=== PATIENT | female | born 1935 | race Caucasian/White ===

== ENCOUNTER 2016-03-07 10:40 | Outpatient (CLI) | payer MEDICARE, BC | END 2016-03-07 10:41 | disposition home or self-care (01) | DX: N30.00 Acute cystitis without hematuria (principal) ==

== ENCOUNTER 2016-03-27 10:14 | Emergency (ER) | payer MEDICARE, BC ==
[2016-03-27] MEDS ORDERED: CEPHALEXIN 250 MG CAPSULE PO STA (13:07)
[2016-03-27] MEDS ORDERED: CEPHALEXIN 250 MG CAPSULE PO ONE (13:08)
== END 2016-03-27 13:21 | disposition home or self-care (01) ==
DX: N39.0 Urinary tract infection, site not specified (principal); R42 Dizziness and giddiness; I44.7 Left bundle-branch block, unspecified; I44.0 Atrioventricular block, first degree; I48.91 Unspecified atrial fibrillation; Z79.01 Long term (current) use of anticoagulants; I10 Essential (primary) hypertension; Z86.73 Personal history of transient ischemic attack (TIA), and cerebral infarction without residual deficits
CPT/HCPCS: 36415; 80048; 81001; 84484; 85025; 87077; 87086; 87181; 93005; 93010; 99283; 99284; A9270

== ENCOUNTER 2016-04-04 11:15 | Observation (INO) | payer MEDICARE, BC ==
[2016-04-04] MEDS ORDERED: ONDANSETRON 4 MG/2 ML VIAL IVP PRN (14:32)
[2016-04-04] MEDS ORDERED: SODIUM CHLORIDE FLUSH 0.9% 10 ML SYRINGE IVP PRN (14:32)
[2016-04-04] MEDS: NS W/20 MEQ KCL 1,000 ML IV SCH (16:52)
[2016-04-04] MEDS: cefTRIAXone 1 GM in SODIUM CHLORIDE 0.9% MINIBAG 100 ML IV SCH (16:52)
[2016-04-04] MEDS: SACCHAROMYCES BOULARDII 250 MG CAPSULE PO SCH (16:52)
[2016-04-04] MEDS ORDERED: RIVAROXABAN 15 MG TABLET PO SCH (17:00)
[2016-04-04] MEDS ORDERED: ACETAMINOPHEN 325 MG TABLET PO PRN (20:31)
[2016-04-04] MEDS: SODIUM CHLORIDE FLUSH 0.9% 10 ML SYRINGE IVP SCH (20:58)
[2016-04-04] MEDS: OXYBUTYNIN 5MG TABLET PO SCH (20:58)
[2016-04-05] MEDS: NS W/20 MEQ KCL 1,000 ML IV SCH (05:56)
[2016-04-05] MEDS: CETIRIZINE 10 MG TABLET PO SCH ×3 (07:29→09:24)
[2016-04-05] MEDS ORDERED: POLYETHYLENE GLYCOL 3350 17 GM PACKET PO SCH (09:00)
[2016-04-05] MEDS ORDERED: diltiaZEM CD 120 MG CAPSULE PO SCH (09:00)
[2016-04-05] MEDS ORDERED: MULTIVITAMIN TABLET PO SCH (09:00)
[2016-04-05] MEDS ORDERED: CALCIUM CARBONATE CHEW 500 MG TABLET PO SCH (09:00)
[2016-04-05] MEDS ORDERED: CHOLECALCIFEROL 1,000 UNIT TABLET PO SCH (09:00)
[2016-04-05] MEDS: SODIUM CHLORIDE FLUSH 0.9% 10 ML SYRINGE IVP SCH (09:01)
[2016-04-05] MEDS: SACCHAROMYCES BOULARDII 250 MG CAPSULE PO SCH (09:10)
[2016-04-05] MEDS: cefTRIAXone 1 GM in SODIUM CHLORIDE 0.9% MINIBAG 100 ML IV SCH (09:10)
[2016-04-05] MEDS: OXYBUTYNIN 5MG TABLET PO SCH ×2 (09:11→09:24)
== END 2016-04-05 15:20 | disposition home or self-care (01) ==
DX: R55 Syncope and collapse (principal); I48.2 Chronic atrial fibrillation; R31.9 Hematuria, unspecified; I10 Essential (primary) hypertension; S00.83XA Contusion of other part of head, initial encounter; W18.39XA Other fall on same level, initial encounter; Z91.81 History of falling; Y93.01 Activity, walking, marching and hiking; Y92.003 Bedroom of unspecified non-institutional (private) residence as the place of occurrence of the external cause; Y99.8 Other external cause status; R82.90 Unspecified abnormal findings in urine; I44.0 Atrioventricular block, first degree; I11.9 Hypertensive heart disease without heart failure; Z86.73 Personal history of transient ischemic attack (TIA), and cerebral infarction without residual deficits; Z87.440 Personal history of urinary (tract) infections; Z87.442 Personal history of urinary calculi; M79.7 Fibromyalgia; Z79.2 Long term (current) use of antibiotics; Z79.02 Long term (current) use of antithrombotics/antiplatelets; Z79.899 Other long term (current) drug therapy
CPT/HCPCS: 36415; 70450; 72125; 80048; 81001; 84484; 85025; 87086; 93005; 93010; 93306; 96365; 96366; 99284; A9270; G0378

== ENCOUNTER 2016-05-18 21:38 | Outpatient (CLI) | payer MEDICARE, BC | END 2016-05-18 21:39 | disposition critical access hospital (66) | DX: R50.9 Fever, unspecified (principal) | CPT/HCPCS: A0425; A0429 ==

== ENCOUNTER 2016-05-18 21:43 | Inpatient (IN) | payer MEDICARE, BC ==
[2016-05-18] MEDS ORDERED: SODIUM CHLORIDE 0.9% 1,000 ML IV ONE (22:01)
[2016-05-18] MEDS ORDERED: ceFAZolin 2 GM/50 ML 50 ML IV SCH (23:45)
[2016-05-19] MEDS ORDERED: MIRTAZAPINE 15 MG TABLET PO SCH (01:00)
[2016-05-19] MEDS: SODIUM CHLORIDE FLUSH 0.9% 10 ML SYRINGE IVP PRN (02:29)
[2016-05-19] MEDS: SODIUM CHLORIDE 0.9% 1,000 ML IV SCH ×3 (02:30→14:36)
[2016-05-19] MEDS: SODIUM CHLORIDE FLUSH 0.9% 10 ML SYRINGE IVP SCH ×3 (05:26→19:52)
[2016-05-19] MEDS ORDERED: ceFAZolin 1 GM in SODIUM CHLORIDE 0.9% MINIBAG 100 ML IV SCH (06:00)
[2016-05-19] MEDS ORDERED: VANCOMYCIN PER PHARMACY 1 GM in SODIUM CHLORIDE 0.9% 250 ML IV SCH (08:00)
[2016-05-19] MEDS: POLYETHYLENE GLYCOL 3350 17 GM PACKET PO SCH (08:11)
[2016-05-19] MEDS: diltiaZEM CD 120 MG CAPSULE PO SCH (08:13)
[2016-05-19] MEDS: SACCHAROMYCES BOULARDII 250 MG CAPSULE PO SCH (08:13)
[2016-05-19] MEDS: LISINOPRIL 5 MG TABLET PO SCH (08:15)
[2016-05-19] MEDS: VANCOMYCIN INJ 1 GM in SODIUM CHLORIDE 0.9% 250 ML IV SCH ×2 (08:37→20:06)
[2016-05-19] MEDS: ACETAMINOPHEN 325 MG TABLET PO PRN ×3 (10:08→23:50)
[2016-05-19] MEDS: PIPERACILLIN/TAZOBACTAM 3.375 GM in SODIUM CHLORIDE 0.9% MINIBAG 100 ML IV SCH ×3 (11:12→23:50)
[2016-05-19] MEDS ORDERED: IOPAMIDOL-300 50 ML VIAL PO ONE (13:54)
[2016-05-19] MEDS ORDERED: IOPAMIDOL-300 100 ML VIAL IVP ONE (13:54)
[2016-05-20] MEDS: PIPERACILLIN/TAZOBACTAM 3.375 GM in SODIUM CHLORIDE 0.9% MINIBAG 100 ML IV SCH ×3 (05:31→18:05)
[2016-05-20] MEDS: SODIUM CHLORIDE FLUSH 0.9% 10 ML SYRINGE IVP SCH ×3 (06:38→18:05)
[2016-05-20] MEDS ORDERED: SODIUM CHLORIDE 0.9% 250 ML IV ONE (08:13)
[2016-05-20] MEDS: ACETAMINOPHEN 325 MG TABLET PO PRN ×2 (08:20→21:26)
[2016-05-20] MEDS: diltiaZEM CD 120 MG CAPSULE PO SCH (08:20)
[2016-05-20] MEDS: SACCHAROMYCES BOULARDII 250 MG CAPSULE PO SCH (08:20)
[2016-05-20] MEDS: POLYETHYLENE GLYCOL 3350 17 GM PACKET PO SCH (08:21)
[2016-05-20] MEDS: SODIUM CHLORIDE FLUSH 0.9% 10 ML SYRINGE IVP PRN ×4 (08:23→12:28)
[2016-05-20] MEDS: VANCOMYCIN INJ 1 GM in SODIUM CHLORIDE 0.9% 250 ML IV SCH (08:28)
[2016-05-20] MEDS: LISINOPRIL 5 MG TABLET PO SCH (08:28)
[2016-05-20] MEDS ORDERED: PNEUMOCOCCAL 13-VALENT CONJ 0.5 ML SYRINGE IM ONE (13:00)
[2016-05-21] MEDS: ZOLPIDEM 5 MG TABLET PO PRN (00:43)
[2016-05-21] MEDS: PIPERACILLIN/TAZOBACTAM 3.375 GM in SODIUM CHLORIDE 0.9% MINIBAG 100 ML IV SCH ×5 (00:47→23:57)
[2016-05-21] MEDS: ACETAMINOPHEN 325 MG TABLET PO PRN ×3 (05:03→19:22)
[2016-05-21] MEDS: SODIUM CHLORIDE FLUSH 0.9% 10 ML SYRINGE IVP SCH ×3 (06:04→21:31)
[2016-05-21] MEDS: SACCHAROMYCES BOULARDII 250 MG CAPSULE PO SCH (08:46)
[2016-05-21] MEDS: LISINOPRIL 5 MG TABLET PO SCH (08:46)
[2016-05-21] MEDS: diltiaZEM CD 120 MG CAPSULE PO SCH (08:46)
[2016-05-21] MEDS: POLYETHYLENE GLYCOL 3350 17 GM PACKET PO SCH (08:47)
[2016-05-21] MEDS: SODIUM CHLORIDE FLUSH 0.9% 10 ML SYRINGE IVP PRN ×2 (12:18→23:58)
[2016-05-21] MEDS ORDERED: MIRTAZAPINE 15 MG TABLET PO SCH (21:00)
[2016-05-22] MEDS: ZOLPIDEM 5 MG TABLET PO PRN (00:08)
[2016-05-22] MEDS: ACETAMINOPHEN 325 MG TABLET PO PRN ×2 (00:30→07:33)
[2016-05-22] MEDS: SODIUM CHLORIDE FLUSH 0.9% 10 ML SYRINGE IVP SCH (06:00)
[2016-05-22] MEDS: PIPERACILLIN/TAZOBACTAM 3.375 GM in SODIUM CHLORIDE 0.9% MINIBAG 100 ML IV SCH ×2 (06:01→11:33)
[2016-05-22] MEDS: diltiaZEM CD 120 MG CAPSULE PO SCH (08:38)
[2016-05-22] MEDS: POLYETHYLENE GLYCOL 3350 17 GM PACKET PO SCH (08:39)
[2016-05-22] MEDS: SACCHAROMYCES BOULARDII 250 MG CAPSULE PO SCH (08:39)
[2016-05-22] MEDS: SODIUM CHLORIDE FLUSH 0.9% 10 ML SYRINGE IVP PRN (11:33)
== END 2016-05-22 12:35 | disposition home or self-care (01) | DRG 690 ==
DX: N39.0 Urinary tract infection, site not specified (principal); L03.312 Cellulitis of back [any part except buttock and flank]; B96.4 Proteus (mirabilis) (morganii) as the cause of diseases classified elsewhere; I48.91 Unspecified atrial fibrillation; I49.9 Cardiac arrhythmia, unspecified; R32 Unspecified urinary incontinence; Z87.442 Personal history of urinary calculi; I10 Essential (primary) hypertension; I48.2 Chronic atrial fibrillation; N20.0 Calculus of kidney; M54.9 Dorsalgia, unspecified; R15.9 Full incontinence of feces; Z66 Do not resuscitate; Z96.89 Presence of other specified functional implants; Z98.890 Other specified postprocedural states; Z86.73 Personal history of transient ischemic attack (TIA), and cerebral infarction without residual deficits; Z79.2 Long term (current) use of antibiotics

== ENCOUNTER 2016-05-29 16:03 | Emergency (ER) | payer MEDICARE, BC ==
[2016-05-29] MEDS ORDERED: CEPHALEXIN 250 MG CAPSULE PO STA (16:54)
[2016-05-29] MEDS ORDERED: DOXYCYCLINE 100 MG TABLET PO STA (16:54)
[2016-05-29] MEDS ORDERED: CEPHALEXIN 250 MG CAPSULE PO ONE (16:57)
[2016-05-29] MEDS ORDERED: DOXYCYCLINE 100 MG TABLET PO ONE (16:58)
== END 2016-05-29 17:18 | disposition home or self-care (01) ==
DX: T81.4XXA Infection following a procedure, initial encounter (principal); L02.212 Cutaneous abscess of back [any part, except buttock and flank]; Y83.8 Other surgical procedures as the cause of abnormal reaction of the patient, or of later complication, without mention of misadventure at the time of the procedure
CPT/HCPCS: 87070; 87205; 99283; A9270

== ENCOUNTER 2016-07-12 15:28 | Outpatient (CLI) | payer MEDICARE, BC | END 2016-07-12 15:29 | LOC: LAB.R 15:28 | PROVIDERS: ATTEND Nurse Practitioner Primary Care | DX: N30.00 Acute cystitis without hematuria (principal) | CPT/HCPCS: 87077; 87086 ==

== ENCOUNTER 2016-07-22 11:45 | Outpatient (CLI) | payer MEDICARE, BC | END 2016-07-22 11:46 | disposition home or self-care (01) | LOC: LAB.R 11:45 | PROVIDERS: ATTEND Internal Medicine | DX: R30.0 Dysuria (principal) | CPT/HCPCS: 87086 ==

== ENCOUNTER 2016-07-27 11:15 | Outpatient (CLI) | payer MEDICARE, BC ==
[2016-07-27 18:19] LABS: BILIRUBIN,URINE NEGATIVE (NEGATIVE)
[2016-07-27 18:24] LABS: UA w/ MICROSCOPIC CHARGE YES
[2016-07-27 19:12] LABS: UR CULTURE IF IND INDICATED
== END 2016-07-27 11:16 ==
LOC: LAB.R 11:15
PROVIDERS: ATTEND Physician Assistant Medical
DX: R30.0 Dysuria (principal)
CPT/HCPCS: 81001; 81003; 87077; 87086

== ENCOUNTER 2016-08-16 11:23 | Outpatient (CLI) | payer MEDICARE, BC | END 2016-08-16 11:24 | disposition home or self-care (01) | LOC: LAB.R 11:23 | PROVIDERS: ATTEND Physician Assistant Medical | DX: N30.01 Acute cystitis with hematuria (principal) | CPT/HCPCS: 87077; 87086 ==

== ENCOUNTER 2016-08-22 14:10 | Outpatient (CLI) | payer MEDICARE, BC | END 2016-08-22 14:11 | disposition home or self-care (01) | LOC: LAB.R 14:10 | PROVIDERS: ATTEND Physician Assistant Medical | DX: N30.01 Acute cystitis with hematuria (principal) | CPT/HCPCS: 87077; 87086 ==

== ENCOUNTER 2016-08-31 09:00 | Outpatient (CLI) | payer MEDICARE, BC | END 2016-08-31 09:01 | disposition home or self-care (01) | LOC: LAB.R 09:00 | PROVIDERS: ATTEND Physician Assistant Medical | DX: N30.00 Acute cystitis without hematuria (principal) | CPT/HCPCS: 87077; 87086 ==

== ENCOUNTER 2016-09-14 11:25 | Outpatient (CLI) | payer MEDICARE, BC | END 2016-09-14 11:26 | disposition home or self-care (01) | LOC: LAB.R 11:25 | PROVIDERS: ATTEND Physician Assistant Medical | DX: N39.0 Urinary tract infection, site not specified (principal) | CPT/HCPCS: 87077; 87086 ==

== ENCOUNTER 2016-09-29 11:27 | Outpatient (CLI) | payer MEDICARE, BC | END 2016-09-29 11:28 | disposition home or self-care (01) | LOC: LAB.R 11:27 | PROVIDERS: ATTEND Physician Assistant Medical | DX: N39.0 Urinary tract infection, site not specified (principal) | CPT/HCPCS: 87077; 87086 ==

== ENCOUNTER 2016-10-25 09:10 | Outpatient (CLI) | payer MEDICARE, BC | END 2016-10-25 09:11 | LOC: LAB.R 09:10 | PROVIDERS: ATTEND Nurse Practitioner Primary Care | DX: N39.0 Urinary tract infection, site not specified (principal) | CPT/HCPCS: 87086 ==

== ENCOUNTER 2016-11-04 12:42 | Outpatient (CLI) | payer MEDICARE, BC | END 2016-11-04 12:43 | disposition home or self-care (01) | LOC: LAB.R 12:42 | PROVIDERS: ATTEND Physician Assistant Medical | DX: N39.0 Urinary tract infection, site not specified (principal) | CPT/HCPCS: 87086 ==

== ENCOUNTER 2016-11-07 07:59 | Outpatient (CLI) | payer MEDICARE, BC ==
[2016-11-07 08:33] LABS: BASOPHILS # (AUTO) 0.1 10^3/uL (0.0-0.1); BASOPHILS % (AUTO) 1.3 %; EOSINOPHILS # (AUTO) 0.1 10^3/uL (0.0-0.7); HCT - HEMATOCRIT 40.3 % (37.0-47.0); HGB - HEMOGLOBIN 13.5 g/dL (12.0-16.0); LYMPHOCYTES # (AUTO) 2.1 10^3/uL (1.5-3.5); LYMPHOCYTES % (AUTO) 37.8 %; MEAN CORPUSCULAR HEMOGLOBIN 29.3 pg (27.0-31.0); MEAN CORPUSCULAR HGB CONC 33.5 g/dL (32.0-36.0); MEAN CORPUSCULAR VOLUME 87.7 fL (81.0-99.0); MEAN PLATELET VOLUME 8.4 fL (7.9-10.8); MONOCYTES # (AUTO) 0.6 10^3/uL (0.0-1.0); MONOCYTES % (AUTO) 11.2 %; NEUTROPHILS # (AUTO) 2.7 10^3/uL (1.5-6.6); NEUTROPHILS % (AUTO) 47.7 %; UNCORRECTED WHITE BLOOD COUNT 5.6 x10^3/uL; WHITE BLOOD COUNT 5.6 x10^3/uL (4.8-10.8)
[2016-11-07 08:53] LABS: ALBUMIN/GLOBULIN RATIO 1.3 (1.0-2.2); BILIRUBIN,TOTAL 0.6 mg/dL (0.2-1.0); BUN - BLOOD UREA NITROGEN 18 mg/dL (6-20); CALCIUM 8.9 mg/dL (8.5-10.3); CARBON DIOXIDE - CO2 25 mmol/L (21-32); CHLORIDE 103 mmol/L (101-111); CHOL/HDL RATIO 3.1 (<4.4); CHOLESTEROL 214 mg/dL; CREATININE 0.6 mg/dL (0.4-1.0); GFR - MDRD 95 (>89); GLUCOSE 97 mg/dL (70-100); HDL CHOLESTEROL 68 mg/dL; LDL/HDL RATIO 1.9 (<4.4); SODIUM 136 mmol/L (135-145); TOTAL PROTEIN 7.1 g/dL (6.7-8.2); TRIGLYCERIDES 70 mg/dL; VLDL CHOLESTEROL 14 mg/dL
== END 2016-11-07 08:00 | disposition home or self-care (01) ==
LOC: LAB 07:59
PROVIDERS: ATTEND Physician Assistant Medical
DX: Z79.899 Other long term (current) drug therapy (principal); I48.2 Chronic atrial fibrillation; I10 Essential (primary) hypertension
CPT/HCPCS: 36415; 80053; 80061; 84443; 85025

== ENCOUNTER 2016-11-16 08:00 | Outpatient (CLI) | payer MEDICARE, BC ==
[2016-11-16 09:28] LABS: BILIRUBIN,URINE NEGATIVE (NEGATIVE)
[2016-11-16 09:31] LABS: UA w/ MICROSCOPIC CHARGE YES
[2016-11-16 09:41] LABS: WBC,URINE 0-3 /HPF (0-5)
[2016-11-16 09:42] LABS: UR CULTURE IF IND INDICATED
== END 2016-11-16 08:01 | disposition home or self-care (01) ==
LOC: LAB.R 08:00
PROVIDERS: ATTEND Physician Assistant Medical
DX: R31.9 Hematuria, unspecified (principal)
CPT/HCPCS: 81001; 81003; 87086

== ENCOUNTER 2016-11-21 10:49 | Outpatient (CLI) | payer MEDICARE, BC | END 2016-11-21 10:50 | disposition home or self-care (01) | LOC: LAB.R 10:49 | PROVIDERS: ATTEND Physician Assistant Medical | DX: N39.0 Urinary tract infection, site not specified (principal) | CPT/HCPCS: 87086 ==

== ENCOUNTER 2016-12-05 10:20 | Outpatient (CLI) | payer MEDICARE, BC | END 2016-12-05 10:21 | disposition home or self-care (01) | LOC: LAB.R 10:20 | PROVIDERS: ATTEND Physician Assistant Medical | DX: N39.0 Urinary tract infection, site not specified (principal) | CPT/HCPCS: 87086 ==

== ENCOUNTER 2016-12-10 08:00 | Outpatient (CLI) | payer MEDICARE, BC ==
[2016-12-10 12:59] LABS: BILIRUBIN,URINE NEGATIVE (NEGATIVE); UA CHARGE (STRIP ONLY) YES; UR CULTURE IF IND NOT INDICATED
== END 2016-12-10 08:01 | disposition home or self-care (01) ==
LOC: LAB.R 08:00
PROVIDERS: ATTEND Nurse Practitioner Primary Care
DX: R31.9 Hematuria, unspecified (principal)
CPT/HCPCS: 81001; 81003; 87086

== ENCOUNTER 2016-12-29 09:15 | Outpatient (CLI) | payer MEDICARE, BC ==
[2016-12-29 18:06] LABS: BILIRUBIN,URINE NEGATIVE (NEGATIVE)
[2016-12-29 18:21] LABS: UA w/ MICROSCOPIC CHARGE YES
[2016-12-29 18:24] LABS: WBC,URINE >25 /HPF (0-5)
[2016-12-29 18:25] LABS: UR CULTURE IF IND INDICATED
== END 2016-12-29 09:16 ==
LOC: LAB.R 09:15
PROVIDERS: ATTEND Nurse Practitioner Primary Care
DX: R31.9 Hematuria, unspecified (principal)
CPT/HCPCS: 81001; 81003; 87086

== ENCOUNTER 2017-01-13 10:40 | Outpatient (CLI) | payer MEDICARE, BC ==
[~2017-01-13 10:40] MED LIST: IOPAMIDOL-300 100 ML VIAL ONE
[2017-01-13 11:05] LABS: CREATININE 0.8 mg/dL (0.4-1.0)
[2017-01-13] MEDS ORDERED: IOPAMIDOL-300 100 ML VIAL IVP ONE (13:03)
--- NOTE | 2017-01-13 14:18 | CT Report ---
CT OF THE ABDOMEN AND PELVIS WITH AND WITHOUT CONTRAST: 01/13/2017 CLINICAL INDICATION: Gross hematuria. TECHNIQUE: Axial CT images of the abdomen and pelvis were obtained prior to and following 100 mL of I sovue-300 intravenously, using split bolus technique. COMPARISON: 05/19/2016. FINDINGS: Limited evaluation of the lung bases again demonstrates atelectasis. ABDOMEN: On the unenhanced images, left renal stone burden appears stable, with the dominant calculus in the upper pole of the left kidney measuring 1.6 cm, and a middle caliceal calculus measuring 2.2 cm. No right renal calculi are seen. No left hydronephrosis is appreciated. The kidneys demonstrate p rompt and symmetric excretion of contrast. Bilateral cortical cysts are present. The liver again demo nstrates a cyst in the left lobe. Postoperative changes of cholecystectomy are stable. The spleen, pa ncreas, and adrenal glands are unremarkable. No bowel dilatation, free gas, or free fluid is present. No abdominal adenopathy is seen. PELVIS: The distal ureters and urinary bladder appear unremarkable. No pelvic adenopathy or free flui d is present. Postoperative changes of hysterectomy are present. A pessary is noted in the vagina. The osseous structures demonstrate degenerative changes. IMPRESSION: NO SIGNIFICANT INTERVAL CHANGE IN LEFT NEPHROLITHIASIS. INCIDENTAL RENAL CYSTS. NO SOLID RENAL LESION IS APPRECIATED. In accordance with CT protocol optimization, one or more of the following dose reduction techniques w ere utilized for this exam: automated exposure control, adjustment of mA and/or KV based on patient size, or use of iterative reconstructive technique. JOB #: [id number] EXT JOB #:[id number]
== END 2017-01-13 10:41 | disposition home or self-care (01) ==
LOC: DI 10:40
PROVIDERS: ATTEND Obstetrics & Gynecology Female Pelvic Medicine and Reconstructive Surgery
DX: N20.0 Calculus of kidney (principal); Z79.899 Other long term (current) drug therapy
CPT/HCPCS: 36415; 74178; 82565; 84520; Q9967

== ENCOUNTER 2017-01-23 08:00 | Outpatient (CLI) | payer MEDICARE, BC | END 2017-01-23 08:01 | disposition home or self-care (01) | LOC: LAB.R 08:00 | PROVIDERS: ATTEND Physician Assistant Medical | DX: N39.0 Urinary tract infection, site not specified (principal) | CPT/HCPCS: 87086 ==

== ENCOUNTER 2017-02-06 15:10 | Outpatient (CLI) | payer MEDICARE, BC | END 2017-02-06 15:11 | disposition home or self-care (01) | LOC: LAB.R 15:10 | PROVIDERS: ATTEND Physician Assistant Medical | DX: N39.0 Urinary tract infection, site not specified (principal) | CPT/HCPCS: 87086 ==

== ENCOUNTER 2017-03-01 12:10 | Outpatient (CLI) | payer MEDICARE, BC | END 2017-03-01 12:11 | disposition home or self-care (01) | LOC: LAB.R 12:10 | PROVIDERS: ATTEND Physician Assistant Medical | DX: N39.0 Urinary tract infection, site not specified (principal) | CPT/HCPCS: 87086 ==

== ENCOUNTER 2017-03-19 13:15 | Outpatient (CLI) | payer MEDICARE, BC | END 2017-03-19 13:16 | disposition home or self-care (01) | LOC: LAB.R 13:15 | PROVIDERS: ATTEND Physician Assistant Medical | DX: N39.0 Urinary tract infection, site not specified (principal) | CPT/HCPCS: 87086 ==

== ENCOUNTER 2017-04-12 10:43 | Outpatient (CLI) | payer MEDICARE, BC | END 2017-04-12 10:44 | disposition home or self-care (01) | LOC: LAB.R 10:43 | PROVIDERS: ATTEND Physician Assistant Medical | DX: N39.0 Urinary tract infection, site not specified (principal) | CPT/HCPCS: 87086 ==

== ENCOUNTER 2017-05-30 10:28 | Outpatient (CLI) | payer MEDICARE, BC ==
[2017-05-30 10:56] LABS: ALBUMIN/GLOBULIN RATIO 1.2 (1.0-2.2); BILIRUBIN,TOTAL 0.4 mg/dL (0.2-1.0); CALCIUM 9.2 mg/dL (8.5-10.3); CREATININE 0.8 mg/dL (0.4-1.0); TOTAL PROTEIN 7.4 g/dL (6.7-8.2); URIC ACID 4.1 mg/dL (2.6-7.2)
== END 2017-05-30 10:29 | disposition home or self-care (01) ==
LOC: LAB 10:28
PROVIDERS: ATTEND Urology
DX: N20.0 Calculus of kidney (principal)
CPT/HCPCS: 36415; 80053; 83970; 84550

== ENCOUNTER 2017-06-14 08:15 | Outpatient (CLI) | payer MEDICARE, BC | END 2017-06-14 08:16 | disposition home or self-care (01) | LOC: LAB.R 08:15 | PROVIDERS: ATTEND Physician Assistant Medical | DX: N39.0 Urinary tract infection, site not specified (principal) | CPT/HCPCS: 87086 ==

== ENCOUNTER 2017-06-29 09:50 | Outpatient (CLI) | payer MEDICARE, BC | END 2017-06-29 09:51 | disposition home or self-care (01) | LOC: LAB.R 09:50 | PROVIDERS: ATTEND Physician Assistant Medical | DX: N39.0 Urinary tract infection, site not specified (principal) | CPT/HCPCS: 87086 ==

== ENCOUNTER 2017-07-07 11:27 | Inpatient (IN) | payer MEDICARE, BC ==
[2017-07-07] MEDS ORDERED: SODIUM CHLORIDE 0.9% 1,000 ML IV ONE (12:04)
[2017-07-07 12:10] LABS: BASOPHILS # (AUTO) 0.1 10^3/uL (0.0-0.1); BASOPHILS % (AUTO) 0.4 %; LYMPHOCYTES # (AUTO) 0.7 10^3/uL (1.5-3.5); LYMPHOCYTES % (AUTO) 3.4 %; MEAN CORPUSCULAR HEMOGLOBIN 29.1 pg (27.0-31.0); MEAN CORPUSCULAR HGB CONC 33.2 g/dL (32.0-36.0); MEAN CORPUSCULAR VOLUME 87.7 fL (81.0-99.0); MEAN PLATELET VOLUME 8.8 fL (7.9-10.8); MONOCYTES # (AUTO) 0.8 10^3/uL (0.0-1.0); NEUTROPHILS # (AUTO) 18.2 10^3/uL (1.5-6.6); NEUTROPHILS % (AUTO) 92.2 %; PLT - PLATELET COUNT 291 10^3/uL (130-450); RED CELL DISTRIBUTION WIDTH 14.7 % (12.0-15.0); WHITE BLOOD COUNT 19.7 x10^3/uL (4.8-10.8)
[2017-07-07 12:16] LABS: CALCIUM 9.2 mg/dL (8.5-10.3); CREATININE 0.8 mg/dL (0.4-1.0)
--- NOTE | 2017-07-07 12:22 | ED Physician Documentation ---
History of Present Illness - Stated complaint Stated Complaint: FEMALE ,DIZZY - Chief complaint Chief Complaint: General - Additonal information Additional information: hx from pt 82 f hx recurrent urinary infections also kidney stones had stones removed in April in [place] - had imaging two days ago and no residual stones per pt UTI sx - frequency - seen by PMD and put on keflex June 29, not better so started bactrim as well first does last night has had sepsis 2/2 urine infections as well she feels that may be developing again profoundly weak, near syncope, nauseated denies any pain - no ROMERO CP AP back pain no diarrhea sent by clinic Review of Systems Constitutional: reports: Myalgias, Fatigue. denies: Fever, Chills Cardiac: denies: Chest pain / pressure, Palpitations Respiratory: denies: Dyspnea, Cough GI: reports: Nausea. denies: Abdominal Pain, Vomiting, Diarrhea : reports: Frequency (q1h) Musculoskeletal: denies: Back pain Neurologic: reports: Generalized weakness, Near syncope Endocrine: reports: Easy bruising / bleeding (xarelto) Immunocompromised: denies: Immunocompromised PD PAST MEDICAL HISTORY - Past Medical History Cardiovascular: Hypertension, Atrial fibrillation, Arrhythmia Respiratory: None Neuro: TIA, Fainting Endocrine/Autoimmune: None GI: Other : Retention, Incontinence, Chronic bladder infection, Frequency, Kidney stones HEENT: None, Chronic vision loss Psych: Anxiety Musculoskeletal: Fibromyalgia, Fatigue Derm: None - Past Surgical History Past Surgical History: Yes General: 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 /BAKER SECOND: section, Hysterectomy HEENT: Cataracts, Tonsil/Adenoidectomy - Present Medications Home Medications: Ambulatory Orders Medication Instructions Recorded Confirmed diltiaZEM CD [Cardizem Cd] 180 mg PO DAILY 06/27/15 07/07/17 Rivaroxaban [Xarelto] 15 mg PO QDDINNER 05/29/16 07/07/17 Cholecalciferol (Vitamin D3) 3 cap PO DAILY 10/11/16 07/07/17 [Vitamin D3] Docusate Sodium [Colace Clear] 100 mg PO DAILY 10/11/16 07/07/17 Estradiol [Estring] 2 mg VG UD 10/11/16 10/11/16 Mirtazapine 3.5 mg PO QPM 10/11/16 07/07/17 Multivitamin [Multiple Vitamins] 1 each PO DAILY 10/11/16 07/07/17 [place]-3/Dha/Epa/Fish Oil [[place] 3 1,000 mg PO DAILY 10/11/16 07/07/17 500 Softgel] Latanoprost 0.005% Ophth Drops 1 drops EACHEYE QPM 07/07/17 07/07/17 [Xalatan Ophth Drops] Magnesium Oxide [Magnesium] 400 mg PO QDAC 07/07/17 07/07/17 Nitrofurantoin Macrocrystal 100 mg PO DAILY 07/07/17 07/07/17 [Nitrofurantoin] - Allergies Allergies/Adverse Reactions: Allergies Allergy/AdvReac Type Severity Reaction Status Date / Time ciprofloxacin [From Cipro] Allergy Severe Rash Verified 07/07/17 11:34 ciprofloxacin HCl * Allergy Severe Rash Verified 07/07/17 11:34 [From Cipro] Heparin Analogues Allergy Severe Hives Verified 07/07/17 11:34 metoclopramide HCl * Allergy Severe Anxiety Verified 07/07/17 11:34 [From Reglan] prednisone Allergy Severe Rash Verified 07/07/17 11:34 Sulfa (Sulfonamide Allergy Severe Rash Verified 07/07/17 11:34 Antibiotics) clopidogrel bisulfate * Allergy Unknown Verified 07/07/17 11:34 [From Plavix] oxycodone [Oxycodone] AdvReac Severe Edema Verified 07/07/17 11:34 hyrdrochloroquine Allergy Unknown Uncoded 07/07/17 11:34 - Social History Does the pt smoke?: No Smoking Status: Never smoker Does the pt drink ETOH?: No Does the pt have substance abuse?: No - Immunizations Immunizations are current?: Yes - POLST Patient has POLST: Yes POLST Status: Full Code PD ED PE NORMAL - Vitals Vital signs reviewed: Yes - General General: Alert and oriented X 3 - HEENT HEENT: PERRL - Neck Neck: Supple, no meningeal sign - Cardiac Cardiac: RRR - Respiratory Respiratory: No respiratory distress, Clear bilaterally - Abdomen Abdomen: Soft, Non tender - Back Back: No CVA TTP - Derm Derm: Other (petecchia to arms and less so chest abd and leg - family and pt state not new) - Neuro Neuro: Alert and oriented X 3 Results - Vitals Vitals: Vital Signs - 24 hr 05/11/18 05/11/18 11:30 13:31 Temperature 37.3 C Heart Rate 92 70 Respiratory 16 16 Rate Blood Pressure 109/42 L 124/55 L O2 Saturation 98 96 Oxygen O2 Source Room air - Labs Labs: Laboratory Tests 07/07/17 07/07/17 07/07/17 12:00 12:04 12:04 WBC 19.7 H RBC 4.80 Hgb 14.0 Hct 42.1 MCV 87.7 MCH 29.1 MCHC 33.2 RDW 14.7 Plt Count 291 MPV 8.8 Neut # 18.2 H Lymph # 0.7 L Real # 0.8 Eos # 0.0 Baso # 0.1 Absolute Nucleated RBC 0.00 Nucleated RBC % 0.0 PT 14.0 H INR 1.3 H APTT 29.5 Sodium 133 L Potassium 3.6 Chloride 98 L Carbon Dioxide 26 Anion Gap 9.0 BUN 18 Creatinine 0.8 Estimated GFR (MDRD) 68 L Glucose 153 H Lactic Acid Calcium 9.2 Urine Color Urine Clarity Urine pH Ur Specific [place] Urine Protein Urine Glucose (UA) Urine Ketones Urine Occult Blood Urine Nitrite Urine Bilirubin Urine Urobilinogen Ur Leukocyte Esterase Urine RBC Urine WBC Ur Squamous Epith Cells Urine Bacteria Ur Microscopic Review Urine Culture Comments 07/07/17 07/07/17 12:04 13:53 WBC RBC Hgb Hct MCV MCH MCHC RDW Plt Count MPV Neut # Lymph # Real # Eos # Baso # Absolute Nucleated RBC Nucleated RBC % PT INR APTT Sodium Potassium Chloride Carbon Dioxide Anion Gap BUN Creatinine Estimated GFR (MDRD) Glucose Lactic Acid 1.6 Calcium Urine Color YELLOW Urine Clarity CLEAR Urine pH 6.0 Ur Specific [place] 1.020 Urine Protein NEGATIVE Urine Glucose (UA) NEGATIVE Urine Ketones TRACE Urine Occult Blood LARGE H Urine Nitrite NEGATIVE Urine Bilirubin NEGATIVE Urine Urobilinogen 0.2 (NORMAL) Ur Leukocyte Esterase NEGATIVE Urine RBC 6-10 H Urine WBC 0-3 Ur Squamous Epith Cells RARE Squamous Urine Bacteria Rare Ur Microscopic Review INDICATED Urine Culture Comments NOT INDICATED PD MEDICAL DECISION MAKING - ED course ED course: 82 f known E coli urinary infection based on culture from office failed outpt tx with keflex (UA with only few bacteria now but still with urinary freq and chills etc) cx from 06/29 = E coli sensitive to everything WBC 19, lactate < 2 gave 1 L NS and IV rocephin small blood in urine noted - considered imaging but pt states she had imaging just 48 hr ago by urology that showed no residual stones will reassess after meds and IVF but likely admit pt feeling a bit better after fluid and IV ab but given prior sepsis elev WBC and petecchiae on exam will admit for obs and IV ab pending blood cx etc Departure - Departure Disposition: ED Place in Observation Clinical Impression: Petechiae Urinary tract infection Qualifiers: Urinary tract infection type: site unspecified Hematuria presence: without hematuria Qualified Code(s): N39.0 - Urinary tract infection, site not specified Leukocytosis Qualifiers: Leukocytosis type: unspecified Qualified Code(s): D72.829 - Elevated white blood cell count, unspecified Condition: Good Discharge Date/Time: 07/07/17 15:02
[2017-07-07] MEDS ORDERED: cefTRIAXone 1 GM in SODIUM CHLORIDE 0.9% MINIBAG 100 ML IV STA (12:24)
[2017-07-07 12:58] LABS: INR 1.3 (0.8-1.2)
[2017-07-07] MEDS ORDERED: SODIUM CHLORIDE FLUSH 0.9% 10 ML SYRINGE IVP PRN (13:56)
--- NOTE | 2017-07-07 13:58 | HISTORY & PHYSICAL EXAMINATION ---
Chief Complaint - Chief Complaint Chief Complaint: weakness History of Present Illness - Admitted From Admitted From:: ED - History Obtained From Records Reviewed: yes History obtained from: chart review, patient Exam Limitations: none - History of Present Illness HPI Comment/Other: Nidhi Fair is a well-kept 82-year old female with a past medical history of chronic fatigue syndrome, hypertension, atrial fibrillation- on Xarelto, arrhythmia, TIA, syncope, seasonal allergies, urinary retention, urinary incontinence, chronic bladder infections, kidney stones with removal, anxiety, and fibromyalgia. The patient is being treated out patient for her chronic UTIs under the care of Samanta Pozo. Today she called the clinic and could not be seen, so with her increased weakness and dizziness was advised to come to our ED. She had a consult appointment at a [facility] urology clinic just yesterday who started her on Macrobid and shared 24 hour urine results with her. Once in the ED she was found to have an elevated WBC count of 19.7, slightly hyponatremic with a sodium of 133, and a normal lactic acid level of 1.6. She states that she has had sepsis a few years ago that led to a hospitalization. She will be admitted to inpatient for further work up of this acute illness. 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: reports: Other (status post hysterectomy for bleeding and bladder stimulator-now ex-planted.) : reports: Retention, Incontinence, Chronic bladder infection, Nocturia, Frequency, Kidney stones HEENT: reports: None, Chronic vision loss Psych: reports: Anxiety Musculoskeletal: reports: Fibromyalgia, Fatigue Derm: reports: None MRSA Hx?: No - Past Surgical History General: reports: 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 /DIE CAST TECHNICIAN: reports: section, Hysterectomy HEENT: reports: Cataracts, Tonsil/Adenoidectomy - Family & Social History Family History: Mother: , Cancer, Diabetes, Type 2, Father: , Cancer, Sister: Alive and Well, , Cancer, Brother: Alive and Well, , Cancer Family History Comment/Other: Mother of heart disease, CVA, father had a history of DM. Living arrangement: At home Living Situation: With family Social History [place]: [place] in [place]. She has stopped driving. She has one daughter. 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 She lives with her daughter, but is independent. They have 2 dogs. She denies tobacco, alcohol, or illicit drug use. She wishes to be a DNR. - Substance History Use: Uses substance without health or social issues: NONE Abuse: Recurrent use of substance despite neg consequences: NONE Dependence: Experiences withdrawal or developed tolerances: NONE - POLST Patient has POLST: No POLST Status: DNR Meds/Allgy - Home Medications Home Medications: Ambulatory Orders Medication Instructions Recorded Confirmed diltiaZEM CD [Cardizem Cd] 180 mg PO DAILY 06/27/15 07/07/17 Rivaroxaban [Xarelto] 15 mg PO QDDINNER 05/29/16 07/07/17 Cholecalciferol (Vitamin D3) 3 cap PO DAILY 10/11/16 07/07/17 [Vitamin D3] Docusate Sodium [Colace Clear] 100 mg PO DAILY 10/11/16 07/07/17 Estradiol [Estring] 2 mg VG UD 10/11/16 10/11/16 Mirtazapine 3.5 mg PO QPM 10/11/16 07/07/17 Multivitamin [Multiple Vitamins] 1 each PO DAILY 10/11/16 07/07/17 [place]-3/Dha/Epa/Fish Oil [[place] 3 1,000 mg PO DAILY 10/11/16 07/07/17 500 Softgel] Latanoprost 0.005% Ophth Drops 1 drops EACHEYE QPM 07/07/17 07/07/17 [Xalatan Ophth Drops] Magnesium Oxide [Magnesium] 400 mg PO QDAC 07/07/17 07/07/17 Apixaban [Eliquis] 5 mg PO BID #60 tablet 07/09/17 - Allergies Allergies/Adverse Reactions: Allergies Allergy/AdvReac Type Severity Reaction Status Date / Time ciprofloxacin [From Cipro] Allergy Severe Rash Verified 07/07/17 11:34 ciprofloxacin HCl * Allergy Severe Rash Verified 07/07/17 11:34 [From Cipro] Heparin Analogues Allergy Severe Hives Verified 07/07/17 11:34 metoclopramide HCl * Allergy Severe Anxiety Verified 07/07/17 11:34 [From Reglan] prednisone Allergy Severe Rash Verified 07/07/17 11:34 Sulfa (Sulfonamide Allergy Severe Rash Verified 07/07/17 11:34 Antibiotics) clopidogrel bisulfate * Allergy Unknown Verified 07/07/17 11:34 [From Plavix] oxycodone [Oxycodone] AdvReac Severe Edema Verified 07/07/17 11:34 hyrdrochloroquine Allergy Unknown Uncoded 07/07/17 11:34 Review of Systems - Constitutional Constitutional: reports: Fatigue, Weakness, Poor appetite - Ears, Nose & Throat Ears, Nose & Throat: reports: Ear pain (left, chronic but thinks this is from a clogged sinus) - Cardiovascular Cariovascular: reports: Lightheadedness, Decr. exercise tolerance - Gastrointestinal Gastrointestinal: reports: Constipation, Diarrhea, Nausea, Poor appetite - Genitourinary Genitourinary: reports: Dysuria, Frequency, Urgency, Incontinence, Flank pain, Nocturia - Musculoskeletal Musculoskeletal: reports: Muscle aches - Integumentary Integumentary: reports: Dryness, Other (petechiae) - Neurological Neurological: reports: General weakness, Dizziness - Psychiatric Psychiatric: reports: Anxiety - Hematologic/Lymphatic Hematologic/Lymphatic: reports: Petechiae (all extremities, torso) - All Other Systems All Other Systems: reports: Reviewed and negative Exam - Vital Signs Reviewed Vital Signs: Yes Vital Signs: Vital Signs x48h Temp Pulse Resp BP Pulse Ox 07/07/17 13:31 70 16 124/55 L 96 07/07/17 11:30 37.3 C 92 16 109/42 L 98 - Physical Exam General Appearance: positive: No acute distress, Alert Eyes Bilateral: positive: Normal inspection, PERRL ENT: positive: ENT inspection nml, Pharynx nml, No signs of dehydration Neck: positive: Nml inspection, Thyroid nml, No JVD, Trachea midline Respiratory: positive: Chest non-tender, No respiratory distress, Breath sounds nml Cardiovascular: positive: Regular rate & rhythm, Systolic murmur, Decreased pulse(s) Peripheral Pulses: positive: 1+ Abdomen: positive: Non-tender, No organomegaly, Nml bowel sounds, Other (rounded , soft.) Back: positive: Nml inspection Skin: positive: No rash, Warm, Dry, Other (petechia noted on torso, and all extremities.) Extremities: positive: Non-tender, Full ROM, Pedal edema (chronic, mild BLE), Joint swelling Neurologic/Psychiatric: positive: Oriented x3, CN's nml (2-12), Motor nml, Sensation nml, Depressed mood/affect Reflexes: Bicep (R): 3+, Bicep (L): 3+ Conclusion/Plan - Problem List (1) Petechiae Conclusion/Plan: The patient is found to have petechiae over much of her torso and all extremities. Plan: Hold xarelto and start apixiban. (2) Urinary tract infection Conclusion/Plan: The patient has been seeing a Urologist, Celestino Flores from [facility] who recently prescribed Bactrim. Qualifiers: Urinary tract infection type: site unspecified Hematuria presence: without hematuria Qualified Code(s): N39.0 - Urinary tract infection, site not specified (3) Atrial fibrillation Conclusion/Plan: The patient states that she can tell when she has her arrhthmia and she has palpitations. She has been taking Xarelto. Today upon admission, the patient has wide spread petechie noted over her torso, and all extremities. Plan: Change to Apixaban to see if this improves. Qualifiers: Atrial fibrillation type: chronic Qualified Code(s): I48.2 - Chronic atrial fibrillation (4) Urinary incontinence Conclusion/Plan: The patient has had this for several years and denies retention. She has tried oxybutynin, but is not sure if this has worked for her. Plan: Provide a pure wick device for comfort, I/O and treat this infection. Qualifiers: Urinary Incontinence type: stress incontinence Qualified Code(s): N39.3 - Stress incontinence (female) (male) - Lab Results Lab results reviewed: Yes Fish Bones: 07/09/17 06:38 07/09/17 06:38 - Diagnostic Imaging Results Diagnostic Imaging Results: positive: Prelim report reviewed, Final report reviewed - EKG Results EKG Interpreted Independently: Yes EKG Comparison: Unchanged from prior EKG Core Measures - Anticipated LOS I expect patient to be DC'd or transferred within 96 hours.: Yes - DVT/VTE - Prophylaxis VTE/DVT Device ordered at admit?: Yes VTE/DVT Prophylaxis med ordered at admit?: Yes - Stroke - Rehab Assessment Rehab services assessment to be ordered?: Yes - AMI - Statin at Admit Aspirin Prescribed on Admit: Yes
[2017-07-07 14:05] LABS: BILIRUBIN,URINE NEGATIVE (NEGATIVE); GLUCOSE, URINE (UA) NEGATIVE (NEGATIVE); KETONES,URINE (UA) TRACE mg/dL (NEGATIVE); LEUKOCYTE ESTERASE, URINE NEGATIVE (NEGATIVE); NITRITE,URINE NEGATIVE (NEGATIVE); OCCULT BLOOD,URINE LARGE (NEGATIVE); PROTEIN,URINE NEGATIVE (NEGATIVE); UROBILINOGEN,URINE 0.2 (NORMAL) E.U./dL (NORMAL)
[2017-07-07 14:09] LABS: CLARITY,URINE CLEAR (CLEAR)
[2017-07-07 14:24] LABS: BACTERIA,URINE Rare /HPF (None Seen); SQUAMOUS EPITHELIAL CELL,UR RARE Squamous (<= Few)
[2017-07-07] MEDS ORDERED: ENOXAPARIN 60 MG/0.6 ML SYRINGE SUBQ SCH (19:00)
[2017-07-07] MEDS: SODIUM CHLORIDE FLUSH 0.9% 10 ML SYRINGE IVP SCH (19:33)
[2017-07-07] MEDS: APIXABAN 2.5 MG TABLET PO SCH ×2 (19:33→19:50)
[2017-07-07] MEDS: NS W/20 MEQ KCL 1,000 ML IV SCH (19:34)
[2017-07-07] MEDS: MEROPENEM 1 GM in SODIUM CHLORIDE 0.9% MINIBAG 100 ML IV SCH (19:38)
[2017-07-07] MEDS: MIRTAZAPINE 15 MG TABLET PO SCH (21:16)
[2017-07-07] MEDS: LATANOPROST 0.005% OPHTH DROPS EACHEYE SCH (21:17)
[2017-07-07] MEDS: LACTOBACILLUS RHAMNOSUS GG CAPSULE PO SCH (21:17)
[2017-07-08] MEDS: MEROPENEM 1 GM in SODIUM CHLORIDE 0.9% MINIBAG 100 ML IV SCH ×3 (03:25→19:09)
[2017-07-08 06:18] LABS: BASOPHILS # (AUTO) 0.1 10^3/uL (0.0-0.1); BASOPHILS % (AUTO) 0.6 %; EOSINOPHILS # (AUTO) 0.1 10^3/uL (0.0-0.7); EOSINOPHILS % (AUTO) 1.4 %; HGB - HEMOGLOBIN 10.9 g/dL (12.0-16.0); LYMPHOCYTES # (AUTO) 1.7 10^3/uL (1.5-3.5); LYMPHOCYTES % (AUTO) 17.5 %; MEAN CORPUSCULAR HEMOGLOBIN 29.3 pg (27.0-31.0); MEAN CORPUSCULAR HGB CONC 32.8 g/dL (32.0-36.0); MEAN CORPUSCULAR VOLUME 89.2 fL (81.0-99.0); MEAN PLATELET VOLUME 8.9 fL (7.9-10.8); MONOCYTES # (AUTO) 0.8 10^3/uL (0.0-1.0); MONOCYTES % (AUTO) 8.3 %; NEUTROPHILS % (AUTO) 72.2 %; PLT - PLATELET COUNT 245 10^3/uL (130-450); RED BLOOD COUNT 3.73 10^6/uL (4.20-5.40); RED CELL DISTRIBUTION WIDTH 14.7 % (12.0-15.0); WHITE BLOOD COUNT 9.7 x10^3/uL (4.8-10.8)
[2017-07-08 06:32] LABS: HB2 TOTAL 11.9 g/dL; HEMOGLOBIN A1C 0.42 g/dL; HEMOGLOBIN A1C % 5.4 % (4.6-6.2)
[2017-07-08 06:39] LABS: ALBUMIN 2.9 g/dL (3.2-5.5); ALBUMIN/GLOBULIN RATIO 1.1 (1.0-2.2); BILIRUBIN,TOTAL 0.9 mg/dL (0.2-1.0); CALCIUM 8.2 mg/dL (8.5-10.3); CREATININE 0.7 mg/dL (0.4-1.0); CRP - C-REACTIVE PROTEIN 6.7 mg/dL (0-1.0); TOTAL PROTEIN 5.5 g/dL (6.7-8.2)
[2017-07-08] MEDS: POLYETHYLENE GLYCOL 3350 17 GM PACKET PO SCH (08:30)
[2017-07-08] MEDS: SODIUM CHLORIDE FLUSH 0.9% 10 ML SYRINGE IVP SCH ×3 (08:32→16:53)
[2017-07-08] MEDS ORDERED: diltiaZEM CD 120 MG CAPSULE PO SCH (09:00)
[2017-07-08] MEDS: APIXABAN 2.5 MG TABLET PO SCH ×2 (09:22→20:46)
[2017-07-08] MEDS: LACTOBACILLUS RHAMNOSUS GG CAPSULE PO SCH ×2 (09:22→20:46)
[2017-07-08] MEDS: NS W/20 MEQ KCL 1,000 ML IV SCH ×2 (10:48→23:30)
[2017-07-08] MEDS: LATANOPROST 0.005% OPHTH DROPS EACHEYE SCH (20:45)
[2017-07-08] MEDS: MIRTAZAPINE 15 MG TABLET PO SCH (20:46)
--- NOTE | 2017-07-09 00:49 | PROVIDER PROGRESS NOTE ---
Subjective - Prog Note Date Prog Note Date: 07/08/17 Prog Note Time: 08:00 - Subjective Pt reports feeling: Improved Subjective: Nidhi states that she did not sleep well as she was up all night urinating. She denies SOB, chest pain, N/V or a new cough. Current Medications - Current Medications Current Medications: Active Medications Apixaban (Eliquis) 5 mg PO BID [facility] Last Admin: 07/08/17 20:46 Dose: 5 mg Diltiazem HCl (Cardizem Cd) 180 mg PO DAILY [facility] Last Admin: 07/08/17 09:22 Dose: 180 mg Meropenem 1 gm/ Sodium (Chloride) 100 mls @ 200 mls/hr IV Q8H [facility] Last Infusion: 07/08/17 20:03 Dose: Infused Potassium Chloride/Sodium Chloride (Normal Saline 0.9% W/20 Meq Kcl) 1,000 mls @ 83.333 mls/hr IV .Q12H [facility] Last Admin: 07/08/17 23:30 Dose: 83.33 mls/hr Lactobacillus Rhamnosus (Culturelle) 1 cap PO BID [facility] Last Admin: 07/08/17 20:46 Dose: 1 cap Latanoprost (Xalatan Ophth Drops) 1 drops EACHEYE QPM [facility] Last Admin: 07/08/17 20:45 Dose: 1 drops Mirtazapine (Remeron) 3.5 mg PO QPM [facility] Last Admin: 07/08/17 20:46 Dose: 3.5 mg Polyethylene Glycol (Miralax) 17 gm PO DAILY [facility] Last Admin: 07/08/17 08:30 Dose: Not Given Sodium Chloride (Normal Saline Flush 0.9%) 10 ml IVP PRN PRN PRN Reason: NEEDED PER PROVIDER ORDERS Sodium Chloride (Normal Saline Flush 0.9%) 10 ml IVP 0100,0900,1700 [facility] Last Admin: 07/08/17 16:53 Dose: Not Given diltiaZEM CD [Cardizem Cd] 180 mg PO DAILY 06/27/15 Rivaroxaban [Xarelto] 15 mg PO QDDINNER 05/29/16 Cholecalciferol (Vitamin D3) [Vitamin D3] 3 cap PO DAILY 10/11/16 Docusate Sodium [Colace Clear] 100 mg PO DAILY 10/11/16 Estradiol [Estring] 2 mg VG UD 10/11/16 Mirtazapine 3.5 mg PO QPM 10/11/16 Multivitamin [Multiple Vitamins] 1 each PO DAILY 10/11/16 [place]-3/Dha/Epa/Fish Oil [[place] 3 500 Softgel] 1,000 mg PO DAILY 10/11/16 Latanoprost 0.005% Ophth Drops [Xalatan Ophth Drops] 1 drops EACHEYE QPM Magnesium Oxide [Magnesium] 400 mg PO QDAC 07/07/17 Nitrofurantoin Macrocrystal [Nitrofurantoin] 100 mg PO DAILY 07/07/17 Objective - Vital Signs/Intake & Output Reviewed Vital Signs: Yes Vital Signs: Vital Signs x48h Temp Pulse Resp BP Pulse Ox 07/09/17 00:35 36.7 C 65 18 147/66 H 98 07/08/17 21:02 36.4 C L 59 L 18 154/61 H 97 Intake & Output: Intake & Output 07/06/17 07/07/17 07/08/17 07/09/17 23:59 23:59 23:59 23:59 Intake Total 4610.685 6883.334 Output Total 300 451 Balance 7047.887 7242.334 - Objective General Appearance: positive: No acute distress, Alert Eyes Bilateral: positive: Normal inspection, PERRL ENT: positive: ENT inspection nml, Pharynx nml, No signs of dehydration Neck: positive: Nml inspection, Thyroid nml, No JVD, Trachea midline Respiratory: positive: Chest non-tender, No respiratory distress, Breath sounds nml Cardiovascular: positive: Regular rate & rhythm, Bradycardia, Systolic murmur, Decreased pulse(s) Peripheral Pulses: 2+ Radial (R), 2+ Radial (L) Abdomen: positive: Non-tender, Nml bowel sounds, Other (rounded, soft) Back: positive: Nml inspection Skin: positive: Color nml, No rash, Warm, Dry Extremities: positive: Non-tender, Full ROM, Nml appearance, Pedal edema (mild, dependent) Neurologic/Psychiatric: positive: Oriented x3, CN's nml (2-12), Motor nml, Sensation nml, Depressed mood/affect Reflexes: Bicep (R): 3+, Bicep (L): 3+ - Lab Results Fish Bones: 07/10/17 04:58 07/10/17 04:58 Other Labs: Lab Results x24hrs 07/08/17 07/08/17 07/08/17 Range/Units 05:54 05:54 05:54 WBC (4.8-10.8) x10^3/uL RBC (4.20-5.40) 10^6/uL Hgb (12.0-16.0) g/dL Hct (37.0-47.0) % MCV (81.0-99.0) fL MCH (27.0-31.0) pg MCHC (32.0-36.0) g/dL RDW (12.0-15.0) % Plt Count (130-450) 10^3/uL MPV (7.9-10.8) fL Neut # (1.5-6.6) 10^3/uL Lymph # (1.5-3.5) 10^3/uL [place] # (0.0-1.0) 10^3/uL Eos # (0.0-0.7) 10^3/uL Baso # (0.0-0.1) 10^3/uL Absolute Nucleated RBC x10^3/uL Nucleated RBC % /100WBC ESR (0-30) mm/Hr Sodium 139 (135-145) mmol/L Potassium 3.7 (3.5-5.0) mmol/L Chloride 107 (101-111) mmol/L Carbon Dioxide 25 (21-32) mmol/L Anion Gap 7.0 (6-13) BUN 17 (6-20) mg/dL Creatinine 0.7 (0.4-1.0) mg/dL Estimated GFR (MDRD) 80 L (>89) Glucose 90 (70-100) mg/dL Glycated Hemoglobin 5.4 (4.6-6.2) % Estim Average Glucose 108 H (70-100) Calcium 8.2 L (8.5-10.3) mg/dL Total Bilirubin 0.9 (0.2-1.0) mg/dL AST 17 (10-42) IU/L ALT 14 (10-60) IU/L Alkaline Phosphatase 37 L (42-121) IU/L Total Creatine Kinase (22-269) IU/L C-Reactive Protein 6.7 H (0-1.0) mg/dL Total Protein 5.5 L (6.7-8.2) g/dL Albumin 2.9 L (3.2-5.5) g/dL Globulin 2.6 (2.1-4.2) g/dL Albumin/Globulin Ratio 1.1 (1.0-2.2) TSH 1.47 (0.34-5.60) uIU/mL 07/08/17 07/08/17 07/08/17 Range/Units 05:54 05:54 05:54 WBC 9.7 (4.8-10.8) x10^3/uL RBC 3.73 L (4.20-5.40) 10^6/uL Hgb 10.9 L (12.0-16.0) g/dL Hct 33.3 L (37.0-47.0) % MCV 89.2 (81.0-99.0) fL MCH 29.3 (27.0-31.0) pg MCHC 32.8 (32.0-36.0) g/dL RDW 14.7 (12.0-15.0) % Plt Count 245 (130-450) 10^3/uL MPV 8.9 (7.9-10.8) fL Neut # 7.0 H (1.5-6.6) 10^3/uL Lymph # 1.7 (1.5-3.5) 10^3/uL [place] # 0.8 (0.0-1.0) 10^3/uL Eos # 0.1 (0.0-0.7) 10^3/uL Baso # 0.1 (0.0-0.1) 10^3/uL Absolute Nucleated RBC 0.00 x10^3/uL Nucleated RBC % 0.0 /100WBC ESR 10 (0-30) mm/Hr Sodium (135-145) mmol/L Potassium (3.5-5.0) mmol/L Chloride (101-111) mmol/L Carbon Dioxide (21-32) mmol/L Anion Gap (6-13) BUN (6-20) mg/dL Creatinine (0.4-1.0) mg/dL Estimated GFR (MDRD) (>89) Glucose (70-100) mg/dL Glycated Hemoglobin (4.6-6.2) % Estim Average Glucose (70-100) Calcium (8.5-10.3) mg/dL Total Bilirubin (0.2-1.0) mg/dL AST (10-42) IU/L ALT (10-60) IU/L Alkaline Phosphatase (42-121) IU/L Total Creatine Kinase 25 (22-269) IU/L C-Reactive Protein (0-1.0) mg/dL Total Protein (6.7-8.2) g/dL Albumin (3.2-5.5) g/dL Globulin (2.1-4.2) g/dL Albumin/Globulin Ratio (1.0-2.2) TSH (0.34-5.60) uIU/mL - Diagnostic Imaging Diagnostic Imaging Results: positive: Final report reviewed ABX Reporting Has patient been on IV antibiotics over the past 48 hours?: Yes Assessment/Plan - Problem List (1) Petechiae Impression: The patient is found to have petechiae over much of her torso and all extremities. Some literature notes that patient can become intolerant to certain medications, so changing types is the best option. There may be an issue with insurance approval, so I will plan to send a prescription prior to discharge. Plan: Continue apixiban. (2) Urinary tract infection Impression: The patient has been seeing a Urologist, Celestino Flores from [place] who recently prescribed Bactrim. This previous routine is now on hold. We will attempt to obtain records. Plan: Start IV antibiotics, provide a pure wick for comfort. Qualifiers: Urinary tract infection type: site unspecified Hematuria presence: without hematuria Qualified Code(s): N39.0 - Urinary tract infection, site not specified (3) Atrial fibrillation Impression: The patient states that she can tell when she has her arrhythmia and she has palpitations. She has been taking Xarelto that has now changed to Eliquis due to wide spread petechie noted over her torso, and all extremities. Plan: Continue Apixaban. Qualifiers: Atrial fibrillation type: chronic Qualified Code(s): I48.2 - Chronic atrial fibrillation (4) Urinary incontinence Impression: The patient has had this for several years and denies retention. She has tried oxybutynin, but is not sure if this has worked for her. Plan: Provide a pure wick device for comfort, I/O and treat this infection. Qualifiers: Urinary Incontinence type: stress incontinence Qualified Code(s): N39.3 - Stress incontinence (female) (male)
--- NOTE | 2017-07-09 00:50 | DISCHARGE SUMMARY ---
Discharge Summary Discharge Date: 07/09/17 Discharging Provider: CORAZON Elaine Code Status: Do Not Attempt Resuscitation Condition at Discharge: Good Discharge Disposition: 01 Home, Self Care - ALLERGIES Allergies/Adverse Reactions: Allergies Allergy/AdvReac Type Severity Reaction Status Date / Time ciprofloxacin [From Cipro] Allergy Severe Rash Verified 07/07/17 11:34 ciprofloxacin HCl * Allergy Severe Rash Verified 07/07/17 11:34 [From Cipro] Heparin Analogues Allergy Severe Hives Verified 07/07/17 11:34 metoclopramide HCl * Allergy Severe Anxiety Verified 07/07/17 11:34 [From Reglan] prednisone Allergy Severe Rash Verified 07/07/17 11:34 Sulfa (Sulfonamide Allergy Severe Rash Verified 07/07/17 11:34 Antibiotics) clopidogrel bisulfate * Allergy Unknown Verified 07/07/17 11:34 [From Plavix] oxycodone [Oxycodone] AdvReac Severe Edema Verified 07/07/17 11:34 hyrdrochloroquine Allergy Unknown Uncoded 07/07/17 11:34 - MEDICATIONS Home Medications: Ambulatory Orders Medication Instructions Recorded Confirmed diltiaZEM CD [Cardizem Cd] 180 mg PO DAILY 06/27/15 07/07/17 Rivaroxaban [Xarelto] 15 mg PO QDDINNER 05/29/16 07/07/17 Cholecalciferol (Vitamin D3) 3 cap PO DAILY 10/11/16 07/07/17 [Vitamin D3] Docusate Sodium [Colace Clear] 100 mg PO DAILY 10/11/16 07/07/17 Estradiol [Estring] 2 mg VG UD 10/11/16 10/11/16 Mirtazapine 3.5 mg PO QPM 10/11/16 07/07/17 Multivitamin [Multiple Vitamins] 1 each PO DAILY 10/11/16 07/07/17 [place]-3/Dha/Epa/Fish Oil [[place] 3 1,000 mg PO DAILY 10/11/16 07/07/17 500 Softgel] Latanoprost 0.005% Ophth Drops 1 drops EACHEYE QPM 07/07/17 07/07/17 [Xalatan Ophth Drops] Magnesium Oxide [Magnesium] 400 mg PO QDAC 07/07/17 07/07/17 Nitrofurantoin Macrocrystal 100 mg PO DAILY 07/07/17 07/07/17 [Nitrofurantoin] - LABS Result Diagrams: 07/08/17 05:54 07/08/17 05:54 - DIAGNOSTIC IMAGING Diagnostic Imaging Results: Final report reviewed
[2017-07-09] MEDS: MEROPENEM 1 GM in SODIUM CHLORIDE 0.9% MINIBAG 100 ML IV SCH ×3 (03:30→20:52)
[2017-07-09] MEDS: SODIUM CHLORIDE FLUSH 0.9% 10 ML SYRINGE IVP SCH ×3 (03:31→20:51)
[2017-07-09 06:49] LABS: BASOPHILS % (AUTO) 0.6 %; EOSINOPHILS # (AUTO) 0.2 10^3/uL (0.0-0.7); EOSINOPHILS % (AUTO) 2.9 %; HGB - HEMOGLOBIN 11.5 g/dL (12.0-16.0); LYMPHOCYTES # (AUTO) 1.9 10^3/uL (1.5-3.5); LYMPHOCYTES % (AUTO) 28.4 %; MEAN CORPUSCULAR HEMOGLOBIN 29.2 pg (27.0-31.0); MEAN CORPUSCULAR HGB CONC 32.8 g/dL (32.0-36.0); MEAN CORPUSCULAR VOLUME 89.1 fL (81.0-99.0); MEAN PLATELET VOLUME 8.3 fL (7.9-10.8); MONOCYTES # (AUTO) 0.8 10^3/uL (0.0-1.0); MONOCYTES % (AUTO) 11.2 %; NEUTROPHILS # (AUTO) 3.9 10^3/uL (1.5-6.6); NEUTROPHILS % (AUTO) 56.9 %; PLT - PLATELET COUNT 260 10^3/uL (130-450); RED BLOOD COUNT 3.93 10^6/uL (4.20-5.40); RED CELL DISTRIBUTION WIDTH 15.1 % (12.0-15.0); WHITE BLOOD COUNT 6.8 x10^3/uL (4.8-10.8)
[2017-07-09 07:04] LABS: ALBUMIN 3.1 g/dL (3.2-5.5); ALBUMIN/GLOBULIN RATIO 1.1 (1.0-2.2); BILIRUBIN,TOTAL 0.5 mg/dL (0.2-1.0); CALCIUM 8.3 mg/dL (8.5-10.3); CREATININE 0.6 mg/dL (0.4-1.0); CRP - C-REACTIVE PROTEIN 3.8 mg/dL (0-1.0)
[2017-07-09] MEDS ORDERED: diltiaZEM CD 180 MG CAPSULE PO SCH (08:06)
[2017-07-09] MEDS: LACTOBACILLUS RHAMNOSUS GG CAPSULE PO SCH ×2 (08:12→22:18)
[2017-07-09] MEDS: POLYETHYLENE GLYCOL 3350 17 GM PACKET PO SCH (08:12)
[2017-07-09] MEDS: APIXABAN 2.5 MG TABLET PO SCH ×2 (08:14→22:19)
[2017-07-09] MEDS ORDERED: ACETAMINOPHEN 325 MG TABLET PO PRN (08:25)
[2017-07-09] MEDS: diltiaZEM CD 120 MG CAPSULE PO SCH (08:42)
[2017-07-09] MEDS ORDERED: FLUCONAZOLE 200 MG/100 ML 100 ML IV SCH (10:00)
[2017-07-09] MEDS: FLUCONAZOLE 100 MG TABLET PO SCH (11:07)
[2017-07-09] MEDS: SPIRONOLACTONE 25 MG TABLET PO SCH (11:07)
--- NOTE | 2017-07-09 11:59 | CT Preliminary Report ---
Exam: CT ABDOMEN/PELVIS W/O IMPRESSION: 1. The previously seen large left renal calyceal calculi are no longer present. No right-sided calcul i. No hydronephrosis. 2. Other chronic and incidental findings appear unchanged. No acute intra-abdominal abnormality. On t his noncontrast exam. [facility] SITE ID: [id number]
--- NOTE | 2017-07-09 12:09 | CT Report ---
EXAM: CT ABDOMEN AND PELVIS (CT KUB) EXAM DATE: 07/09/2017 10:40 AM. CLINICAL HISTORY: Recurrent UTI. COMPARISONS: CT of the abdomen and pelvis without and with contrast 01/13/2017. TECHNIQUE: Routine axial helical CT imaging was performed through the abdomen and pelvis without IV c ontrast. Reconstructions: Coronal and sagittal. In accordance with CT protocol optimization, one or more of the following dose reduction techniques w ere utilized for this exam: automated exposure control, adjustment of mA and/or KV based on patient s ize, or use of iterative reconstructive technique. FINDINGS: Lung Bases: There is mild left basilar subsegmental atelectasis or scarring, similar to prior. Right Kidney/Ureter: No stones, hydronephrosis, or hydroureter. No perinephric fat stranding. There i s a 1.7 cm cortical cyst at the inferior pole of the right kidney, better seen on prior contrast-enha nced exam. Left Kidney/Ureter: No stones, hydronephrosis, or hydroureter. No perinephric fat stranding. The prev iously seen large upper pole and middle calyceal calculi are no longer present. Linear soft tissue de nsity posterior to the left kidney likely represents a tract of interval nephrostomy. Other Solid Organs: There is a cyst within the left lobe of the liver measuring 2.4 x 2.3 cm (series 3 image 20), unchanged. Noncontrast images of the solid organs are otherwise grossly unremarkable. Gallbladder/Bile Ducts: The gallbladder is surgically absent. No intrahepatic or extrahepatic biliary dilatation. Peritoneal Cavity: No free fluid, free air or satinder adenopathy. Bowel is grossly unremarkable. Pelvic Organs: No bladder stones or wall thickening. The patient appears to be post hysterectomy. The re is a ring-shaped pessary within the vaginal canal. No adnexal mass or free fluid identified. Vasculature: There is moderate atherosclerotic calcification of the abdominal aorta and iliac arterie s. No aneurysm. Other: There is left convex curvature of the lumbar spine. There are mild to moderate degenerative di sk changes and degenerative facet changes of the lumbar spine. No acute osseous abnormality. IMPRESSION: 1. The previously seen large left renal calyceal calculi are no longer present. No right-sided calcul i. No hydronephrosis. 2. Other chronic and incidental findings appear unchanged. No acute intraabdominal abnormality appare nt on this noncontrast exam. [facility] Referring Provider Line: [phone] SITE ID: [id number]
--- NOTE | 2017-07-09 16:07 | PROVIDER PROGRESS NOTE ---
Subjective - Prog Note Date Prog Note Date: 07/09/17 Prog Note Time: 08:00 - Subjective Pt reports feeling: Improved Subjective: Nidhi complains about frequent urination. She denies SOB, chest pain, N/V or a new cough. Current Medications - Current Medications Current Medications: Active Medications Acetaminophen (Tylenol) 650 mg PO Q4HR PRN PRN Reason: Pain or Fever > 38C (100.4F) Last Admin: 07/09/17 08:48 Dose: 650 mg Apixaban (Eliquis) 5 mg PO BID [facility] Last Admin: 07/09/17 08:14 Dose: 5 mg Diltiazem HCl (Cardizem Cd) 120 mg PO DAILY [facility] Last Admin: 07/09/17 08:42 Dose: Not Given Fluconazole (Diflucan) 200 mg PO DAILY [facility] Last Admin: 07/09/17 11:07 Dose: 200 mg Meropenem 1 gm/ Sodium (Chloride) 100 mls @ 200 mls/hr IV Q8H [facility] Last Infusion: 07/09/17 13:06 Dose: Infused Lactobacillus Rhamnosus (Culturelle) 1 cap PO BID [facility] Last Admin: 07/09/17 08:12 Dose: 1 cap Latanoprost (Xalatan Ophth Drops) 1 drops EACHEYE QPM [facility] Last Admin: 07/08/17 20:45 Dose: 1 drops Mirtazapine (Remeron) 3.5 mg PO QPM [facility] Last Admin: 07/08/17 20:46 Dose: 3.5 mg Polyethylene Glycol (Miralax) 17 gm PO DAILY [facility] Last Admin: 07/09/17 08:12 Dose: 17 gm Sodium Chloride (Normal Saline Flush 0.9%) 10 ml IVP PRN PRN PRN Reason: NEEDED PER PROVIDER ORDERS Sodium Chloride (Normal Saline Flush 0.9%) 10 ml IVP 0100,0900,1700 [facility] Last Admin: 07/09/17 08:17 Dose: Not Given Spironolactone (Aldactone) 12.5 mg PO DAILY [facility] Last Admin: 07/09/17 11:07 Dose: 12.5 mg diltiaZEM CD [Cardizem Cd] 180 mg PO DAILY 06/27/15 Rivaroxaban [Xarelto] 15 mg PO QDDINNER 05/29/16 Cholecalciferol (Vitamin D3) [Vitamin D3] 3 cap PO DAILY 10/11/16 Docusate Sodium [Colace Clear] 100 mg PO DAILY 10/11/16 Estradiol [Estring] 2 mg VG UD 10/11/16 Mirtazapine 3.5 mg PO QPM 10/11/16 Multivitamin [Multiple Vitamins] 1 each PO DAILY 10/11/16 [place]-3/Dha/Epa/Fish Oil [[place] 3 500 Softgel] 1,000 mg PO DAILY 10/11/16 Latanoprost 0.005% Ophth Drops [Xalatan Ophth Drops] 1 drops EACHEYE QPM Magnesium Oxide [Magnesium] 400 mg PO QDAC 07/07/17 Objective - Vital Signs/Intake & Output Reviewed Vital Signs: Yes Vital Signs: Vital Signs x48h Temp Pulse Resp BP Pulse Ox 07/09/17 15:27 36.4 C L 63 18 154/78 H 98 Intake & Output: Intake & Output 07/06/17 07/07/17 07/08/17 07/09/17 23:59 23:59 23:59 23:59 Intake Total 0236.717 8046.334 1451.915 Output Total 417 690 7258 Balance 9464.753 8836.334 -223.085 - Objective General Appearance: positive: No acute distress, Alert Eyes Bilateral: positive: Normal inspection, PERRL Eyes: OU Conjunctivae pale ENT: positive: ENT inspection nml, Pharynx nml, Pharyngeal erythema, Dry mucous membranes Neck: positive: Nml inspection, Thyroid nml, No JVD, Kernig's sign Respiratory: positive: Chest non-tender, No respiratory distress, Breath sounds nml Cardiovascular: positive: Regular rate & rhythm, No gallop, Systolic murmur, Decreased pulse(s) Peripheral Pulses: 1+ Radial (R), 1+ Radial (L) Abdomen: positive: Non-tender, Other (rounded, soft) Back: positive: Nml inspection Skin: positive: No rash, Warm, Dry, Cyanosis, Other (petechiae) Extremities: positive: Non-tender, Full ROM, Pedal edema, Joint swelling Neurologic/Psychiatric: positive: Oriented x3, CN's nml (2-12), Motor nml, Sensation nml, Mood/affect nml Reflexes: Bicep (R): 3+, Bicep (L): 3+ - Lab Results Fish Bones: 07/10/17 04:58 07/10/17 04:58 Other Labs: Lab Results x24hrs 07/09/17 07/09/17 07/09/17 Range/Units 06:38 06:38 06:38 WBC 6.8 (4.8-10.8) x10^3/uL RBC 3.93 L (4.20-5.40) 10^6/uL Hgb 11.5 L (12.0-16.0) g/dL Hct 35.0 L (37.0-47.0) % MCV 89.1 (81.0-99.0) fL MCH 29.2 (27.0-31.0) pg MCHC 32.8 (32.0-36.0) g/dL RDW 15.1 H (12.0-15.0) % Plt Count 260 (130-450) 10^3/uL MPV 8.3 (7.9-10.8) fL Neut # 3.9 (1.5-6.6) 10^3/uL Lymph # 1.9 (1.5-3.5) 10^3/uL [place] # 0.8 (0.0-1.0) 10^3/uL Eos # 0.2 (0.0-0.7) 10^3/uL Baso # 0.0 (0.0-0.1) 10^3/uL Absolute Nucleated RBC 0.00 x10^3/uL Nucleated RBC % 0.0 /100WBC ESR 9 (0-30) mm/Hr Sodium 138 (135-145) mmol/L Potassium 3.6 (3.5-5.0) mmol/L Chloride 109 (101-111) mmol/L Carbon Dioxide 25 (21-32) mmol/L Anion Gap 4.0 L (6-13) BUN 15 (6-20) mg/dL Creatinine 0.6 (0.4-1.0) mg/dL Estimated GFR (MDRD) 95 (>89) Glucose 82 (70-100) mg/dL Calcium 8.3 L (8.5-10.3) mg/dL Total Bilirubin 0.5 (0.2-1.0) mg/dL AST 18 (10-42) IU/L ALT 17 (10-60) IU/L Alkaline Phosphatase 41 L (42-121) IU/L C-Reactive Protein 3.8 H (0-1.0) mg/dL Total Protein 6.0 L (6.7-8.2) g/dL Albumin 3.1 L (3.2-5.5) g/dL Globulin 2.9 (2.1-4.2) g/dL Albumin/Globulin Ratio 1.1 (1.0-2.2) - Diagnostic Imaging Diagnostic Imaging Results: positive: Final report reviewed ABX Reporting Has patient been on IV antibiotics over the past 48 hours?: Yes Assessment/Plan - Problem List (1) Petechiae Impression: The patient is found to have petechiae over much of her torso and all extremities. These are improving each day and are fading slowly. Some literature notes that patients can become intolerant to certain medications, so changing types is the best option. A prescription was sent to the patient's pharmacy who reports the new co-pay will be ~$17 per month. The patient states that this is manageable and she is agrees with the plan. Plan: Continue apixiban. (2) Urinary tract infection Impression: The patient has been seeing a Urologist, Celestino Flores from [place] who recently prescribed Bactrim. This previous routine is now on hold. I will plan to call on Monday. Plan: Continue IV antibiotics, provide a pure wick for comfort. Qualifiers: Urinary tract infection type: site unspecified Hematuria presence: without hematuria Qualified Code(s): N39.0 - Urinary tract infection, site not specified (3) Atrial fibrillation Impression: The patient states that she can tell when she has her arrhythmia and she has palpitations. She has been taking Xarelto that has now changed to Eliquis due to wide spread petechie noted over her torso, and all extremities. Telemetry was discontinued and was noted as SR without ectopy. Plan: Continue Apixaban. Qualifiers: Atrial fibrillation type: chronic Qualified Code(s): I48.2 - Chronic atrial fibrillation (4) Urinary incontinence Impression: The patient has had this for several years and denies retention. She has tried oxybutynin, but is not sure if this has worked for her. As per CT abdomen results, the patient has a estrogen ring in place, which the patient admits to changing once per month. She also complains of a vaginal yeast infection, so the Pure wick has been irritating. Diflucan x1 was given. Plan: I/O and treat UTI. Qualifiers: Urinary Incontinence type: stress incontinence Qualified Code(s): N39.3 - Stress incontinence (female) (male) (5) Pulmonary hypertension Impression: The patient had an echocardiogram that shows a PASP of 44 mmHG, which is mild HTN. The patient has complained of her abdominal girth/edema. Spironolactone has been prescribed at a low dose, and we will plan to increase this dose upon discharge. Plan: Continue to monitor and give Spironolactone.
[2017-07-09] MEDS ORDERED: TEMAZEPAM 7.5 MG CAPSULE PO PRN (21:42)
[2017-07-09] MEDS ORDERED: ZOLPIDEM 5 MG TABLET PO PRN (21:44)
[2017-07-09] MEDS: MIRTAZAPINE 15 MG TABLET PO SCH (22:18)
[2017-07-09] MEDS: LATANOPROST 0.005% OPHTH DROPS EACHEYE SCH (23:07)
[2017-07-10] MEDS: MEROPENEM 1 GM in SODIUM CHLORIDE 0.9% MINIBAG 100 ML IV SCH ×2 (03:04→10:21)
[2017-07-10] MEDS: SODIUM CHLORIDE FLUSH 0.9% 10 ML SYRINGE IVP SCH ×2 (03:04→04:02)
[2017-07-10 05:24] LABS: BASOPHILS # (AUTO) 0.1 10^3/uL (0.0-0.1); BASOPHILS % (AUTO) 0.8 %; EOSINOPHILS # (AUTO) 0.2 10^3/uL (0.0-0.7); EOSINOPHILS % (AUTO) 2.8 %; LYMPHOCYTES # (AUTO) 1.9 10^3/uL (1.5-3.5); LYMPHOCYTES % (AUTO) 30.9 %; MEAN CORPUSCULAR HEMOGLOBIN 28.9 pg (27.0-31.0); MEAN CORPUSCULAR VOLUME 87.6 fL (81.0-99.0); MEAN PLATELET VOLUME 8.4 fL (7.9-10.8); MONOCYTES # (AUTO) 0.8 10^3/uL (0.0-1.0); MONOCYTES % (AUTO) 12.3 %; NEUTROPHILS # (AUTO) 3.3 10^3/uL (1.5-6.6); NEUTROPHILS % (AUTO) 53.2 %; PLT - PLATELET COUNT 277 10^3/uL (130-450); RED BLOOD COUNT 4.15 10^6/uL (4.20-5.40); RED CELL DISTRIBUTION WIDTH 14.8 % (12.0-15.0); WHITE BLOOD COUNT 6.2 x10^3/uL (4.8-10.8)
[2017-07-10 05:42] LABS: ALBUMIN 3.3 g/dL (3.2-5.5); BILIRUBIN,TOTAL 0.6 mg/dL (0.2-1.0); CALCIUM 8.8 mg/dL (8.5-10.3); CREATININE 0.6 mg/dL (0.4-1.0); CRP - C-REACTIVE PROTEIN 2.1 mg/dL (0-1.0); TOTAL PROTEIN 6.5 g/dL (6.7-8.2)
[2017-07-10] MEDS: FLUCONAZOLE 100 MG TABLET PO SCH (08:22)
[2017-07-10] MEDS: APIXABAN 2.5 MG TABLET PO SCH (08:22)
[2017-07-10] MEDS: SPIRONOLACTONE 25 MG TABLET PO SCH (08:23)
[2017-07-10] MEDS: diltiaZEM CD 120 MG CAPSULE PO SCH (08:23)
[2017-07-10] MEDS: LACTOBACILLUS RHAMNOSUS GG CAPSULE PO SCH (08:23)
[2017-07-10] MEDS: POLYETHYLENE GLYCOL 3350 17 GM PACKET PO SCH (08:28)
[2017-07-10] MEDS ORDERED: SPIRONOLACTONE 25 MG TABLET PO ONE (09:30)
--- NOTE | 2017-07-10 11:13 | Discharge Plan ---
Discharge Plan Disposition: Home, Self Care Condition: Good Prescriptions: Amox/Clav 875/125 [Augmentin] 1 each PO Q12H 10 Days #20 tablet Apixaban [Eliquis] 5 mg PO BID #60 tablet Cephalexin [Keflex] 250 mg PO DAILY #30 capsule Darifenacin Hydrobromide [Darifenacin ER] 7.5 mg PO DAILY #30 tab.er.24h Lactobacillus Rhamnosus GG [Culturelle] 1 cap PO BID #60 capsule Spironolactone [Aldactone] 25 mg PO DAILY #30 tablet Diet: Regular Activity Restrictions: No Restrictions Shower Restrictions: No Driving Restrictions: No Weight Bearing: Full Weight Additional Instructions or Follow Up instructions: You were admitted with concerns of UTI that was concerning for sepsis, which was ruled out. An abdominal/pelvic CT was obtained which showed no problems with your kidneys, no kidney stones, and no abnormalities with your ureters, or bladder. You should continue on Augmentin for 10 more days @ 850mg every 12 hours. You should plan on taking a life long probiotic, and a cranberry tablet. Please take a daily dose of Keflex of just 250mg daily after the 10-day course of Augmentin is completed. You were also treated for a vaginal yeast infection with Diflucan. I have sent a few more doses for future use. You were found to have petechiae all over your body, so the Xaralto was changed to Eliquis as we suspect that you were becoming intolerant. Records from Dr. Flores were obtained and a phone call to talk about this hospital stay. He recommends a prophylatic daily antibiotic, a medication for incontinence, and to drink plenty of liquid. An echocardiogram was obtained and you were found to have pulmonary hypertension , so you were started on Spironolactone daily which is specific to this condition. You were watched on telemetry and found to have low heart rates ~50-60, so your diltiazem dose was reduced to your previous dose of 120mg daily. Please see Urology as planned and your PCP within one week. No Smoking: If you smoke, Please STOP! Call for help. Follow-up with: Samanta Pozo PA-C [Primary Care Provider] -
--- NOTE | 2017-07-10 11:19 | DISCHARGE SUMMARY ---
Discharge Summary Admit Date: 07/07/17 Discharge Date: 07/10/17 Discharging Provider: CORAZON Elaine Primary Care Provider: Samanta Pozo Code Status: Do Not Attempt Resuscitation Condition at Discharge: Good Discharge Disposition: 01 Home, Self Care - DIAGNOSES Admission Diagnoses: Sepsis, unspecified organism (A41.9) Elevated white blood cell count, unspecified (D72.829) HTN (hypertension) (I10) Chronic atrial fibrillation (I48.2) Urinary tract infection (N39.0 Discharge Diagnoses with Status of Each Condition: HTN (hypertension) (I10) chronic, adjustments made to diltiazem, added Spironolactone. Chronic atrial fibrillation (I48.2) chronic, no a-fib noted. Urinary tract infection (N39.0) chronic, stable. Antibiotics to continue. Petechiae (R23.3) resolved. Urinary incontinence (R32) chronic, new medications. Pulmonary hypertension (I27.20)- new on this admit, stable. - HPI History of Present Illness: Nidhi Fair is a well-kept 82-year old female with a past medical history of chronic fatigue syndrome, hypertension, atrial fibrillation- on Xarelto, arrhythmia, TIA, syncope, seasonal allergies, urinary retention, urinary incontinence, chronic bladder infections, kidney stones with removal, gastroparesis, anxiety, and fibromyalgia. The patient is being treated out patient for her chronic UTIs under the care of Samanta Pozo. Today she called the clinic and could not be seen, so with her increased weakness and dizziness was advised to come to our ED. She had a consult appointment at a [facility] urology clinic just yesterday who started her on Macrobid and shared 24 hour urine results with her. Once in the ED she was found to have an elevated WBC count of 19.7, slightly hyponatremic with a sodium of 133, and a normal lactic acid level of 1.6. She states that she has had sepsis a few years ago that led to a hospitalization. She will be admitted to inpatient for further work up of this acute illness. - HOSPITAL COURSE Hospital Course: The following diagnoses were prevalent during this hospital stay: (1) Petechiae The patient is found to have petechiae over much of her torso and all extremities. These are improving each day and are fading slowly. Some literature notes that patients can become intolerant to certain medications, so changing types is the best option. A prescription was sent to the patient's pharmacy a few days prior to discharge, who reports the new co-pay will be ~$17 per month. The patient states that this is manageable and she is agrees with the plan. She will continue on Apixiban and this was prescribed upon discharge. (2) Urinary tract infection The patient has been seeing a Urologist, Celestino Flores from [place] who recently prescribed Bactrim. This previous routine is now on hold. Dr. Flores with [facility] was called and we spoke on the phone about our mutual patient's case. She was just in his office on 07/05/17 to discuss labs and next plan of care. This is now her 4th UTI since her stone removal in 05/04/17. She was on Keflex QID x10 days, and when this course was finished, is when she presented to our ED. Her most bothersome urinary symptoms are frequency, urgency, and urge incontinence, which has caused her to reduce her fluid intake. This may have lead to her stone formation. She has tried oxybutynin and Myrbetriq in the past, but had nightmares. A KUB was done on 07/05 and showed no stones, a routine UA & 24 hour urine was done that was negative and showed low urine volumes. A abdominal/pelvic CT was completed here at the hospital which found no abnormalities, no kidney stones, but noted a pessary in place. The patient admits to an estrogen ring. Dr. Flores recommends treating the acute infection and then using Keflex daily as a prophylactic, rather than Macrobid as this is on the BEERs list. The patient was sent home on Augmentin BID x10 days, then Keflex to start daily for prophylaxis, and darifenacin ER daily for urinary incontinence. (3) Atrial fibrillation The patient states that she can tell when she has her arrhythmia and she has palpitations. She has been taking Xarelto that has now changed to Eliquis due to wide spread petechie noted over her torso, and all extremities. Telemetry was discontinued and was noted as SR without ectopy. The patient was noted to be bradycardic throughout her stay, so diltiazem was titrated to 120mg daily. The patient complains of feeling sluggish and having low energy. She is to follow up with her administration dean or PCP. (4) Urinary incontinence The patient has had this for several years and denies retention. She has tried oxybutynin, but is not sure if this has worked for her. As per CT abdomen results, the patient has a estrogen ring in place, which the patient admits to changing once per month. She also complains of a vaginal yeast infection, so the Pure wick has been irritating. Diflucan x1 was given. (5) Pulmonary hypertension The patient had an echocardiogram that shows a PASP of 44 mmHG, which is mild HTN. The patient has complained of her abdominal girth/edema. Spironolactone has been prescribed at a low dose, and we will plan to increase this dose upon discharge. Spironolactone was started in the hospital and prescribed upon discharge. Disposition: The patient was discharged in stable condition, did not require oxygen and was ambulatory at the time of discharge. - ALLERGIES Allergies/Adverse Reactions: Allergies Allergy/AdvReac Type Severity Reaction Status Date / Time ciprofloxacin [From Cipro] Allergy Severe Rash Verified 07/07/17 11:34 ciprofloxacin HCl * Allergy Severe Rash Verified 07/07/17 11:34 [From Cipro] Heparin Analogues Allergy Severe Hives Verified 07/07/17 11:34 metoclopramide HCl * Allergy Severe Anxiety Verified 07/07/17 11:34 [From Reglan] prednisone Allergy Severe Rash Verified 07/07/17 11:34 Sulfa (Sulfonamide Allergy Severe Rash Verified 07/07/17 11:34 Antibiotics) clopidogrel bisulfate * Allergy Unknown Verified 07/07/17 11:34 [From Plavix] oxycodone [Oxycodone] AdvReac Severe Edema Verified 07/07/17 11:34 hyrdrochloroquine Allergy Unknown Uncoded 07/07/17 11:34 - MEDICATIONS Home Medications: Ambulatory Orders Medication Instructions Recorded Confirmed Cholecalciferol (Vitamin D3) 3 cap PO DAILY 10/11/16 07/07/17 [Vitamin D3] Docusate Sodium [Colace Clear] 100 mg PO DAILY 10/11/16 07/07/17 Estradiol [Estring] 2 mg VG UD 10/11/16 10/11/16 Mirtazapine 3.5 mg PO QPM 10/11/16 07/07/17 Multivitamin [Multiple Vitamins] 1 each PO DAILY 10/11/16 07/07/17 [place]-3/Dha/Epa/Fish Oil [[place] 3 1,000 mg PO DAILY 10/11/16 07/07/17 500 Softgel] Latanoprost 0.005% Ophth Drops 1 drops EACHEYE QPM 07/07/17 07/07/17 [Xalatan Ophth Drops] Magnesium Oxide [Magnesium] 400 mg PO QDAC 07/07/17 07/07/17 Apixaban [Eliquis] 5 mg PO BID #60 tablet 07/09/17 Amox/Clav 875/125 [Augmentin] 1 each PO Q12H 10 Days #20 tablet 07/10/17 Cephalexin [Keflex] 250 mg PO DAILY #30 capsule 07/10/17 Darifenacin Hydrobromide 7.5 mg PO DAILY #30 tab.er.24h 07/10/17 [Darifenacin ER] Lactobacillus Rhamnosus GG 1 cap PO BID #60 capsule 07/10/17 [Culturelle] Spironolactone [Aldactone] 25 mg PO DAILY #30 tablet 07/10/17 diltiaZEM CD [Cardizem Cd] 120 mg PO DAILY #30 capsule 07/10/17 - PHYSICAL EXAM AT DISCHARGE General Appearance: positive: No acute distress, Alert Eyes Bilateral: positive: Normal inspection, PERRL ENT: positive: ENT inspection nml, Pharynx nml, No signs of dehydration Neck: positive: Nml inspection, Thyroid nml, No JVD, Trachea midline Respiratory: positive: Chest non-tender, No respiratory distress, Breath sounds nml Cardiovascular: positive: Regular rate & rhythm, No gallop, Systolic murmur, Decreased pulse(s) Peripheral Pulses: positive: 1+ Abdomen: positive: Non-tender, Nml bowel sounds, Other Back: positive: Nml inspection Skin: positive: No rash, Warm, Dry, Pallor Extremities: positive: Non-tender, Full ROM, Pedal edema (BLE edema), Joint swelling Neurologic/Psychiatric: positive: Oriented x3, CN's nml (2-12), Motor nml, Sensation nml, Depressed mood/affect Reflexes: Bicep (R): 3+, Bicep (L): 3+, Ankle (R): 3+, Ankle (L): 3+ - LABS Result Diagrams: 07/10/17 04:58 07/10/17 04:58 - DIAGNOSTIC IMAGING Diagnostic Imaging Results: Final report reviewed Diagnostic Imaging Results Comments: EXAM: CT ABDOMEN AND PELVIS (CT KUB) EXAM DATE: 07/09/2017 10:40 AM. CLINICAL HISTORY: Recurrent UTI. COMPARISONS: CT of the abdomen and pelvis without and with contrast 01/13/2017. TECHNIQUE: Routine axial helical CT imaging was performed through the abdomen and pelvis without IV contrast. Reconstructions: Coronal and sagittal. In accordance with CT protocol optimization, one or more of the following dose reduction techniques were utilized for this exam: automated exposure control, adjustment of mA and/or KV based on patient size, or use of iterative reconstructive technique. FINDINGS: Lung Bases: There is mild left basilar subsegmental atelectasis or scarring, similar to prior. Right Kidney/Ureter: No stones, hydronephrosis, or hydroureter. No perinephric fat stranding. There is a 1.7 cm cortical cyst at the inferior pole of the right kidney, better seen on prior contrast-enhanced exam. Left Kidney/Ureter: No stones, hydronephrosis, or hydroureter. No perinephric fat stranding. The previously seen large upper pole and middle calyceal calculi are no longer present. Linear soft tissue density posterior to the left kidney likely represents a tract of interval nephrostomy. Other Solid Organs: There is a cyst within the left lobe of the liver measuring 2.4 x 2.3 cm (series 3 image 20), unchanged. Noncontrast images of the solid organs are otherwise grossly unremarkable. Gallbladder/Bile Ducts: The gallbladder is surgically absent. No intrahepatic or extrahepatic biliary dilatation. Peritoneal Cavity: No free fluid, free air or satinder adenopathy. Bowel is grossly unremarkable. Pelvic Organs: No bladder stones or wall thickening. The patient appears to be post hysterectomy. There is a ring-shaped pessary within the vaginal canal. No adnexal mass or free fluid identified. Vasculature: There is moderate atherosclerotic calcification of the abdominal aorta and iliac arteries. No aneurysm. Other: There is left convex curvature of the lumbar spine. There are mild to moderate degenerative disk changes and degenerative facet changes of the lumbar spine. No acute osseous abnormality. IMPRESSION: 1. The previously seen large left renal calyceal calculi are no longer present. No right-sided calculi. No hydronephrosis. 2. Other chronic and incidental findings appear unchanged. No acute intraabdominal abnormality apparent on this noncontrast exam. ECHOCARDIOGRAM-Final read by Dr. Ybarra, who is this patient's administration dean. 1. Mild concentric LVH with a normal systolic function. LVEF 55%. The LA is normal in size. 2. Mild pulmonary HTN with a PASP of 44 mmHg. The RV is normal size and function. 3. Mild mitral regurg. - FOLLOW UP Follow Up: Disposition: Home, Self Care Condition: Good Prescriptions: Amox/Clav 875/125 [Augmentin] 1 each PO Q12H 10 Days #20 tablet Apixaban [Eliquis] 5 mg PO BID #60 tablet Cephalexin [Keflex] 250 mg PO DAILY #30 capsule Darifenacin Hydrobromide [Darifenacin ER] 7.5 mg PO DAILY #30 tab.er.24h Lactobacillus Rhamnosus GG [Culturelle] 1 cap PO BID #60 capsule Spironolactone [Aldactone] 25 mg PO DAILY #30 tablet Diet: Regular Activity Restrictions: No Restrictions Shower Restrictions: No Driving Restrictions: No Weight Bearing: Full Weight Additional Instructions or Follow Up instructions: You were admitted with concerns of UTI that was concerning for sepsis, which was ruled out. An abdominal/pelvic CT was obtained which showed no problems with your kidneys, no kidney stones, and no abnormalities with your ureters, or bladder. You should continue on Augmentin for 10 more days @ 850mg every 12 hours. You should plan on taking a life long probiotic, and a cranberry tablet. Please take a daily dose of Keflex of just 250mg daily after the 10-day course of Augmentin is completed. You were also treated for a vaginal yeast infection with Diflucan. I have sent a few more doses for future use. You were found to have petechiae all over your body, so the Xaralto was changed to Eliquis as we suspect that you were becoming intolerant. Records from Dr. Flores were obtained and a phone call to talk about this hospital stay. He recommends a prophylatic daily antibiotic, a medication for incontinence, and to drink plenty of liquid. An echocardiogram was obtained and you were found to have pulmonary hypertension , so you were started on Spironolactone daily which is specific to this condition. You were watched on telemetry and found to have low heart rates ~50-60, so your diltiazem dose was reduced to your previous dose of 120mg daily. Please see Urology as planned and your PCP within one week. - TIME SPENT Time Spent in Discharge (Minutes): 60
[2017-07-10 13:41] VITALS: BP 137/53
== END 2017-07-10 14:55 | disposition home or self-care (01) | DRG 690 ==
LOC: ED 11:27 → MS3 13:56
PROVIDERS: ADMIT Nurse Practitioner; ATTEND Nurse Practitioner
DX: N39.0 Urinary tract infection, site not specified (principal); B96.20 Unspecified Escherichia coli [E. coli] as the cause of diseases classified elsewhere; I10 Essential (primary) hypertension; I48.91 Unspecified atrial fibrillation; R32 Unspecified urinary incontinence; R33.9 Retention of urine, unspecified; Z87.442 Personal history of urinary calculi; Z87.440 Personal history of urinary (tract) infections; F41.9 Anxiety disorder, unspecified; Z86.73 Personal history of transient ischemic attack (TIA), and cerebral infarction without residual deficits; M79.7 Fibromyalgia; R23.3 Spontaneous ecchymoses; R53.82 Chronic fatigue, unspecified; I27.20 Pulmonary hypertension, unspecified; H54.7 Unspecified visual loss; Z79.01 Long term (current) use of anticoagulants
CPT/HCPCS: 36415; 51701; 74176; 80048; 80053; 81001; 81003; 82550; 83036; 83605; 83735; 84443; 84484; 85025; 85610; 85651; 85730; 86140; 87040; 87086; 93306; 96365; 99283; 99284

== ENCOUNTER 2017-07-14 08:30 | Outpatient (CLI) | payer MEDICARE, BC | END 2017-07-14 08:31 | disposition home or self-care (01) | LOC: LAB.R 08:30 | PROVIDERS: ATTEND Physician Assistant Medical | DX: N39.0 Urinary tract infection, site not specified (principal) | CPT/HCPCS: 87086 ==

== ENCOUNTER 2017-08-03 09:09 | Outpatient (CLI) | payer MEDICARE, BC | END 2017-08-03 09:10 | disposition critical access hospital (66) | LOC: EMS 09:09 | PROVIDERS: ATTEND Surgery | DX: R55 Syncope and collapse (principal) | CPT/HCPCS: A0425; A0427 ==

== ENCOUNTER 2017-08-03 09:17 | Inpatient (IN) | payer MEDICARE, BC ==
[2017-08-03] MEDS ORDERED: SODIUM CHLORIDE 0.9% 1,000 ML IV ONE (09:29)
--- NOTE | 2017-08-03 09:33 | ED Physician Documentation ---
PD HPI SYNCOPE - Stated complaint Stated Complaint: SYNCOPE - History obtained from History obtained from: Patient, EMS - History of Present Illness Witnessed: Witnessed Timing - onset: Today Duration: Seconds Preceding symptoms: Vision changes, Light headed, Generalized weakness Associated symptoms: No: Seizure, Chest pain, Abdominal pain Contributing factors: Recent med change, Other (UTI) Injury occurred: None Similar symptoms before: Has not had sx before Recently seen: Admitted - Additional information Additional information: 82-year-old female with history of chronic urinary tract infection was recently admitted in the hospital with urinary tract infection and petechiae that was related to her being on Xarelto. She has been switched to Eliquis and she was placed on Spironolactone during the hospitalization after a echo showed elevated right heart pressures. She states that yesterday she urinated quite a bit and today she was sitting on the commode and she went to stand up and had a syncopal episode. This was witnessed by the patient's daughter she did not injure herself. Review of Systems Constitutional: reports: Chills. denies: Fever Eyes: denies: Decreased vision Ears: denies: Ear pain Nose: denies: Congestion Throat: denies: Sore throat Cardiac: reports: Chest pain / pressure (costochondritis has improved). denies : Palpitations Respiratory: denies: Dyspnea, Cough GI: denies: Abdominal Pain, Nausea, Vomiting : denies: Dysuria, Frequency Skin: denies: Rash Musculoskeletal: denies: Neck pain, Back pain, Extremity pain PD PAST MEDICAL HISTORY - Past Medical History Cardiovascular: Hypertension, Atrial fibrillation, Arrhythmia Respiratory: None Neuro: TIA, Fainting Endocrine/Autoimmune: None GI: Chronic diarrhea, Chronic constipation, Other GUNNER'S MATE G: Other (status post hysterectomy for bleeding and bladder stimulator-now ex- planted.) : Retention, Incontinence, Chronic bladder infection, Nocturia, Frequency, Kidney stones HEENT: None, Chronic vision loss Psych: Anxiety Musculoskeletal: Fibromyalgia, Fatigue Derm: None - Past Surgical History Past Surgical History: Yes General: 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 /GUNNER'S MATE G: section, Hysterectomy HEENT: Cataracts, Tonsil/Adenoidectomy - Present Medications Home Medications: Ambulatory Orders Medication Instructions Recorded Confirmed Cholecalciferol (Vitamin D3) 3 cap PO DAILY 10/11/16 07/07/17 [Vitamin D3] Docusate Sodium [Colace Clear] 100 mg PO DAILY 10/11/16 07/07/17 Estradiol [Estring] 2 mg VG UD 10/11/16 10/11/16 Mirtazapine 3.5 mg PO QPM 10/11/16 07/07/17 Multivitamin [Multiple Vitamins] 1 each PO DAILY 10/11/16 07/07/17 [place]-3/Dha/Epa/Fish Oil [[place] 3 1,000 mg PO DAILY 10/11/16 07/07/17 500 Softgel] Latanoprost 0.005% Ophth Drops 1 drops EACHEYE QPM 07/07/17 07/07/17 [Xalatan Ophth Drops] Magnesium Oxide [Magnesium] 400 mg PO QDAC 07/07/17 07/07/17 Apixaban [Eliquis] 5 mg PO BID #60 tablet 07/09/17 Amox/Clav 875/125 [Augmentin] 1 each PO Q12H 10 Days #20 tablet 07/10/17 Darifenacin Hydrobromide 7.5 mg PO DAILY #30 tab.er.24h 07/10/17 [Darifenacin ER] Lactobacillus Rhamnosus GG 1 cap PO BID #60 capsule 07/10/17 [Culturelle] Spironolactone [Aldactone] 25 mg PO DAILY #30 tablet 07/10/17 diltiaZEM CD [Cardizem Cd] 120 mg PO DAILY #30 capsule 07/10/17 - Allergies Allergies/Adverse Reactions: Allergies Allergy/AdvReac Type Severity Reaction Status Date / Time ciprofloxacin [From Cipro] Allergy Severe Rash Verified 08/03/17 09:32 ciprofloxacin HCl * Allergy Severe Rash Verified 08/03/17 09:32 [From Cipro] Heparin Analogues Allergy Severe Hives Verified 08/03/17 09:32 metoclopramide HCl * Allergy Severe Anxiety Verified 08/03/17 09:32 [From Reglan] prednisone Allergy Severe Rash Verified 08/03/17 09:32 Sulfa (Sulfonamide Allergy Severe Rash Verified 08/03/17 09:32 Antibiotics) clopidogrel bisulfate * Allergy Unknown Verified 08/03/17 09:32 [From Plavix] oxycodone [Oxycodone] AdvReac Severe Edema Verified 08/03/17 09:32 hyrdrochloroquine Allergy Unknown Uncoded 07/07/17 11:34 - Social History Does the pt smoke?: No Smoking Status: Never smoker Does the pt drink ETOH?: No Does the pt have substance abuse?: No - Immunizations Immunizations are current?: Yes - POLST Patient has POLST: No POLST Status: DNR PD ED PE NORMAL - Vitals Vital signs reviewed: Yes (tachy ) - General General: Alert and oriented X 3, No acute distress, Well developed/nourished - HEENT HEENT: Atraumatic, PERRL, EOMI - Neck Neck: Supple, no meningeal sign - Cardiac Cardiac: No murmur, Other (irregularlly irregular) - Respiratory Respiratory: No respiratory distress, Clear bilaterally - Abdomen Abdomen: Soft, Non tender - Back Back: No CVA TTP, No spinal TTP - Derm Derm: Normal color, Warm and dry, No rash - Extremities Extremities: No deformity, No edema - Neuro Neuro: No motor deficit, No sensory deficit Eye Opening: Spontaneous Motor: Obeys Commands Verbal: Oriented GCS Score: 15 - Psych Psych: Normal mood, Normal affect Results - Vitals Vitals: Vital Signs - 24 hr 08/03/17 09:30 Temperature 36.6 C Heart Rate 127 H Respiratory 18 Rate Blood Pressure 124/75 O2 Saturation 94 Oxygen O2 Source Room air - EKG (time done) 0925 Rate: Rate (enter#) (117) Rhythm: Atrial fibrillation Ischemia: Q waves Compare to prior EKG: Changed from prior EKG (SPT 2-6-17 afib has developed and rate has increased) Computer interpretation: Agree with computer - Labs Labs: Laboratory Tests 08/03/17 08/03/17 08/03/17 09:44 09:44 09:44 WBC 22.2 H RBC 4.70 Hgb 13.7 Hct 42.1 MCV 89.7 MCH 29.2 MCHC 32.6 RDW 14.6 Plt Count 289 MPV 8.4 Neut # (Auto) 20.2 H Lymph # (Auto) 0.7 L [place] # (Auto) 1.1 H Eos # (Auto) 0.0 Baso # (Auto) 0.1 Absolute Nucleated RBC 0.00 Nucleated RBC % 0.0 Manual Slide Review Indicated RBC Morph Micro Appear 2+ ANISOCYTOSIS Sodium 134 L Potassium 3.4 L Chloride 100 L Carbon Dioxide 24 Anion Gap 10.0 BUN 18 Creatinine 0.7 Estimated GFR (MDRD) 80 L Glucose 108 H Lactic Acid Calcium 9.1 Total Bilirubin 1.3 H AST 22 ALT 15 Alkaline Phosphatase 52 Troponin I < 0.04 Total Protein 7.4 Albumin 4.0 Globulin 3.4 Albumin/Globulin Ratio 1.2 Lipase 24 08/03/17 09:44 WBC RBC Hgb Hct MCV MCH MCHC RDW Plt Count MPV Neut # (Auto) Lymph # (Auto) [place] # (Auto) Eos # (Auto) Baso # (Auto) Absolute Nucleated RBC Nucleated RBC % Manual Slide Review RBC Morph Micro Appear Sodium Potassium Chloride Carbon Dioxide Anion Gap BUN Creatinine Estimated GFR (MDRD) Glucose Lactic Acid 1.0 Calcium Total Bilirubin AST ALT Alkaline Phosphatase Troponin I Total Protein Albumin Globulin Albumin/Globulin Ratio Lipase - Rads (name of study) 2 view chest Radiology: Prelim report reviewed (Impression: Mild streaky bilateral basilar opacities likely representing atelectasis. Aspiration or pneumonia cannot be excluded.), EMP read indepedently, See rad report Procedures - IVC sono (time) 0928 Bedside IVC sono: IVC measures (cm) (0.92), IVC collapsed c insp (cm) (complete) , Dehydration (est 1.5 liter deficit) PD MEDICAL DECISION MAKING - ED course Complexity details: reviewed old records, reviewed results, re-evaluated patient , considered differential, d/w patient, d/w family ED course: 82-year-old female with a prior history of multiple urinary tract infections and prior history of sepsis has had a recent urinary tract infection she has been placed onto a diuretic and this morning she had a syncopal episode. She comes into the emergency department and here she is found to have low central venous pressure a markedly elevated white blood cell count bibasilar infiltrate on chest x-ray - Sepsis Event Vital Signs: Vital Signs - 24 hr 08/03/17 09:30 Temperature 36.6 C Heart Rate 127 H Respiratory 18 Rate Blood Pressure 124/75 O2 Saturation 94 Oxygen O2 Source Room air Departure - Departure Disposition: [address] [facility] DC/Xfer Clinical Impression: Sepsis Qualifiers: Sepsis type: sepsis due to unspecified organism Qualified Code(s): A41.9 - Sepsis, unspecified organism Condition: Serious
[2017-08-03 09:47] LABS: BASOPHILS # (AUTO) 0.1 10^3/uL (0.0-0.1); BASOPHILS % (AUTO) 0.4 %; EOSINOPHILS % (AUTO) 0.1 %; HGB - HEMOGLOBIN 13.7 g/dL (12.0-16.0); LYMPHOCYTES # (AUTO) 0.7 10^3/uL (1.5-3.5); LYMPHOCYTES % (AUTO) 3.3 %; MEAN CORPUSCULAR HEMOGLOBIN 29.2 pg (27.0-31.0); MEAN CORPUSCULAR HGB CONC 32.6 g/dL (32.0-36.0); MEAN CORPUSCULAR VOLUME 89.7 fL (81.0-99.0); MEAN PLATELET VOLUME 8.4 fL (7.9-10.8); MONOCYTES # (AUTO) 1.1 10^3/uL (0.0-1.0); MONOCYTES % (AUTO) 4.9 %; NEUTROPHILS # (AUTO) 20.2 10^3/uL (1.5-6.6); NEUTROPHILS % (AUTO) 91.3 %; PLT - PLATELET COUNT 289 10^3/uL (130-450); RED CELL DISTRIBUTION WIDTH 14.6 % (12.0-15.0); WHITE BLOOD COUNT 22.2 x10^3/uL (4.8-10.8)
[2017-08-03 10:06] LABS: ALBUMIN/GLOBULIN RATIO 1.2 (1.0-2.2); BILIRUBIN,TOTAL 1.3 mg/dL (0.2-1.0); CALCIUM 9.1 mg/dL (8.5-10.3); CREATININE 0.7 mg/dL (0.4-1.0); TOTAL PROTEIN 7.4 g/dL (6.7-8.2)
[2017-08-03 10:19] LABS: RBC MORPHOLOGY (MULTIPLE) 2+ ANISOCYTOSIS (NORMAL)
--- NOTE | 2017-08-03 11:57 | XRAY Preliminary Report ---
Exam: XR CHEST 2 VIEW X-RAY IMPRESSION: Mild streaky bilateral basilar opacities likely representing atelectasis. Aspiration or pneumonia can not be excluded. [facility] SITE ID: [id number]
--- NOTE | 2017-08-03 11:57 | XRAY Report ---
EXAM: CHEST RADIOGRAPHY EXAM DATE: 08/03/2017 11:41 AM. CLINICAL HISTORY: Bibasilar rhonchi. COMPARISON: 05/18/2016, 06/28/2015. TECHNIQUE: 2 views. FINDINGS: Lungs/Pleura: There are mild streaky bilateral basilar pulmonary opacities. No pleural effusion. No p neumothorax. Normal volumes. Mediastinum: There is stable borderline enlargement of the cardiac silhouette. There is moderate athe rosclerotic calcification of the aortic arch. Other: Mild anterior wedge compression deformity of a mid thoracic vertebra appears unchanged compare d to 06/28/2015. No acute osseous abnormality. There are surgical clips in the breast. IMPRESSION: Mild streaky bilateral basilar opacities likely representing atelectasis. Aspiration or pneumonia can not be excluded. [facility] Referring Provider Line: [phone] SITE ID: [id number]
[2017-08-03 12:03] LABS: BILIRUBIN,URINE NEGATIVE (NEGATIVE); GLUCOSE, URINE (UA) NEGATIVE (NEGATIVE); KETONES,URINE (UA) 15 mg/dL (NEGATIVE); LEUKOCYTE ESTERASE, URINE NEGATIVE (NEGATIVE); NITRITE,URINE NEGATIVE (NEGATIVE); OCCULT BLOOD,URINE MODERATE (NEGATIVE); PROTEIN,URINE NEGATIVE (NEGATIVE); UROBILINOGEN,URINE 0.2 (NORMAL) E.U./dL (NORMAL)
[2017-08-03 12:14] LABS: BACTERIA,URINE None Seen /HPF (None Seen); CLARITY,URINE CLEAR (CLEAR); SQUAMOUS EPITHELIAL CELL,UR FEW Squamous (<= Few)
--- NOTE | 2017-08-03 12:23 | HISTORY & PHYSICAL EXAMINATION ---
Chief Complaint - Chief Complaint Chief Complaint: syncope History of Present Illness - Admitted From Admitted From:: ED - History Obtained From Records Reviewed: yes History obtained from: chart review, patient Exam Limitations: none - History of Present Illness HPI Comment/Other: Nidhi Fair is an unfortunate 82-year old female with a past medical history of chronic fatigue syndrome, hypertension, atrial fibrillation- on Eliquis, TIA , syncope, seasonal allergies, urinary retention, urinary incontinence, chronic bladder infections, kidney stones with removal, anxiety, and fibromyalgia. The patient see Urology Dr. An who plans to do Botox in late July for ongoing urinary incontinence. The patient attended a nursing training session in the Urology clinic for self-cath teaching and was changed from Keflex daily to Macrobid. For the past ~3 days she has "felt a little off", so saw her PCP, Samanta Pozo yesterday who continued Macrobid, . The patient claims she had no improvement and this morning was on the commode, became very weak, and "blacked out". Her daughter was close by and witnessed this. The patient sustained no injuries. Associated symptoms leading up to this event are fevers, chills, body aches, increased fatigue, increased anxiety, and poor appetite. Once in the ED she was found to have an elevated WBC count of 22.2, slightly hyponatremic with a sodium of 134, a normal lactic acid level of 1.0, an elevated bili of 1.3, and a normal troponin of 0.04. This is now the 2nd admission for Urosepsis with the very last admission just under 1 month ago. She will be admitted to inpatient for further work up of this acute illness. 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: reports: Other (status post hysterectomy for bleeding and bladder stimulator-now ex-planted.) : reports: Retention, Incontinence, Chronic bladder infection, Nocturia, Frequency, Kidney stones HEENT: reports: None, Chronic vision loss, Chronic sinusitis Psych: reports: Anxiety Musculoskeletal: reports: Fibromyalgia, Fatigue Derm: reports: None MRSA Hx?: No - Past Surgical History General: reports: 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 /TAR HEATER OPERATOR: reports: section, Hysterectomy HEENT: reports: Cataracts, Tonsil/Adenoidectomy - Family & Social History Family History: Mother: , Cancer, Diabetes, Type 2, Father: , Cancer, Sister: Alive and Well, , Cancer, Brother: Alive and Well, , Cancer Family History Comment/Other: Mother of heart disease, CVA, father had a history of DM and CVA. Living arrangement: At home Living Situation: With family Social History Notes: The patient has lived [place] the [place] for the past 22 years and resides in [place]. She has stopped driving. She has one daughter. 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 She lives with her daughter, but is independent. They have 2 dogs. She denies tobacco, alcohol, or illicit drug use. She wishes to be a DNR. - Substance History Use: Uses substance without health or social issues: NONE Abuse: Recurrent use of substance despite neg consequences: NONE Dependence: Experiences withdrawal or developed tolerances: NONE - POLST Patient has POLST: No POLST Status: DNR Meds/Allgy - Home Medications Home Medications: Ambulatory Orders Medication Instructions Recorded Confirmed Cholecalciferol (Vitamin D3) 3,000 units PO DAILY 10/11/16 08/03/17 [Vitamin D3] Docusate Sodium [Colace Clear] 100 mg PO DAILY 10/11/16 08/03/17 Mirtazapine 3.75 mg PO QPM 10/11/16 08/03/17 Multivitamin [Multiple Vitamins] 1 each PO DAILY 10/11/16 08/03/17 [place]earney-3/Dha/Epa/Fish Oil [[place] 3 1,000 mg PO DAILY 10/11/16 08/03/17 500 Softgel] Latanoprost 0.005% Ophth Drops 1 drops EACHEYE QPM 07/07/17 08/03/17 [Xalatan Ophth Drops] Magnesium Oxide [Magnesium] 400 mg PO QDAC 07/07/17 08/03/17 Apixaban [Eliquis] 5 mg PO BID #60 tablet 07/09/17 08/03/17 Spironolactone [Aldactone] 25 mg PO DAILY #30 tablet 07/10/17 08/03/17 diltiaZEM CD [Cardizem Cd] 120 mg PO DAILY #30 capsule 07/10/17 08/03/17 Darifenacin Hydrobromide 7.5 mg PO DAILY 08/03/17 08/03/17 [Darifenacin ER] Lactobacillus Acidophilus 1 cap PO BID 08/03/17 08/03/17 [Acidophilus Lactobacilli] - Allergies Allergies/Adverse Reactions: Allergies Allergy/AdvReac Type Severity Reaction Status Date / Time ciprofloxacin [From Cipro] Allergy Severe Rash Verified 08/03/17 09:32 ciprofloxacin HCl * Allergy Severe Rash Verified 08/03/17 09:32 [From Cipro] Heparin Analogues Allergy Severe Hives Verified 08/03/17 09:32 metoclopramide HCl * Allergy Severe Anxiety Verified 08/03/17 09:32 [From Reglan] prednisone Allergy Severe Rash Verified 08/03/17 09:32 Sulfa (Sulfonamide Allergy Severe Rash Verified 08/03/17 09:32 Antibiotics) clopidogrel bisulfate * Allergy Unknown Verified 08/03/17 09:32 [From Plavix] oxycodone [Oxycodone] AdvReac Severe Edema Verified 08/03/17 09:32 hyrdrochloroquine Allergy Unknown Uncoded 07/07/17 11:34 Review of Systems - Constitutional Constitutional: reports: Fatigue, Fever, Chills, Weakness, Poor appetite - Eyes Eyes: reports: Corrective lenses - Ears, Nose & Throat Ears, Nose & Throat: reports: Ear pain (chronic left ear pain.), Nasal congestion - Cardiovascular Cariovascular: reports: Irregular heart rate, Palpitations, Chest pain, Edema, Lightheadedness, Syncope, Exertional dyspnea - Respiratory Respiratory: reports: Cough, SOB with exertion - Gastrointestinal Gastrointestinal: reports: Abdominal distention, Constipation (chronic, but stable lately), Reflux/heartburn - Genitourinary Genitourinary: reports: Dysuria, Frequency, Urgency, Incontinence, Nocturia - Musculoskeletal Musculoskeletal: reports: Muscle aches, Muscle weakness - Integumentary Integumentary: reports: Dryness, Other (petichiea noted near midline-abdomen.) - Neurological Neurological: reports: General weakness, Focal weakness, Dizziness - Psychiatric Psychiatric: reports: Depression, Anxiety - Hematologic/Lymphatic Hematologic/Lymphatic: reports: Petechiae, Recurrent infections - All Other Systems All Other Systems: reports: Reviewed and negative Exam - Vital Signs Reviewed Vital Signs: Yes Vital Signs: Vital Signs x48h Temp Pulse Resp BP Pulse Ox 08/03/17 09:30 36.6 C 127 H 18 124/75 94 - Physical Exam General Appearance: positive: Alert, Moderate distress, Anxious Eyes Bilateral: positive: Normal inspection, PERRL ENT: positive: ENT inspection nml, Pharynx nml, Dry mucous membranes Neck: positive: Nml inspection, Thyroid nml, No JVD, Trachea midline Respiratory: positive: Chest non-tender, No respiratory distress, Breath sounds nml Cardiovascular: positive: No gallop, Irregularly irregular, Systolic murmur, Decreased pulse(s) Peripheral Pulses: positive: 1+ Abdomen: positive: Non-tender, Nml bowel sounds, Other (rounded, soft, patient states more "bloated" than normal.) Back: positive: Nml inspection Skin: positive: No rash, Warm, Dry, Pallor Extremities: positive: Non-tender, Full ROM, Pedal edema (mild, BLE), Joint swelling Neurologic/Psychiatric: positive: Oriented x3, CN's nml (2-12), Motor nml, Sensation nml, Depressed mood/affect Reflexes: Bicep (R): 3+, Bicep (L): 3+ Conclusion/Plan - Problem List (1) Chronic atrial fibrillation Conclusion/Plan: The patient has a long standing history of this and is rate controlled on diltiazem, and anti-coagulated with Eliquis since her last admission when she was found to have full body petechiea, likely a consequence of Xarelto. Plan: continue medications and monitor on telemetry overnight. (2) Hypertension Conclusion/Plan: The patient has a history of this and takes both diltiazem and Spironolactone at home. Upon admission she is found to be low at 100/39 and 99/36. Plan: Continue dilt PO as this will likely improve her B/P, and hold Spironolactone. Qualifiers: Hypertension type: essential hypertension Qualified Code(s): I10 - Essential (primary) hypertension (3) Syncope Conclusion/Plan: The patient and her daughter both confirm that she had a "black out" just prior to admission. This has been troubling for her. Given the fact that she actually lost consciousness, I will re-check an echocardiogram for completeness of this syncope work up. Troponins have been negative so far. Nidhi does complain of body aches, left arm aches and intermittent rib discomfort that does not occur with activity. 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 Plan: Monitor for dizzy spells and await new echo results. Qualifiers: Syncope type: unspecified Qualified Code(s): R55 - Syncope and collapse (4) Urinary incontinence Conclusion/Plan: The patient has long-standing urinary incontinence that influences her overall well being. She us set to undergo Botox injections with Dr. Flores, Urology at the end of this month for this problem. She attended a nursing visit where she learned self-cath technique early this week. I will plan to speak to this office and request records. Plan: Await records from Urology. Qualifiers: Urinary Incontinence type: stress incontinence Qualified Code(s): N39.3 - Stress incontinence (female) (male) (5) Sepsis Conclusion/Plan: The patient presented with complaints of syncope, fever, chills, and body aches. She was found to have an elevated WBC count of 22.2. She did not have any changed in mental status, and per lab review is not noted to have any other organs involved yet. She has been afebrile since admission. She is being aggressively treated with the usual Cefepime and vanco. Blood cultures are pending. Her chest x-ray is questionable for PNA, although no other qualifying problems such as cough, or exam findings. Plan: Continue septic work up including, labs, vital signs, telemetry and frequent nursing care. Qualifiers: Sepsis type: sepsis due to unspecified organism Qualified Code(s): A41.9 - Sepsis, unspecified organism (6) Pulmonary hypertension Conclusion/Plan: The patient had an elevated RVSP at rest of 49mmHg upon last admission and was placed on Spironolactone. This is now on hold given this acute illness and gentle IVF hydration. Plan: Continue to hold, and add back in split doses before discharge. - Lab Results Lab results reviewed: Yes Sergio Bones: 08/04/17 04:55 08/04/17 04:55 - Diagnostic Imaging Results Diagnostic Imaging Results: positive: Final report reviewed - EKG Results EKG Interpreted Independently: Yes Core Measures - Anticipated LOS I expect patient to be DC'd or transferred within 96 hours.: Yes - DVT/VTE - Prophylaxis VTE/DVT Device ordered at admit?: Yes VTE/DVT Prophylaxis med ordered at admit?: Yes - Stroke - Rehab Assessment Rehab services assessment to be ordered?: Yes - AMI - Statin at Admit Aspirin Prescribed on Admit: Yes
[2017-08-03] MEDS: NS W/20 MEQ KCL 1,000 ML IV SCH (14:44)
[2017-08-03] MEDS: SODIUM CHLORIDE FLUSH 0.9% 10 ML SYRINGE IVP PRN (14:44)
[2017-08-03] MEDS: APIXABAN 2.5 MG TABLET PO SCH ×2 (14:44→20:19)
[2017-08-03] MEDS ORDERED: PHENAZOPYRIDINE 100 MG TABLET PO PRN (15:48)
[2017-08-03] MEDS ORDERED: CEFEPIME 2 GM in SODIUM CHLORIDE 0.9% MINIBAG 100 ML IV SCH (16:00)
[2017-08-03] MEDS ORDERED: ACETAMINOPHEN 325 MG TABLET PO PRN (16:09)
[2017-08-03] MEDS: CEFEPIME 2 GM in SODIUM CHLORIDE 0.9% MINIBAG 100 ML IV SCH (16:57)
[2017-08-03] MEDS: FLUCONAZOLE 100 MG TABLET PO SCH (16:57)
[2017-08-03] MEDS: SODIUM CHLORIDE FLUSH 0.9% 10 ML SYRINGE IVP SCH (16:57)
[2017-08-03] MEDS: ASPIRIN EC 81 MG TABLET PO SCH (16:57)
[2017-08-03] MEDS ORDERED: VANCOMYCIN PER PHARMACY 100 GM in SODIUM CHLORIDE 0.9% 250 ML IV SCH (17:00)
[2017-08-03 17:34] LABS: INR 1.4 (0.8-1.2); PT - PROTHROMBIN TIME 15.4 secs (9.9-12.6)
[2017-08-03 17:43] LABS: CALCIUM 8.8 mg/dL (8.5-10.3); CREATININE 0.9 mg/dL (0.4-1.0); CRP - C-REACTIVE PROTEIN 7.7 mg/dL (0-1.0)
[2017-08-03] MEDS ORDERED: diltiaZEM CD 120 MG CAPSULE PO SCH (18:00)
[2017-08-03] MEDS: VANCOMYCIN INJ 1 GM in SODIUM CHLORIDE 0.9% 250 ML IV SCH (18:29)
[2017-08-03] MEDS ORDERED: HYDROcod/ACETAM 5/325 MG TABLET PO PRN (18:51)
[2017-08-03] MEDS ORDERED: LORazepam 0.5 MG TABLET PO PRN (23:48)
[2017-08-04] MEDS: MIRTAZAPINE 15 MG TABLET PO SCH ×2 (00:32→20:22)
[2017-08-04] MEDS: SODIUM CHLORIDE FLUSH 0.9% 10 ML SYRINGE IVP SCH ×4 (00:35→23:59)
[2017-08-04] MEDS: NS W/20 MEQ KCL 1,000 ML IV SCH (04:19)
[2017-08-04] MEDS: CEFEPIME 2 GM in SODIUM CHLORIDE 0.9% MINIBAG 100 ML IV SCH ×2 (04:20→16:54)
[2017-08-04] MEDS ORDERED: BENZOCAINE/MENTHOL LOZENGE MM PRN (04:26)
[2017-08-04 05:41] LABS: BASOPHILS # (AUTO) 0.1 10^3/uL (0.0-0.1); BASOPHILS % (AUTO) 0.4 %; EOSINOPHILS # (AUTO) 0.4 10^3/uL (0.0-0.7); EOSINOPHILS % (AUTO) 3.2 %; HGB - HEMOGLOBIN 11.3 g/dL (12.0-16.0); LYMPHOCYTES # (AUTO) 1.9 10^3/uL (1.5-3.5); LYMPHOCYTES % (AUTO) 13.5 %; MEAN CORPUSCULAR HEMOGLOBIN 29.6 pg (27.0-31.0); MEAN CORPUSCULAR HGB CONC 33.3 g/dL (32.0-36.0); MEAN CORPUSCULAR VOLUME 88.9 fL (81.0-99.0); MEAN PLATELET VOLUME 9.1 fL (7.9-10.8); MONOCYTES # (AUTO) 0.8 10^3/uL (0.0-1.0); MONOCYTES % (AUTO) 5.6 %; NEUTROPHILS # (AUTO) 10.8 10^3/uL (1.5-6.6); NEUTROPHILS % (AUTO) 77.3 %; PLT - PLATELET COUNT 254 10^3/uL (130-450); RED BLOOD COUNT 3.82 10^6/uL (4.20-5.40); RED CELL DISTRIBUTION WIDTH 14.9 % (12.0-15.0)
[2017-08-04 05:50] LABS: ALBUMIN 2.7 g/dL (3.2-5.5); BILIRUBIN,TOTAL 0.5 mg/dL (0.2-1.0); CALCIUM 7.9 mg/dL (8.5-10.3); CREATININE 0.8 mg/dL (0.4-1.0); CRP - C-REACTIVE PROTEIN 10.8 mg/dL (0-1.0); MAGNESIUM 1.8 mg/dL (1.7-2.8); TOTAL PROTEIN 5.5 g/dL (6.7-8.2)
--- NOTE | 2017-08-04 07:48 | PROVIDER PROGRESS NOTE ---
Sepsis Event Note - Evaluation Current Stage of Sepsis: Sepsis Reason for ruling out sepsis: Elevated WBC count from 22, now down to 14. Negative lactic acid, blood cultures have no growth. An a urine culture obtained is not culture material. No changes in mental status and no other end organ damage noted. Although Sepsis may have been diagnosis on admit, this is ruled out within 24 hours. Possible source of Sepsis: positive: Genitourinary (suspected as this has been her previous source. She has recently had a RN teaching session at the Urology clinic in self-cath, and changed antibiotics from Macrobid to Keflex.) - Focused Exam Vital Signs: Vital Signs - 24 hr 08/03/17 08/03/17 08/03/17 13:01 13:43 15:34 Temperature 37.2 C 36.6 C 36.8 C Heart Rate 80 Heart Rate [ 74 71 Brachial] Respiratory 16 16 20 Rate Blood Pressure 100/42 L Blood Pressure 99/36 L [Left Brachial artery] Blood Pressure 100/39 L [Left Radial artery] Blood Pressure 123/43 L [Right Brachial artery] O2 Saturation 96 94 96 08/03/17 08/04/17 08/04/17 19:54 00:38 04:11 Temperature 36.8 C 36.8 C 36.6 C Heart Rate Heart Rate [ 72 73 64 Brachial] Respiratory 20 16 16 Rate Blood Pressure Blood Pressure [Left Brachial artery] Blood Pressure [Left Radial artery] Blood Pressure 117/37 L 107/36 L 111/45 L [Right Brachial artery] O2 Saturation 94 96 95 Oxygen O2 Source Room air Mental/Cognitive Status: positive: Alert/Oriented X3, Lethargic Respiratory exam: positive: CTA bilaterally Cardiovascular exam: positive: Irregularly irregular, Tachycardia, S1, S2 Skin Exam: positive: Flushed, Pale Capillary refill: Less than 2 seconds Peripheral Pulse Strength: 2+ Slightly Diminished Peripheral Pulse Location: Radial - Bedside Monitoring Reason for not giving a fluid bolus: Bolus previously given, Electrolye imbalance
[2017-08-04] MEDS: APIXABAN 2.5 MG TABLET PO SCH ×2 (08:37→20:22)
[2017-08-04] MEDS: ASPIRIN EC 81 MG TABLET PO SCH (08:37)
[2017-08-04] MEDS: POLYETHYLENE GLYCOL 3350 17 GM PACKET PO SCH (08:38)
[2017-08-04] MEDS: FLUCONAZOLE 100 MG TABLET PO SCH (08:38)
[2017-08-04] MEDS: diltiaZEM CD 120 MG CAPSULE PO SCH (08:38)
[2017-08-04] MEDS: MAGNESIUM OXIDE 400 MG TABLET PO SCH ×2 (12:16→20:22)
--- NOTE | 2017-08-04 13:09 | MRI Report ---
EXAM: MRI BRAIN WITHOUT CONTRAST EXAM DATE: 08/04/2017 11:51 AM. CLINICAL HISTORY: 82-year-old female, syncope. COMPARISON: MR brain 06/27/2015 TECHNIQUE: Multiplanar, multisequence T1-weighted and fluid-sensitive MR sequences of the brain were performed. Sequences optimized for routine evaluation. Other: None. IV Contrast: None. FINDINGS: Brain Volume: Normal for age. Parenchyma/Dura: No mass, acute infarct or hemorrhage. Chronic lacunar infarct right thalamus. Redemo nstration moderate scattered periventricular, deep, and subcortical white matter lesions with his med ical hemispheres bilaterally. No parenchymal foci susceptibility artifact. Ventricles/Cisterns: No hydrocephalus. No abnormal extra-axial fluid collection or hemorrhage. Orbits: Status post bilateral lens replacement surgery. The visualized orbits are otherwise unremarka ble. Sella Turcica: The pituitary gland, cavernous sinuses, suprasellar cistern and optic chiasm are unrem arkable. IAC: Symmetric and unremarkable. Vasculature: Normal signal flow void is seen in the major arterial structures at the skull base. Sinuses: No acute appearing sinus disease. Bones: No focal pathologic appearing marrow signal changes. Other: None. IMPRESSION: 1. No MRI evidence of acute intracranial abnormality. Specifically, no evidence of acute or subacute infarct, acute intracranial hemorrhage, mass, midline shift, or hydrocephalus. 2. Chronic lacunar infarct right thalamus. 3. Redemonstration moderate scattered periventricular, deep, and subcortical white matter lesions wit h his medical hemispheres bilaterally. 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 [facility] Referring Provider Line: [phone] SITE ID: [id number]
--- NOTE | 2017-08-04 15:44 | PROVIDER PROGRESS NOTE ---
Subjective - Prog Note Date Prog Note Date: 08/04/17 Prog Note Time: 08:00 - Subjective Pt reports feeling: Improved Subjective: Nidhi notes much improved since the time of admission. She denies SOB, chest pain, Nausea, vomiting, or a new cough. She demonstrates using her IS with me present. Daughter is at the bedside and supportive in the plan of care. Current Medications - Current Medications Current Medications: Active Medications Acetaminophen (Tylenol) 650 mg PO Q4HR PRN PRN Reason: Pain or Fever > 38C (100.4F) Hydrocodone Bitart/Acetaminophen (Tyrone 5/325) 1 tab PO Q4HR PRN PRN Reason: PAIN Apixaban (Eliquis) 5 mg PO BID [facility] Last Admin: 08/04/17 08:37 Dose: 5 mg Aspirin (Ecotrin) 81 mg PO DAILY [facility] Last Admin: 08/04/17 08:37 Dose: 81 mg Diltiazem HCl (Cardizem Cd) 120 mg PO DAILY [facility] Last Admin: 08/04/17 08:38 Dose: 120 mg Fluconazole (Diflucan) 200 mg PO DAILY [facility] Last Admin: 08/04/17 08:38 Dose: 200 mg Vancomycin HCl 1 gm/ Sodium (Chloride) 250 mls @ 167 mls/hr IV Q24H [facility] Last Infusion: 08/03/17 22:09 Dose: Infused Cefepime HCl 2 gm/ Sodium (Chloride) 100 mls @ 200 mls/hr IV Q12H [facility] Last Admin: 08/04/17 16:54 Dose: 200 mls/hr Magnesium Oxide (Mag Ox) 400 mg PO BID [facility] Last Admin: 08/04/17 12:16 Dose: 400 mg Mirtazapine (Remeron) 3.75 mg PO QPM [facility] Last Admin: 08/04/17 00:32 Dose: 3.75 mg Phenazopyridine HCl (Pyridium) 100 mg PO TID PRN PRN Reason: PAIN Polyethylene Glycol (Miralax) 17 gm PO DAILY [facility] Last Admin: 08/04/17 08:38 Dose: 17 gm Sodium Chloride (Normal Saline Flush 0.9%) 10 ml IVP PRN PRN PRN Reason: NEEDED PER PROVIDER ORDERS Last Admin: 08/03/17 14:44 Dose: 10 ml Sodium Chloride (Normal Saline Flush 0.9%) 10 ml IVP 0100,0900,1700 [facility] Last Admin: 08/04/17 17:13 Dose: 10 ml Spironolactone (Aldactone) 12.5 mg PO BID [facility] Throat Lozenges (Cepacol) 1 lozenge MM Q2HR PRN PRN Reason: Throat pain Last Admin: 08/04/17 05:15 Dose: 1 lozenge Cholecalciferol (Vitamin D3) [Vitamin D3] 3,000 units PO DAILY 10/11/16 Docusate Sodium [Colace Clear] 100 mg PO DAILY 10/11/16 Mirtazapine 3.75 mg PO QPM 10/11/16 Multivitamin [Multiple Vitamins] 1 each PO DAILY 10/11/16 [place]-3/Dha/Epa/Fish Oil [[place] 3 500 Softgel] 1,000 mg PO DAILY 10/11/16 Latanoprost 0.005% Ophth Drops [Xalatan Ophth Drops] 1 drops EACHEYE QPM Magnesium Oxide [Magnesium] 400 mg PO QDAC 07/07/17 Darifenacin Hydrobromide [Darifenacin ER] 7.5 mg PO DAILY 08/03/17 Lactobacillus Acidophilus [Acidophilus Lactobacilli] 1 cap PO BID 08/03/17 Objective - Vital Signs/Intake & Output Reviewed Vital Signs: Yes Vital Signs: Vital Signs x48h Temp Pulse Resp BP Pulse Ox 08/04/17 15:22 36.4 C L 58 L 16 132/51 H 99 08/04/17 08:13 36.6 C 64 16 117/48 L 94 Intake & Output: Intake & Output 08/01/17 08/02/17 08/03/17 08/04/17 23:59 23:59 23:59 23:59 Intake Total 1025 2900 Output Total 400 450 Balance 625 2450 - Objective General Appearance: positive: No acute distress, Alert Eyes Bilateral: positive: Normal inspection, PERRL Eyes: OU Conjunctivae pale ENT: positive: ENT inspection nml, Pharynx nml, No signs of dehydration Neck: positive: Nml inspection, Thyroid nml, No JVD, Trachea midline Respiratory: positive: Chest non-tender, No respiratory distress, Other ( crackles left low base.) Cardiovascular: positive: No gallop, Irregularly irregular, Systolic murmur, Decreased pulse(s) Peripheral Pulses: 1+ Dorsalis pedis (R), 1+ Dorsalis pedis (L), 2+ Radial (R), 2+ Radial (L) Abdomen: positive: Non-tender, Nml bowel sounds, Other (rounded, less bloated, soft.) Back: positive: Nml inspection Skin: positive: No rash, Warm, Dry Extremities: positive: Non-tender, Full ROM, Pedal edema (chronic, mild, and dependent BLE), Joint swelling Neurologic/Psychiatric: positive: Oriented x3, CN's nml (2-12), Motor nml, Sensation nml, Depressed mood/affect Reflexes: Bicep (R): 3+, Bicep (L): 3+ - Lab Results Fish Bones: 08/04/17 04:55 08/04/17 04:55 Other Labs: Lab Results x24hrs 08/04/17 08/04/17 08/04/17 Range/Units 04:55 04:55 04:55 WBC 14.0 H (4.8-10.8) x10^3/uL RBC 3.82 L (4.20-5.40) 10^6/uL Hgb 11.3 L (12.0-16.0) g/dL Hct 34.0 L (37.0-47.0) % MCV 88.9 (81.0-99.0) fL MCH 29.6 (27.0-31.0) pg MCHC 33.3 (32.0-36.0) g/dL RDW 14.9 (12.0-15.0) % Plt Count 254 (130-450) 10^3/uL MPV 9.1 (7.9-10.8) fL Neut # (Auto) 10.8 H (1.5-6.6) 10^3/uL Lymph # (Auto) 1.9 (1.5-3.5) 10^3/uL [place] # (Auto) 0.8 (0.0-1.0) 10^3/uL Eos # (Auto) 0.4 (0.0-0.7) 10^3/uL Baso # (Auto) 0.1 (0.0-0.1) 10^3/uL Absolute Nucleated RBC 0.00 x10^3/uL Nucleated RBC % 0.0 /100WBC ESR 102 H (0-30) mm/Hr PT (9.9-12.6) secs INR (0.8-1.2) APTT (24.9-33.3) secs Sodium 136 (135-145) mmol/L Potassium 3.9 (3.5-5.0) mmol/L Chloride 108 (101-111) mmol/L Carbon Dioxide 23 (21-32) mmol/L Anion Gap 5.0 L (6-13) BUN 18 (6-20) mg/dL Creatinine 0.8 (0.4-1.0) mg/dL Estimated GFR (MDRD) 68 L (>89) Glucose 98 (70-100) mg/dL Calcium 7.9 L (8.5-10.3) mg/dL Magnesium 1.8 (1.7-2.8) mg/dL Total Bilirubin 0.5 (0.2-1.0) mg/dL AST 15 (10-42) IU/L ALT 11 (10-60) IU/L Alkaline Phosphatase 36 L (42-121) IU/L Troponin I (<0.49) ng/mL C-Reactive Protein 10.8 H (0-1.0) mg/dL Total Protein 5.5 L (6.7-8.2) g/dL Albumin 2.7 L (3.2-5.5) g/dL Globulin 2.8 (2.1-4.2) g/dL Albumin/Globulin Ratio 1.0 (1.0-2.2) 08/03/17 08/03/17 08/03/17 Range/Units 16:58 16:58 16:58 WBC (4.8-10.8) x10^3/uL RBC (4.20-5.40) 10^6/uL Hgb (12.0-16.0) g/dL Hct (37.0-47.0) % MCV (81.0-99.0) fL MCH (27.0-31.0) pg MCHC (32.0-36.0) g/dL RDW (12.0-15.0) % Plt Count (130-450) 10^3/uL MPV (7.9-10.8) fL Neut # (Auto) (1.5-6.6) 10^3/uL Lymph # (Auto) (1.5-3.5) 10^3/uL [place] # (Auto) (0.0-1.0) 10^3/uL Eos # (Auto) (0.0-0.7) 10^3/uL Baso # (Auto) (0.0-0.1) 10^3/uL Absolute Nucleated RBC x10^3/uL Nucleated RBC % /100WBC ESR (0-30) mm/Hr PT 15.4 H (9.9-12.6) secs INR 1.4 H (0.8-1.2) APTT 28.5 (24.9-33.3) secs Sodium (135-145) mmol/L Potassium (3.5-5.0) mmol/L Chloride (101-111) mmol/L Carbon Dioxide (21-32) mmol/L Anion Gap (6-13) BUN (6-20) mg/dL Creatinine (0.4-1.0) mg/dL Estimated GFR (MDRD) (>89) Glucose (70-100) mg/dL Calcium (8.5-10.3) mg/dL Magnesium 1.9 (1.7-2.8) mg/dL Total Bilirubin (0.2-1.0) mg/dL AST (10-42) IU/L ALT (10-60) IU/L Alkaline Phosphatase (42-121) IU/L Troponin I < 0.04 (<0.49) ng/mL C-Reactive Protein (0-1.0) mg/dL Total Protein (6.7-8.2) g/dL Albumin (3.2-5.5) g/dL Globulin (2.1-4.2) g/dL Albumin/Globulin Ratio (1.0-2.2) 08/03/17 08/03/17 Range/Units 16:58 16:58 WBC (4.8-10.8) x10^3/uL RBC (4.20-5.40) 10^6/uL Hgb (12.0-16.0) g/dL Hct (37.0-47.0) % MCV (81.0-99.0) fL MCH (27.0-31.0) pg MCHC (32.0-36.0) g/dL RDW (12.0-15.0) % Plt Count (130-450) 10^3/uL MPV (7.9-10.8) fL Neut # (Auto) (1.5-6.6) 10^3/uL Lymph # (Auto) (1.5-3.5) 10^3/uL [place] # (Auto) (0.0-1.0) 10^3/uL Eos # (Auto) (0.0-0.7) 10^3/uL Baso # (Auto) (0.0-0.1) 10^3/uL Absolute Nucleated RBC x10^3/uL Nucleated RBC % /100WBC ESR 5 (0-30) mm/Hr PT (9.9-12.6) secs INR (0.8-1.2) APTT (24.9-33.3) secs Sodium 135 (135-145) mmol/L Potassium 3.6 (3.5-5.0) mmol/L Chloride 101 (101-111) mmol/L Carbon Dioxide 23 (21-32) mmol/L Anion Gap 11.0 (6-13) BUN 18 (6-20) mg/dL Creatinine 0.9 (0.4-1.0) mg/dL Estimated GFR (MDRD) 60 L (>89) Glucose 155 H (70-100) mg/dL Calcium 8.8 (8.5-10.3) mg/dL Magnesium (1.7-2.8) mg/dL Total Bilirubin (0.2-1.0) mg/dL AST (10-42) IU/L ALT (10-60) IU/L Alkaline Phosphatase (42-121) IU/L Troponin I (<0.49) ng/mL C-Reactive Protein 7.7 H (0-1.0) mg/dL Total Protein (6.7-8.2) g/dL Albumin (3.2-5.5) g/dL Globulin (2.1-4.2) g/dL Albumin/Globulin Ratio (1.0-2.2) - Diagnostic Imaging Diagnostic Imaging Results: positive: Final report reviewed ABX Reporting Has patient been on IV antibiotics over the past 48 hours?: Yes Assessment/Plan - Problem List (1) Chronic atrial fibrillation Impression: The patient has a long standing history of this and is rate controlled on diltiazem, and anti-coagulated with Eliquis. Telemetry showed both sinus rhythm and atrial fibrillation, with heart rates 70-100, without ectopy. Her heart rate today upon chart review continues in the 80's. Plan: continue oral diltiazem. (2) Hypertension Impression: The patient has a history of this and takes both diltiazem and Spironolactone at home. Upon admission she is found to be low at 100/39 and 99/36. Today upon chart review blood pressure was 132/51. She is asymptomatic and denies chest pain or palpitations. IVFs have been stopped this AM. Plan: Continue dilt PO as this will likely improve her B/P, and start Spironolactone this evening in split does of 12.5mg BID. Qualifiers: Hypertension type: essential hypertension Qualified Code(s): I10 - Essential (primary) hypertension (3) Syncope Impression: The patient and her daughter both confirm that she had a "black out" just prior to admission. This has been troubling for her. Given the fact that she actually lost consciousness, I will re-check an echocardiogram for completeness of this syncope work up. Troponins have been negative so far. Nidhi does complain of body aches, left arm aches and intermittent rib discomfort that does not occur with activity. Today she denies any further body aches. 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 Echo results show no new findings related to previous heart injury such as no regional wall motion abnormalities. She also was found to have improved pulmonary pressures of 36mmHg from 44mmHg only one month ago since starting her Spironolactone. A head MRI shows no new infarcts or evidence of bleeding. Plan: Monitor for dizzy spells and order orthostatic blood pressures. Qualifiers: Syncope type: unspecified Qualified Code(s): R55 - Syncope and collapse (4) Urinary incontinence Impression: The patient has long-standing urinary incontinence that influences her overall well being. She us set to undergo Botox injections with Dr. Flores, Urology at the end of this month for this problem. She attended a nursing visit where she learned self-cath technique early this week. Records obtained confirm this visit and in fact, she was changed from Macrobid to Keflex. Dr. Flores was not in the clinic today, but his partner spoke with me, who did not have any useful input. Plan: Continue to monitor and offer bathroom often. Qualifiers: Urinary Incontinence type: stress incontinence Qualified Code(s): N39.3 - Stress incontinence (female) (male) (5) Sepsis Impression: The patient presented with complaints of syncope, fever, chills, and body aches. She was found to have an elevated WBC count of 22.2, that is much improved today to 14. She continues to demonstrate no changes in mental status. She has been afebrile since admission. She is being aggressively treated with the usual Cefepime and vanco. Blood cultures indicate no growth so far. Her chest x-ray is questionable for PNA, although no other qualifying problems such as cough, or exam findings. Her incentive spirometer have cleared up her lungs and she has not been able to produce a meaningful sputum sample. Plan: Continue septic work up including, labs, pending BC results, vital signs , and frequent nursing care. Qualifiers: Sepsis type: sepsis due to unspecified organism Qualified Code(s): A41.9 - Sepsis, unspecified organism (6) Pulmonary hypertension Impression: The patient had an elevated RVSP at rest of 49mmHg upon last admission and was placed on Spironolactone. She underwent a echo today due to her "black out" episode that shows an improvement of her pulmonary pressure of just 36mmHg since starting her Spironolactone. Plan: Start Spironolactone this evening at 1/2 dose of 12.5mg BID.
[2017-08-04] MEDS: SPIRONOLACTONE 25 MG TABLET PO SCH ×2 (17:41→18:29)
[2017-08-04] MEDS: VANCOMYCIN INJ 1 GM in SODIUM CHLORIDE 0.9% 250 ML IV SCH (17:56)
[2017-08-05] MEDS: CEFEPIME 2 GM in SODIUM CHLORIDE 0.9% MINIBAG 100 ML IV SCH (04:14)
[2017-08-05] MEDS: SODIUM CHLORIDE FLUSH 0.9% 10 ML SYRINGE IVP PRN ×2 (04:15→10:03)
[2017-08-05 06:14] LABS: BASOPHILS # (AUTO) 0.1 10^3/uL (0.0-0.1); BASOPHILS % (AUTO) 0.7 %; EOSINOPHILS # (AUTO) 0.6 10^3/uL (0.0-0.7); EOSINOPHILS % (AUTO) 7.3 %; HGB - HEMOGLOBIN 12.1 g/dL (12.0-16.0); LYMPHOCYTES # (AUTO) 1.9 10^3/uL (1.5-3.5); LYMPHOCYTES % (AUTO) 22.4 %; MEAN CORPUSCULAR HEMOGLOBIN 29.6 pg (27.0-31.0); MEAN CORPUSCULAR HGB CONC 33.2 g/dL (32.0-36.0); MEAN CORPUSCULAR VOLUME 89.1 fL (81.0-99.0); MEAN PLATELET VOLUME 8.8 fL (7.9-10.8); MONOCYTES # (AUTO) 0.7 10^3/uL (0.0-1.0); MONOCYTES % (AUTO) 8.7 %; NEUTROPHILS # (AUTO) 5.2 10^3/uL (1.5-6.6); NEUTROPHILS % (AUTO) 60.9 %; PLT - PLATELET COUNT 268 10^3/uL (130-450); RED BLOOD COUNT 4.07 10^6/uL (4.20-5.40); RED CELL DISTRIBUTION WIDTH 14.7 % (12.0-15.0); WHITE BLOOD COUNT 8.5 x10^3/uL (4.8-10.8)
[2017-08-05 06:31] LABS: ALBUMIN/GLOBULIN RATIO 0.9 (1.0-2.2); BILIRUBIN,TOTAL 0.6 mg/dL (0.2-1.0); CALCIUM 8.4 mg/dL (8.5-10.3); CREATININE 0.7 mg/dL (0.4-1.0); CRP - C-REACTIVE PROTEIN 6.8 mg/dL (0-1.0); MAGNESIUM 1.9 mg/dL (1.7-2.8); TOTAL PROTEIN 6.4 g/dL (6.7-8.2)
[2017-08-05] MEDS: APIXABAN 2.5 MG TABLET PO SCH ×2 (09:59→20:30)
[2017-08-05] MEDS: FLUCONAZOLE 100 MG TABLET PO SCH (10:00)
[2017-08-05] MEDS: ASPIRIN EC 81 MG TABLET PO SCH (10:01)
[2017-08-05] MEDS: SPIRONOLACTONE 25 MG TABLET PO SCH ×2 (10:02→20:30)
[2017-08-05] MEDS: MAGNESIUM OXIDE 400 MG TABLET PO SCH ×2 (10:02→20:30)
[2017-08-05] MEDS: diltiaZEM CD 120 MG CAPSULE PO SCH (10:02)
[2017-08-05] MEDS: POLYETHYLENE GLYCOL 3350 17 GM PACKET PO SCH (10:03)
[2017-08-05] MEDS ORDERED: CARBOXYMETHYLCELLULOSE OPHTH DROPS EACHEYE PRN (11:20)
--- NOTE | 2017-08-05 11:21 | PROVIDER PROGRESS NOTE ---
Subjective - Prog Note Date Prog Note Date: 08/05/17 Prog Note Time: 11:21 - Subjective Pt reports feeling: Improved Subjective: Nidhi complains about not resting well in the hospital. She denies SOB, chest pain, N/V or a new cough. Current Medications - Current Medications Current Medications: Active Medications Acetaminophen (Tylenol) 650 mg PO Q4HR PRN PRN Reason: Pain or Fever > 38C (100.4F) Apixaban (Eliquis) 5 mg PO BID [facility] Last Admin: 08/05/17 09:59 Dose: 5 mg Aspirin (Ecotrin) 81 mg PO DAILY [facility] Last Admin: 08/05/17 10:01 Dose: 81 mg Carboxymethylcellulose (Refresh 1% Ophth Drops) 1 drops EACHEYE Q4HR PRN PRN Reason: Dry Eye Cephalexin (Keflex) 500 mg PO BID [facility] Diltiazem HCl (Cardizem Cd) 120 mg PO DAILY [facility] Last Admin: 08/05/17 10:02 Dose: 120 mg Fluconazole (Diflucan) 200 mg PO DAILY [facility] Last Admin: 08/05/17 10:00 Dose: 200 mg Latanoprost (Xalatan Ophth Drops) 1 drops EACHEYE QPM [facility] Magnesium Oxide (Mag Ox) 400 mg PO BID [facility] Last Admin: 08/05/17 10:02 Dose: 400 mg Mirtazapine (Remeron) 3.75 mg PO QPM [facility] Last Admin: 08/04/17 20:22 Dose: 3.75 mg Non-Formulary Medication (Darifenacin Hydrobromide [Darifenacin Er]) 7.5 mg PO DAILY [facility] Phenazopyridine HCl (Pyridium) 100 mg PO TID PRN PRN Reason: PAIN Polyethylene Glycol (Miralax) 17 gm PO DAILY [facility] Last Admin: 08/05/17 10:03 Dose: 17 gm Sodium Chloride (Normal Saline Flush 0.9%) 10 ml IVP PRN PRN PRN Reason: NEEDED PER PROVIDER ORDERS Last Admin: 08/05/17 10:03 Dose: 10 ml Sodium Chloride (Normal Saline Flush 0.9%) 10 ml IVP 0100,0900,1700 [facility] Last Admin: 08/04/17 23:59 Dose: 10 ml Spironolactone (Aldactone) 12.5 mg PO BID [facility] Last Admin: 08/05/17 10:02 Dose: 12.5 mg Throat Lozenges (Cepacol) 1 lozenge MM Q2HR PRN PRN Reason: Throat pain Last Admin: 08/04/17 05:15 Dose: 1 lozenge Cholecalciferol (Vitamin D3) [Vitamin D3] 3,000 units PO DAILY 10/11/16 Docusate Sodium [Colace Clear] 100 mg PO DAILY 10/11/16 Mirtazapine 3.75 mg PO QPM 10/11/16 Multivitamin [Multiple Vitamins] 1 each PO DAILY 10/11/16 [place]-3/Dha/Epa/Fish Oil [[place] 3 500 Softgel] 1,000 mg PO DAILY 10/11/16 Latanoprost 0.005% Ophth Drops [Xalatan Ophth Drops] 1 drops EACHEYE QPM Magnesium Oxide [Magnesium] 400 mg PO QDAC 07/07/17 Darifenacin Hydrobromide [Darifenacin ER] 7.5 mg PO DAILY 08/03/17 Lactobacillus Acidophilus [Acidophilus Lactobacilli] 1 cap PO BID 08/03/17 Objective - Vital Signs/Intake & Output Reviewed Vital Signs: Yes Vital Signs: Vital Signs x48h Temp Pulse Resp BP Pulse Ox 08/05/17 08:16 36.4 C L 58 L 16 139/53 H 94 Intake & Output: Intake & Output 08/02/17 08/03/17 08/04/17 08/05/17 23:59 23:59 23:59 23:59 Intake Total 1025 3760 600 Output Total 400 450 650 Balance 625 3310 -50 - Objective General Appearance: positive: No acute distress, Alert Eyes Bilateral: positive: Normal inspection, PERRL Eyes: OU Conjunctivae pale ENT: positive: ENT inspection nml, Pharynx nml, Pharyngeal erythema, Dry mucous membranes Neck: positive: Nml inspection, Thyroid nml, No JVD, Trachea midline Respiratory: positive: Chest non-tender, No respiratory distress, Breath sounds nml Cardiovascular: positive: No gallop, Irregularly irregular, Systolic murmur, Decreased pulse(s) Peripheral Pulses: 1+ Radial (R), 1+ Radial (L) Abdomen: positive: Non-tender, Nml bowel sounds, Other (rounded, soft) Back: positive: Nml inspection Skin: positive: No rash, Warm, Dry Extremities: positive: Non-tender, Full ROM, Nml appearance, Pedal edema (mild.) Neurologic/Psychiatric: positive: Oriented x3, CN's nml (2-12), Motor nml, Sensation nml, Weakness Reflexes: Bicep (R): 3+, Bicep (L): 3+ - Lab Results Fish Bones: 08/05/17 05:46 08/05/17 05:46 Other Labs: Lab Results x24hrs 08/05/17 08/05/17 08/05/17 Range/Units 05:46 05:46 05:46 WBC 8.5 (4.8-10.8) x10^3/uL RBC 4.07 L (4.20-5.40) 10^6/uL Hgb 12.1 (12.0-16.0) g/dL Hct 36.3 L (37.0-47.0) % MCV 89.1 (81.0-99.0) fL MCH 29.6 (27.0-31.0) pg MCHC 33.2 (32.0-36.0) g/dL RDW 14.7 (12.0-15.0) % Plt Count 268 (130-450) 10^3/uL MPV 8.8 (7.9-10.8) fL Neut # (Auto) 5.2 (1.5-6.6) 10^3/uL Lymph # (Auto) 1.9 (1.5-3.5) 10^3/uL [place] # (Auto) 0.7 (0.0-1.0) 10^3/uL Eos # (Auto) 0.6 (0.0-0.7) 10^3/uL Baso # (Auto) 0.1 (0.0-0.1) 10^3/uL Absolute Nucleated RBC 0.00 x10^3/uL Nucleated RBC % 0.0 /100WBC ESR 8 (0-30) mm/Hr Sodium 137 (135-145) mmol/L Potassium 3.8 (3.5-5.0) mmol/L Chloride 106 (101-111) mmol/L Carbon Dioxide 25 (21-32) mmol/L Anion Gap 6.0 (6-13) BUN 16 (6-20) mg/dL Creatinine 0.7 (0.4-1.0) mg/dL Estimated GFR (MDRD) 80 L (>89) Glucose 116 H (70-100) mg/dL Calcium 8.4 L (8.5-10.3) mg/dL Magnesium 1.9 (1.7-2.8) mg/dL Total Bilirubin 0.6 (0.2-1.0) mg/dL AST 20 (10-42) IU/L ALT 13 (10-60) IU/L Alkaline Phosphatase 36 L (42-121) IU/L C-Reactive Protein 6.8 H (0-1.0) mg/dL Total Protein 6.4 L (6.7-8.2) g/dL Albumin 3.0 L (3.2-5.5) g/dL Globulin 3.4 (2.1-4.2) g/dL Albumin/Globulin Ratio 0.9 L (1.0-2.2) - Diagnostic Imaging Diagnostic Imaging Results: positive: Final report reviewed ABX Reporting Has patient been on IV antibiotics over the past 48 hours?: Yes Assessment/Plan - Problem List (1) Chronic atrial fibrillation Impression: The patient has a long standing history of this and is rate controlled on diltiazem, and anti-coagulated with Eliquis. Telemetry showed both sinus rhythm and atrial fibrillation, with heart rates 70-100, without ectopy. Her heart rate today upon chart review continues in the 80's. Plan: continue oral diltiazem and Apixaban. (2) Hypertension Impression: The patient has a history of this and takes both diltiazem and Spironolactone at home. Upon admission she is found to be low at 100/39 and 99/36. Today upon chart review blood pressure was 132/51. She is asymptomatic and denies chest pain or palpitations. IVFs have been stopped this AM. Plan: Continue dilt PO as this will likely improve her B/P, and start Spironolactone this evening in split does of 12.5mg BID. Qualifiers: Hypertension type: essential hypertension Qualified Code(s): I10 - Essential (primary) hypertension (3) Syncope Impression: The patient and her daughter both confirm that she had a "black out" just prior to admission. This has been troubling for her. Given the fact that she actually lost consciousness, I will re-check an echocardiogram for completeness of this syncope work up. Troponins have been negative so far. Nidhi does complain of body aches, left arm aches and intermittent rib discomfort that does not occur with activity. Today she denies any further body aches. 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 Echo results show no new findings related to previous heart injury such as no regional wall motion abnormalities. She also was found to have improved pulmonary pressures of 36mmHg from 44mmHg only one month ago since starting her Spironolactone. A head MRI shows no new infarcts or evidence of bleeding. Plan: Monitor for dizzy spells and order orthostatic blood pressures. Qualifiers: Syncope type: unspecified Qualified Code(s): R55 - Syncope and collapse (4) Urinary incontinence Impression: The patient has long-standing urinary incontinence that influences her overall well being. She us set to undergo Botox injections with Dr. Flores, Urology at the end of this month for this problem. She attended a nursing visit where she learned self-cath technique early this week. Records obtained confirm this visit and in fact, she was changed from Macrobid to Keflex. Plan: Continue to monitor and offer bathroom often. Qualifiers: Urinary Incontinence type: stress incontinence Qualified Code(s): N39.3 - Stress incontinence (female) (male) (5) Sepsis Impression: The patient presented with complaints of syncope, fever, chills, and body aches. She was found to have an elevated WBC count of 22.2, that is much improved today to 14. She continues to demonstrate no changes in mental status. She has been afebrile since admission. She is being aggressively treated with the usual Cefepime and vanco. Blood cultures indicate no growth so far. Her chest x-ray is questionable for PNA, although no other qualifying problems such as cough, or exam findings. Her incentive spirometer have cleared up her lungs and she has not been able to produce a meaningful sputum sample. Plan: Continue septic work up including, labs, pending BC results, vital signs , and frequent nursing care. Qualifiers: Sepsis type: sepsis due to unspecified organism Qualified Code(s): A41.9 - Sepsis, unspecified organism (6) Pulmonary hypertension Impression: The patient had an elevated RVSP at rest of 49mmHg upon last admission and was placed on Spironolactone. She underwent a echo today due to her "black out" episode that shows an improvement of her pulmonary pressure of just 36mmHg since starting her Spironolactone. Plan: Start Spironolactone this evening at 1/2 dose of 12.5mg BID.
[2017-08-05 11:25] LABS: BILIRUBIN,URINE NEGATIVE (NEGATIVE); GLUCOSE, URINE (UA) NEGATIVE (NEGATIVE); KETONES,URINE (UA) NEGATIVE (NEGATIVE); LEUKOCYTE ESTERASE, URINE NEGATIVE (NEGATIVE); NITRITE,URINE NEGATIVE (NEGATIVE); OCCULT BLOOD,URINE MODERATE (NEGATIVE); PH,URINE 5.5 PH (5.0-7.5); PROTEIN,URINE NEGATIVE (NEGATIVE); UROBILINOGEN,URINE 0.2 (NORMAL) E.U./dL (NORMAL)
[2017-08-05] MEDS: SODIUM CHLORIDE FLUSH 0.9% 10 ML SYRINGE IVP SCH ×2 (11:29→16:38)
[2017-08-05] MEDS ORDERED: DARIFENACIN HYDROBROMIDE 7.5 MG PO SCH (11:30)
[2017-08-05] MEDS: cephALEXin 250 MG CAPSULE PO SCH ×2 (11:33→20:30)
[2017-08-05 11:36] LABS: CLARITY,URINE CLEAR (CLEAR)
[2017-08-05 11:37] LABS: BACTERIA,URINE Few /HPF (None Seen); CASTS, URINE 6-10 Hyaline Casts /LPF; MUCUS,URINE Few Strands; SQUAMOUS EPITHELIAL CELL,UR FEW Squamous (<= Few)
[2017-08-05] MEDS: SENNA 8.6 MG TABLET PO SCH ×2 (20:01→20:03)
[2017-08-05] MEDS: MIRTAZAPINE 15 MG TABLET PO SCH ×2 (20:32→21:55)
[2017-08-05] MEDS ORDERED: LATANOPROST 0.005% OPHTH DROPS EACHEYE SCH (21:00)
[2017-08-05] MEDS ORDERED: CALCIUM CARBONATE CHEW 500 MG TABLET PO PRN (22:34)
[2017-08-05] MEDS ORDERED: MAG HYDROX/AL HYDROX/SIMETH 30 ML UDC PO PRN (22:36)
[2017-08-06 06:15] LABS: BASOPHILS # (AUTO) 0.1 10^3/uL (0.0-0.1); EOSINOPHILS # (AUTO) 0.4 10^3/uL (0.0-0.7); EOSINOPHILS % (AUTO) 5.8 %; HGB - HEMOGLOBIN 12.6 g/dL (12.0-16.0); LYMPHOCYTES % (AUTO) 27.7 %; MEAN CORPUSCULAR HEMOGLOBIN 29.4 pg (27.0-31.0); MEAN CORPUSCULAR HGB CONC 32.9 g/dL (32.0-36.0); MEAN CORPUSCULAR VOLUME 89.3 fL (81.0-99.0); MONOCYTES # (AUTO) 0.7 10^3/uL (0.0-1.0); MONOCYTES % (AUTO) 9.8 %; NEUTROPHILS % (AUTO) 55.7 %; PLT - PLATELET COUNT 304 10^3/uL (130-450); RED BLOOD COUNT 4.27 10^6/uL (4.20-5.40); RED CELL DISTRIBUTION WIDTH 14.9 % (12.0-15.0); WHITE BLOOD COUNT 7.3 x10^3/uL (4.8-10.8)
[2017-08-06 06:35] LABS: ALBUMIN 3.1 g/dL (3.2-5.5); ALBUMIN/GLOBULIN RATIO 0.9 (1.0-2.2); BILIRUBIN,TOTAL 0.5 mg/dL (0.2-1.0); CALCIUM 8.7 mg/dL (8.5-10.3); CREATININE 0.6 mg/dL (0.4-1.0); CRP - C-REACTIVE PROTEIN 4.1 mg/dL (0-1.0); TOTAL PROTEIN 6.5 g/dL (6.7-8.2)
--- NOTE | 2017-08-06 07:26 | Discharge Plan ---
Discharge Plan Disposition: Home, Self Care Condition: Good Prescriptions: cephALEXin [Keflex] 250 mg PO BID #60 capsule Cranberry Fruit Concentrate [Cranberry] 450 mg PO BID #60 tablet Fluconazole [Diflucan] 200 mg PO DAILY PRN #10 mg PRN Reason: As Needed Per Provider Orders Spironolactone [Aldactone] 12.5 mg PO BID #30 tablet Diet: Regular Activity Restrictions: No Restrictions Shower Restrictions: No Driving Restrictions: Yes Weight Bearing: Full Weight Additional Instructions or Follow Up instructions: You were admitted for sepsis after you had an episode at home of falling and loss of consciousness. We believe that the most likely cause of your fever and septic symptoms were either a virus or your bladder. 2 urine samples were obtained which showed no obvious infection so these samples were not cultured. A call was made to your Urology office and records were obtained to gather clarification about your latest care plan. A vaginal swab was performed and a fresh straight cath sample was obtained by me personally. The vaginal swab did not show a yeast overgrowth and the normal, expected epithelial cells. The urine sample results looked similar to your first sample, BOTH of which are not culture quality. At the time of admission, a chest x-ray was completed and showed possible pneumonia, but your lung exam was clear and you did not demonstrate a productive cough or fevers. A follow up x-ray was obtained and shows nice clear lungs. You should continue your incentive spirometer. Blood cultures were obtained upon admission that remain no growth to date. infectious disease partners with us and helps guide our care when it has to do with antibiotic stewardship. I have written up your case study to them and expect a response on Monday, which I plan to mail to you. I will also ask their opinion of ways to prevent this illness and if these illnesses are linked together, or likely separate incidences. A follow up echocardiogram was completed because you passed out and shows an improvement in the pulmonary hypertension since your last admission. A brain MRI was done and showed no acute damage or bleeds. Orthostatic blood pressures were completed and negative. Keep your urology appointments as scheduled and they will get a copy of my summary. Please see your PCP within one week, and she will get a copy of my discharge summary. No Smoking: If you smoke, Please STOP! Call for help. Follow-up with: Samanta Pozo PA-C [Primary Care Provider] -
--- NOTE | 2017-08-06 08:12 | DISCHARGE SUMMARY ---
Discharge Summary Admit Date: 08/03/17 Discharge Date: 08/06/17 Discharging Provider: CORAZON Elaine Primary Care Provider: Samanta Pozo Code Status: Do Not Attempt Resuscitation Condition at Discharge: Good Discharge Disposition: 01 Home, Self Care - DIAGNOSES Admission Diagnoses: Elevated white blood cell count, unspecified (D72.829) Essential (primary) hypertension (I10) Chronic atrial fibrillation (I48.2) Urinary tract infection, site not specified (N39.0) Unspecified urinary incontinence (R32) Fever, unspecified (R50.9) Syncope and collapse (R55) Discharge Diagnoses with Status of Each Condition: Elevated white blood cell count, unspecified (D72.829) -resolved. Essential (primary) hypertension (I10) - chronic, stable. Chronic atrial fibrillation (I48.2) -chronic, stable. Urinary tract infection, site not specified (N39.0) -chronic, treatment to continue. Unspecified urinary incontinence (R32) -chronic, to see Urology. Fever, unspecified (R50.9) -resolved, unknown etiology. Syncope and collapse (R55)- resolved. - HPI History of Present Illness: Nidhi Fair is an unfortunate 82-year old female with a past medical history of chronic fatigue syndrome, hypertension, atrial fibrillation- on Eliquis, TIA , syncope, seasonal allergies, urinary retention, urinary incontinence, chronic bladder infections, kidney stones with removal, anxiety, and fibromyalgia. The patient see Urology Dr. An who plans to do Botox in late July for ongoing urinary incontinence. The patient attended a nursing training session in the Urology clinic for self-cath teaching and was changed from Keflex daily to Macrobid. For the past ~3 days she has "felt a little off", so saw her PCP, Samanta Pozo yesterday who continued Macrobid, . The patient claims she had no improvement and this morning was on the commode, became very weak, and "blacked out". Her daughter was close by and witnessed this. The patient sustained no injuries. Associated symptoms leading up to this event are fevers, chills, body aches, increased fatigue, increased anxiety, and poor appetite. Once in the ED she was found to have an elevated WBC count of 22.2, slightly hyponatremic with a sodium of 134, a normal lactic acid level of 1.0, an elevated bili of 1.3, and a normal troponin of 0.04. This is now the 2nd admission for Urosepsis with the very last admission just under 1 month ago. She will be admitted to inpatient for further work up of this acute illness. - CONSULTS | PROCEDURES Consultations: Infectious disease, [facility] & Urology phone consult at [facility] - HOSPITAL COURSE Hospital Course: The following diagnoses were prevalent during this hospital stay: (1) Chronic atrial fibrillation The patient has a long standing history of this and is rate controlled on diltiazem, and anti-coagulated with Eliquis. Telemetry showed both sinus rhythm and atrial fibrillation, with heart rates 70-100, without ectopy. (2) Hypertension The patient has a history of this and takes both diltiazem and Spironolactone at home. Upon admission she is found to be low at 100/39 and 99/36. Today upon chart review blood pressure was 132/51. She is asymptomatic and denies chest pain or palpitations. (3) Syncope The patient and her daughter both confirm that she had a "black out" just prior to admission. This has been troubling for her. Given the fact that she actually lost consciousness, an echocardiogram was completed and no significant changes are noted. Serial troponins were all negative. Nidhi complained of body aches, left arm aches and intermittent rib discomfort that does not occur with activity, and this subsided by the day of discharge. 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 Echo results show no new findings related to previous heart injury, such as no regional wall motion abnormalities. She also was found to have improved pulmonary pressures of 36mmHg from 44mmHg only one month ago since starting her Spironolactone. A head MRI showed no new infarcts or evidence of bleeding. (4) Urinary incontinence The patient has long-standing urinary incontinence that influences her overall well being. She us set to undergo Botox injections with Dr. Flores, Urology at the end of this month for this problem. She attended a nursing visit where she learned self-cath technique early this week. Records obtained confirm this visit and in fact, she was changed from Macrobid to Keflex. I spoke to a provider from this office and explained the coincidental circumstances of this patient being put on Macrobid, with this being the second time within one month. They requested more data, so an additional straight cath urine sample and a vaginal swab was obtained, both remain negative/not of culture quality. (5) Sepsis The patient presented with complained of syncope and collapse, fever, chills, and body aches. She was found to have an elevated WBC count of 22.2, that was resolved by the time of discharge to a value of 8. She continued to demonstrate no changes in mental status. She has been afebrile since admission , and a day prior to admission can recall feeling sweats, chills, and had a sensation of her teeth chattering. She was aggressively treated with the usual Cefepime and vanco while inpatient and transitioned back to her usual Keflex at an increased dose for several days, then back to her daily prophylactic dose of 250mg. Lactic acid remained negative throughout her stay. Blood cultures were drawn and indicated no growth to date. Her chest x-ray was questionable for pneumonia, although no other qualifying problems such as cough, or exam findings. A repeat 1-view chest x-ray is clear without evidence of infiltrates. She was encouraged to continue use of the incentive spirometer with every commercial while in the hospital. A sputum culture was not obtained as she continued to have no respiratory symptoms and no cough. Since this was a more difficult case, I presented her case to our infectious team. I have not gotten back an official response, but preliminary conversations is that we cannot be sure of the absolute source of infection and definitely try to avoid Macrobid. Sepsis is considered to be resolved with this illness most likely viral. (6) Pulmonary hypertension The patient had an elevated RVSP at rest of 49mmHg upon last admission and was placed on Spironolactone. She underwent a echocardiogram due to her "black out " episode that shows an improvement of her pulmonary pressure of just 36mmHg since starting her Spironolactone. Spironolactone dosing was adjusted as per patient request from one dose daily of 25mg to split dosing of 12.5mg BID. Her abdomen was mildly distended upon admission that slowly improved. Disposition: The patient was in stable condition, ambulatory and did not require oxygen at the time of discharge. She was transported via private car home with daughter. With this hospitalization being the 2nd time in less than 30 days, extra time was taken for the work up. Contact was made with [facility], and with infectious disease. The most recent Urology records were obtained. The patient was given Cranberry tablets upon discharge and encouraged to keep her Urology procedure date. - ALLERGIES Allergies/Adverse Reactions: Allergies Allergy/AdvReac Type Severity Reaction Status Date / Time ciprofloxacin [From Cipro] Allergy Severe Rash Verified 08/03/17 09:32 ciprofloxacin HCl * Allergy Severe Rash Verified 08/03/17 09:32 [From Cipro] Heparin Analogues Allergy Severe Hives Verified 08/03/17 09:32 metoclopramide HCl * Allergy Severe Anxiety Verified 08/03/17 09:32 [From Reglan] prednisone Allergy Severe Rash Verified 08/03/17 09:32 Sulfa (Sulfonamide Allergy Severe Rash Verified 08/03/17 09:32 Antibiotics) clopidogrel bisulfate * Allergy Unknown Verified 08/03/17 09:32 [From Plavix] oxycodone [Oxycodone] AdvReac Severe Edema Verified 08/03/17 09:32 hyrdrochloroquine Allergy Unknown Uncoded 07/07/17 11:34 - MEDICATIONS Home Medications: Ambulatory Orders Medication Instructions Recorded Confirmed Cholecalciferol (Vitamin D3) 3,000 units PO DAILY 10/11/16 08/03/17 [Vitamin D3] Docusate Sodium [Colace Clear] 100 mg PO DAILY 10/11/16 08/03/17 Mirtazapine 3.75 mg PO QPM 10/11/16 08/03/17 Multivitamin [Multiple Vitamins] 1 each PO DAILY 10/11/16 08/03/17 Damar-3/Dha/Epa/Fish Oil [Damar 3 1,000 mg PO DAILY 10/11/16 08/03/17 500 Softgel] Latanoprost 0.005% Ophth Drops 1 drops EACHEYE QPM 07/07/17 08/03/17 [Xalatan Ophth Drops] Magnesium Oxide [Magnesium] 400 mg PO QDAC 07/07/17 08/03/17 Apixaban [Eliquis] 5 mg PO BID #60 tablet 07/09/17 08/03/17 diltiaZEM CD [Cardizem Cd] 120 mg PO DAILY #30 capsule 07/10/17 08/03/17 Darifenacin Hydrobromide 7.5 mg PO DAILY 08/03/17 08/03/17 [Darifenacin ER] Lactobacillus Acidophilus 1 cap PO BID 08/03/17 08/03/17 [Acidophilus Lactobacilli] Cranberry Fruit Concentrate 450 mg PO BID #60 tablet 08/06/17 [Cranberry] Fluconazole [Diflucan] 200 mg PO DAILY PRN #10 mg 08/06/17 Polyethylene Glycol 3350 [Miralax] 17 gm PO DAILY packet 08/06/17 Senna [Senokot] 8.6 mg PO BID tablet 08/06/17 Spironolactone [Aldactone] 12.5 mg PO BID #30 tablet 08/06/17 cephALEXin [Keflex] 250 mg PO BID #60 capsule 08/06/17 - PHYSICAL EXAM AT DISCHARGE General Appearance: positive: No acute distress, Alert Eyes Bilateral: positive: Normal inspection, PERRL ENT: positive: ENT inspection nml, Pharynx nml, No signs of dehydration Neck: positive: Nml inspection, Thyroid nml, No JVD, Trachea midline Respiratory: positive: Chest non-tender, No respiratory distress, Breath sounds nml Cardiovascular: positive: Regular rate & rhythm, No gallop, Systolic murmur, Decreased pulse(s) Peripheral Pulses: positive: 2+ Abdomen: positive: Non-tender, Nml bowel sounds, Other (rounded, soft.) Back: positive: Nml inspection Skin: positive: No rash, Warm, Dry, Other (chronic petichea, on blood thinners, improved from last admission.) Extremities: positive: Non-tender, Full ROM, Pedal edema (chronic, dependent.), Joint swelling Neurologic/Psychiatric: positive: Oriented x3, CN's nml (2-12), Motor nml, Sensation nml, Weakness, Depressed mood/affect Reflexes: Bicep (R): 3+, Bicep (L): 3+, Ankle (R): 3+, Ankle (L): 3+ - LABS Result Diagrams: 08/06/17 05:21 08/06/17 05:21 - DIAGNOSTIC IMAGING Diagnostic Imaging Results: Final report reviewed Diagnostic Imaging Results Comments: EXAM: CHEST RADIOGRAPHY EXAM DATE: 08/03/2017 11:41 AM. CLINICAL HISTORY: Bibasilar rhonchi. COMPARISON: 05/18/2016, 06/28/2015. TECHNIQUE: 2 views. FINDINGS: Lungs/Pleura: There are mild streaky bilateral basilar pulmonary opacities. No pleural effusion. No pneumothorax. Normal volumes. Mediastinum: There is stable borderline enlargement of the cardiac silhouette. There is moderate atherosclerotic calcification of the aortic arch. Other: Mild anterior wedge compression deformity of a mid thoracic vertebra appears unchanged compared to 06/28/2015. No acute osseous abnormality. There are surgical clips in the breast. IMPRESSION: Mild streaky bilateral basilar opacities likely representing atelectasis. Aspiration or pneumonia cannot be excluded. EXAM: MRI BRAIN WITHOUT CONTRAST EXAM DATE: 08/04/2017 11:51 AM. CLINICAL HISTORY: 82-year-old female, syncope. COMPARISON: MR brain 06/27/2015 TECHNIQUE: Multiplanar, multisequence T1-weighted and fluid-sensitive MR sequences of the brain were performed. Sequences optimized for routine evaluation. Other: None. IV Contrast: None. FINDINGS: Brain Volume: Normal for age. Parenchyma/Dura: No mass, acute infarct or hemorrhage. Chronic lacunar infarct right thalamus. Redemonstration moderate scattered periventricular, deep, and subcortical white matter lesions with his medical hemispheres bilaterally. No parenchymal foci susceptibility artifact. Ventricles/Cisterns: No hydrocephalus. No abnormal extra-axial fluid collection or hemorrhage. Orbits: Status post bilateral lens replacement surgery. The visualized orbits are otherwise unremarkable. Sella Turcica: The pituitary gland, cavernous sinuses, suprasellar cistern and optic chiasm are unremarkable. IAC: Symmetric and unremarkable. Vasculature: Normal signal flow void is seen in the major arterial structures at the skull base. Sinuses: No acute appearing sinus disease. Bones: No focal pathologic appearing marrow signal changes. Other: None. IMPRESSION: 1. No MRI evidence of acute intracranial abnormality. Specifically, no evidence of acute or subacute infarct, acute intracranial hemorrhage, mass, midline shift , or hydrocephalus. 2. Chronic lacunar infarct right thalamus. 3. Redemonstration moderate scattered periventricular, deep, and subcortical white matter lesions with his medical hemispheres bilaterally. While nonspecific these are favored to represent sequela of chronic microangiopathy. EXAM: CHEST RADIOGRAPHY EXAM DATE: 08/06/2017 07:55 AM. CLINICAL HISTORY: Follow up to previous image, pneumonia. COMPARISON: 08/03/2017. TECHNIQUE: 1 view. FINDINGS: Lungs/Pleura: Improved aeration. Minimal basilar atelectasis. No satinder infiltrate, pleural effusion or pneumothorax. Mediastinum: Stable mediastinal contour, borderline prominent. Atherosclerotic calcifications of the aortic arch. Other: Surgical clips in the right breast. IMPRESSION: Improved aeration. Minimal basilar atelectasis. No satinder infiltrate. ECHOCARDIOGRAM-Final 08/04/17: 1. The LV size is normal. Mild concentric LV hypertrophy. Overall LV systolic function is normal with an EF of 55-60%. 2. The RV is normal in size and function. 3. There is no pericardial effusion noted. 4. No hemodynamically significant valvular heart disease. - FOLLOW UP Follow Up: Disposition: Home, Self Care Condition: Good Prescriptions: cephALEXin [Keflex] 250 mg PO BID #60 capsule Cranberry Fruit Concentrate [Cranberry] 450 mg PO BID #60 tablet Fluconazole [Diflucan] 200 mg PO DAILY PRN #10 mg PRN Reason: As Needed Per Provider Orders Spironolactone [Aldactone] 12.5 mg PO BID #30 tablet Diet: Regular Activity Restrictions: No Restrictions Shower Restrictions: No Driving Restrictions: Yes Weight Bearing: Full Weight Additional Instructions or Follow Up instructions: You were admitted for sepsis after you had an episode at home of falling and loss of consciousness. We believe that the most likely cause of your fever and septic symptoms were either a virus or your bladder. 2 urine samples were obtained which showed no obvious infection so these samples were not cultured. A call was made to your Urology office and records were obtained to gather clarification about your latest care plan. A vaginal swab was performed and a fresh straight cath sample was obtained by me personally. The vaginal swab did not show a yeast overgrowth and the normal, expected epithelial cells. The urine sample results looked similar to your first sample, BOTH of which are not culture quality. At the time of admission, a chest x-ray was completed and showed possible pneumonia, but your lung exam was clear and you did not demonstrate a productive cough or fevers. A follow up x-ray was obtained and shows nice clear lungs. You should continue your incentive spirometer. Blood cultures were obtained upon admission that remain no growth to date. infectious disease partners with us and helps guide our care when it has to do with antibiotic stewardship. I have written up your case study to them and expect a response on Monday, which I plan to mail to you. I will also ask their opinion of ways to prevent this illness and if these illnesses are linked together, or likely separate incidences. A follow up echocardiogram was completed because you passed out and shows an improvement in the pulmonary hypertension since your last admission. A brain MRI was done and showed no acute damage or bleeds. Orthostatic blood pressures were completed and negative. Keep your urology appointments as scheduled and they will get a copy of my summary. Please see your PCP within one week, and she will get a copy of my discharge summary. - TIME SPENT Time Spent in Discharge (Minutes): 60
[2017-08-06] MEDS: SPIRONOLACTONE 25 MG TABLET PO SCH (08:56)
[2017-08-06] MEDS: diltiaZEM CD 120 MG CAPSULE PO SCH (08:56)
[2017-08-06] MEDS: APIXABAN 2.5 MG TABLET PO SCH (08:57)
[2017-08-06] MEDS: FLUCONAZOLE 100 MG TABLET PO SCH (08:57)
[2017-08-06] MEDS: SENNA 8.6 MG TABLET PO SCH (08:58)
[2017-08-06] MEDS: MAGNESIUM OXIDE 400 MG TABLET PO SCH (08:58)
[2017-08-06] MEDS: cephALEXin 250 MG CAPSULE PO SCH (09:00)
[2017-08-06] MEDS: ASPIRIN EC 81 MG TABLET PO SCH (09:00)
[2017-08-06] MEDS: POLYETHYLENE GLYCOL 3350 17 GM PACKET PO SCH (09:02)
--- NOTE | 2017-08-06 09:15 | XRAY Report ---
EXAM: CHEST RADIOGRAPHY EXAM DATE: 08/06/2017 07:55 AM. CLINICAL HISTORY: Follow up to previous image, pneumonia. COMPARISON: 08/03/2017. TECHNIQUE: 1 view. FINDINGS: Lungs/Pleura: Improved aeration. Minimal basilar atelectasis. No satinder infiltrate, pleural effusion o r pneumothorax. Mediastinum: Stable mediastinal contour, borderline prominent. Atherosclerotic calcifications of the aortic arch. Other: Surgical clips in the right breast. IMPRESSION: Improved aeration. Minimal basilar atelectasis. No satinder infiltrate. [facility] Referring Provider Line: [phone] SITE ID: [id number]
[2017-08-06 16:45] VITALS: BP 152/60
== END 2017-08-06 16:10 | disposition home or self-care (01) | DRG 312 ==
LOC: EDUNIT# → ED 09:17 → MS2 12:19
PROVIDERS: ADMIT Nurse Practitioner; ATTEND Nurse Practitioner
DX: A41.9 Sepsis, unspecified organism (principal); R55 Syncope and collapse; R91.8 Other nonspecific abnormal finding of lung field; E87.1 Hypo-osmolality and hyponatremia; I48.91 Unspecified atrial fibrillation; N39.0 Urinary tract infection, site not specified; R41.82 Altered mental status, unspecified; D72.829 Elevated white blood cell count, unspecified; R50.9 Fever, unspecified; I10 Essential (primary) hypertension; I48.2 Chronic atrial fibrillation; R32 Unspecified urinary incontinence; I27.20 Pulmonary hypertension, unspecified; K52.9 Noninfective gastroenteritis and colitis, unspecified; K59.00 Constipation, unspecified; R33.9 Retention of urine, unspecified; R35.1 Nocturia; R35.0 Frequency of micturition; H91.90 Unspecified hearing loss, unspecified ear; F41.9 Anxiety disorder, unspecified; M79.7 Fibromyalgia; Z66 Do not resuscitate; Z79.2 Long term (current) use of antibiotics; Z79.899 Other long term (current) drug therapy; Z87.442 Personal history of urinary calculi; Z86.73 Personal history of transient ischemic attack (TIA), and cerebral infarction without residual deficits; Z90.710 Acquired absence of both cervix and uterus
CPT/HCPCS: 36415; 70551; 71045; 71046; 80048; 80053; 81001; 81003; 83605; 83690; 83735; 83880; 84484; 85025; 85610; 85651; 85730; 86140; 87040; 87070; 87086; 93005; 93306; 96360; 99284; 99285

== ENCOUNTER 2017-08-08 14:35 | Outpatient (CLI) | payer MEDICARE, BC ==
[2017-08-08 17:30] LABS: BILIRUBIN,URINE NEGATIVE (NEGATIVE); GLUCOSE, URINE (UA) NEGATIVE (NEGATIVE); KETONES,URINE (UA) NEGATIVE (NEGATIVE); LEUKOCYTE ESTERASE, URINE NEGATIVE (NEGATIVE); NITRITE,URINE NEGATIVE (NEGATIVE); OCCULT BLOOD,URINE LARGE (NEGATIVE); PH,URINE 5.5 PH (5.0-7.5); PROTEIN,URINE TRACE mg/dL (NEGATIVE); UROBILINOGEN,URINE 0.2 (NORMAL) E.U./dL (NORMAL)
[2017-08-08 17:47] LABS: CLARITY,URINE SL. CLOUDY (CLEAR)
[2017-08-08 17:50] LABS: BACTERIA,URINE None Seen /HPF (None Seen); RBC,URINE TNTC /HPF (0-5); SQUAMOUS EPITHELIAL CELL,UR NONE SEEN (<= Few)
== END 2017-08-08 14:36 | disposition home or self-care (01) ==
LOC: LAB.R 14:35
PROVIDERS: ATTEND Physician Assistant Medical
DX: N39.0 Urinary tract infection, site not specified (principal)
CPT/HCPCS: 81001; 81003; 87086

== ENCOUNTER 2017-11-14 10:10 | Outpatient (CLI) | payer MEDICARE, BC ==
[2017-11-14 15:49] LABS: BASOPHILS # (AUTO) 0.1 10^3/uL (0.0-0.1); EOSINOPHILS # (AUTO) 0.1 10^3/uL (0.0-0.7); EOSINOPHILS % (AUTO) 0.8 %; HGB - HEMOGLOBIN 13.4 g/dL (12.0-16.0); LYMPHOCYTES % (AUTO) 24.4 %; MEAN CORPUSCULAR HEMOGLOBIN 30.4 pg (27.0-31.0); MEAN CORPUSCULAR HGB CONC 33.7 g/dL (32.0-36.0); MEAN CORPUSCULAR VOLUME 90.2 fL (81.0-99.0); MEAN PLATELET VOLUME 9.6 fL (7.9-10.8); MONOCYTES # (AUTO) 0.7 10^3/uL (0.0-1.0); MONOCYTES % (AUTO) 8.2 %; NEUTROPHILS # (AUTO) 5.3 10^3/uL (1.5-6.6); NEUTROPHILS % (AUTO) 65.6 %; PLT - PLATELET COUNT 345 10^3/uL (130-450); RED BLOOD COUNT 4.41 10^6/uL (4.20-5.40); RED CELL DISTRIBUTION WIDTH 15.6 % (12.0-15.0); WHITE BLOOD COUNT 8.1 x10^3/uL (4.8-10.8)
[2017-11-14 15:59] LABS: ALBUMIN 4.1 g/dL (3.2-5.5); ALBUMIN/GLOBULIN RATIO 1.3 (1.0-2.2); ALKALINE PHOSPHATASE 45 IU/L (42-121); ALT ALANINE AMINOTRANSFERASE 18 IU/L (10-60); AST ASPARTATE AMINOTRANSFERASE 24 IU/L (10-42); BILIRUBIN,TOTAL 0.8 mg/dL (0.2-1.0); BUN - BLOOD UREA NITROGEN 21 mg/dL (6-20); CALCIUM 9.2 mg/dL (8.5-10.3); CARBON DIOXIDE - CO2 26 mmol/L (21-32); CHLORIDE 99 mmol/L (101-111); CHOL/HDL RATIO 3.2 (<4.4); CHOLESTEROL 240 mg/dL; CREATININE 0.8 mg/dL (0.4-1.0); GFR - MDRD 68 (>89); GLUCOSE 79 mg/dL (70-100); HDL CHOLESTEROL 76 mg/dL; LDL CHOLESTEROL,CALCULATED 149 mg/dL; SODIUM 133 mmol/L (135-145); TOTAL PROTEIN 7.2 g/dL (6.7-8.2); VLDL CHOLESTEROL 15 mg/dL
== END 2017-11-14 10:11 | disposition home or self-care (01) ==
LOC: LAB.R 10:10
PROVIDERS: ATTEND Physician Assistant Medical
DX: Z79.899 Other long term (current) drug therapy (principal); I10 Essential (primary) hypertension; I48.91 Unspecified atrial fibrillation; F32.9 Major depressive disorder, single episode, unspecified
CPT/HCPCS: 80053; 80061; 82306; 83721; 84443; 85025

== ENCOUNTER 2017-12-14 10:13 | Outpatient (CLI) | payer MEDICARE, BC ==
--- NOTE | 2017-12-14 11:25 | XRAY Report ---
Reason: BACK PAIN,LUMBAR CHRONIC Procedure Date: 12/14/2017 Accession Number: [id number] / [id number] Procedure: XR - Lumbar Spine Complete CPT Code: FULL RESULT: EXAM: LUMBOSACRAL SPINE RADIOGRAPHY EXAM DATE: 12/14/2017 10:31 AM. CLINICAL HISTORY: 82-year-old woman with chronic lumbar back pain. COMPARISONS: LUMBAR SPINE W/ 05/19/2016 1:45 PM. TECHNIQUE: 4 views. FINDINGS: Alignment: Convex left scoliosis centered at L2-L3 has a Oliva angle of approximately 34 degrees between the inferior endplate of L1 and of the superior endplate of L5, similar to the 2017 CT. Mild left lateral listhesis of L4 on L5 and, to a lesser extent, L3 on L4 is also unchanged. There is also straightening of normal lumbar lordosis. Bones: There is lumbar rotation of S1, as before. No fractures or bone lesions. Mild degenerative endplate sclerosis is present at several levels, most prominent at L2-L3 and L4-L5. Disks: There is variable disk height loss throughout the lumbar spine, greatest along the concave aspect of the scoliosis. Facets: Facet hypertrophy is present throughout the lumbar spine. Sacroiliac Joints: Unremarkable. Soft Tissues: Surgical clips are present in the right lung. IMPRESSION: 1. Convex left scoliosis centered at L2-L3 with Oliva angle of 34 degrees and left lateral listhesis of L4 on L5 and, to a lesser degree, L3 on L4. Findings are similar to the 05/19/2016 CT. 2. Degenerative disk changes with endplate sclerosis are present along the concave aspect of the scoliosis. [facility]
== END 2017-12-14 10:14 | disposition home or self-care (01) ==
LOC: DI 10:13
PROVIDERS: ATTEND Physician Assistant Medical
DX: M41.86 Other forms of scoliosis, lumbar region (principal); M51.36 Other intervertebral disc degeneration, lumbar region
CPT/HCPCS: 72110

== ENCOUNTER 2018-01-12 11:00 | Outpatient (CLI) | payer MEDICARE, BC ==
[2018-01-12 11:48] LABS: BASOPHILS % (AUTO) 0.7 %; EOSINOPHILS % (AUTO) 0.8 %; HGB - HEMOGLOBIN 14.3 g/dL (12.0-16.0); LYMPHOCYTES # (AUTO) 1.8 10^3/uL (1.5-3.5); MEAN CORPUSCULAR HEMOGLOBIN 30.9 pg (27.0-31.0); MEAN CORPUSCULAR HGB CONC 34.4 g/dL (32.0-36.0); MEAN CORPUSCULAR VOLUME 89.7 fL (81.0-99.0); MEAN PLATELET VOLUME 8.6 fL (7.9-10.8); MONOCYTES # (AUTO) 0.7 10^3/uL (0.0-1.0); MONOCYTES % (AUTO) 10.4 %; NEUTROPHILS # (AUTO) 3.7 10^3/uL (1.5-6.6); NEUTROPHILS % (AUTO) 59.1 %; PLT - PLATELET COUNT 347 10^3/uL (130-450); RED BLOOD COUNT 4.65 10^6/uL (4.20-5.40); RED CELL DISTRIBUTION WIDTH 14.6 % (12.0-15.0); WHITE BLOOD COUNT 6.3 x10^3/uL (4.8-10.8)
[2018-01-12 11:50] LABS: ALBUMIN/GLOBULIN RATIO 1.3 (1.0-2.2); BILIRUBIN,TOTAL 0.6 mg/dL (0.2-1.0); CALCIUM 9.2 mg/dL (8.5-10.3); CREATININE 0.8 mg/dL (0.4-1.0); TOTAL PROTEIN 7.2 g/dL (6.7-8.2)
== END 2018-01-12 11:01 | disposition home or self-care (01) ==
LOC: LAB.R 11:00
PROVIDERS: ATTEND Physician Assistant Medical
DX: R53.83 Other fatigue (principal)
CPT/HCPCS: 80053; 85025; 87086

== ENCOUNTER 2018-06-11 11:40 | Outpatient (CLI) | payer MEDICARE, BC ==
[2018-06-11] MEDS ORDERED: IOVERSOL 320 50 ML VIAL ONE (11:54)
--- NOTE | 2018-06-11 15:41 | CT Report ---
Reason: ABDOMINAL BLOATING, DISTENTION. Procedure Date: 06/11/2018 Accession Number: [id number] / [id number] Procedure: CT - Abdomen/Pelvis WO CPT Code: FULL RESULT: EXAM: CT ABDOMEN AND PELVIS WITHOUT CONTRAST. EXAM DATE: 06/11/2018 01:10 PM. CLINICAL HISTORY: Abdominal bloating, distention. COMPARISONS: ABDOMEN/PELVIS W/O 07/09/2017 10:29 AM. TECHNIQUE: Routine axial helical CT imaging was performed through the abdomen and pelvis without IV contrast. Reconstructions: Coronal and sagittal. Oral contrast was administered. In accordance with CT protocol optimization, one or more of the following dose reduction techniques were utilized for this exam: automated exposure control, adjustment of mA and/or KV based on patient size, or use of iterative reconstructive technique. FINDINGS: Lung Bases: Scarring of the left lung base appears essentially unchanged. Right Kidney/Ureter: No stones, hydronephrosis, or hydroureter. No perinephric fat stranding. Left Kidney/Ureter: No stones, hydronephrosis, or hydroureter. No perinephric fat stranding. Other Solid Organs: The noncontrast liver, spleen, pancreas, adrenal glands are unremarkable with the exception of a liver cyst as well as renal cysts. Gallbladder/Bile Ducts: Stable appearance status post cholecystectomy. Peritoneal Cavity: No free fluid, free air or satinder adenopathy. Bowel is grossly unremarkable. The appendix is normal. Pelvic Organs: A pessary is noted within the pelvis. Vasculature: Atherosclerosis without aneurysm. Other: Redemonstration of lumbar scoliosis with no aggressive osseous lesion detected. IMPRESSION: The etiology of the patient's bloating is not delineated. [facility]
== END 2018-06-11 11:41 | disposition home or self-care (01) ==
LOC: DI 11:40
PROVIDERS: ATTEND Internal Medicine Cardiovascular Disease
DX: R14.0 Abdominal distension (gaseous) (principal)
CPT/HCPCS: 74176

== ENCOUNTER 2018-06-19 11:15 | Emergency (ER) | payer MEDICARE, BC ==
[2018-06-19 11:48] LABS: BILIRUBIN,URINE NEGATIVE (NEGATIVE); GLUCOSE, URINE (UA) NEGATIVE (NEGATIVE); KETONES,URINE (UA) NEGATIVE (NEGATIVE); LEUKOCYTE ESTERASE, URINE SMALL (NEGATIVE); NITRITE,URINE NEGATIVE (NEGATIVE); OCCULT BLOOD,URINE NEGATIVE (NEGATIVE); PH,URINE 6.5 PH (5.0-7.5); PROTEIN,URINE NEGATIVE (NEGATIVE); UROBILINOGEN,URINE 0.2 (NORMAL) E.U./dL (NORMAL)
[2018-06-19 11:49] LABS: BASOPHILS # (AUTO) 0.1 10^3/uL (0.0-0.1); BASOPHILS % (AUTO) 1.3 %; EOSINOPHILS # (AUTO) 0.1 10^3/uL (0.0-0.7); EOSINOPHILS % (AUTO) 1.2 %; HGB - HEMOGLOBIN 13.5 g/dL (12.0-16.0); LYMPHOCYTES # (AUTO) 1.5 10^3/uL (1.5-3.5); MEAN CORPUSCULAR HEMOGLOBIN 30.2 pg (27.0-31.0); MEAN CORPUSCULAR HGB CONC 32.9 g/dL (32.0-36.0); MEAN CORPUSCULAR VOLUME 91.6 fL (81.0-99.0); MEAN PLATELET VOLUME 8.4 fL (7.9-10.8); MONOCYTES # (AUTO) 0.6 10^3/uL (0.0-1.0); MONOCYTES % (AUTO) 9.4 %; NEUTROPHILS # (AUTO) 4.1 10^3/uL (1.5-6.6); NEUTROPHILS % (AUTO) 64.1 %; PLT - PLATELET COUNT 300 10^3/uL (130-450); RED BLOOD COUNT 4.46 10^6/uL (4.20-5.40); RED CELL DISTRIBUTION WIDTH 14.8 % (12.0-15.0); WHITE BLOOD COUNT 6.4 x10^3/uL (4.8-10.8)
[2018-06-19 11:51] LABS: CLARITY,URINE CLEAR (CLEAR)
[2018-06-19 12:00] LABS: BACTERIA,URINE Few /HPF (None Seen); RBC,URINE 0-5 /HPF (0-5); SQUAMOUS EPITHELIAL CELL,UR FEW Squamous (<= Few)
[2018-06-19 12:05] LABS: ALBUMIN/GLOBULIN RATIO 1.2 (1.0-2.2); BILIRUBIN,TOTAL 0.7 mg/dL (0.2-1.0); CALCIUM 9.5 mg/dL (8.5-10.3); CREATININE 0.8 mg/dL (0.4-1.0); TOTAL PROTEIN 7.4 g/dL (6.7-8.2)
[2018-06-19] MEDS ORDERED: cephALEXin 250 MG CAPSULE PO STA (12:24)
--- NOTE | 2018-06-19 12:26 | ED Physician Documentation ---
History of Present Illness - Stated complaint Stated Complaint: DIZZY/BP EVELEVATED - Chief complaint Chief Complaint: General - History obtained from History obtained from: Patient - Additonal information Additional information: The patient is an 83-year-old female who complains of dizziness that has been occurring intermittently for the past 2 weeks. It is usually worse in the morning. She describes it as a lightheadedness rather than a spinning sensation. She denies associated chest pain, shortness of breath, nausea or vomiting. She reports having chronic left earache, for many years. She has been evaluated by ENT for this in the past. There has been no recent change. She has history of glaucoma, with no recent change. She denies headache or visual disturbance. Review of Systems Constitutional: reports: Other (dizziness). denies: Fever Eyes: denies: Irritation Ears: reports: Ear pain (mild left earache.). 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 (status post hysterectomy for bleeding and bladder stimulator-now ex- planted.) : Retention, Incontinence, Chronic bladder infection, Nocturia, Frequency, Kidney stones HEENT: None, Chronic vision loss, Chronic sinusitis Psych: Anxiety Musculoskeletal: Fibromyalgia, Fatigue Derm: None - Past Surgical History Past Surgical History: Yes General: 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 /DUST COLLECTOR ATTENDANT: section, Hysterectomy HEENT: Cataracts, Tonsil/Adenoidectomy - Present Medications Home Medications: Ambulatory Orders Medication Instructions Recorded Confirmed Cholecalciferol (Vitamin D3) 3,000 units PO DAILY 10/11/16 08/03/17 [Vitamin D3] Docusate Sodium [Colace Clear] 100 mg PO DAILY 10/11/16 08/03/17 Mirtazapine 3.75 mg PO QPM 10/11/16 08/03/17 Multivitamin [Multiple Vitamins] 1 each PO DAILY 10/11/16 08/03/17 [place]-3/Dha/Epa/Fish Oil [[place] 3 1,000 mg PO DAILY 10/11/16 08/03/17 500 Softgel] Latanoprost 0.005% Ophth Drops 1 drops EACHEYE QPM 07/07/17 08/03/17 [Xalatan Ophth Drops] Magnesium Oxide [Magnesium] 400 mg PO QDAC 07/07/17 08/03/17 Apixaban [Eliquis] 5 mg PO BID #60 tablet 07/09/17 08/03/17 diltiaZEM CD [Cardizem Cd] 120 mg PO DAILY #30 capsule 07/10/17 08/03/17 Darifenacin Hydrobromide 7.5 mg PO DAILY 08/03/17 08/03/17 [Darifenacin ER] Lactobacillus Acidophilus 1 cap PO BID 08/03/17 08/03/17 [Acidophilus Lactobacilli] Cranberry Fruit Concentrate 450 mg PO BID #60 tablet 08/06/17 [Cranberry] Fluconazole [Diflucan] 200 mg PO DAILY PRN #10 mg 08/06/17 Polyethylene Glycol 3350 [Miralax] 17 gm PO DAILY packet 08/06/17 Senna [Senokot] 8.6 mg PO BID tablet 08/06/17 Spironolactone [Aldactone] 12.5 mg PO BID #30 tablet 08/06/17 cephALEXin [Keflex] 250 mg PO BID #60 capsule 08/06/17 cephALEXin [Cephalexin] 500 mg PO TID #20 tablet 06/19/18 - Allergies Allergies/Adverse Reactions: Allergies Allergy/AdvReac Type Severity Reaction Status Date / Time ciprofloxacin [From Cipro] Allergy Severe Rash Verified 06/19/18 11:23 ciprofloxacin HCl * Allergy Severe Rash Verified 06/19/18 11:23 [From Cipro] Heparin Analogues Allergy Severe Hives Verified 06/19/18 11:23 metoclopramide HCl * Allergy Severe Anxiety Verified 06/19/18 11:23 [From Reglan] prednisone Allergy Severe Rash Verified 06/19/18 11:23 Sulfa (Sulfonamide Allergy Severe Rash Verified 06/19/18 11:23 Antibiotics) amoxicillin [From Augmentin] Allergy Rash Verified 06/19/18 11:24 clavulanic acid Allergy Rash Verified 06/19/18 11:24 [From Augmentin] clopidogrel bisulfate * Allergy Unknown Verified 06/19/18 11:23 [From Plavix] oxycodone [Oxycodone] AdvReac Severe Edema Verified 06/19/18 11:23 hyrdrochloroquine Allergy Unknown Uncoded 06/19/18 11:23 - Social History Does the pt smoke?: No Smoking Status: Never smoker Does the pt drink ETOH?: No Does the pt have substance abuse?: No - Immunizations Immunizations are current?: Yes - POLST Patient has POLST: No POLST Status: DNR PD ED PE NORMAL - Vitals Vital signs reviewed: Yes (Mild systolic hypertension.) - General General: Alert and oriented X 3, Well developed/nourished - HEENT HEENT: Atraumatic, PERRL, EOMI, Ears normal, Pharynx benign - Neck Neck: Supple, no meningeal sign, No adenopathy, No JVD - Cardiac Cardiac: RRR - Respiratory Respiratory: No respiratory distress, Clear bilaterally - Abdomen Abdomen: Soft, Non tender - Back Back: No CVA TTP - Derm Derm: No rash - Extremities Extremities: No edema, No calf tenderness / cord - Neuro Neuro: Alert and oriented X 3, No motor deficit, No sensory deficit Results - Vitals Vitals: Vital Signs - 24 hr 06/19/18 06/19/18 06/19/18 11:20 12:25 12:52 Temperature 36.5 C 36.5 C 36.6 C Heart Rate 63 56 L 63 Respiratory 14 21 18 Rate Blood Pressure 153/59 H 145/54 H 178/65 H O2 Saturation 98 98 99 Oxygen O2 Source Room air - EKG (time done) 11:46 Rate: Rate (enter#) (56) Rhythm: NSR [place]: LAD Intervals: Prolonged [place] Ischemia: Q waves (in anteroseptal leads V1-V3, consisitent with previous anteroseptal KS.) Compare to prior EKG: Changed from prior EKG (When compared to prior EKG of 08/03/2017, rhythm is no longer atrial fibrillation.) Computer interpretation: Agree with computer - Labs Labs: Microbiology 06/19/18 11:39 Urine Culture - Preliminary Urine,Clean Catch Escherichia Coli Laboratory Tests 06/19/18 06/19/18 06/19/18 11:39 11:44 11:44 WBC 6.4 RBC 4.46 Hgb 13.5 Hct 40.9 MCV 91.6 MCH 30.2 MCHC 32.9 RDW 14.8 Plt Count 300 MPV 8.4 Neut # (Auto) 4.1 Lymph # (Auto) 1.5 [place] # (Auto) 0.6 Eos # (Auto) 0.1 Baso # (Auto) 0.1 Absolute Nucleated RBC 0.00 Nucleated RBC % 0.0 Sodium 138 Potassium 4.1 Chloride 97 L Carbon Dioxide 31 Anion Gap 10.0 BUN 22 H Creatinine 0.8 Estimated GFR (MDRD) 68 L Glucose 108 H Calcium 9.5 Total Bilirubin 0.7 AST 24 ALT 17 Alkaline Phosphatase 46 Total Protein 7.4 Albumin 4.0 Globulin 3.4 Albumin/Globulin Ratio 1.2 Lipase 42 Urine Color YELLOW Urine Clarity CLEAR Urine pH 6.5 Ur Specific [place] <=1.005 Urine Protein NEGATIVE Urine Glucose (UA) NEGATIVE Urine Ketones NEGATIVE Urine Occult Blood NEGATIVE Urine Nitrite NEGATIVE Urine Bilirubin NEGATIVE Urine Urobilinogen 0.2 (NORMAL) Ur Leukocyte Esterase SMALL H Urine RBC 0-5 Urine WBC 6-10 H Ur Squamous Epith Cells FEW Squamous Urine Bacteria Few Ur Microscopic Review INDICATED Urine Culture Comments INDICATED PD MEDICAL DECISION MAKING - ED course Complexity details: reviewed old records, reviewed results, re-evaluated patient, considered differential, d/w patient ED course: The patient's presentation is most consistent with urinary tract infection. She does not appear septic or to have pyelonephritis. Her presentation does not suggest a cardiac etiology, and her EKG reveals no ischemic abnormalities. Treatment in the emergency department included administration of cephalexin 500 mg orally. She is being discharged with prescription for cephalexin. I discussed with her and her female consumer insights intern the diagnosis, expected course of illness, antibiotic treatment and outpatient follow-up, as well as potentially worrisome signs or symptoms that should prompt reevaluation in the emergency department. Departure - Departure Disposition: 01 Home, Self Care Clinical Impression: Urinary tract infection Qualifiers: Urinary tract infection type: acute cystitis Hematuria presence: without hematuria Qualified Code(s): N30.00 - Acute cystitis without hematuria Condition: Stable Instructions: ED UTI Cystitis Female Follow-Up: Martínez Frye MD [Primary Care Provider] - Prescriptions: cephALEXin [Cephalexin] 500 mg PO TID #20 tablet Comments: Drink plenty of fluids, including cranberry juice. Take Cephalexin three times daily as prescribed. You can use Tylenol or ibuprofen as needed for fever or discomfort. Follow up with your primary physician within 2 weeks. Call to schedule appointment. Return to the emergency department if you develop increasing abdominal pain, fever with shaking chills, persistent vomiting, or otherwise worsening symptoms. Discharge Date/Time: 06/19/18 12:57
[2018-06-19 12:53] VITALS: BP 178/65
== END 2018-06-19 12:57 | disposition home or self-care (01) ==
LOC: ED 11:15
DX: R07.9 Chest pain, unspecified (principal); N30.00 Acute cystitis without hematuria; I44.0 Atrioventricular block, first degree; I10 Essential (primary) hypertension; E78.00 Pure hypercholesterolemia, unspecified; Z86.73 Personal history of transient ischemic attack (TIA), and cerebral infarction without residual deficits
CPT/HCPCS: 36415; 80053; 81001; 83690; 85025; 87086; 87181; 93005; 99283; A9270; 81003

== ENCOUNTER 2018-07-05 18:02 | Emergency (ER) | payer MEDICARE, BC ==
[2018-07-05 18:45] LABS: BILIRUBIN,URINE NEGATIVE (NEGATIVE); GLUCOSE, URINE (UA) NEGATIVE (NEGATIVE); KETONES,URINE (UA) NEGATIVE (NEGATIVE); LEUKOCYTE ESTERASE, URINE NEGATIVE (NEGATIVE); NITRITE,URINE NEGATIVE (NEGATIVE); OCCULT BLOOD,URINE NEGATIVE (NEGATIVE); PROTEIN,URINE NEGATIVE (NEGATIVE); UROBILINOGEN,URINE 0.2 (NORMAL) E.U./dL (NORMAL)
[2018-07-05 18:47] LABS: CLARITY,URINE CLEAR (CLEAR)
[2018-07-05 19:36] LABS: BASOPHILS # (AUTO) 0.1 10^3/uL (0.0-0.1); BASOPHILS % (AUTO) 1.2 %; EOSINOPHILS # (AUTO) 0.2 10^3/uL (0.0-0.7); EOSINOPHILS % (AUTO) 2.4 %; HGB - HEMOGLOBIN 13.1 g/dL (12.0-16.0); LYMPHOCYTES # (AUTO) 2.7 10^3/uL (1.5-3.5); LYMPHOCYTES % (AUTO) 37.8 %; MEAN CORPUSCULAR HEMOGLOBIN 29.9 pg (27.0-31.0); MEAN CORPUSCULAR HGB CONC 32.8 g/dL (32.0-36.0); MEAN CORPUSCULAR VOLUME 91.4 fL (81.0-99.0); MEAN PLATELET VOLUME 8.6 fL (7.9-10.8); MONOCYTES # (AUTO) 0.7 10^3/uL (0.0-1.0); MONOCYTES % (AUTO) 10.3 %; NEUTROPHILS # (AUTO) 3.4 10^3/uL (1.5-6.6); NEUTROPHILS % (AUTO) 48.3 %; PLT - PLATELET COUNT 349 10^3/uL (130-450); RED BLOOD COUNT 4.39 10^6/uL (4.20-5.40); RED CELL DISTRIBUTION WIDTH 14.6 % (12.0-15.0)
[2018-07-05 19:49] LABS: ALBUMIN/GLOBULIN RATIO 1.4 (1.0-2.2); BILIRUBIN,TOTAL 0.6 mg/dL (0.2-1.0); CALCIUM 9.7 mg/dL (8.5-10.3); CREATININE 0.8 mg/dL (0.4-1.0); TOTAL PROTEIN 6.8 g/dL (6.7-8.2)
--- NOTE | 2018-07-05 20:01 | XRAY Report ---
Reason: dyspnea Procedure Date: 07/05/2018 Accession Number: [id number] / [id number] Procedure: XR - Chest 1 View X-Ray CPT Code: 26252 FULL RESULT: EXAM: CHEST RADIOGRAPHY EXAM DATE: 07/05/2018 07:44 PM. CLINICAL HISTORY: Dyspnea. Generalized weakness. History of COPD. COMPARISON: CHEST 1 VIEW 08/06/2017 7:37 AM. TECHNIQUE: Upright AP view. FINDINGS: Lungs/Pleura: Minimal wispy scarring or atelectasis at the medial left lung base, as before. Otherwise, lungs are clear and normal in volume. No peribronchial cuffing or interstitial abnormality. No pneumothorax or gross pleural fluid. Mediastinum: Heart size upper normal and unchanged. Mild aortic calcification. Other: Surgical clips project over the medial right breast, as before. IMPRESSION: No evidence of active cardiopulmonary disease. RADIA
--- NOTE | 2018-07-05 20:10 | ED Physician Documentation ---
PD HPI SYNCOPE - Stated complaint Stated Complaint: SOA,LIGHTHEADED - Chief complaint Chief Complaint: UTI - History obtained from History obtained from: Patient, Family (daughter) - History of Present Illness Witnessed: Unwitnessed Timing - onset: Today (She has been having several days of feeling dizzy with changing position. She initially described to the nursing as lightheadedness with fainting near fainting. However when I am asking her about it she really describes it as a feeling of motion and dizziness with being off balance when she gets up and around. She feels okay when sitting and rested and not moving. She subsequently called EMS.) Duration: Other (The dizziness and feeling of movement last for several minutes or so when she changes position and then will settle down.) Preceding symptoms: No: Headache, Chest pain, Dyspnea, Abdominal pain Associated symptoms: No: Headache, Chest pain, Palpitations Contributing factors: No: Recent med change, Decreased PO intake, Noxious stimulae Similar symptoms before: Diagnosis (remote history of vertigo. No history of heart problems nor arrhythmia.) Review of Systems Constitutional: reports: Fatigue. 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 : Retention, Incontinence, Chronic bladder infection, Nocturia, Frequency, Kidney stones HEENT: None, Chronic vision loss, Chronic sinusitis Psych: Anxiety Musculoskeletal: Fibromyalgia, Fatigue Derm: None - Past Surgical History Past Surgical History: Yes General: 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 /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 ASSISTANT: section, Hysterectomy HEENT: Cataracts, Tonsil/Adenoidectomy - Present Medications Home Medications: Ambulatory Orders Medication Instructions Recorded Confirmed RX: Cholecalciferol (Vitamin D3) 3,000 units PO DAILY 10/11/16 08/03/17 [Vitamin D3] RX: Docusate Sodium [Colace Clear] 100 mg PO DAILY 10/11/16 08/03/17 RX: Mirtazapine 3.75 mg PO QPM 10/11/16 08/03/17 RX: Multivitamin [Multiple 1 each PO DAILY 10/11/16 08/03/17 Vitamins] RX: [place]-3/Dha/Epa/Fish Oil 1,000 mg PO DAILY 10/11/16 08/03/17 [[place] 3 500 Softgel] RX: Latanoprost 0.005% Ophth Drops 1 drops EACHEYE QPM 07/07/17 08/03/17 [Xalatan Ophth Drops] RX: Apixaban [Eliquis] 5 mg PO BID #60 tablet 07/09/17 08/03/17 RX: diltiaZEM CD [Cardizem Cd] 120 mg PO DAILY #30 capsule 07/10/17 08/03/17 RX: Lactobacillus Acidophilus 1 cap PO BID 08/03/17 08/03/17 [Acidophilus Lactobacilli] RX: Polyethylene Glycol 3350 17 gm PO DAILY packet 08/06/17 [Miralax] RX: Senna [Senokot] 8.6 mg PO BID tablet 08/06/17 Dexamethasone [Decadron] 4 mg PO DAILY #5 tablet 07/05/18 RX: Meclizine [Antivert] 12.5 mg PO TID PRN #30 tablet 07/05/18 - Allergies Allergies/Adverse Reactions: Allergies Allergy/AdvReac Type Severity Reaction Status Date / Time ciprofloxacin [From Cipro] Allergy Severe Rash Verified 07/05/18 18:15 ciprofloxacin HCl * Allergy Severe Rash Verified 07/05/18 18:15 [From Cipro] Heparin Analogues Allergy Severe Hives Verified 07/05/18 18:15 metoclopramide HCl * Allergy Severe Anxiety Verified 07/05/18 18:15 [From Reglan] prednisone Allergy Severe Rash Verified 07/05/18 18:15 Sulfa (Sulfonamide Allergy Severe Rash Verified 07/05/18 18:15 Antibiotics) amoxicillin [From Augmentin] Allergy Rash Verified 07/05/18 18:15 clavulanic acid Allergy Rash Verified 07/05/18 18:15 [From Augmentin] clopidogrel bisulfate * Allergy Unknown Verified 07/05/18 18:15 [From Plavix] oxycodone [Oxycodone] AdvReac Severe Edema Verified 07/05/18 18:15 hyrdrochloroquine Allergy Unknown Uncoded 06/19/18 11:23 - Social History Does the pt smoke?: No Smoking Status: Never smoker Does the pt drink ETOH?: No Does the pt have substance abuse?: No - Immunizations Immunizations are current?: Yes - POLST Patient has POLST: No POLST Status: DNR PD ED PE NORMAL - Vitals Vital signs reviewed: Yes - General General: Alert and oriented X 3, No acute distress, Well developed/nourished - HEENT HEENT: Atraumatic, PERRL, EOMI, Pharynx benign - Neck Neck: Supple, no meningeal sign, No adenopathy - Cardiac Cardiac: RRR, No murmur - Respiratory Respiratory: Clear bilaterally - Abdomen Abdomen: Soft, Non tender - Back Back: No CVA TTP - Derm Derm: Normal color, Warm and dry - Extremities Extremities: No tenderness to palpate, Normal ROM s pain, No edema, No calf tenderness / cord - Neuro Neuro: Alert and oriented X 3, operations technician 2-12 intact, No motor deficit, No sensory deficit, Normal speech Eye Opening: Spontaneous Motor: Obeys Commands Verbal: Oriented GCS Score: 15 Results - Vitals Vitals: Vital Signs - 24 hr 07/05/18 07/05/18 18:12 20:50 Temperature 36.9 C 36.7 C Heart Rate 64 50 L Respiratory 18 16 Rate Blood Pressure 130/51 L 132/60 H O2 Saturation 96 97 Oxygen O2 Source Room air - EKG (time done) presentation Rhythm: NSR [place]: Normal Intervals: Normal [place] QRS: Normal Ischemia: Normal ST segments. No: ST elevation c/w ischemia (sd), ST depression - Labs Labs: Laboratory Tests 07/05/18 07/05/18 07/05/18 18:35 19:20 19:20 WBC 7.0 RBC 4.39 Hgb 13.1 Hct 40.1 MCV 91.4 MCH 29.9 MCHC 32.8 RDW 14.6 Plt Count 349 MPV 8.6 Neut # (Auto) 3.4 Lymph # (Auto) 2.7 [place] # (Auto) 0.7 Eos # (Auto) 0.2 Baso # (Auto) 0.1 Absolute Nucleated RBC 0.01 Nucleated RBC % 0.1 Sodium 137 Potassium 3.8 Chloride 97 L Carbon Dioxide 29 Anion Gap 11.0 BUN 26 H Creatinine 0.8 Estimated GFR (MDRD) 68 L Glucose 123 H Calcium 9.7 Total Bilirubin 0.6 AST 22 ALT 17 Alkaline Phosphatase 44 Troponin I B-Natriuretic Peptide Total Protein 6.8 Albumin 4.0 Globulin 2.8 Albumin/Globulin Ratio 1.4 Lipase 47 Urine Color YELLOW Urine Clarity CLEAR Urine pH 6.0 Ur Specific [place] 1.010 Urine Protein NEGATIVE Urine Glucose (UA) NEGATIVE Urine Ketones NEGATIVE Urine Occult Blood NEGATIVE Urine Nitrite NEGATIVE Urine Bilirubin NEGATIVE Urine Urobilinogen 0.2 (NORMAL) Ur Leukocyte Esterase NEGATIVE Ur Microscopic Review NOT INDICATED Urine Culture Comments NOT INDICATED 07/05/18 07/05/18 19:20 19:20 WBC RBC Hgb Hct MCV MCH MCHC RDW Plt Count MPV Neut # (Auto) Lymph # (Auto) [place] # (Auto) Eos # (Auto) Baso # (Auto) Absolute Nucleated RBC Nucleated RBC % Sodium Potassium Chloride Carbon Dioxide Anion Gap BUN Creatinine Estimated GFR (MDRD) Glucose Calcium Total Bilirubin AST ALT Alkaline Phosphatase Troponin I < 0.04 B-Natriuretic Peptide 221 H Total Protein Albumin Globulin Albumin/Globulin Ratio Lipase Urine Color Urine Clarity Urine pH Ur Specific [place] Urine Protein Urine Glucose (UA) Urine Ketones Urine Occult Blood Urine Nitrite Urine Bilirubin Urine Urobilinogen Ur Leukocyte Esterase Ur Microscopic Review Urine Culture Comments PD MEDICAL DECISION MAKING - ED course Complexity details: considered differential (Sounds really more like vertigo without a true spinning feeling but still a sensation of movement when she sits up or changes position. It improves when resting. There is no focal neuro deficit. She does feel at times like she is going to fall over with balance as opposed to passing out.), d/w patient Departure - Departure Disposition: 01 Home, Self Care Clinical Impression: Vertigo Condition: Stable Record reviewed to determine appropriate education?: Yes Instructions: ED Vertigo Unspecified Follow-Up: Martínez Frye MD [Primary Care Provider] - Prescriptions: Dexamethasone [Decadron] 4 mg PO DAILY #5 tablet RX: Meclizine [Antivert] 12.5 mg PO TID PRN #30 tablet PRN Reason: Vertigo Comments: Continue your current medications. I do not see any signs of free fluid in the abdomen by the bedside ultrasound here. Continue your MiraLAX and you can take it to 3 times a day if you are feeling constipated. I think that is the cause of your abdominal bloating. Regarding your feeling of dizziness, try Decadron s teroid daily for several more days and use meclizine twice daily in see if you feel generally better over the next several days to week. Follow-up with your primary care. Discharge Date/Time: 07/05/18 20:56
[2018-07-05] MEDS ORDERED: CHERRY SYRUP 10 ML UDC PO ONE (20:42)
[2018-07-05] MEDS ORDERED: DEXAMETHASONE 10 MG/ML VIAL PO STA (20:42)
[2018-07-05] MEDS ORDERED: MECLIZINE 12.5 MG TABLET PO STA (20:42)
[2018-07-05 20:51] VITALS: BP 132/60
== END 2018-07-05 20:56 | disposition home or self-care (01) ==
LOC: ED 18:02
DX: R42 Dizziness and giddiness (principal); R53.83 Other fatigue; I10 Essential (primary) hypertension; I48.91 Unspecified atrial fibrillation; Z79.01 Long term (current) use of anticoagulants; Z86.73 Personal history of transient ischemic attack (TIA), and cerebral infarction without residual deficits
CPT/HCPCS: 36415; 71045; 80053; 81003; 83690; 83880; 84484; 85025; 93005; 99283; A9270; 81001; 87086

== ENCOUNTER 2018-11-08 08:04 | Outpatient (CLI) | payer MEDICARE, BC ==
[2018-11-08 08:35] LABS: BASOPHILS # (AUTO) 0.1 10^3/uL (0.0-0.1); BASOPHILS % (AUTO) 1.2 %; EOSINOPHILS # (AUTO) 0.1 10^3/uL (0.0-0.7); EOSINOPHILS % (AUTO) 1.9 %; HGB - HEMOGLOBIN 13.6 g/dL (12.0-16.0); LYMPHOCYTES # (AUTO) 1.8 10^3/uL (1.5-3.5); LYMPHOCYTES % (AUTO) 31.8 %; MEAN CORPUSCULAR HGB CONC 33.7 g/dL (32.0-36.0); MEAN PLATELET VOLUME 10.4 fL (7.9-10.8); MONOCYTES # (AUTO) 0.6 10^3/uL (0.0-1.0); MONOCYTES % (AUTO) 11.1 %; NEUTROPHILS # (AUTO) 3.1 10^3/uL (1.5-6.6); NEUTROPHILS % (AUTO) 53.7 %; PLT - PLATELET COUNT 286 10^3/uL (130-450); RED BLOOD COUNT 4.54 10^6/uL (4.20-5.40); RED CELL DISTRIBUTION WIDTH 14.5 % (12.0-15.0); WHITE BLOOD COUNT 5.8 x10^3/uL (4.8-10.8)
[2018-11-08 08:57] LABS: ALBUMIN 4.1 g/dL (3.2-5.5); ALBUMIN/GLOBULIN RATIO 1.4 (1.0-2.2); ALKALINE PHOSPHATASE 48 IU/L (42-121); ALT ALANINE AMINOTRANSFERASE 19 IU/L (10-60); AST ASPARTATE AMINOTRANSFERASE 21 IU/L (10-42); BILIRUBIN,TOTAL 0.9 mg/dL (0.2-1.0); BUN - BLOOD UREA NITROGEN 22 mg/dL (6-20); CALCIUM 9.1 mg/dL (8.5-10.3); CARBON DIOXIDE - CO2 26 mmol/L (21-32); CHLORIDE 102 mmol/L (101-111); CHOL/HDL RATIO 3.2 (<4.4); CHOLESTEROL 246 mg/dL; CREATININE 0.7 mg/dL (0.4-1.0); GFR - MDRD 80 (>89); GLUCOSE 92 mg/dL (70-100); HDL CHOLESTEROL 76 mg/dL; LDL CHOLESTEROL,CALCULATED 157 mg/dL; LDL/HDL RATIO 2.1 (<4.4); SODIUM 138 mmol/L (135-145); VLDL CHOLESTEROL 13 mg/dL
[2018-11-08 09:57] LABS: THYROID STIMULATING HORMONE 3.53 uIU/mL (0.34-5.60)
== END 2018-11-08 08:05 | disposition home or self-care (01) ==
LOC: LAB 08:04
PROVIDERS: ATTEND Nurse Practitioner
DX: I50.9 Heart failure, unspecified (principal); I95.2 Hypotension due to drugs; R53.83 Other fatigue; K59.09 Other constipation; I12.9 Hypertensive chronic kidney disease with stage 1 through stage 4 chronic kidney disease, or unspecified chronic kidney disease; Z79.899 Other long term (current) drug therapy
CPT/HCPCS: 36415; 80053; 80061; 82306; 82607; 83721; 84443; 85025

== ENCOUNTER 2018-11-29 10:15 | Outpatient (CLI) | payer MEDICARE, BC ==
[2018-11-29 16:57] LABS: BILIRUBIN,URINE NEGATIVE (NEGATIVE); GLUCOSE, URINE (UA) NEGATIVE (NEGATIVE); KETONES,URINE (UA) NEGATIVE (NEGATIVE); LEUKOCYTE ESTERASE, URINE MODERATE (NEGATIVE); NITRITE,URINE POSITIVE (NEGATIVE); OCCULT BLOOD,URINE NEGATIVE (NEGATIVE); PH,URINE 5.5 PH (5.0-7.5); PROTEIN,URINE NEGATIVE (NEGATIVE); UROBILINOGEN,URINE 0.2 (NORMAL) E.U./dL (NORMAL)
[2018-11-29 17:01] LABS: CLARITY,URINE CLEAR (CLEAR)
[2018-11-29 17:32] LABS: AMORPHOUS SEDIMENT,UR Moderate /LPF; BACTERIA,URINE Many /HPF (None Seen); RBC,URINE 0-5 /HPF (0-5); SQUAMOUS EPITHELIAL CELL,UR FEW Squamous (<= Few)
== END 2018-11-29 23:59 | disposition home or self-care (01) ==
LOC: LAB.R 10:15
PROVIDERS: ATTEND Nurse Practitioner
DX: R35.0 Frequency of micturition (principal)
CPT/HCPCS: 81001; 81003; 87086; 87181

== ENCOUNTER 2018-11-30 10:18 | Outpatient (CLI) | payer MEDICARE, BC ==
[2018-11-30 10:42] LABS: CALCIUM 9.3 mg/dL (8.5-10.3); CREATININE 0.6 mg/dL (0.4-1.0)
== END 2018-11-30 10:19 | disposition home or self-care (01) ==
LOC: LAB 10:18
PROVIDERS: ATTEND Internal Medicine Cardiovascular Disease
DX: R06.00 Dyspnea, unspecified (principal)
CPT/HCPCS: 36415; 80048; 83880

== ENCOUNTER 2018-12-07 11:41 | Outpatient (CLI) | payer MEDICARE, BC | END 2018-12-07 11:42 | disposition home or self-care (01) | LOC: DI 11:41 | PROVIDERS: ATTEND Internal Medicine Cardiovascular Disease | DX: R06.02 Shortness of breath (principal); R79.89 Other specified abnormal findings of blood chemistry; I07.1 Rheumatic tricuspid insufficiency; M25.559 Pain in unspecified hip; M19.90 Unspecified osteoarthritis, unspecified site; M25.562 Pain in left knee | CPT/HCPCS: 93306 ==

== ENCOUNTER 2018-12-14 11:07 | Outpatient (CLI) | payer MEDICARE, BC ==
--- NOTE | 2018-12-14 16:08 | XRAY Report ---
Reason: HIP PAIN, OA, LT KNEE PAIN Procedure Date: 12/14/2018 Accession Number: [id number] / [id number] Procedure: XR - Hips 2V BILAT CPT Code: FULL RESULT: EXAM: BILATERAL HIP RADIOGRAPHY EXAM DATE: 12/14/2018 11:48 AM. CLINICAL HISTORY: Hip pain, osteoarthritis, left knee pain. COMPARISON: HIP W/PELVIS 2-3V RT 06/28/2015 3:36 AM. TECHNIQUE: 2 views each. FINDINGS: Bones: Normal. No fractures or bone lesion. Right Hip: Minimal marginal osteophytosis. No dislocation. The hip joint space is mildly narrowed. Left Hip: Minimal marginal osteophytosis. No dislocation. The hip joint space is mildly narrowed. Soft Tissues: Normal. No soft tissue swelling. IMPRESSION: Mild degenerative disease, overall similar to 2016. RADIA
--- NOTE | 2018-12-14 16:09 | XRAY Report ---
Reason: HIP PAIN, OA, LT KNEE PAIN Procedure Date: 12/14/2018 Accession Number: [id number] / [id number] Procedure: XR - Knee 3 View LT CPT Code: FULL RESULT: EXAM: LEFT KNEE RADIOGRAPHY EXAM DATE: 12/14/2018 11:48 AM. CLINICAL HISTORY: Hip pain, osteoarthritis, left knee pain. COMPARISON: None. TECHNIQUE: 3 views. FINDINGS: Bones: Normal. No fractures or bone lesions. Joints: Mild joint space narrowing most pronounced in the medial weightbearing compartment. No effusion. No subluxations. Soft Tissues: Normal. No soft tissue swelling. IMPRESSION: Mild osteoarthrosis. RADIA
--- NOTE | 2018-12-14 16:10 | XRAY Report ---
Reason: HIP PAIN, OA, LT KNEE PAIN Procedure Date: 12/14/2018 Accession Number: [id number] / [id number] Procedure: XR - Lumbar Spine 2 View CPT Code: FULL RESULT: EXAM: LUMBOSACRAL SPINE RADIOGRAPHY EXAM DATE: 12/14/2018 11:46 AM. CLINICAL HISTORY: Hip pain, osteoarthritis, left knee pain. COMPARISONS: LUMBAR SPINE COMPLETE 12/14/2017 10:18 AM. TECHNIQUE: 2 views. FINDINGS: Alignment: 32 degree levoconvex thoracolumbar scoliosis centered about L3 appears similar to 2018. Bones: Five [id number] lumbar vertebral bodies are present. The bones are qualitatively osteopenic; this limits evaluation for underlying fractures or masses. Within these limitations no definite compression fracture is seen. Disks: Disk space heights are mostly preserved, evaluation somewhat limited by scoliosis. Facets: There is moderate to severe facet arthropathy in the lower lumbar spine most pronounced at L4 and L5. Sacroiliac Joints: Unremarkable. Soft Tissues: Atherosclerotic disease of the aorta is noted. IMPRESSION: Moderate to severe scoliosis, similar in appearance to 2018. RADIA
== END 2018-12-14 11:08 | disposition home or self-care (01) ==
LOC: DI 11:07
PROVIDERS: ATTEND Nurse Practitioner
DX: M17.12 Unilateral primary osteoarthritis, left knee (principal); M16.0 Bilateral primary osteoarthritis of hip; M47.816 Spondylosis without myelopathy or radiculopathy, lumbar region
CPT/HCPCS: 72100; 73521

== ENCOUNTER 2019-01-17 09:30 | Outpatient (CLI) | payer MEDICARE, BC | END 2019-01-17 23:59 | disposition home or self-care (01) | LOC: LAB.R 09:30 | PROVIDERS: ATTEND Family Medicine | DX: N39.0 Urinary tract infection, site not specified (principal) | CPT/HCPCS: 87086; 87181 ==

== ENCOUNTER 2019-04-23 08:00 | Outpatient (CLI) | payer MEDICARE, BC | END 2019-04-23 23:59 | disposition home or self-care (01) | LOC: LAB.R 08:00 | PROVIDERS: ATTEND Nurse Practitioner | DX: N39.0 Urinary tract infection, site not specified (principal) | CPT/HCPCS: 87086 ==

== ENCOUNTER 2019-07-04 07:00 | Outpatient (CLI) | payer MEDICARE, BC ==
[2019-07-04 16:19] LABS: BILIRUBIN,URINE NEGATIVE (NEGATIVE); CLARITY,URINE CLEAR (CLEAR); GLUCOSE, URINE (UA) NEGATIVE (NEGATIVE); KETONES,URINE (UA) NEGATIVE (NEGATIVE); LEUKOCYTE ESTERASE, URINE SMALL (NEGATIVE); NITRITE,URINE POSITIVE (NEGATIVE); OCCULT BLOOD,URINE NEGATIVE (NEGATIVE); PROTEIN,URINE NEGATIVE (NEGATIVE); UROBILINOGEN,URINE 0.2 (NORMAL) E.U./dL (NORMAL)
[2019-07-04 16:26] LABS: BACTERIA,URINE Few /HPF (None Seen); RBC,URINE None Seen /HPF (0-5); SQUAMOUS EPITHELIAL CELL,UR MOD Squamous (<= Few)
== END 2019-07-04 23:59 | disposition home or self-care (01) ==
LOC: LAB.R 07:00
PROVIDERS: ATTEND Family Medicine
DX: R35.0 Frequency of micturition (principal)
CPT/HCPCS: 81001; 81003; 87086

== ENCOUNTER 2019-07-11 08:00 | Outpatient (CLI) | payer MEDICARE, BC ==
[2019-07-11 10:29] LABS: BILIRUBIN,URINE NEGATIVE (NEGATIVE); GLUCOSE, URINE (UA) NEGATIVE (NEGATIVE); KETONES,URINE (UA) NEGATIVE (NEGATIVE); LEUKOCYTE ESTERASE, URINE MODERATE (NEGATIVE); NITRITE,URINE NEGATIVE (NEGATIVE); OCCULT BLOOD,URINE NEGATIVE (NEGATIVE); PROTEIN,URINE NEGATIVE (NEGATIVE); UROBILINOGEN,URINE 0.2 (NORMAL) E.U./dL (NORMAL)
[2019-07-11 10:31] LABS: CLARITY,URINE CLEAR (CLEAR)
[2019-07-11 11:17] LABS: BACTERIA,URINE Few /HPF (None Seen); RBC,URINE 0-5 /HPF (0-5); SQUAMOUS EPITHELIAL CELL,UR RARE Squamous (<= Few)
== END 2019-07-11 23:59 | disposition home or self-care (01) ==
LOC: LAB.R 08:00
PROVIDERS: ATTEND Family Medicine
DX: R35.0 Frequency of micturition (principal)
CPT/HCPCS: 81001; 81003; 87086

== ENCOUNTER 2019-07-19 07:00 | Outpatient (CLI) | payer MEDICARE, BC ==
[2019-07-19 10:51] LABS: BILIRUBIN,URINE NEGATIVE (NEGATIVE); CLARITY,URINE HAZY (CLEAR); GLUCOSE, URINE (UA) NEGATIVE (NEGATIVE); KETONES,URINE (UA) NEGATIVE (NEGATIVE); LEUKOCYTE ESTERASE, URINE MODERATE (NEGATIVE); NITRITE,URINE POSITIVE (NEGATIVE); OCCULT BLOOD,URINE NEGATIVE (NEGATIVE); PROTEIN,URINE NEGATIVE (NEGATIVE); UROBILINOGEN,URINE 0.2 (NORMAL) E.U./dL (NORMAL)
[2019-07-19 10:57] LABS: BACTERIA,URINE Moderate /HPF (None Seen); RBC,URINE 0-5 /HPF (0-5); SQUAMOUS EPITHELIAL CELL,UR RARE Squamous (<= Few)
== END 2019-07-19 23:59 | disposition home or self-care (01) ==
LOC: LAB.R 07:00
PROVIDERS: ATTEND Nurse Practitioner
DX: N39.0 Urinary tract infection, site not specified (principal)
CPT/HCPCS: 81001; 87086; 87181

== ENCOUNTER 2019-07-26 09:37 | Emergency (ER) | payer MEDICARE, BC ==
[2019-07-26] MEDS ORDERED: SODIUM CHLORIDE 0.9% 1,000 ML IV STA (10:07)
--- NOTE | 2019-07-26 10:07 | ED Physician Documentation ---
PD HPI FEMALE - Stated complaint Stated Complaint: FEMALE - Chief complaint Chief Complaint: UTI - History obtained from History obtained from: Patient - History of Present Illness Associated symptoms: Dysuria, Urinary frequency. No: Fever Similar symptoms before: Diagnosis (UTI) Recently seen: Clinic - Additional information Additional information: 84-year-old female with a prior history of sepsis comes to the emergency department today with the chief complaint that she has been treated for urinary tract infection and her symptoms do not do not seem to be improving. She feels very fatigued today and is worried about the onset of sepsis. She has had this previously and had to be hospitalized with it. She indicates that she took a course of Keflex 2 weeks ago and symptoms did not resolve she was changed to nitrofurantoin based on sensitivities and despite that she still has symptoms. Review of Systems Constitutional: reports: Fatigue. 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 : Retention, Incontinence, Chronic bladder infection, Nocturia, Frequency, Kidney stones HEENT: None, Chronic vision loss, Chronic sinusitis Psych: Anxiety Musculoskeletal: Fibromyalgia, Fatigue Derm: None - Past Surgical History Past Surgical History: Yes General: 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, Hysterectomy HEENT: Cataracts, Tonsil/Adenoidectomy - Present Medications Home Medications: Ambulatory Orders Medication Instructions Recorded Confirmed Cholecalciferol (Vitamin D3) 3,000 units PO DAILY 10/11/16 08/03/17 [Vitamin D3] Docusate Sodium [Colace Clear] 100 mg PO DAILY 10/11/16 08/03/17 Mirtazapine 3.75 mg PO QPM 10/11/16 08/03/17 Multivitamin [Multiple Vitamins] 1 each PO DAILY 10/11/16 08/03/17 [place]-3/Dha/Epa/Fish Oil [[place] 3 1,000 mg PO DAILY 10/11/16 08/03/17 500 Softgel] Latanoprost 0.005% Ophth Drops 1 drops EACHEYE QPM 07/07/17 08/03/17 [Xalatan Ophth Drops] Apixaban [Eliquis] 5 mg PO BID #60 tablet 07/09/17 08/03/17 diltiaZEM CD [Cardizem Cd] 120 mg PO DAILY #30 capsule 07/10/17 08/03/17 Lactobacillus Acidophilus 1 cap PO BID 08/03/17 08/03/17 [Acidophilus Lactobacilli] Senna [Senokot] 8.6 mg PO BID tablet 08/06/17 polyethylene glycoL 3350 [Miralax] 17 gm PO DAILY packet 08/06/17 Meclizine [Antivert] 12.5 mg PO TID PRN #30 tablet 07/05/18 dexAMETHasone [Decadron] 4 mg PO DAILY #5 tablet 07/05/18 - Allergies Allergies/Adverse Reactions: Allergies Allergy/AdvReac Type Severity Reaction Status Date / Time ciprofloxacin [From Cipro] Allergy Severe Rash Verified 07/26/19 09:45 ciprofloxacin HCl * Allergy Severe Rash Verified 07/26/19 09:45 [From Cipro] Heparin Analogues Allergy Severe Hives Verified 07/26/19 09:45 metoclopramide HCl * Allergy Severe Anxiety Verified 07/26/19 09:45 [From Reglan] prednisone Allergy Severe Rash Verified 07/26/19 09:45 Sulfa (Sulfonamide Allergy Severe Rash Verified 07/26/19 09:45 Antibiotics) amoxicillin [From Augmentin] Allergy Rash Verified 07/26/19 09:45 clavulanic acid Allergy Rash Verified 07/26/19 09:45 [From Augmentin] clopidogrel bisulfate * Allergy Unknown Verified 07/26/19 09:45 [From Plavix] oxycodone [Oxycodone] AdvReac Severe Edema Verified 07/26/19 09:45 hyrdrochloroquine Allergy Unknown Uncoded 07/26/19 09:45 - Social History Does the pt smoke?: No Smoking Status: Never smoker Does the pt drink ETOH?: No Does the pt have substance abuse?: No - Immunizations Immunizations are current?: Yes - POLST Patient has POLST: No POLST Status: DNR PD ED PE NORMAL - Vitals Vital signs reviewed: Yes - General General: Alert and oriented X 3, No acute distress, Well developed/nourished - HEENT HEENT: Atraumatic, PERRL, EOMI - Neck Neck: Supple, no meningeal sign, No bony TTP - Cardiac Cardiac: RRR, No murmur - Respiratory Respiratory: No respiratory distress, Clear bilaterally - Abdomen Abdomen: Normal bowel sounds, Soft, Non tender, Non distended, No organomegaly - Back Back: No CVA TTP, No spinal TTP - Derm Derm: Normal color, Warm and dry, No rash - Extremities Extremities: No deformity, No edema, No calf tenderness / cord - Neuro Neuro: Alert and oriented X 3, 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, No motor deficit, No sensory deficit, Normal speech Eye Opening: Spontaneous Motor: Obeys Commands Verbal: Oriented GCS Score: 15 - Psych Psych: Normal mood, Normal affect Results - Vitals Vitals: Vital Signs - 24 hr 07/26/19 07/26/19 07/26/19 09:45 11:47 13:00 Temperature 36.7 C Heart Rate 81 55 L 59 L Respiratory 20 19 21 Rate Blood Pressure 139/44 H 127/81 H 143/59 H O2 Saturation 96 99 98 Oxygen O2 Source Room air - Labs Labs: Laboratory Tests 07/26/19 07/26/19 07/26/19 10:30 10:30 10:30 WBC 10.8 RBC 4.55 Hgb 13.6 Hct 41.5 MCV 91.2 MCH 29.9 MCHC 32.8 RDW 13.7 Plt Count 307 MPV 10.4 Neut # (Auto) 8.3 H Lymph # (Auto) 1.1 L [place] # (Auto) 1.2 H Eos # (Auto) 0.1 Baso # (Auto) 0.1 Absolute Nucleated RBC 0.00 Nucleated RBC % 0.0 Sodium 138 Potassium 3.3 L Chloride 100 L Carbon Dioxide 28 Anion Gap 10.0 BUN 25 H Creatinine 0.9 Estimated GFR (MDRD) 59 L Glucose 120 H Lactic Acid 1.3 Calcium 9.4 Total Bilirubin 0.8 AST 20 ALT 18 Alkaline Phosphatase 52 Total Protein 7.1 Albumin 4.0 Globulin 3.1 Albumin/Globulin Ratio 1.3 Lipase 37 Urine Color Urine Clarity Urine pH Ur Specific [place] Urine Protein Urine Glucose (UA) Urine Ketones Urine Occult Blood Urine Nitrite Urine Bilirubin Urine Urobilinogen Ur Leukocyte Esterase Ur Microscopic Review Urine Culture Comments 07/26/19 11:17 WBC RBC Hgb Hct MCV MCH MCHC RDW Plt Count MPV Neut # (Auto) Lymph # (Auto) [place] # (Auto) Eos # (Auto) Baso # (Auto) Absolute Nucleated RBC Nucleated RBC % Sodium Potassium Chloride Carbon Dioxide Anion Gap BUN Creatinine Estimated GFR (MDRD) Glucose Lactic Acid Calcium Total Bilirubin AST ALT Alkaline Phosphatase Total Protein Albumin Globulin Albumin/Globulin Ratio Lipase Urine Color YELLOW Urine Clarity CLEAR Urine pH 6.0 Ur Specific [place] 1.015 Urine Protein NEGATIVE Urine Glucose (UA) NEGATIVE Urine Ketones NEGATIVE Urine Occult Blood NEGATIVE Urine Nitrite NEGATIVE Urine Bilirubin NEGATIVE Urine Urobilinogen 0.2 (NORMAL) Ur Leukocyte Esterase NEGATIVE Ur Microscopic Review NOT INDICATED Urine Culture Comments NOT INDICATED - Rads (name of study) chest Radiology: Prelim report reviewed (Impression: Negative for acute active cardiopulmonary process.), EMP read indepedently, See rad report PD MEDICAL DECISION MAKING - ED course Complexity details: reviewed results, re-evaluated patient, considered differential, d/w patient ED course: 84-year-old female with urinary tract symptoms feels fatigued and she is concerned about the possibility of sepsis associated with this infection as she does not think her symptoms are improving. Today her urinalysis is unremarkable her white blood cell count is normal her serum sodium is normal her potassium is been only minimally decreased and her volume is consistent with a greater than 1 L deficit. She is given intravenous saline. I suspect her symptoms are related to dehydration. Departure - Departure Disposition: 01 Home, Self Care Clinical Impression: Dehydration Condition: Stable Instructions: ED Dehydration Follow-Up: Samanta Page ARNP, ANIMATION PRODUCER-C [Primary Care Provider] -
[2019-07-26 10:42] LABS: BASOPHILS # (AUTO) 0.1 10^3/uL (0.0-0.1); BASOPHILS % (AUTO) 0.6 %; EOSINOPHILS # (AUTO) 0.1 10^3/uL (0.0-0.7); EOSINOPHILS % (AUTO) 0.7 %; HGB - HEMOGLOBIN 13.6 g/dL (12.0-16.0); LYMPHOCYTES # (AUTO) 1.1 10^3/uL (1.5-3.5); MEAN CORPUSCULAR HEMOGLOBIN 29.9 pg (27.0-31.0); MEAN CORPUSCULAR HGB CONC 32.8 g/dL (32.0-36.0); MEAN CORPUSCULAR VOLUME 91.2 fL (81.0-99.0); MEAN PLATELET VOLUME 10.4 fL (7.9-10.8); MONOCYTES # (AUTO) 1.2 10^3/uL (0.0-1.0); MONOCYTES % (AUTO) 10.7 %; NEUTROPHILS # (AUTO) 8.3 10^3/uL (1.5-6.6); NEUTROPHILS % (AUTO) 77.6 %; PLT - PLATELET COUNT 307 10^3/uL (130-450); RED BLOOD COUNT 4.55 10^6/uL (4.20-5.40); RED CELL DISTRIBUTION WIDTH 13.7 % (12.0-15.0); WHITE BLOOD COUNT 10.8 x10^3/uL (4.8-10.8)
[2019-07-26 10:52] LABS: ALBUMIN/GLOBULIN RATIO 1.3 (1.0-2.2); BILIRUBIN,TOTAL 0.8 mg/dL (0.2-1.0); CALCIUM 9.4 mg/dL (8.5-10.3); CREATININE 0.9 mg/dL (0.4-1.0); TOTAL PROTEIN 7.1 g/dL (6.7-8.2)
[2019-07-26] MEDS ORDERED: POTASSIUM CHLORIDE 20 MEQ TABLET PO STA (11:06)
[2019-07-26 11:24] LABS: BILIRUBIN,URINE NEGATIVE (NEGATIVE); GLUCOSE, URINE (UA) NEGATIVE (NEGATIVE); KETONES,URINE (UA) NEGATIVE (NEGATIVE); LEUKOCYTE ESTERASE, URINE NEGATIVE (NEGATIVE); NITRITE,URINE NEGATIVE (NEGATIVE); OCCULT BLOOD,URINE NEGATIVE (NEGATIVE); PROTEIN,URINE NEGATIVE (NEGATIVE); UROBILINOGEN,URINE 0.2 (NORMAL) E.U./dL (NORMAL)
[2019-07-26 11:25] LABS: CLARITY,URINE CLEAR (CLEAR)
--- NOTE | 2019-07-26 12:59 | XRAY Report ---
Reason: chest pain Procedure Date: 07/26/2019 Accession Number: [id number] / [id number] Procedure: XR - Chest 1 View X-Ray CPT Code: 41305 Final Report FULL RESULT: EXAM: CHEST RADIOGRAPHY EXAM DATE: 07/26/2019 12:37 PM. CLINICAL HISTORY: Chest pain. Urinary tract infection. COMPARISON: CHEST 1 VIEW 07/05/2018 7:33 PM. TECHNIQUE: 1 view. FINDINGS: Lungs/Pleura: No focal opacities evident. No pleural effusion. No pneumothorax. Linear scar or subsegmental atelectasis medial lung bases without change. Mediastinum: Cardiac enlargement. Calcified left hilar lymph nodes. Other: None. IMPRESSION: Negative for active cardiopulmonary process. RADIA
[2019-07-26 13:06] VITALS: BP 143/59
== END 2019-07-26 14:04 | disposition home or self-care (01) ==
LOC: ED 09:37
DX: E86.0 Dehydration (principal); I10 Essential (primary) hypertension; I48.91 Unspecified atrial fibrillation; Z79.01 Long term (current) use of anticoagulants
CPT/HCPCS: 36415; 71045; 80053; 81003; 83605; 83690; 85025; 87040; 96360; 99284; A9270; 81001; 87086

== ENCOUNTER 2019-08-09 08:00 | Outpatient (CLI) | payer MEDICARE, BC ==
[2019-08-09 12:54] LABS: BILIRUBIN,URINE NEGATIVE (NEGATIVE); GLUCOSE, URINE (UA) NEGATIVE (NEGATIVE); KETONES,URINE (UA) NEGATIVE (NEGATIVE); LEUKOCYTE ESTERASE, URINE LARGE (NEGATIVE); NITRITE,URINE POSITIVE (NEGATIVE); OCCULT BLOOD,URINE TRACE-INTA (NEGATIVE); PH,URINE 5.5 PH (5.0-7.5); PROTEIN,URINE NEGATIVE (NEGATIVE); UROBILINOGEN,URINE 0.2 (NORMAL) E.U./dL (NORMAL)
[2019-08-09 13:01] LABS: CLARITY,URINE SL. CLOUDY (CLEAR)
[2019-08-09 13:02] LABS: BACTERIA,URINE Moderate /HPF (None Seen); EPITHELIAL CELLS,UR None Seen /HPF (<= Few); RBC,URINE None Seen /HPF (0-5); SQUAMOUS EPITHELIAL CELL,UR NONE SEEN (<= Few)
== END 2019-08-09 23:59 | disposition home or self-care (01) ==
LOC: LAB.R 08:00
PROVIDERS: ATTEND Nurse Practitioner Family
DX: N39.0 Urinary tract infection, site not specified (principal)
CPT/HCPCS: 81001; 81003; 87077; 87086; 87181

== ENCOUNTER 2019-08-14 04:05 | Outpatient (CLI) | payer MEDICARE, BC | END 2019-08-14 04:06 | disposition critical access hospital (66) | LOC: EMS 04:05 | PROVIDERS: ATTEND Surgery | DX: R53.1 Weakness (principal); R42 Dizziness and giddiness; R50.9 Fever, unspecified | CPT/HCPCS: A0425; A0429 ==

== ENCOUNTER 2019-08-14 04:12 | Observation (INO) | payer MEDICARE, BC ==
--- NOTE | 2019-08-14 04:17 | ED Physician Documentation ---
History of Present Illness - Stated complaint Stated Complaint: UTI - History obtained from History obtained from: Patient (Patient is an 84-year-old female brought in from home by ambulance after she reports that she is being treated for urinary tract infection with nitrofurantoin but reports she is still having dysuria and overall fevers and chills and worsening weakness.) Review of Systems Constitutional: reports: Fever, Chills Eyes: reports: Reviewed and negative Ears: reports: Reviewed and negative Nose: reports: Reviewed and negative Throat: reports: Reviewed and negative Cardiac: reports: Reviewed and negative Respiratory: reports: Reviewed and negative GI: reports: Reviewed and negative : reports: Reviewed and negative Skin: reports: Reviewed and negative Musculoskeletal: reports: Reviewed and negative Neurologic: reports: Generalized weakness Psychiatric: reports: Reviewed and negative Endocrine: reports: Reviewed and negative Immunocompromised: reports: Reviewed and negative PD PAST MEDICAL HISTORY - Past Medical History Cardiovascular: Hypertension, High cholesterol, Atrial fibrillation, Murmur, Arrhythmia, Other Respiratory: None Neuro: TIA, Fainting Endocrine/Autoimmune: None GI: Chronic constipation 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 : Retention, Incontinence, Chronic bladder infection, Nocturia, Frequency, Kidney stones HEENT: None, Chronic vision loss, Chronic sinusitis Psych: Anxiety Musculoskeletal: Fibromyalgia, Fatigue Derm: None - Past Surgical History Past Surgical History: Yes General: 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, Hysterectomy HEENT: Cataracts, Tonsil/Adenoidectomy - Present Medications Home Medications: Ambulatory Orders Medication Instructions Recorded Confirmed Cholecalciferol (Vitamin D3) 3,000 units PO DAILY 10/11/16 08/03/17 [Vitamin D3] Docusate Sodium [Colace Clear] 100 mg PO DAILY 10/11/16 08/03/17 Mirtazapine 3.75 mg PO QPM 10/11/16 08/03/17 Multivitamin [Multiple Vitamins] 1 each PO DAILY 10/11/16 08/03/17 [place]-3/Dha/Epa/Fish Oil [[place] 3 1,000 mg PO DAILY 10/11/16 08/03/17 500 Softgel] Latanoprost 0.005% Ophth Drops 1 drops EACHEYE QPM 07/07/17 08/03/17 [Xalatan Ophth Drops] Apixaban [Eliquis] 5 mg PO BID #60 tablet 05/13/18 06/07/18 diltiaZEM CD [Cardizem Cd] 120 mg PO DAILY #30 capsule 07/10/17 08/03/17 Lactobacillus Acidophilus 1 cap PO BID 08/03/17 08/03/17 [Acidophilus Lactobacilli] Senna [Senokot] 8.6 mg PO BID tablet 08/06/17 polyethylene glycoL 3350 [Miralax] 17 gm PO DAILY packet 08/06/17 Meclizine [Antivert] 12.5 mg PO TID PRN #30 tablet 07/05/18 dexAMETHasone [Decadron] 4 mg PO DAILY #5 tablet 07/05/18 - Allergies Allergies/Adverse Reactions: Allergies Allergy/AdvReac Type Severity Reaction Status Date / Time ciprofloxacin [From Cipro] Allergy Severe Rash Verified 08/14/19 04:19 ciprofloxacin HCl * Allergy Severe Rash Verified 08/14/19 04:19 [From Cipro] Heparin Analogues Allergy Severe Hives Verified 08/14/19 04:19 metoclopramide HCl * Allergy Severe Anxiety Verified 08/14/19 04:19 [From Reglan] prednisone Allergy Severe Rash Verified 08/14/19 04:19 Sulfa (Sulfonamide Allergy Severe Rash Verified 08/14/19 04:19 Antibiotics) amoxicillin [From Augmentin] Allergy Rash Verified 08/14/19 04:19 clavulanic acid Allergy Rash Verified 08/14/19 04:19 [From Augmentin] clopidogrel bisulfate * Allergy Unknown Verified 08/14/19 04:19 [From Plavix] oxycodone [Oxycodone] AdvReac Severe Edema Verified 08/14/19 04:19 hyrdrochloroquine Allergy Unknown Uncoded 08/14/19 04:19 - Social History Does the pt smoke?: No Smoking Status: Never smoker Does the pt drink ETOH?: No Does the pt have substance abuse?: No - Immunizations Immunizations are current?: Yes - POLST Patient has POLST: No POLST Status: DNR PD ED PE NORMAL - Vitals Vital signs reviewed: Yes - General General: Alert and oriented X 3, No acute distress, Well developed/nourished - HEENT HEENT: PERRL - Neck Neck: Supple, no meningeal sign - Cardiac Cardiac: RRR, No murmur, Strong equal pulses - Respiratory Respiratory: No respiratory distress, Clear bilaterally - Abdomen Abdomen: Normal bowel sounds, Soft, Non tender, Non distended - Derm Derm: Warm and dry, No rash - Extremities Extremities: No deformity, No tenderness to palpate, Normal ROM s pain, No edema, No calf tenderness / cord - Neuro Neuro: Alert and oriented X 3, 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, No motor deficit, No sensory deficit, Normal speech - Psych Psych: Normal mood, Normal affect Results - Vitals Vitals: Vital Signs - 24 hr 08/14/19 08/14/19 04:17 05:35 Temperature 37.0 C Heart Rate 97 77 Respiratory 20 18 Rate Blood Pressure 169/76 H 140/62 H O2 Saturation 95 97 Oxygen O2 Source Nasal cannula - EKG (time done) 04:41 Rate: Other (no stemi) - Labs Labs: Laboratory Tests 08/14/19 08/14/19 08/14/19 04:30 04:30 04:30 WBC 22.5 H RBC 4.65 Hgb 14.1 Hct 42.2 MCV 90.8 MCH 30.3 MCHC 33.4 RDW 13.8 Plt Count 311 MPV 10.3 Neut # (Auto) Not Reportable Lymph # (Auto) Not Reportable [place] # (Auto) Not Reportable Eos # (Auto) Not Reportable Baso # (Auto) Not Reportable Absolute Nucleated RBC Not Reportable Total Counted 100 Band Neuts % (Manual) 5 Abnorm Lymph % (Manual) 0 Nucleated RBC % Not Reportable Neutrophils # (Manual) 18.9 H Lymphocytes # (Manual) 1.8 Monocytes # (Manual) 1.8 H Eosinophils # (Manual) 0.0 Basophils # (Manual) 0.0 Differential Comment MANUAL DIFFERENTIAL Platelet Estimate NORMAL (130-450,000) RBC Morph Micro Appear NORMAL APPEARANCE Sodium 135 Potassium 3.4 L Chloride 98 L Carbon Dioxide 24 Anion Gap 13.0 BUN 19 Creatinine 0.8 Estimated GFR (MDRD) 68 L Glucose 136 H Calcium 9.1 Total Bilirubin 1.1 H AST 24 ALT 15 Alkaline Phosphatase 52 Troponin I High Sens 5.9 B-Natriuretic Peptide Total Protein 7.4 Albumin 4.3 Globulin 3.1 Albumin/Globulin Ratio 1.4 Lipase 33 Urine Color Urine Clarity Urine pH Ur Specific [place] Urine Protein Urine Glucose (UA) Urine Ketones Urine Occult Blood Urine Nitrite Urine Bilirubin Urine Urobilinogen Ur Leukocyte Esterase Ur Microscopic Review Urine Culture Comments 08/14/19 08/14/19 04:30 05:00 WBC RBC Hgb Hct MCV MCH MCHC RDW Plt Count MPV Neut # (Auto) Lymph # (Auto) [place] # (Auto) Eos # (Auto) Baso # (Auto) Absolute Nucleated RBC Total Counted Band Neuts % (Manual) Abnorm Lymph % (Manual) Nucleated RBC % Neutrophils # (Manual) Lymphocytes # (Manual) Monocytes # (Manual) Eosinophils # (Manual) Basophils # (Manual) Differential Comment Platelet Estimate RBC Morph Micro Appear Sodium Potassium Chloride Carbon Dioxide Anion Gap BUN Creatinine Estimated GFR (MDRD) Glucose Calcium Total Bilirubin AST ALT Alkaline Phosphatase Troponin I High Sens B-Natriuretic Peptide 344 H Total Protein Albumin Globulin Albumin/Globulin Ratio Lipase Urine Color YELLOW Urine Clarity CLEAR Urine pH 8.0 H Ur Specific [place] 1.015 Urine Protein NEGATIVE Urine Glucose (UA) NEGATIVE Urine Ketones NEGATIVE Urine Occult Blood NEGATIVE Urine Nitrite NEGATIVE Urine Bilirubin NEGATIVE Urine Urobilinogen 0.2 (NORMAL) Ur Leukocyte Esterase NEGATIVE Ur Microscopic Review NOT INDICATED Urine Culture Comments NOT INDICATED PD MEDICAL DECISION MAKING - ED course Complexity details: reviewed old records, reviewed results, re-evaluated patient, considered differential (uti failed outpatient treatment), d/w patient, 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 mota, hospitalist, agrees to admit for observation.) Departure - Departure Disposition: ED Place in Observation Clinical Impression: Weakness UTI (urinary tract infection) Qualifiers: Urinary tract infection type: site unspecified Hematuria presence: without hematuria Qualified Code(s): N39.0 - Urinary tract infection, site not specified Leukocytosis Qualifiers: Leukocytosis type: unspecified Qualified Code(s): D72.829 - Elevated white blood cell count, unspecified Condition: Stable
[2019-08-14] MEDS ORDERED: cefTRIAXone 1 GM in SODIUM CHLORIDE 0.9% MINIBAG 100 ML IV STA (04:23)
[2019-08-14] MEDS ORDERED: SODIUM CHLORIDE 0.9% 1,000 ML IV STA (04:31)
[2019-08-14 04:44] LABS: BASOPHILS % (AUTO) 0.4 %; HGB - HEMOGLOBIN 14.1 g/dL (12.0-16.0); LYMPHOCYTES % (AUTO) 4.6 %; MEAN CORPUSCULAR HEMOGLOBIN 30.3 pg (27.0-31.0); MEAN CORPUSCULAR HGB CONC 33.4 g/dL (32.0-36.0); MEAN CORPUSCULAR VOLUME 90.8 fL (81.0-99.0); MEAN PLATELET VOLUME 10.3 fL (7.9-10.8); MONOCYTES % (AUTO) 5.3 %; NEUTROPHILS % (AUTO) 88.8 %; PLT - PLATELET COUNT 311 10^3/uL (130-450); RED BLOOD COUNT 4.65 10^6/uL (4.20-5.40); RED CELL DISTRIBUTION WIDTH 13.8 % (12.0-15.0); WHITE BLOOD COUNT 22.5 x10^3/uL (4.8-10.8)
[2019-08-14 04:47] LABS: ABNORMAL LYMPHS % (MANUAL) 0 %
[2019-08-14 04:56] LABS: ALBUMIN 4.3 g/dL (3.2-5.5); ALBUMIN/GLOBULIN RATIO 1.4 (1.0-2.2); BILIRUBIN,TOTAL 1.1 mg/dL (0.2-1.0); CALCIUM 9.1 mg/dL (8.5-10.3); CREATININE 0.8 mg/dL (0.4-1.0); TOTAL PROTEIN 7.4 g/dL (6.7-8.2)
[2019-08-14 05:17] LABS: BILIRUBIN,URINE NEGATIVE (NEGATIVE); CLARITY,URINE CLEAR (CLEAR); GLUCOSE, URINE (UA) NEGATIVE (NEGATIVE); KETONES,URINE (UA) NEGATIVE (NEGATIVE); LEUKOCYTE ESTERASE, URINE NEGATIVE (NEGATIVE); NITRITE,URINE NEGATIVE (NEGATIVE); OCCULT BLOOD,URINE NEGATIVE (NEGATIVE); PROTEIN,URINE NEGATIVE (NEGATIVE); UROBILINOGEN,URINE 0.2 (NORMAL) E.U./dL (NORMAL)
[2019-08-14 05:27] LABS: BAND NEUTROPHILS % (MANUAL) 5 %; DIFFERENTIAL COMMENT MANUAL DIFFERENTIAL; LYMPHOCYTES # (MANUAL) 1.8 10^3/uL (1.5-3.5); LYMPHOCYTES % (MANUAL) 8 %; MONOCYTES # (MANUAL) 1.8 10^3/uL (0.0-1.0); PLATELET ESTIMATE, MANUAL NORMAL (130-450,000) (NORMAL); RBC MORPHOLOGY (MULTIPLE) NORMAL APPEARANCE (NORMAL)
[2019-08-14] MEDS ORDERED: SODIUM CHLORIDE FLUSH 0.9% 10 ML SYRINGE IVP PRN (06:20)
[2019-08-14] MEDS ORDERED: ACETAMINOPHEN 325 MG TABLET PO PRN (06:20)
[2019-08-14] MEDS ORDERED: ONDANSETRON 4 MG/2 ML VIAL IVP PRN (06:20)
[2019-08-14] MEDS ORDERED: IOVERSOL 320 100 ML VIAL IVP ONE ×2 (08:35→11:28)
[2019-08-14] MEDS ORDERED: IOVERSOL 320 50 ML VIAL ONE (08:40)
--- NOTE | 2019-08-14 08:40 | XRAY Report ---
PROCEDURE: Chest 1 View X-Ray INDICATIONS: weakness TECHNIQUE: One view of the chest was acquired. COMPARISON: 07/26/2019 FINDINGS: Surgical changes and devices: Surgical clips of right breast lumpectomy.. Lungs and pleura: No pleural effusions or pneumothorax. Lungs are hyperinflated with slight coarsen ing of interstitial markings.. Mediastinum: Mediastinal contours appear normal. The central vasculature is slightly cephalized. Chr onic calcified left hilar lymph nodes. Heart size is mildly enlarged. Bones and chest wall: No suspicious bony lesions. Overlying soft tissues appear unremarkable. IMPRESSION: 1. Chronic, mild cardiomegaly with slight cephalization of central vessels. Correlate with BNP. 2. Chronic lymph node calcification. 3. Hyperinflated lungs suggesting asthma or emphysema. Reviewed by: Sada Cramer MD on 08/14/2019 8:39 AM PDT Approved by: Sada Cramer MD on 08/14/2019 8:39 AM PDT Station ID: [id number]
[2019-08-14] MEDS: APIXABAN 5 MG TABLET PO SCH ×2 (09:05→21:23)
[2019-08-14] MEDS: SODIUM CHLORIDE FLUSH 0.9% 10 ML SYRINGE IVP SCH ×2 (09:08→21:23)
--- NOTE | 2019-08-14 11:00 | CT Report ---
PROCEDURE: Abdomen/Pelvis W INDICATIONS: Eval for pyelonephritis CONTRAST: IV CONTRAST: Optiray 320 ml: 100 PO CONTRAST: Optiray 320 ml50 TECHNIQUE: After the administration of oral and intravenous contrast, 5 mm thick sections acquired from the diap hragms to the symphysis. 5 mm thick coronal and sagittal reformats were acquired. For radiation dos e reduction, the following was used: automated exposure control, adjustment of mA and/or kV accordin g to patient size. COMPARISON: None. FINDINGS: Image quality: Excellent. ABDOMEN: Lung bases: Lung bases are clear. Heart size is normal. Solid organs: Liver and spleen are normal in size and enhancement. Gallbladder surgically absent B iliary system is non dilated. Pancreas enhances normally. No adrenal nodules. No hydronephrosis. Le ft renal atrophy. No definite decreased cortical enhancement to suggest pyelonephritis. No perinephri c stranding identified. Simple appearing right renal cyst. Peritoneum and bowel: Bowel loops demonstrate normal wall thickness and caliber. No free fluid or a ir. Normal appearance of the appendix. Nodes and vessels: No retroperitoneal or mesenteric adenopathy by size criteria. Aorta and inferior vena cava are normal in size. Miscellaneous: No ventral hernias. PELVIS: Genitourinary: Bladder grossly unremarkable Miscellaneous: No inguinal hernias or adenopathy. Bones: Spondylitic changes and levoscoliosis. No acute compression fracture identified. IMPRESSION: No CT evidence of pyelonephritis although recommend correlation with urinalysis data to exclude occul t infection. No hydronephrosis Left renal atrophy and cortical scarring. Simple appearing right renal cyst Normal appendix Elsewhere, no acute abnormality seen Additional chronic and incidental findings as above. Reviewed by: Mikael Limon MD on 08/14/2019 10:59 AM PDT Approved by: Mikael Limon MD on 08/14/2019 10:59 AM PDT Station ID: [id number]
[2019-08-14] MEDS ORDERED: IOVERSOL 320 50 ML VIAL PO ONE (11:28)
--- NOTE | 2019-08-14 14:11 | PHARMACY PROGRESS NOTE ---
- Best Possible Medication History Admit Date and Time: 08/14/19 0620 Processed by: Pharmacy Medication History completed: Yes Patient Interview: Completed Secondary Source(s): Pharmacy records, Insurance records As the person ultimately responsible for medication therapy, providers are able to order a medication from an existing home medication list in [facility] via the "Reconcile Routine" prior to Confirmation of that medication by clinical support specialist. Such practice is discouraged except when the physician, in their clinical judgment, deems that a medical need exists for a medication without regard to previous use.
[2019-08-14] MEDS ORDERED: MIRTAZAPINE 7.5 MG PO PRN (14:22)
--- NOTE | 2019-08-14 14:52 | HISTORY & PHYSICAL EXAMINATION ---
DATE OF SERVICE: 08/14/2019 Physician: Sarahy Heath MD HISTORY OF PRESENT ILLNESS: This is an 84-year-old white female who lives independently, and was brought in by ambulance from home when she reported a fever and marked weakness. She says she has been treated for urinary tract infection with several days of nitrofurantoin, but is still having dysuria, fevers and chills and then worsening weakness, which prompted a call to EMS. She has a dry cough, no sputum production. She has tried to isolate during the COVID. She denies any nausea, vomiting, abdominal pain or diarrhea. She has been taking her medications compliantly. PAST MEDICAL HISTORY 1. Atrial fibrillation, on Eliquis. 2. Hypertension. 3. Hyperlipidemia. 4. History of TIA. 5. Chronic constipation. 6. Recurrent bladder infections. 7. Anxiety. 8. Fibromyalgia. ALLERGIES 1. CIPRO. 2. HEPARIN 3. REGLAN. 4. PREDNISONE CAUSED A RASH 5. SULFA. 6. AMOXICILLIN. 7. AUGMENTIN. 8. PLAVIX. 9. OXYCODONE. 10. HYDROXYCHLOROQUINE. MEDICATIONS 1. Vitamin C 1000 mg daily. 2. Vitamin D3 3000 units daily. 3. Colace 100 mg daily. 4. Lasix 10 mg daily p.r.n. edema. 5. Multivitamin daily. 6. [place]-3 daily. 7. Eliquis 5 mg b.i.d. 8. Diltiazem 30 mg b.i.d. 9. Xalatan eyedrops. 10. Mirtazapine 3.75 every night, but up to as high as 7.5 every night p.r.n. FAMILY HISTORY: No inherited diseases. SOCIAL HISTORY: She is a nonsmoker, drinks no alcohol, no drug use history. REVIEW OF SYSTEMS: Patient has a POLST at home and describes wanting to be a DNR. She complains of "cold feet" and pain, worse with leg elevation. She has not had an MARNIE or other peripheral vascular testing. A comprehensive review of systems was performed and the pertinent positives are listed above, the rest are negative. PHYSICAL EXAMINATION GENERAL: White female who appears younger than her age, but appears very fatigued. VITAL SIGNS: Blood pressure 140/60, heart rate 70-80 in atrial fibrillation, afebrile here, room air saturation 98%. HEENT: Reveals dark bags under her eyes. Oral mucosa is moist. NECK: No JVD at a 30-degree upright angle. CHEST: Clear. HEART: Irregular. Normal heart sounds. ABDOMEN: Soft, nontender. Decreased bowel sounds. No flank pain. EXTREMITIES: No clubbing, cyanosis or edema. Diminished DP pulse, feet cool. NEUROLOGIC: Grossly intact. LABORATORY DATA: Sodium 135, potassium 3.4, BUN 19, creatinine 0.8. Lactic acid 1.4. Normal liver tests. Troponin normal at 5.9 and 9.8. BNP 344, lipase normal at 33. INR was not done, but would not be accurate on Eliquis. White blood count 22.5 with a marked left shift of 5 neutrophils, hemoglobin is 14, platelet count 311. Urinalysis showed a pH of 8, specific gravity 1.015, negative leukocyte esterase and microscopic review was essentially normal. IMPRESSION/DIAGNOSES 1. Leukocytosis. 2. Fever of unknown origin. 3. Recent urinary tract infection. 4. Hypokalemia. 5. History of fibromyalgia. 6. Weakness, generalized. 7. Claudication, poss PVD. PLAN: Place patient in Observation. Reorder urine culture. await blood culture results, sent from ER. Stop her oral antibiotic and begin IV ceftriaxone. Start Pyridium for dysuria symptoms. Obtain CT of the abdomen to evaluate for pyelonephritis or abscess. She would be made an inpatient if she has bacteremia (with positive blood cultures). Follow her WBC daily. Begin IV fluids because of the fever, regular diet otherwise. Obtain MARNIE of legs, given the likelihood of claudication present. DEEP VENOUS THROMBOSIS PROPHYLAXIS: SCDS. CODE STATUS: DNR. ATTESTATION: Patient is expected to be discharged or transferred to another facility within 96 hours: Yes. cc: CORAZON Jolly NP-C TD: 08/14/2019 14:32 BOYD
[2019-08-14] MEDS ORDERED: ZOLPIDEM 5 MG TABLET PO PRN (15:42)
[2019-08-14] MEDS ORDERED: LATANOPROST 0.005% OPHTH DROPS EACHEYE SCH (21:00)
[2019-08-14] MEDS ORDERED: MIRTAZAPINE 3.75 MG PO SCH (21:00)
[2019-08-14] MEDS: diltiaZEM 30 MG TABLET PO SCH (21:23)
[2019-08-14] MEDS: PHENAZOPYRIDINE 100 MG TABLET PO SCH (21:25)
[2019-08-15] MEDS: SODIUM CHLORIDE FLUSH 0.9% 10 ML SYRINGE IVP SCH ×2 (01:29→08:30)
[2019-08-15] MEDS: PHENAZOPYRIDINE 100 MG TABLET PO SCH ×2 (05:48→13:10)
[2019-08-15 05:55] LABS: BASOPHILS # (AUTO) 0.1 10^3/uL (0.0-0.1); BASOPHILS % (AUTO) 0.5 %; EOSINOPHILS # (AUTO) 0.4 10^3/uL (0.0-0.7); EOSINOPHILS % (AUTO) 3.2 %; HGB - HEMOGLOBIN 11.8 g/dL (12.0-16.0); LYMPHOCYTES # (AUTO) 1.9 10^3/uL (1.5-3.5); LYMPHOCYTES % (AUTO) 13.9 %; MEAN CORPUSCULAR HEMOGLOBIN 30.3 pg (27.0-31.0); MEAN CORPUSCULAR HGB CONC 33.4 g/dL (32.0-36.0); MEAN CORPUSCULAR VOLUME 90.7 fL (81.0-99.0); MEAN PLATELET VOLUME 10.6 fL (7.9-10.8); MONOCYTES # (AUTO) 0.9 10^3/uL (0.0-1.0); MONOCYTES % (AUTO) 6.3 %; NEUTROPHILS # (AUTO) 10.3 10^3/uL (1.5-6.6); NEUTROPHILS % (AUTO) 75.6 %; PLT - PLATELET COUNT 279 10^3/uL (130-450); RED BLOOD COUNT 3.89 10^6/uL (4.20-5.40); RED CELL DISTRIBUTION WIDTH 14.3 % (12.0-15.0); WHITE BLOOD COUNT 13.7 x10^3/uL (4.8-10.8)
[2019-08-15 06:07] LABS: CALCIUM 8.3 mg/dL (8.5-10.3); CREATININE 0.6 mg/dL (0.4-1.0); MAGNESIUM 2.2 mg/dL (1.7-2.8); PHOSPHORUS 3.2 mg/dL (2.5-4.6)
[2019-08-15] MEDS: diltiaZEM 30 MG TABLET PO SCH (08:29)
[2019-08-15] MEDS: APIXABAN 5 MG TABLET PO SCH (08:30)
[2019-08-15] MEDS ORDERED: cefTRIAXone 1 GM in SODIUM CHLORIDE 0.9% MINIBAG 100 ML IV SCH (09:00)
[2019-08-15] MEDS ORDERED: POTASSIUM CHLORIDE 20 MEQ TABLET PO SCH (12:32)
--- NOTE | 2019-08-15 13:05 | Discharge Plan ---
Discharge Plan Problem Reviewed?: Yes Disposition: Home, Self Care Condition: Stable Prescriptions: Cefdinir 300 mg PO BID #14 capsule Diet: Regular Activity Restrictions: Activity as Tolerated Shower Restrictions: No Health Concerns: You were in Observation status for a fever, weakness and high white blood count. The source of fever and infection was not defined but presumed to be due to undertreated urinary tract infection. The CT of the abdomen did not show extension of infection to your kidneys or any kidney stones. We also evaluated your symptoms of cold feet and possible weak pulse and the (ankle-brachial index test) ultrasound test of your legs shows normal arterial blood flow. You are being discharged on an oral antibiotic to take for 7 more days for the UTI. The prescription was electronically sent to your [facility] pharmacy. Resume all your other prehospital medications. The feelings of sudden muscle spasms, may be caused by having a low potassium. Please eat foods that contain potassium (like bananas, oranges, tomatoes). Please see your Urologist in follow-up soon, because of recurrences of UTIs restarting again. Please see your PCP for further evaluation of the cold feet. Plan of Treatment: As above. Care Goals: Improvement in symptoms and stabilization are the goals. Assessment: The patient and daughter, in the room, are agreeable with the plan. No Smoking: If you smoke, Please STOP! Call for help. Follow-up with: Samanta Page ARNP, TRAFFIC [employer]AREHOUSE SUPERVISOR-C [Primary Care Provider] -
--- NOTE | 2019-08-15 13:37 | Ultrasound Report ---
PROCEDURE: Ankle Brachial Index INDICATIONS: claudication, decreased foot pulses TECHNIQUE: Ankle-brachial indices were obtained bilaterally and recorded. COMPARISONS: None. FINDINGS: Right ankle brachial index (MARNIE): 1.1 Left ankle brachial index (MARNIE): 1.0 Healing potential: Ankle pressures >55 mm Hg in non-diabetics and >80 mm Hg in diabetics are likely to achieve primary h ealing of ischemic foot ulcers. Toe pressures >30 mm Hg are likely to achieve primary healing of ischemic foot ulcers, toe or transme tatarsal amputations. IMPRESSION: MARNIE is within normal limits bilaterally. Reviewed by: Zulay Colindres MD on 08/15/2019 1:35 PM PDT Approved by: Zulay Colindres MD on 08/15/2019 1:35 PM PDT Station ID: [id number]
--- NOTE | 2019-08-15 13:54 | DISCHARGE SUMMARY ---
Discharge Summary Admit Date: 08/14/19 Discharge Date: 08/15/19 Discharging Provider: Dr Sarahy Heath Primary Care Provider: Samanta Page NP Code Status: Do Not Attempt Resuscitation Condition at Discharge: Stable Discharge Disposition: 01 Home, Self Care - HPI History of Present Illness: This is an 84-year-old white female who lives independently. She has a history of recurrent UTIs and urinary incontinence and is followed by a Urologist. There is also a history of TIA, hyperlipidemia, hypertension, chronic A. fib on Eliquis, anxiety, fibromyalgia and multiple drug allergies. The patient has had sepsis from UTIs in the past and had been on suppressive antibiotics until about 6 to 9 months ago. She developed a UTI recently and was put on Macrodantin. Despite taking this she got no better, had continued urgency and dysuria and spiked a fever at home. Because of marked weakness she called an ambulance. In the ER she was found to have an elevated white blood count of 22.5. Urinalysis was normal. Fever was not present. She is being placed in Observation status to evaluate fever of unknown origin and leukocytosis, and a possibly undertreated UTI. The patient reports that she has a POLST at home and wishes to be a DNR. - HOSPITAL COURSE Hospital Course: 1. Leukocytosis. She was started on empiric IV ceftriaxone and the white blood count decreased from 22.5 to 13.7 the following day. Blood cultures were negative to date. She was discharged on oral Cefdinir, to take for 1 week, after receiving 2 days of IV ceftriaxone. She knows to take OTC probiotics. 2. Fever of unknown origin. There were no temperature elevations here. Work- up for a source of fever/infection showed a normal chest x-ray, abdomen and pelvis CT showed no pyelonephritis, no hydronephrosis or kidney stones. The presumed problem was an undertreated UTI since she has very frequent UTI recurrences. 3. Recurrent UTIs. The patient is planning to see her Urologist for recurrent UTIs that had been frequent, then were suppressed by daily antibiotics which she has been off now for 6 to 9 months. She also needs follow-up with Urology to get Botox of her bladder she reports. 4. Hypokalemia. She is on home Lasix, ordered to use as needed. There were no signs of leg edema here. There was no use of Lasix while here. She had her potassium level replaced. 5. History of fibromyalgia. No major complaints of pain while here. 6. Weakness, generalized. She felt better by the next day with IV antibiotics and gentle IV fluids. All her usual medications were continued while here. 7. Cold and painful feet. She underwent MARNIE to evaluate for claudication and peripheral vascular disease. The MARNIE showed normal arterial blood flow of both lower extremities. She was advised to see her PCP for further work-up of this symptom. - ALLERGIES Allergies/Adverse Reactions: Allergies Allergy/AdvReac Type Severity Reaction Status Date / Time ciprofloxacin [From Cipro] Allergy Severe Rash Verified 08/14/19 04:19 ciprofloxacin HCl * Allergy Severe Rash Verified 08/14/19 04:19 [From Cipro] Heparin Analogues Allergy Severe Hives Verified 08/14/19 04:19 metoclopramide HCl * Allergy Severe Anxiety Verified 08/14/19 04:19 [From Reglan] prednisone Allergy Severe Rash Verified 08/14/19 04:19 Sulfa (Sulfonamide Allergy Severe Rash Verified 08/14/19 04:19 Antibiotics) amoxicillin [From Augmentin] Allergy Rash Verified 08/14/19 04:19 clavulanic acid Allergy Rash Verified 08/14/19 04:19 [From Augmentin] clopidogrel bisulfate * Allergy Unknown Verified 08/14/19 04:19 [From Plavix] oxycodone [Oxycodone] AdvReac Severe Edema Verified 08/14/19 04:19 hyrdrochloroquine Allergy Unknown Uncoded 08/14/19 04:19 - MEDICATIONS Home Medications: Ambulatory Orders Medication Instructions Recorded Confirmed Cholecalciferol (Vitamin D3) 3,000 units PO DAILY 10/11/16 08/14/19 [Vitamin D3] Latanoprost 0.005% Ophth Drops 1 drops EACHEYE QPM 07/07/17 08/14/19 [Xalatan Ophth Drops] Apixaban [Eliquis] 5 mg PO BID 08/14/19 08/14/19 Ascorbic Acid [Vitamin C with Rosenda 1,000 mg PO DAILY PM 08/14/19 08/14/19 Hips] Docusate Sodium [Dulcolax Stool 100 mg PO DAILY PRN 08/14/19 08/14/19 Softener] Furosemide 10 mg PO DAILY PRN 08/14/19 08/14/19 Mirtazapine 3.75 mg PO QPM 08/14/19 08/14/19 Mirtazapine 3.75 mg PO QPM PRN 08/14/19 08/14/19 Multivitamin [Theragran] 1 tab PO DAILY 08/14/19 08/14/19 [place]-3 Acid Ethyl Esters [Lovaza] 1 gm PO DAILY 08/14/19 08/14/19 dilTIAZem HCL [Diltiazem HCl] 30 mg PO BID 08/14/19 08/14/19 Cefdinir 300 mg PO BID #14 capsule 08/15/19 - PHYSICAL EXAM AT DISCHARGE General Appearance: positive: No acute distress, Mild distress Eyes Bilateral: positive: Normal inspection, EOMI ENT: positive: ENT inspection nml, No signs of dehydration Neck: positive: Nml inspection, No JVD Respiratory: positive: No respiratory distress Cardiovascular: positive: Regular rate & rhythm, No murmur Abdomen: positive: Non-tender, No distention Skin: positive: Color nml Extremities: positive: Non-tender, No pedal edema Neurologic/Psychiatric: positive: Oriented x3, Other (Non-focal) - LABS Result Diagrams: 08/15/19 05:30 08/15/19 05:30 - DIAGNOSTIC IMAGING Diagnostic Imaging Results: Final report reviewed - FOLLOW UP Follow Up: See Urologist in follow-up soon. See PCP for routine follow-up. - TIME SPENT Time Spent in Discharge (Minutes): 30
[2019-08-15 14:25] VITALS: BP 134/47
== END 2019-08-15 15:17 | disposition home or self-care (01) ==
LOC: EDUNIT# → ED 04:12 → MS2 06:20
PROVIDERS: ADMIT Internal Medicine; ATTEND Internal Medicine
DX: D72.829 Elevated white blood cell count, unspecified (principal); R50.9 Fever, unspecified; N30.90 Cystitis, unspecified without hematuria; E87.6 Hypokalemia; M79.7 Fibromyalgia; R53.1 Weakness; M79.672 Pain in left foot; M79.671 Pain in right foot; I48.20 Chronic atrial fibrillation, unspecified; I10 Essential (primary) hypertension; E78.5 Hyperlipidemia, unspecified; F41.9 Anxiety disorder, unspecified; R32 Unspecified urinary incontinence; Z79.01 Long term (current) use of anticoagulants; Z86.73 Personal history of transient ischemic attack (TIA), and cerebral infarction without residual deficits; K59.09 Other constipation
CPT/HCPCS: 36415; 71045; 74177; 80048; 80053; 81003; 83605; 83690; 83735; 83880; 84100; 84484; 85025; 85651; 86140; 87040; 93005; 93922; 96365; 96366; 99283; 99285; A9270; G0378; Q9967; 81001; 87086

== ENCOUNTER 2019-08-27 13:13 | Outpatient (CLI) | payer MEDICARE, BC | END 2019-08-27 23:59 | disposition home or self-care (01) | LOC: LAB.R 13:13 | PROVIDERS: ATTEND Urology | DX: N39.0 Urinary tract infection, site not specified (principal); N39.46 Mixed incontinence | CPT/HCPCS: 87077; 87086; 87181 ==

== ENCOUNTER 2019-08-30 07:48 | Outpatient (CLI) | payer MEDICARE, BC | END 2019-08-30 07:49 | disposition critical access hospital (66) | LOC: EMS 07:48 | PROVIDERS: ATTEND Surgery | DX: R53.1 Weakness (principal); M54.9 Dorsalgia, unspecified | CPT/HCPCS: A0425; A0429 ==

== ENCOUNTER 2019-08-30 07:55 | Observation (INO) | payer MEDICARE, BC ==
[2019-08-30] MEDS ORDERED: SODIUM CHLORIDE 0.9% 1,000 ML IV STA ×2 (08:02)
--- NOTE | 2019-08-30 08:07 | ED Physician Documentation ---
History of Present Illness - Stated complaint Stated Complaint: UTI - History obtained from History obtained from: Patient, Family, EMS - History of Present Illness Timing: Today Pain level max: 3 Pain level now: 3 - Additonal information Additional information: 84 year old female states that she has a UTI. She states she was started on Macrobid yesterday. Today she feels tired and weak. She states her back is also sore. She states she could not go to sleep last night and felt like she was getting weaker. No fevers. No nausea. No vomiting. No diarrhea. No constipation. No abdominal pain. Took 1 dose of Macrobid so far. Patient with a urine culture on 08/27/2019 that showed Enterococcus faecalis. Review of Systems Constitutional: denies: Fever Nose: denies: Rhinorrhea / runny nose, Congestion Throat: denies: Sore throat Cardiac: reports: Palpitations (Chronic A. fib, unchanged). 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: Other : Retention, Incontinence, Chronic bladder infection, Nocturia, Frequency, Kidney stones HEENT: None, Chronic vision loss, Chronic sinusitis Psych: Anxiety Musculoskeletal: Fibromyalgia, Fatigue Derm: None - Past Surgical History Past Surgical History: Yes General: 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 /TRACK SERVICE PERSON: section, Hysterectomy HEENT: Cataracts, Tonsil/Adenoidectomy - Present Medications Home Medications: Ambulatory Orders Medication Instructions Recorded Confirmed Cholecalciferol (Vitamin D3) 3,000 units PO DAILY 10/11/16 08/30/19 [Vitamin D3] Latanoprost 0.005% Ophth Drops 1 drops EACHEYE QPM 07/07/17 08/30/19 [Xalatan Ophth Drops] Apixaban [Eliquis] 5 mg PO BID 08/14/19 08/30/19 Ascorbic Acid [Vitamin C with Rosenda 1,000 mg PO DAILY PM 08/14/19 08/30/19 Hips] Docusate Sodium [Dulcolax Stool 100 mg PO DAILY PRN 08/14/19 08/30/19 Softener] Furosemide 10 mg PO DAILY PRN 08/14/19 08/30/19 Mirtazapine 3.75 mg PO QPM 08/14/19 08/30/19 Mirtazapine 3.75 mg PO QPM PRN 08/14/19 08/30/19 Multivitamin [Theragran] 1 tab PO DAILY 08/14/19 08/30/19 [place]-3 Acid Ethyl Esters [Lovaza] 1 gm PO DAILY 08/14/19 08/30/19 dilTIAZem HCL [Diltiazem HCl] 30 mg PO BID 08/14/19 08/30/19 Nitrofurantoin Macrocrystal 100 mg PO [id number] 08/30/19 08/30/19 [Nitrofurantoin] estradioL [Estradiol] 1 applic TOP .2XWEEK 08/30/19 08/30/19 - Allergies Allergies/Adverse Reactions: Allergies Allergy/AdvReac Type Severity Reaction Status Date / Time ciprofloxacin [From Cipro] Allergy Severe Rash Verified 08/14/19 04:19 ciprofloxacin HCl * Allergy Severe Rash Verified 08/14/19 04:19 [From Cipro] Heparin Analogues Allergy Severe Hives Verified 08/14/19 04:19 metoclopramide HCl * Allergy Severe Anxiety Verified 08/14/19 04:19 [From Reglan] prednisone Allergy Severe Rash Verified 08/14/19 04:19 Sulfa (Sulfonamide Allergy Severe Rash Verified 08/14/19 04:19 Antibiotics) amoxicillin [From Augmentin] Allergy Rash Verified 08/14/19 04:19 clavulanic acid Allergy Rash Verified 08/14/19 04:19 [From Augmentin] clopidogrel bisulfate * Allergy Unknown Verified 08/14/19 04:19 [From Plavix] oxycodone [Oxycodone] AdvReac Severe Edema Verified 08/14/19 04:19 hydroxychloroquine AdvReac Unknown Verified 08/30/19 13:42 - Social History Does the pt smoke?: No Smoking Status: Never smoker Does the pt drink ETOH?: No Does the pt have substance abuse?: No - Immunizations Immunizations are current?: Yes - POLST Patient has POLST: No POLST Status: DNR PD ED PE NORMAL - Vitals Vital signs reviewed: Yes - General General: Alert and oriented X 3, No acute distress, Well developed/nourished - HEENT HEENT: Moist mucous membranes - Neck Neck: Supple, no meningeal sign - Cardiac Cardiac: Strong equal pulses, Other (Irregular) - Respiratory Respiratory: No respiratory distress, Clear bilaterally - Abdomen Abdomen: Soft, Non tender, Non distended - Back Back: No CVA TTP, No spinal TTP - Derm Derm: Warm and dry - Extremities Extremities: No edema - Neuro Neuro: Alert and oriented X 3, No motor deficit, No sensory deficit, Normal speech, Other (Normal bilateral lower extremity patellar and ankle jerk reflexes. Normal great toe extension bilaterally. no saddle anesthesia) - Psych Psych: Normal mood, Normal affect Results - Vitals Vitals: Vital Signs - 24 hr 08/30/19 08/30/19 08/30/19 08:14 09:03 11:10 Temperature 36.8 C 37.3 C Heart Rate 108 H 109 H 78 Respiratory 20 16 16 Rate Blood Pressure 122/68 132/65 H 113/51 L O2 Saturation 98 96 93 Oxygen O2 Source Room air - Labs Labs: Laboratory Tests 08/30/19 08/30/19 08/30/19 08:46 08:57 08:57 WBC 20.1 H RBC 4.44 Hgb 13.7 Hct 40.0 MCV 90.1 MCH 30.9 MCHC 34.3 RDW 14.1 Plt Count 300 MPV 10.0 Neut # (Auto) 18.4 H Lymph # (Auto) 0.5 L [place] # (Auto) 1.0 Eos # (Auto) 0.0 Baso # (Auto) 0.1 Absolute Nucleated RBC 0.00 Nucleated RBC % 0.0 Sodium 138 Potassium 3.3 L Chloride 100 L Carbon Dioxide 23 Anion Gap 15.0 H BUN 19 Creatinine 0.7 Estimated GFR (MDRD) 79 L Glucose 107 H Lactic Acid Calcium 9.0 Total Bilirubin 1.1 H AST 37 ALT 27 Alkaline Phosphatase 44 Total Protein 6.8 Albumin 4.1 Globulin 2.7 Albumin/Globulin Ratio 1.5 Lipase 38 Urine Color YELLOW Urine Clarity CLEAR Urine pH 7.0 Ur Specific [place] 1.015 Urine Protein NEGATIVE Urine Glucose (UA) NEGATIVE Urine Ketones NEGATIVE Urine Occult Blood NEGATIVE Urine Nitrite NEGATIVE Urine Bilirubin NEGATIVE Urine Urobilinogen 0.2 (NORMAL) Ur Leukocyte Esterase NEGATIVE Ur Microscopic Review NOT INDICATED Urine Culture Comments NOT INDICATED 08/30/19 08:57 WBC RBC Hgb Hct MCV MCH MCHC RDW Plt Count MPV Neut # (Auto) Lymph # (Auto) [place] # (Auto) Eos # (Auto) Baso # (Auto) Absolute Nucleated RBC Nucleated RBC % Sodium Potassium Chloride Carbon Dioxide Anion Gap BUN Creatinine Estimated GFR (MDRD) Glucose Lactic Acid 1.5 Calcium Total Bilirubin AST ALT Alkaline Phosphatase Total Protein Albumin Globulin Albumin/Globulin Ratio Lipase Urine Color Urine Clarity Urine pH Ur Specific [place] Urine Protein Urine Glucose (UA) Urine Ketones Urine Occult Blood Urine Nitrite Urine Bilirubin Urine Urobilinogen Ur Leukocyte Esterase Ur Microscopic Review Urine Culture Comments PD MEDICAL DECISION MAKING - ED course Complexity details: reviewed results, re-evaluated patient, considered differential, d/w patient ED course: Patient with a urine culture positive for Enterococcus faecalis on 08/27/2019. Does have significant leukocytosis and feels very weak. Feels like she is unable to take care of herself. She does seem to be getting worse despite starting antibiotics yesterday. Given Rocephin here and IV fluids. We will place her in observation to ensure her leukocytosis decreases and her strength increases. Discussed the case with Dr. Austin, hospitalist who accepts This document was made in part using voice recognition software. While efforts are made to proofread this document, sound alike and grammatical errors may occur. Departure - Departure Disposition: ED Place in Observation Clinical Impression: Chronic atrial fibrillation, Generalized weakness UTI (urinary tract infection) Qualifiers: Urinary tract infection type: acute cystitis Hematuria presence: without hematuria Qualified Code(s): N30.00 - Acute cystitis without hematuria Leukocytosis Qualifiers: Leukocytosis type: bandemia Qualified Code(s): D72.825 - Bandemia Condition: Stable Discharge Date/Time: 08/30/19 14:21
[2019-08-30 09:05] LABS: BILIRUBIN,URINE NEGATIVE (NEGATIVE); GLUCOSE, URINE (UA) NEGATIVE (NEGATIVE); KETONES,URINE (UA) NEGATIVE (NEGATIVE); LEUKOCYTE ESTERASE, URINE NEGATIVE (NEGATIVE); NITRITE,URINE NEGATIVE (NEGATIVE); OCCULT BLOOD,URINE NEGATIVE (NEGATIVE); PROTEIN,URINE NEGATIVE (NEGATIVE); UROBILINOGEN,URINE 0.2 (NORMAL) E.U./dL (NORMAL)
[2019-08-30 09:05] LABS: BASOPHILS # (AUTO) 0.1 10^3/uL (0.0-0.1); BASOPHILS % (AUTO) 0.3 %; HGB - HEMOGLOBIN 13.7 g/dL (12.0-16.0); LYMPHOCYTES # (AUTO) 0.5 10^3/uL (1.5-3.5); LYMPHOCYTES % (AUTO) 2.6 %; MEAN CORPUSCULAR HEMOGLOBIN 30.9 pg (27.0-31.0); MEAN CORPUSCULAR HGB CONC 34.3 g/dL (32.0-36.0); MEAN CORPUSCULAR VOLUME 90.1 fL (81.0-99.0); MONOCYTES % (AUTO) 4.8 %; NEUTROPHILS # (AUTO) 18.4 10^3/uL (1.5-6.6); NEUTROPHILS % (AUTO) 91.6 %; PLT - PLATELET COUNT 300 10^3/uL (130-450); RED BLOOD COUNT 4.44 10^6/uL (4.20-5.40); RED CELL DISTRIBUTION WIDTH 14.1 % (12.0-15.0); WHITE BLOOD COUNT 20.1 x10^3/uL (4.8-10.8)
[2019-08-30 09:17] LABS: ALBUMIN 4.1 g/dL (3.2-5.5); ALBUMIN/GLOBULIN RATIO 1.5 (1.0-2.2); BILIRUBIN,TOTAL 1.1 mg/dL (0.2-1.0); CREATININE 0.7 mg/dL (0.4-1.0); TOTAL PROTEIN 6.8 g/dL (6.7-8.2)
[2019-08-30 09:30] LABS: CLARITY,URINE CLEAR (CLEAR)
[2019-08-30] MEDS ORDERED: cefTRIAXone 1 GM VIAL IVP STA (09:47)
[2019-08-30] MEDS ORDERED: oxyCODONE 5 MG TABLET PO PRN (12:33)
[2019-08-30] MEDS ORDERED: ONDANSETRON 4 MG/2 ML VIAL IVP PRN (12:33)
[2019-08-30] MEDS ORDERED: ONDANSETRON ODT 4 MG TABLET TL PRN (12:33)
[2019-08-30] MEDS ORDERED: SODIUM CHLORIDE FLUSH 0.9% 10 ML SYRINGE IVP PRN (12:33)
[2019-08-30] MEDS ORDERED: VANCOMYCIN INJ 1 GM in SODIUM CHLORIDE 0.9% 250 ML IV ONE (12:43)
[2019-08-30] MEDS ORDERED: SODIUM CHLORIDE 0.9% 1,000 ML IV SCH ×2 (13:00→15:22)
[2019-08-30] MEDS ORDERED: POTASSIUM CHLORIDE 20 MEQ TABLET PO SCH (13:44)
--- NOTE | 2019-08-30 13:45 | PHARMACY PROGRESS NOTE ---
- Best Possible Medication History Admit Date and Time: 08/30/19 1233 Processed by: Pharmacy Medication History completed: Yes Patient Interview: Completed Secondary Source(s): Pharmacy records, Insurance records, Previous admit records As the person ultimately responsible for medication therapy, providers are able to order a medication from an existing home medication list in [facility] via the "Reconcile Routine" prior to Confirmation of that medication by support services tech. Such practice is discouraged except when the physician, in their clinical judgment, deems that a medical need exists for a medication without regard to previous use.
[2019-08-30] MEDS ORDERED: MIRTAZAPINE 3.75 MG PO PRN (13:47)
--- NOTE | 2019-08-30 13:49 | HISTORY & PHYSICAL EXAMINATION ---
Chief Complaint - Chief Complaint Chief Complaint: dysuria History of Present Illness - Admitted From Admitted From:: ER - History Obtained From Records Reviewed: [facility] History obtained from: Pt - History of Present Illness HPI Comment/Other: Nidhi Fair is a 84-year old female with a past medical history of chronic fatigue syndrome, hypertension, atrial fibrillation- on Eliquis, TIA, syncope, seasonal allergies, urinary retention, urinary incontinence, chronic bladder infections, kidney stones with removal, anxiety, and fibromyalgia who present ER complain of dysuria. She report she nearly passed out when she tried to to the bed commode. she denies loss of conscience. She feels her lower extremity was very weak. She states she could not go to sleep last night and felt like she was getting weaker. She states her back is also sore. She denies fever, chilling, chest pain, Shortness of breathing, abdominal pain, nausea, vomiting, diarrhea. Patient had a urine culture on 08/27/2019 that showed Enterococcus faecalis. She states she was started on Macrobid yesterday. UA analysis reveals unremarkable likely because she took Macrobid. Routine laboratory test show patient had significantly elevated WBC otherwise it is unremarkable. In ER, patient is afebrile, patient had slightly elevated HR initially otherwise patient is hemodynamically stable. Patient is admitted in observation unit for further medical management. Discussed with the care goal with the patient. patient state she have PLOST and she will ask her daughter bring back to the hospital which state she is DNR/DNI. she request DNR/DNI for her code status. History - Past Medical History Cardiovascular: reports: Hypertension, High cholesterol, Atrial fibrillation, Murmur, Arrhythmia, Other Respiratory: reports: None Neuro: reports: TIA, Fainting Endocrine/Autoimmune: reports: None GI: reports: Chronic constipation [employer]ER: reports: Other : reports: Retention, Incontinence, Chronic bladder infection, Nocturia, Frequency, Kidney stones HEENT: reports: None, Chronic vision loss, Chronic sinusitis Psych: reports: Anxiety Musculoskeletal: reports: Fibromyalgia, Fatigue Derm: reports: None MRSA Hx?: No - Past Surgical History General: reports: 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 /[employer] FEEDER: reports: section, Hysterectomy HEENT: reports: Cataracts, Tonsil/Adenoidectomy - Family & Social History Family History: Mother: , Cancer, Diabetes, Type 2, Father: , Cancer, Sister: Alive and Well, , Cancer, Brother: Alive and Well, , Cancer Family History Comment/Other: Mother of heart disease, CVA, father had a history of DM and CVA. Social History Notes: [place] resides in [place]. She has stopped driving. She has one daughter. 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 She lives with her daughter, but is independent. They have 2 dogs. She denies tobacco, alcohol, or illicit drug use. She wishes to be a DNR. - Substance History Use: Uses substance without health or social issues: NONE - POLST Patient has POLST: No POLST Status: DNR Meds/Allgy - Home Medications Home Medications: Ambulatory Orders Medication Instructions Recorded Confirmed Cholecalciferol (Vitamin D3) 3,000 units PO DAILY 10/11/16 08/30/19 [Vitamin D3] Latanoprost 0.005% Ophth Drops 1 drops EACHEYE QPM 07/07/17 08/30/19 [Xalatan Ophth Drops] Apixaban [Eliquis] 5 mg PO BID 08/14/19 08/30/19 Ascorbic Acid [Vitamin C with Rosenda 1,000 mg PO DAILY PM 08/14/19 08/30/19 Hips] Docusate Sodium [Dulcolax Stool 100 mg PO DAILY PRN 08/14/19 08/30/19 Softener] Furosemide 10 mg PO DAILY PRN 08/14/19 08/30/19 Mirtazapine 3.75 mg PO QPM 08/14/19 08/30/19 Mirtazapine 3.75 mg PO QPM PRN 08/14/19 08/30/19 Multivitamin [Theragran] 1 tab PO DAILY 08/14/19 08/30/19 [place]-3 Acid Ethyl Esters [Lovaza] 1 gm PO DAILY 08/14/19 08/30/19 dilTIAZem HCL [Diltiazem HCl] 30 mg PO BID 08/14/19 08/30/19 Nitrofurantoin Macrocrystal 100 mg PO [id number] 08/30/19 08/30/19 [Nitrofurantoin] estradioL [Estradiol] 1 applic TOP .2XWEEK 08/30/19 08/30/19 - Allergies Allergies/Adverse Reactions: Allergies Allergy/AdvReac Type Severity Reaction Status Date / Time ciprofloxacin [From Cipro] Allergy Severe Rash Verified 08/14/19 04:19 Heparin Analogues Allergy Severe Hives Verified 08/14/19 04:19 metoclopramide HCl * Allergy Severe Anxiety Verified 08/14/19 04:19 [From Reglan] prednisone Allergy Severe Rash Verified 08/14/19 04:19 Sulfa (Sulfonamide Allergy Severe Rash Verified 08/14/19 04:19 Antibiotics) amoxicillin [From Augmentin] Allergy Rash Verified 08/14/19 04:19 clavulanic acid Allergy Rash Verified 08/14/19 04:19 [From Augmentin] clopidogrel bisulfate * Allergy Unknown Verified 08/14/19 04:19 [From Plavix] oxycodone [Oxycodone] AdvReac Severe Edema Verified 08/14/19 04:19 hydroxychloroquine AdvReac Unknown Verified 08/30/19 13:42 Review of Systems - Constitutional Constitutional: reports: Weakness. denies: Fatigue, Fever, Chills, Malaise, Poor appetite, Diaphoresis, Night sweats - Eyes Eyes: denies: Pain, Blurred vision, Spots in vision, Field loss, Vision loss, Dipolpia - Ears, Nose & Throat Ears, Nose & Throat: denies: Ear pain, Hearing loss, Vertigo, Nasal discharge, Nosebleeds, Nasal congestion, Sore throat, Bleeding gums - Cardiovascular Cariovascular: denies: Irregular heart rate, Palpitations, Chest pain, Edema, Lightheadedness, Syncope, Exertional dyspnea, Decr. exercise tolerance - Respiratory Respiratory: denies: Cough, Sputum production, Wheezing, Snoring, Hemoptysis, Orthopnea, SOB at rest, SOB with exertion - Gastrointestinal Gastrointestinal: denies: Abdominal pain, Abdominal distention, Constipation, Diarrhea, Change in bowel habits, Rectal bleeding, Black stools, Bloody stools, Nausea, Vomiting, Perez blood emesis, Coffee grounds emesis - Genitourinary Genitourinary: reports: Dysuria, Urgency, Incontinence, Nocturia. denies: Frequency, Hematuria, Flank pain, Urethral discharge - Musculoskeletal Musculoskeletal: denies: Muscle pain, Muscle aches, Stiffness, Limited range of motion, Muscle weakness, Joint pain - Integumentary Integumentary: denies: Lesions, Dryness, Lumps, Pigment changes - Neurological Neurological: reports: General weakness. denies: Focal weakness, Headache, Dizziness, Numbness, Memory problems, Pre-existing deficit, Abnormal gait, Seizures, Incoordination, Slurred speech - Psychiatric Psychiatric: denies: Suicidal, Delusions, Hallucinations, Homicidal - Endocrine Endocrine: denies: Polyuria, Polydypsia, Polyphagia - Hematologic/Lymphatic Hematologic/Lymphatic: denies: Anemia, Petechiae, Recurrent infections Exam - Vital Signs Vital Signs: Vital Signs x48h Temp Pulse Resp BP Pulse Ox 08/30/19 11:10 78 16 113/51 L 93 08/30/19 09:03 37.3 C 109 H 16 132/65 H 96 08/30/19 08:14 36.8 C 108 H 20 122/68 98 - Physical Exam General Appearance: positive: No acute distress, Alert. negative: Lethargic Eyes Bilateral: positive: Normal inspection, PERRL, No lid inflammation ENT: positive: ENT inspection nml, Pharynx nml, No signs of dehydration. negative: Purulent nasal drainage Neck: positive: Nml inspection, Thyroid nml, Trachea midline. negative: Thyromegaly, Stiff neck, Tracheal deviation Respiratory: positive: Chest non-tender, No respiratory distress, Breath sounds nml. negative: Wheezes, Rales, Rhonchi Cardiovascular: positive: Irregularly irregular, Systolic murmur. negative: Tachycardia, Bradycardia, Diastolic murmur Peripheral Pulses: positive: 2+ Abdomen: positive: Non-tender, No organomegaly, Nml bowel sounds, No distention. negative: Tenderness, Guarding, Rebound Back: positive: Nml inspection. negative: CVA tenderness (R), CVA tenderness (L) Skin: positive: Color nml, No rash, Warm, Dry. negative: Cyanosis, Diaphoresis, Pallor Extremities: positive: Non-tender, Full ROM, Nml appearance. negative: Calf tenderness, Nico's sign/cords Neurologic/Psychiatric: positive: Oriented x3, Motor nml, Sensation nml. negative: Weakness, Sensory loss, Facial droop, Slurred/abnml speech, Depressed mood/affect Sepsis Event Note (H) - Evaluation Current Stage of Sepsis: Ruled out Conclusion/Plan - Problem List (1) Syncope Conclusion/Plan: Patient report she nearly passed all When she try to move to the bed commode on last night. she denies loss conscious, she thinks she passed out very quickly. She feels she is so weakness on her bilaterally lower extremity. Will check troponin, EKG, patient will be on quality assurance monitor final, unfortunately we do not have echo today until Monday, we will advise the patient to have outpatient echo. Clinically patient present dehydration. We will gently give hydration to patient. Patient already have 2 L normal saline in the ER. Patient had echo in 2018 with preserved EF with moderate abnormal right heart pressure. We will do gentle hydration with the patient. we will treat underlying patient's urinary tract infection. (2) Urinary tract infection Conclusion/Plan: Patient had a urine culture on 08/27/2019 that showed Enterococcus faecalis. She states she was started on Macrobid yesterday. UA analysis reveals unremarkable likely because she took Macrobid. Patient had allergy with ampicillin, Cipro, according to sensitivity study, the antibiotic choice will be vancomycin. We will continue intravenous IV fluids. We will hope to change antibiotic sfosfomycin for her d/c Qualifiers: Urinary tract infection type: acute cystitis Hematuria presence: without hematuria Qualified Code(s): N30.00 - Acute cystitis without hematuria (3) Generalized weakness Conclusion/Plan: Patient complain generalized weakness, patient has a history of fibromyalgia and chronic back pain.No patient has a acute urinary tract infection.We will continue intravenous IV fluids, we will continue treat underlying urinary tract infection, we will consult with physical therapist. (4) Leukocytosis Conclusion/Plan: Patient has elevated WBC at 20, patient has a history elevated WBC significantly in the day 1, then patient quickly responded to the antibiotics special intravenous antibiotics. THe cause of significant elevated WBC is likely from urinary tract infection. Treat underlying urinary tract infection with antibiotics, and hydration. 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 resume Eliquis, Patient has HR 78 now, blood pressu re slightly low, we will hold the Cardizem now, but would resume if clinically indicated. quality assurance monitor final patient, vital signs monitor patient (6) Hypertension Conclusion/Plan: Patient has history hypertension, now her blood pressure is a slightly low, we w ill hold Cardizem and we will continue intravenous IV fluids and vital signs monitor Qualifiers: Hypertension type: essential hypertension Qualified Code(s): I10 - Essential (primary) hypertension - Lab Results Fish Bones: 08/30/19 08:57 08/30/19 08:57 Core Measures - Anticipated LOS I expect patient to be DC'd or transferred within 96 hours.: Yes - DVT/VTE - Prophylaxis VTE/DVT Device ordered at admit?: Yes VTE/DVT Prophylaxis med ordered at admit?: Yes
[2019-08-30] MEDS ORDERED: VANCOMYCIN INJ 750 MG in SODIUM CHLORIDE 0.9% 250 ML IV SCH (15:00)
--- NOTE | 2019-08-30 15:01 | PHARMACY PROGRESS NOTE ---
- Therapy Status Vancomycin regimen day #: 1 Therapy status: Awaiting steady state Basis for treatment: Culture result Trough goal: 10-15 - TARIQ Risk Risk level for Acute Kidney Injury: Low Acute Kidney Injury risk factors: Baseline CrCl <50 - Monitoring and Recommendation Clinical response to treatment: I&O Previous 24 hours 08/28/19 08/29/19 08/30/19 23:59 23:59 23:59 Intake Total 1001.667 Balance 1001.667 Lab Results 08/30/19 08:57 BUN 19 Creatinine 0.7 Estimated GFR (MDRD) 79 L Monitoring plan: Daily serum creatinine
[2019-08-30] MEDS: SODIUM CHLORIDE FLUSH 0.9% 10 ML SYRINGE IVP SCH (16:41)
[2019-08-30] MEDS: SODIUM CHLORIDE 0.9% 1,000 ML IV SCH ×2 (17:16→20:21)
[2019-08-30] MEDS: APIXABAN 5 MG TABLET PO SCH (20:21)
[2019-08-30] MEDS ORDERED: MIRTAZAPINE 3.75 MG PO SCH (21:00)
[2019-08-30] MEDS ORDERED: LATANOPROST 0.005% OPHTH DROPS EACHEYE SCH (21:00)
[2019-08-30] MEDS ORDERED: ZOLPIDEM 5 MG TABLET PO PRN (21:00)
[2019-08-31] MEDS: SODIUM CHLORIDE FLUSH 0.9% 10 ML SYRINGE IVP SCH ×2 (00:33→08:12)
[2019-08-31] MEDS: VANCOMYCIN INJ 750 MG in SODIUM CHLORIDE 0.9% 250 ML IV SCH ×2 (01:55→12:55)
[2019-08-31] MEDS: ACETAMINOPHEN 325 MG TABLET PO PRN ×2 (03:46→14:12)
[2019-08-31 04:56] LABS: BASOPHILS # (AUTO) 0.1 10^3/uL (0.0-0.1); BASOPHILS % (AUTO) 0.4 %; EOSINOPHILS # (AUTO) 0.2 10^3/uL (0.0-0.7); EOSINOPHILS % (AUTO) 1.9 %; HGB - HEMOGLOBIN 10.6 g/dL (12.0-16.0); LYMPHOCYTES # (AUTO) 1.9 10^3/uL (1.5-3.5); MEAN CORPUSCULAR HEMOGLOBIN 29.5 pg (27.0-31.0); MEAN CORPUSCULAR HGB CONC 32.9 g/dL (32.0-36.0); MEAN CORPUSCULAR VOLUME 89.7 fL (81.0-99.0); MEAN PLATELET VOLUME 10.6 fL (7.9-10.8); MONOCYTES # (AUTO) 0.7 10^3/uL (0.0-1.0); NEUTROPHILS # (AUTO) 8.4 10^3/uL (1.5-6.6); NEUTROPHILS % (AUTO) 74.3 %; PLT - PLATELET COUNT 274 10^3/uL (130-450); RED BLOOD COUNT 3.59 10^6/uL (4.20-5.40); RED CELL DISTRIBUTION WIDTH 14.4 % (12.0-15.0); WHITE BLOOD COUNT 11.4 x10^3/uL (4.8-10.8)
[2019-08-31] MEDS ORDERED: cefTRIAXone 1 GM in SODIUM CHLORIDE 0.9% MINIBAG 100 ML IV SCH (05:00)
[2019-08-31 05:04] LABS: CREATININE 0.6 mg/dL (0.4-1.0)
[2019-08-31] MEDS: APIXABAN 5 MG TABLET PO SCH (08:12)
[2019-08-31] MEDS: SODIUM CHLORIDE 0.9% 1,000 ML IV SCH (08:36)
[2019-08-31] MEDS ORDERED: DOCUSATE SODIUM 250 MG CAPSULE PO SCH (09:00)
[2019-08-31 10:37] LABS: CREATININE 0.7 mg/dL (0.4-1.0)
[2019-08-31 12:44] VITALS: BP 137/49
--- NOTE | 2019-08-31 13:28 | Discharge Plan ---
Discharge Plan Problem Reviewed?: Yes Disposition: Home Health Service Condition: Stable Prescriptions: Fosfomycin Tromethamine [Monurol] 3 gm PO DAILY #1 packet Diet: Regular Activity Restrictions: Activity as Tolerated Shower Restrictions: No Driving Restrictions: Yes (no driving) Assistance Devices: Walker Health Concerns: You presented with weakness so severe that you almost passed out on the toilet. As such we put you in observation to see if your blood pressure, and vital signs will stay stable. Overnight, your blood pressure remained completely stable. There were no changes when you stood up. You had no fever. Kidney function remained normal. Your white cell count had been elevated and was now n ormal. We continue to treat you for the urinary tract infection you were diagnosed with August 26. That was Enterococcus faecalis. The sensitivities do show that you are on the correct antibiotic which is nitrofurantoin. We have also called in 1 more day of antibiotic called fosfomycin to see if that will help. You and your daughter are very concerned about your weakness and fatigue.As such physical therapy did work with you. He checks your blood pressure and it was normal. He walks you with a front wheel walker and you showed very good balance and orientation. You did get tired when you had to do exercises more than 8 times. You had poor tolerance with prolonged standing. Gross strength of your bilateral lower extremities was good. He does recommend physical therapy with continued exercising, Occupational Therapy and a bath aide. Plan of Treatment: 1. 1 dose of fosfomycin at home that you can do tomorrow 2. Home health physical therapy, Occupational Therapy, and bath aide to help increase your strength 3. Your daughter is interested in speaking to your primary care provider about weekly blood check and urine check. I will do one order for next week and then Samanta Pozo or Dr. Cárdenas or Dr. Flores will have to do the rest of the orders. 4. Make sure you take your estrogen cream. It really does help with the drying and pulling around your urethra from menopause. Care Goals: To remain at home And to remain without recurrent urinary tract infections Assessment: Daughter and patient were instructed on treatment and plan. Daughter states she will follow through. No Smoking: If you smoke, Please STOP! Call for help. Follow-up with: Samanta Page ARNP, MANAGER RECOVERY-C [Primary Care Provider] - Jazmin Cárdenas MD [Provider Admit Priv/Credential] - JESSICA FLORES MD [Physician No Access] -
--- NOTE | 2019-08-31 17:22 | Discharge Plan ---
Discharge Plan Problem Reviewed?: Yes Disposition: Home Health Service Condition: Stable Prescriptions: Fosfomycin Tromethamine [Monurol] 3 gm PO DAILY #1 packet Activity Restrictions: Activity as Tolerated Shower Restrictions: No Driving Restrictions: Yes (no driving) Instruction Topics: Fosfomycin powder for oral solution, UTI Health Concerns: You presented with weakness so severe that you almost passed out on the toilet. As such we put you in observation to see if your blood pressure, and vital signs will stay stable. Overnight, your blood pressure remained completely stable. There were no changes when you stood up. You had no fever. Kidney function remained normal. Your white cell count had been elevated and was now normal. We continue to treat you for the urinary tract infection you were diagnosed with August 26. That was Enterococcus faecalis. The sensitivities do show that you are on the correct antibiotic which is nitrofurantoin. We have also called in 1 more day of antibiotic called fosfomycin to see if that will help. You and your daughter are very concerned about your weakness and fatigue.As such physical therapy did work with you. He checks your blood pressure and it was normal. He walks you with a front wheel walker and you showed very good balance and orientation. You did get tired when you had to do exercises more than 8 times. You had poor tolerance with prolonged standing. Gross strength of your bilateral lower extremities was good. He does recommend physical therapy with continued exercising, Occupational Therapy and a bath aide. Plan of Treatment: 1. 1 dose of fosfomycin at home that you can do tomorrow 2. Home health physical therapy, Occupational Therapy, and bath aide to help increase your strength 3. Your daughter is interested in speaking to your primary care provider about weekly blood check and urine check. I will do one order for next week and then Samanta Pozo or Dr. Cárdenas or Dr. Flores will have to do the rest of the orders. 4. Make sure you take your estrogen cream. It really does help with the drying and pulling around your urethra from menopause. Care Goals: To remain at home And to remain without recurrent urinary tract infections Assessment: Daughter and patient were instructed on treatment and plan. Daughter states she will follow through. No Smoking: If you smoke, Please STOP! Call for help. Follow-up with: Samanta Page ARNP, HOME APPLIANCE TECH-C [Primary Care Provider] - Jazmin Cárdenas MD [Provider Admit Priv/Credential] - JESSICA FLORES MD [Physician No Access] -
--- NOTE | 2019-08-31 17:25 | DISCHARGE SUMMARY ---
Discharge Summary Admit Date: 08/30/19 Discharge Date: 08/31/19 Condition at Discharge: Stable Discharge Disposition: 06 Home Health Service - DIAGNOSES Discharge Diagnoses with Status of Each Condition: 1. Near syncope 2. UTI with Enterococcus faecalis, culture August 26 3. Generalized weakness 4. Leukocytosis 5. Chronic atrial fibrillation 6. Hypertension - HPI History of Present Illness: Nidhi Fair is a 84-year old female with a past medical history of chronic fatigue syndrome, hypertension, atrial fibrillation- on Eliquis, TIA, syncope, seasonal allergies, urinary retention, urinary incontinence, chronic bladder infections, kidney stones with removal, anxiety, and fibromyalgia who present ER complain of dysuria. She report she nearly passed out when she tried to to the b ed commode. she denies loss of conscience. She feels her lower extremity was very weak. She states she could not go to sleep last night and felt like she was getting weaker. She states her back is also sore. She denies fever, chilling, chest pain, Shortness of breathing, abdominal pain, nausea, vomiting, diarrhea. Patient had a urine culture on 08/27/2019 that showed Enterococcus faecalis. She states she was started on Macrobid yesterday. UA analysis reveals unremarkable likely because she took Macrobid. Routine laboratory test show patient had significantly elevated WBC otherwise it is unremarkable. In ER, patient is afebrile, patient had slightly elevated HR initially otherwise patient is hemodynamically stable. Patient is admitted in observation unit for further medical management. Discussed with the care goal with the patient. patient state she have PLOST and she will ask her daughter bring back to the hospital which state she is DNR/DNI. she request DNR/DNI for her code status. 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 Orthostatics were done to make sure that this was not due to orthostatic hypotension. Supine blood pressure was 137/43 with a heart rate of 55. Sitting blood pressure was 150/57 with a pulse of 60. Standing blood pressure was 151/63 with a heart rate of 62. She received a liter of IV fluids. Ceftriaxone was given in the emergency room for her UTI and we changed her to vancomycin for Enterococcus faecalis. We would have preferred giving her ampicillin but she is allergic to penicillin. White cell count on admission was 20.1. Family is very concerned because they felt that she was "septic". Follow-up the next day was 11.4. We reassured the family that the patient was not septic. She had a normal blood pressure, no fever, and a lactic acid that was normal. She has a history of chronic urinary tract infections and is followed by Dr. Harding at [facility] urology. She has already received Botox injections from Dr. Weber at [facility], urology clinic. She has not been taking estrogen cream. She and her family are very concerned because she keeps on getting urinary tract infections and they want her to be admitted every single time she has a UTI. I spent a long time discussing with her daughter what [place] or [place] criteria are. If the patient does not meet criteria for admission it is very difficult for us to bring the patient in at family request. She wanted to get blood work and lab work done for her mom every week. While I am willing to check her white cell count next week, and check a urinalysis, she would need to follow-up with her primary care provider which will be . Or her urologist can make arrangements for that. The family is hoping to be preemptive about catching infection early. If they do catch an infection, they would like her to receive an IV infusion in the MAC. Again, explained that insurance may not agree with that suggestion. And I asked the patient to set her expectations so that she would not be disappointed.She will receive 1 dose of fosfomycin tomorrow. That prescription was sent to the pharmacy. The patient was discharged in stable condition. A cheerful alert female who looks her stated age. Temperature was 36.7, heart rate 59, blood pressure 129/42. She is 95% on room air. Neck is supple. She has no respiratory distress and lungs are clear to auscultation and percussion. PMI is normally placed with a regular rate and rhythm even though she has a history of atrial fibrillation. The abdomen is soft, nontender, benign. She is able to sit up, stand without any assist. She was evaluated by physical therapy and she does use a cane or front wheel walker at home. But she is basically independent. She had a mild "spacey feeling" when she stood up but there was no acute dizziness during the physical therapy evaluation. She had good balance and orientation. She had poor activity tolerance with limited prolonged standing tolerance. While she did have gross strength that was normal in her lower extremities, he felt that she would benefit from home health physical therapy to increase her strength, bath aide, and nurse to assess for recurrent UTI. - ALLERGIES Allergies/Adverse Reactions: Allergies Allergy/AdvReac Type Severity Reaction Status Date / Time ciprofloxacin [From Cipro] Allergy Severe Rash Verified 08/14/19 04:19 Heparin Analogues Allergy Severe Hives Verified 08/14/19 04:19 metoclopramide HCl * Allergy Severe Anxiety Verified 08/14/19 04:19 [From Reglan] prednisone Allergy Severe Rash Verified 08/14/19 04:19 Sulfa (Sulfonamide Allergy Severe Rash Verified 08/14/19 04:19 Antibiotics) amoxicillin [From Augmentin] Allergy Rash Verified 08/14/19 04:19 clavulanic acid Allergy Rash Verified 08/14/19 04:19 [From Augmentin] clopidogrel bisulfate * Allergy Unknown Verified 08/14/19 04:19 [From Plavix] oxycodone [Oxycodone] AdvReac Severe Edema Verified 08/14/19 04:19 hydroxychloroquine AdvReac Unknown Verified 08/30/19 13:42 - MEDICATIONS Home Medications: Ambulatory Orders Medication Instructions Recorded Confirmed Cholecalciferol (Vitamin D3) 3,000 units PO DAILY 10/11/16 08/30/19 [Vitamin D3] Latanoprost 0.005% Ophth Drops 1 drops EACHEYE QPM 07/07/17 08/30/19 [Xalatan Ophth Drops] Apixaban [Eliquis] 5 mg PO BID 08/14/19 08/30/19 Ascorbic Acid [Vitamin C with Rosenda 1,000 mg PO DAILY PM 08/14/19 08/30/19 Hips] Docusate Sodium [Dulcolax Stool 100 mg PO DAILY PRN 08/14/19 08/30/19 Softener] Furosemide 10 mg PO DAILY PRN 08/14/19 08/30/19 Mirtazapine 3.75 mg PO QPM 08/14/19 08/30/19 Mirtazapine 3.75 mg PO QPM PRN 08/14/19 08/30/19 Multivitamin [Theragran] 1 tab PO DAILY 08/14/19 08/30/19 [place]-3 Acid Ethyl Esters [Lovaza] 1 gm PO DAILY 08/14/19 08/30/19 dilTIAZem HCL [Diltiazem HCl] 30 mg PO BID 08/14/19 08/30/19 estradioL [Estradiol] 1 applic TOP .2XWEEK 08/30/19 08/30/19 Fosfomycin Tromethamine [Monurol] 3 gm PO DAILY #1 packet 08/31/19 - LABS Result Diagrams: 08/31/19 04:20 08/31/19 10:23 - SEPSIS Current Stage of Sepsis: Ruled out
== END 2019-08-31 14:58 | disposition home health service (06) ==
LOC: EDUNIT# → ED 07:55 → MS2 12:33
PROVIDERS: ADMIT Specialist; ATTEND Specialist
DX: R55 Syncope and collapse (principal); N30.00 Acute cystitis without hematuria; B95.2 Enterococcus as the cause of diseases classified elsewhere; D72.825 Bandemia; I48.20 Chronic atrial fibrillation, unspecified; I10 Essential (primary) hypertension; T38.5X6A Underdosing of other estrogens and progestogens, initial encounter; Y92.009 Unspecified place in unspecified non-institutional (private) residence as the place of occurrence of the external cause; Z88.1 Allergy status to other antibiotic agents; R33.9 Retention of urine, unspecified; R32 Unspecified urinary incontinence; R35.1 Nocturia; R35.0 Frequency of micturition; F41.9 Anxiety disorder, unspecified; M79.7 Fibromyalgia; R53.82 Chronic fatigue, unspecified; E78.00 Pure hypercholesterolemia, unspecified; J32.9 Chronic sinusitis, unspecified; H54.7 Unspecified visual loss; K59.09 Other constipation; Z66 Do not resuscitate; Z87.440 Personal history of urinary (tract) infections; Z79.01 Long term (current) use of anticoagulants; Z79.899 Other long term (current) drug therapy; Z86.73 Personal history of transient ischemic attack (TIA), and cerebral infarction without residual deficits
CPT/HCPCS: 36415; 80048; 80053; 81003; 82565; 83605; 83690; 84484; 85025; 87040; 93005; 96361; 96365; 96366; 96375; 97162; 99284; 99285; A9270; G0378; J3370; 81001; 87086

== ENCOUNTER 2019-09-05 11:36 | Emergency (ER) | payer MEDICARE, BC ==
--- NOTE | 2019-09-05 12:16 | XRAY Report ---
PROCEDURE: Chest 1 View X-Ray INDICATIONS: Chest pain TECHNIQUE: One view of the chest was acquired. COMPARISON: 08/14/2019 FINDINGS: Unchanged cardiomegaly and cephalization of left greater than right pulmonary vasculature with mild i ncreased interstitial markings. Unchanged hyperinflation of the lungs. There is no focal consolidatio n. No visible pleural effusion or findings of pneumothorax. Surgical clips in the right breast again noted. IMPRESSION: Radiographic appearance of chest similar to 08/14/2019, with findings again suggestive of cardiomegaly and mild interstitial pulmonary edema. Correlate with BNP. Reviewed by: Bishnu Cheng MD on 09/05/2019 12:15 PM PDT Approved by: Bishnu Cheng MD on 09/05/2019 12:15 PM PDT Station ID: [id number]
[2019-09-05 12:36] LABS: BASOPHILS # (AUTO) 0.1 10^3/uL (0.0-0.1); BASOPHILS % (AUTO) 0.5 %; EOSINOPHILS % (AUTO) 0.2 %; HGB - HEMOGLOBIN 12.6 g/dL (12.0-16.0); LYMPHOCYTES # (AUTO) 1.7 10^3/uL (1.5-3.5); LYMPHOCYTES % (AUTO) 9.8 %; MEAN CORPUSCULAR HEMOGLOBIN 30.9 pg (27.0-31.0); MEAN CORPUSCULAR HGB CONC 34.1 g/dL (32.0-36.0); MEAN CORPUSCULAR VOLUME 90.4 fL (81.0-99.0); MEAN PLATELET VOLUME 10.3 fL (7.9-10.8); MONOCYTES # (AUTO) 0.9 10^3/uL (0.0-1.0); MONOCYTES % (AUTO) 5.1 %; NEUTROPHILS # (AUTO) 14.7 10^3/uL (1.5-6.6); NEUTROPHILS % (AUTO) 83.7 %; PLT - PLATELET COUNT 340 10^3/uL (130-450); RED BLOOD COUNT 4.08 10^6/uL (4.20-5.40); RED CELL DISTRIBUTION WIDTH 14.2 % (12.0-15.0); WHITE BLOOD COUNT 17.6 x10^3/uL (4.8-10.8)
[2019-09-05 12:48] LABS: ALBUMIN 3.9 g/dL (3.2-5.5); ALBUMIN/GLOBULIN RATIO 1.3 (1.0-2.2); BILIRUBIN,TOTAL 0.9 mg/dL (0.2-1.0)
--- NOTE | 2019-09-05 12:53 | ED Physician Documentation ---
History of Present Illness - Stated complaint Stated Complaint: WEAKNESS, LOW 02 - Chief complaint Chief Complaint: Resp - History obtained from History obtained from: Patient, Family - Additonal information Additional information: Returns emergency department for chief complaint of feeling faint last night. The patient states she has been generally weak for the last few months and that she feels slightly worse this week. The patient states that she usually feels faint in the night and this is been going on for a long time. However, it seems a little worse right these last couple of days. She states that she woke up and needed to go to the bathroom in the night and when she got up, she felt almost as though she would pass out. Patient has a bedside commode and is able to use this if needed. She states that at times, she is passed out while sitting on the toilet or commode, but that this did not happen this time. However, she woke up several other times in the night feeling as though she needed to urinate, and each time, felt faint. The patient states she is on diltiazem for atrial fibrillation and has not had any recent dose changes. Daughter states that the patient does not drink very much fluids and is "chronically dehydrated". Patient was just admitted to the hospital for urinary tract infection, and daughter states that patient has basically had a nonstop UTI for the last 2 months. Patient's chronic urinary tract infections have been going on for years, ever since she had a hysterectomy in her 40s. However, they have gotten worse as she has gotten older and patient has a longstanding history of urology visits and consultations. Patient's daughter states that the best stretch she had was when she was on prophylactic Keflex and she did not have a urinary tract infection for several months. However, this stopped working and the patient's urologist now does not have her on anything prophylactically. Patient was admitted to the hospital for UTI and generalized weakness on August 29 and was found to be stable there. The hospitalist records a long conversation with patient's daughter about not being able to admit every time the patient has a UTI. The patient reports that she was given a dose of some kind of oral medicine which she picked up the pharmacy and took the morning after she was discharged from the hospital. She states that this was supposed to be a "one- time antibiotic" for UTI and that she was not supposed to be on any other antibiotics for 3 days afterward. Patient states that she has Macrobid which she is supposed to start tomorrow. Daughter states that the approach that they have been taking to the chronic UTIs is to try to prevent sepsis, which the patient has had several times. She states that they come to the emergency de partment to see "how the white blood cell counts are doing" and that she would like the patient to be treated with antibiotics of her white blood cell count is high. Patient's daughter states that she is here now because it is been a week almost since the patient was seen in the hospital and she wants to have her blood rechecked. Patient has seen a energy administrator about her syncopal episodes and had a an event monitor placed, which apparently showed atrial fibrillation. She has not been seen for her near-syncopal episodes since. Patient denies focal deficits. Daughter does note that the patient's home health nurse came yesterday and was concerned that the patient had "rales" and felt she should be evaluated for this. Denies a feeling of dyspnea. Review of Systems Ten Systems: 10 systems reviewed and negative Constitutional: reports: Reviewed and negative Eyes: reports: Reviewed and negative Ears: reports: Reviewed and negative Nose: reports: Reviewed and negative Throat: reports: Reviewed and negative Cardiac: reports: Reviewed and negative Respiratory: reports: Reviewed and negative GI: reports: Reviewed and negative : reports: Reviewed and negative Skin: reports: Reviewed and negative Musculoskeletal: reports: Reviewed and negative Neurologic: reports: Generalized weakness Psychiatric: reports: Reviewed and negative Endocrine: reports: Reviewed and negative Immunocompromised: reports: Reviewed and negative PD PAST MEDICAL HISTORY - Past Medical History Cardiovascular: Hypertension, High cholesterol, Atrial fibrillation, Murmur, Arrhythmia, Other Respiratory: None Neuro: TIA, Fainting Endocrine/Autoimmune: None GI: Chronic constipation 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: Other : Retention, Incontinence, Chronic bladder infection, Nocturia, Frequency, Kidney stones HEENT: None, Chronic vision loss, Chronic sinusitis Psych: Anxiety Musculoskeletal: Fibromyalgia, Fatigue Derm: None - Past Surgical History Past Surgical History: Yes General: 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 /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: section, Hysterectomy HEENT: Cataracts, Tonsil/Adenoidectomy - Present Medications Home Medications: Ambulatory Orders Medication Instructions Recorded Confirmed Cholecalciferol (Vitamin D3) 3,000 units PO DAILY 10/11/16 08/30/19 [Vitamin D3] Latanoprost 0.005% Ophth Drops 1 drops EACHEYE QPM 07/07/17 08/30/19 [Xalatan Ophth Drops] Apixaban [Eliquis] 5 mg PO BID 08/14/19 08/30/19 Ascorbic Acid [Vitamin C with Rosenda 1,000 mg PO DAILY PM 08/14/19 08/30/19 Hips] Docusate Sodium [Dulcolax Stool 100 mg PO DAILY PRN 08/14/19 08/30/19 Softener] Furosemide 10 mg PO DAILY PRN 08/14/19 08/30/19 Mirtazapine 3.75 mg PO QPM 08/14/19 08/30/19 Mirtazapine 3.75 mg PO QPM PRN 08/14/19 08/30/19 Multivitamin [Theragran] 1 tab PO DAILY 08/14/19 08/30/19 [place]-3 Acid Ethyl Esters [Lovaza] 1 gm PO DAILY 08/14/19 08/30/19 dilTIAZem HCL [Diltiazem HCl] 30 mg PO BID 08/14/19 08/30/19 estradioL [Estradiol] 1 applic TOP .2XWEEK 08/30/19 08/30/19 Fosfomycin Tromethamine [Monurol] 3 gm PO DAILY #1 packet 08/31/19 - Allergies Allergies/Adverse Reactions: Allergies Allergy/AdvReac Type Severity Reaction Status Date / Time ciprofloxacin [From Cipro] Allergy Severe Rash Verified 09/05/19 11:50 Heparin Analogues Allergy Severe Hives Verified 09/05/19 11:50 metoclopramide HCl * Allergy Severe Anxiety Verified 09/05/19 11:50 [From Reglan] prednisone Allergy Severe Rash Verified 09/05/19 11:50 Sulfa (Sulfonamide Allergy Severe Rash Verified 09/05/19 11:50 Antibiotics) amoxicillin [From Augmentin] Allergy Rash Verified 09/05/19 11:50 clavulanic acid Allergy Rash Verified 09/05/19 11:50 [From Augmentin] clopidogrel bisulfate * Allergy Unknown Verified 09/05/19 11:50 [From Plavix] oxycodone [Oxycodone] AdvReac Severe Edema Verified 09/05/19 11:50 hydroxychloroquine AdvReac Unknown Verified 09/05/19 11:50 - Social History Does the pt smoke?: No Smoking Status: Never smoker Does the pt drink ETOH?: No Does the pt have substance abuse?: No - Immunizations Immunizations are current?: Yes - POLST Patient has POLST: No POLST Status: DNR PD ED PE NORMAL - Vitals Vital signs reviewed: Yes - General General: Alert and oriented X 3, No acute distress - HEENT HEENT: Atraumatic, PERRL, EOMI, Moist mucous membranes - Neck Neck: Supple, no meningeal sign - Cardiac Cardiac: RRR, No murmur, Strong equal pulses - Respiratory Respiratory: No respiratory distress, Clear bilaterally - Abdomen Abdomen: Soft, Non tender, Non distended - Back Back: No CVA TTP - Derm Derm: Normal color, Warm and dry, No rash - Extremities Extremities: No deformity, No edema, No calf tenderness / cord - Neuro Neuro: Alert and oriented X 3, Other (Grossly intact) - Psych Psych: Normal mood, Normal affect Results - Vitals Vitals: Vital Signs - 24 hr 09/05/19 09/05/19 09/05/19 11:46 13:00 14:30 Temperature 37.1 C Heart Rate 73 58 L 56 L Respiratory 20 19 19 Rate Blood Pressure 120/44 L 106/47 L 117/53 L O2 Saturation 96 94 97 Oxygen O2 Source [With Activity] Room air O2 Source Room air - EKG (time done) 1158 Rate: Rate (enter#) (60) Rhythm: NSR, LAE [place]: LAD Intervals: Prolonged MD QRS: Normal Ischemia: Normal ST segments Compare to prior EKG: Old EKG unavailable Computer interpretation: Agree with computer - Labs Labs: Laboratory Tests 09/05/19 09/05/19 09/05/19 12:27 12:27 12:27 WBC 17.6 H RBC 4.08 L Hgb 12.6 Hct 36.9 L MCV 90.4 MCH 30.9 MCHC 34.1 RDW 14.2 Plt Count 340 MPV 10.3 Neut # (Auto) 14.7 H Lymph # (Auto) 1.7 [place] # (Auto) 0.9 Eos # (Auto) 0.0 Baso # (Auto) 0.1 Absolute Nucleated RBC 0.00 Nucleated RBC % 0.0 Sodium 136 Potassium 3.3 L Chloride 98 L Carbon Dioxide 26 Anion Gap 12.0 BUN 20 Creatinine 1.0 Estimated GFR (MDRD) 53 L Glucose 143 H Calcium 9.0 Total Bilirubin 0.9 AST 19 ALT 20 Alkaline Phosphatase 42 Troponin I High Sens 8.8 Total Protein 7.0 Albumin 3.9 Globulin 3.1 Albumin/Globulin Ratio 1.3 Lipase 36 Urine Color Urine Clarity Urine pH Ur Specific [place] Urine Protein Urine Glucose (UA) Urine Ketones Urine Occult Blood Urine Nitrite Urine Bilirubin Urine Urobilinogen Ur Leukocyte Esterase Urine RBC Urine WBC Ur Squamous Epith Cells Urine Bacteria Ur Microscopic Review Urine Culture Comments 09/05/19 13:41 WBC RBC Hgb Hct MCV MCH MCHC RDW Plt Count MPV Neut # (Auto) Lymph # (Auto) [place] # (Auto) Eos # (Auto) Baso # (Auto) Absolute Nucleated RBC Nucleated RBC % Sodium Potassium Chloride Carbon Dioxide Anion Gap BUN Creatinine Estimated GFR (MDRD) Glucose Calcium Total Bilirubin AST ALT Alkaline Phosphatase Troponin I High Sens Total Protein Albumin Globulin Albumin/Globulin Ratio Lipase Urine Color YELLOW Urine Clarity CLEAR Urine pH 6.0 Ur Specific [place] 1.010 Urine Protein NEGATIVE Urine Glucose (UA) NEGATIVE Urine Ketones NEGATIVE Urine Occult Blood NEGATIVE Urine Nitrite NEGATIVE Urine Bilirubin NEGATIVE Urine Urobilinogen 0.2 (NORMAL) Ur Leukocyte Esterase TRACE H Urine RBC None Seen Urine WBC 4-5 Ur Squamous Epith Cells MOD Squamous H Urine Bacteria Rare Ur Microscopic Review INDICATED Urine Culture Comments NOT INDICATED - Rads (name of study) CXR Radiology: Final report received, EMP read indepedently, See rad report (Unchanged from previous, possible CHF, correlate.) PD MEDICAL DECISION MAKING - ED course Complexity details: reviewed old records, reviewed results, re-evaluated patient, considered differential, d/w patient, d/w family ED course: I did spend a very long time speaking with this patient and her daughter about other concerns. Labs and urinalysis were evaluated in the emergency department. Urinalysis was actually negative. The patient's white blood cell count was back up to 17,000, but at this point, the patient actually was feeling better after IV fluids. I got a chest x-ray because the daughter reported that the patient's home health nurse ahead thought the patient had "rales", and she was very concerned that something may be going on patient's lungs. The patient had good oxygen saturation here and clear lungs. The patient's chest x-ray was essentially unchanged from previous, and clinically, the patient did not have any respiratory findings. She had no edema, and actually felt better after fluids, and I did not feel the pt was having an acute CHF exacerbation. I discussed with the patient that at this time, there is no reason to admit her to the hospital or give her IV antibiotics. Her work-up actually looks fairly good, and I cannot justify treating a white blood cell count with IV antibiotics in the absence of anything else. The patient may continue the plan to restart her Macrobid as an outpatient. I have discussed with her that there are many reasons feeling faint at night, including dehydration from the Lasix and not taking enough p.o. fluid, to which the patient has admitted. She should revisit this issue with her energy administrator, with whom she has an upcoming appt. We have discussed the need for urology follow-up, as well, regarding the concerns of pt and daughter about the recurrent UTIs. Pt is agreeable to the plan. We have discussed the usual indications for return. Departure - Departure Disposition: 01 Home, Self Care Clinical Impression: Generalized weakness, Near syncope Condition: Stable Instructions: ED Near Syncope Unkn, ED Weakness UKO Comments: As we have discussed, your urinalysis is negative today. Your white blood cell count is 17 which is higher than it was on Monday ever, there is no evidence of infection, either in your urine or your chest, at this time. Additionally, you do not have low blood pressure or fever and your heart rate is not elevated. There variety of potential causes for elevated white blood cells, but this alone does not indicate antibiotics either of an IV or an oral nature. You may follow the plan to get back on your Macrobid, though it appears the fosfomycin has been effective against your urinary tract infection. There are many potential causes for your ongoing episodes of lightheadedness at night, but certainly the diltiazem and Lasix are likely contributing to this. Additionally, if you are feeling better after fluids, it is likely that you were somewhat dehydrated, which can also make you feel more faint and generally weak. Please talk to your energy administrator when you go to your appointment, to determine whether your medications or doses should be changed. Please call to make another appointment with your urologist to discuss further treatment of your recurrent urinary tract infections. If you develop a fever or discomfort with urination, you will most definitely need to have your urine rechecked. Discharge Date/Time: 09/05/19 15:20
[2019-09-05] MEDS ORDERED: SODIUM CHLORIDE 0.9% 500 ML IV STA (12:59)
[2019-09-05 13:53] LABS: BILIRUBIN,URINE NEGATIVE (NEGATIVE); GLUCOSE, URINE (UA) NEGATIVE (NEGATIVE); KETONES,URINE (UA) NEGATIVE (NEGATIVE); LEUKOCYTE ESTERASE, URINE TRACE (NEGATIVE); NITRITE,URINE NEGATIVE (NEGATIVE); OCCULT BLOOD,URINE NEGATIVE (NEGATIVE); PROTEIN,URINE NEGATIVE (NEGATIVE); UROBILINOGEN,URINE 0.2 (NORMAL) E.U./dL (NORMAL)
[2019-09-05 13:56] LABS: CLARITY,URINE CLEAR (CLEAR)
[2019-09-05 14:05] LABS: BACTERIA,URINE Rare /HPF (None Seen); RBC,URINE None Seen /HPF (0-5); SQUAMOUS EPITHELIAL CELL,UR MOD Squamous (<= Few)
[2019-09-05 14:58] VITALS: BP 117/53
== END 2019-09-05 15:20 | disposition home or self-care (01) ==
LOC: EDUNIT# → ED 11:36
DX: R55 Syncope and collapse (principal); R53.1 Weakness; D72.829 Elevated white blood cell count, unspecified; I10 Essential (primary) hypertension; Z79.01 Long term (current) use of anticoagulants; I48.91 Unspecified atrial fibrillation; I44.0 Atrioventricular block, first degree; Z66 Do not resuscitate; Z87.440 Personal history of urinary (tract) infections
CPT/HCPCS: 36415; 71045; 80053; 81001; 81003; 83690; 84484; 85025; 87086; 93005; 96360; 99284

== ENCOUNTER 2019-09-07 05:59 | Outpatient (CLI) | payer MEDICARE, BC | END 2019-09-07 06:00 | disposition critical access hospital (66) | LOC: EMS 05:59 | PROVIDERS: ATTEND Surgery | DX: R10.12 Left upper quadrant pain (principal); R47.81 Slurred speech; R07.9 Chest pain, unspecified | CPT/HCPCS: A0425; A0429 ==

== ENCOUNTER 2019-09-07 06:05 | Emergency (ER) | payer MEDICARE, BC ==
--- NOTE | 2019-09-07 06:13 | ED Physician Documentation ---
<Parish Horne - Last Filed: 09/07/19 06:16> History of Present Illness - Stated complaint Stated Complaint: LUQ PX - History obtained from History obtained from: Patient (84 y/o f arrives via ems w cc of left sided abd pain and nausea without chest pain or dysuria. reports constipation. denies fevers. prior cholecystectomy.) Review of Systems Constitutional: reports: Reviewed and negative Eyes: reports: Reviewed and negative Ears: reports: Reviewed and negative Nose: reports: Reviewed and negative Throat: reports: Reviewed and negative Cardiac: reports: Reviewed and negative Respiratory: reports: Reviewed and negative GI: reports: Abdominal Pain, Nausea, Constipation, Reviewed and negative : reports: Reviewed and negative Skin: reports: Reviewed and negative Musculoskeletal: reports: Reviewed and negative Neurologic: reports: Reviewed and negative Psychiatric: reports: Reviewed and negative Endocrine: reports: Reviewed and negative Immunocompromised: reports: Reviewed and negative PD PAST MEDICAL HISTORY - Past Medical History Cardiovascular: Hypertension, High cholesterol, Atrial fibrillation, Murmur, Arrhythmia, Other Respiratory: None Neuro: TIA, Fainting Endocrine/Autoimmune: None GI: Chronic constipation [employer]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: Other : Retention, Incontinence, Chronic bladder infection, Nocturia, Frequency, Kidney stones HEENT: None, Chronic vision loss, Chronic sinusitis Psych: Anxiety Musculoskeletal: Fibromyalgia, Fatigue Derm: None - Past Surgical History Past Surgical History: Yes General: 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 /CH[employer]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: section, Hysterectomy HEENT: Cataracts, Tonsil/Adenoidectomy - Present Medications Home Medications: Ambulatory Orders Medication Instructions Recorded Confirmed Cholecalciferol (Vitamin D3) 3,000 units PO DAILY 10/11/16 08/30/19 [Vitamin D3] Latanoprost 0.005% Ophth Drops 1 drops EACHEYE QPM 07/07/17 08/30/19 [Xalatan Ophth Drops] Apixaban [Eliquis] 5 mg PO BID 08/14/19 08/30/19 Ascorbic Acid [Vitamin C with Rosenda 1,000 mg PO DAILY PM 08/14/19 08/30/19 Hips] Docusate Sodium [Dulcolax Stool 100 mg PO DAILY PRN 08/14/19 08/30/19 Softener] Furosemide 10 mg PO DAILY PRN 08/14/19 08/30/19 Mirtazapine 3.75 mg PO QPM 08/14/19 08/30/19 Mirtazapine 3.75 mg PO QPM PRN 08/14/19 08/30/19 Multivitamin [Theragran] 1 tab PO DAILY 08/14/19 08/30/19 Dawson-3 Acid Ethyl Esters [Lovaza] 1 gm PO DAILY 08/14/19 08/30/19 dilTIAZem HCL [Diltiazem HCl] 30 mg PO BID 08/14/19 08/30/19 estradioL [Estradiol] 1 applic TOP .2XWEEK 08/30/19 08/30/19 Fosfomycin Tromethamine [Monurol] 3 gm PO DAILY #1 packet 08/31/19 traMADol [Ultram] 50 - 100 mg PO Q6H PRN #20 tablet 09/07/19 - Allergies Allergies/Adverse Reactions: Allergies Allergy/AdvReac Type Severity Reaction Status Date / Time ciprofloxacin [From Cipro] Allergy Severe Rash Verified 09/07/19 06:19 Heparin Analogues Allergy Severe Hives Verified 09/07/19 06:19 metoclopramide HCl * Allergy Severe Anxiety Verified 09/07/19 06:19 [From Reglan] prednisone Allergy Severe Rash Verified 09/07/19 06:19 Sulfa (Sulfonamide Allergy Severe Rash Verified 09/07/19 06:19 Antibiotics) amoxicillin [From Augmentin] Allergy Rash Verified 09/07/19 06:19 clavulanic acid Allergy Rash Verified 09/07/19 06:19 [From Augmentin] clopidogrel bisulfate * Allergy Unknown Verified 09/07/19 06:19 [From Plavix] oxycodone [Oxycodone] AdvReac Severe Edema Verified 09/07/19 06:19 hydroxychloroquine AdvReac Unknown Verified 09/07/19 06:19 - Social History Does the pt smoke?: No Smoking Status: Never smoker Does the pt drink ETOH?: No Does the pt have substance abuse?: No - Immunizations Immunizations are current?: Yes - POLST Patient has POLST: No POLST Status: DNR PD ED PE NORMAL - Vitals Vital signs reviewed: Yes - General General: Alert and oriented X 3, No acute distress, Well developed/nourished - HEENT HEENT: PERRL - Neck Neck: Supple, no meningeal sign - Cardiac Cardiac: RRR, No murmur - Respiratory Respiratory: No respiratory distress, Clear bilaterally - Abdomen Abdomen: Normal bowel sounds, Soft, Non distended, No organomegaly, Other (no midline abd pulsatile mass. diffuse ttp, worse in LLQ.) - Derm Derm: Warm and dry - Extremities Extremities: No deformity - Neuro Neuro: Alert and oriented X 3 - Psych Psych: Normal mood, Normal affect Results - EKG (time done) 06:23 Rate: Other (no stemi) PD MEDICAL DECISION MAKING - ED course Complexity details: reviewed results, re-evaluated patient, considered differential (UTI, constipation, diverticulitis, kidney stone.), d/w patient, other (patient signed out at shift change to dr. pham.) Departure - Departure Disposition: 01 Home, Self Care Clinical Impression: Abdominal pain Qualifiers: Abdominal location: left upper quadrant Qualified Code(s): R10.12 - Left upper quadrant pain Constipation Qualifiers: Constipation type: unspecified constipation type Qualified Code(s): K59.00 - Constipation, unspecified Condition: Stable Instructions: ED Constipation Follow-Up: Samanta Page ARNP, DEALER ACCOUNTS INVESTIGATOR-C [Primary Care Provider] - Prescriptions: traMADol [Ultram] 50 - 100 mg PO Q6H PRN #20 tablet PRN Reason: Pain Discharge Date/Time: 09/07/19 14:07 <Bao Pham - Last Filed: 09/07/19 18:01> History of Present Illness - History of Present Illness Timing: Enter time (043), Today - Additonal information Additional information: 84-year-old female reports that she was in bed last night when she was awakened by a pain in her chest that eventually radiated into her abdomen she states that she did have some radiation to her left arm at the time she did not get short of breath and she did not get nauseated or diaphoretic. She states pain was so severe that she could not move and she eventually pushed the button to call and her daughter and medics. The patient has a history of pulmonary hypertension and she is on diuretics. She has been recently admitted into the hospital for elevated white blood cell count thought to be related to urinary tract infection. She has had an issue with chronic urinary tract infection and she is on some Macrobid. She feels that each time she takes a dose of Macrobid she will have some upset to her stomach. She is wondering if this entire episode is related to taking the Macrobid again. PD ED PE NORMAL - Vitals Vital signs reviewed: Yes (hypertensive ) - General General: Alert and oriented X 3, No acute distress, Well developed/nourished - HEENT HEENT: Atraumatic, PERRL, EOMI - Cardiac Cardiac: RRR, No murmur - Respiratory Respiratory: No respiratory distress, Clear bilaterally - Abdomen Abdomen: Soft, Other (diffuse tenderness more to the left ) Results - Vitals Vitals: Vital Signs - 24 hr 09/07/19 09/07/19 09/07/19 06:16 06:36 07:41 Temperature 36.6 C Heart Rate 71 66 66 Respiratory 17 17 18 Rate Blood Pressure 170/65 H 170/52 H 152/64 H O2 Saturation 100 96 93 09/07/19 09/07/19 09/07/19 08:02 10:00 11:25 Temperature Heart Rate 67 68 81 Respiratory 19 18 22 Rate Blood Pressure 152/64 H 139/58 H 133/81 H O2 Saturation 96 99 100 Oxygen O2 Source [] Room air O2 Source Room air - Labs Labs: Laboratory Tests 09/07/19 09/07/19 09/07/19 05:35 05:35 05:35 WBC 13.9 H RBC 4.39 Hgb 13.3 Hct 40.3 MCV 91.8 MCH 30.3 MCHC 33.0 RDW 14.0 Plt Count 295 MPV 11.2 H Neut # (Auto) 11.0 H Lymph # (Auto) 1.4 L [place] # (Auto) 1.0 Eos # (Auto) 0.3 Baso # (Auto) 0.1 Absolute Nucleated RBC 0.00 Nucleated RBC % 0.0 PT INR APTT Sodium 137 Potassium 3.3 L Chloride 100 L Carbon Dioxide 25 Anion Gap 12.0 BUN 17 Creatinine 0.7 Estimated GFR (MDRD) 79 L Glucose 94 Lactic Acid Calcium 9.1 Magnesium 1.9 Total Bilirubin 0.8 Direct Bilirubin 0.2 AST 22 ALT 21 Alkaline Phosphatase 46 Total Creatine Kinase 33 Troponin I High Sens B-Natriuretic Peptide 358 H Total Protein 7.0 Albumin 3.9 Globulin 3.1 Lipase 38 Urine Color Urine Clarity Urine pH Ur Specific [place] Urine Protein Urine Glucose (UA) Urine Ketones Urine Occult Blood Urine Nitrite Urine Bilirubin Urine Urobilinogen Ur Leukocyte Esterase Ur Microscopic Review Urine Culture Comments 09/07/19 09/07/19 09/07/19 05:35 05:35 06:15 WBC RBC Hgb Hct MCV MCH MCHC RDW Plt Count MPV Neut # (Auto) Lymph # (Auto) [place] # (Auto) Eos # (Auto) Baso # (Auto) Absolute Nucleated RBC Nucleated RBC % PT INR APTT Sodium Potassium Chloride Carbon Dioxide Anion Gap BUN Creatinine Estimated GFR (MDRD) Glucose Lactic Acid 0.8 Calcium Magnesium Total Bilirubin Direct Bilirubin AST ALT Alkaline Phosphatase Total Creatine Kinase Troponin I High Sens 7.4 B-Natriuretic Peptide Total Protein Albumin Globulin Lipase Urine Color YELLOW Urine Clarity CLEAR Urine pH 6.5 Ur Specific [place] 1.010 Urine Protein NEGATIVE Urine Glucose (UA) NEGATIVE Urine Ketones NEGATIVE Urine Occult Blood NEGATIVE Urine Nitrite NEGATIVE Urine Bilirubin NEGATIVE Urine Urobilinogen 0.2 (NORMAL) Ur Leukocyte Esterase NEGATIVE Ur Microscopic Review NOT INDICATED Urine Culture Comments NOT INDICATED 09/07/19 07:05 WBC RBC Hgb Hct MCV MCH MCHC RDW Plt Count MPV Neut # (Auto) Lymph # (Auto) [place] # (Auto) Eos # (Auto) Baso # (Auto) Absolute Nucleated RBC Nucleated RBC % PT 13.5 H INR 1.2 APTT 31.5 Sodium Potassium Chloride Carbon Dioxide Anion Gap BUN Creatinine Estimated GFR (MDRD) Glucose Lactic Acid Calcium Magnesium Total Bilirubin Direct Bilirubin AST ALT Alkaline Phosphatase Total Creatine Kinase Troponin I High Sens B-Natriuretic Peptide Total Protein Albumin Globulin Lipase Urine Color Urine Clarity Urine pH Ur Specific [place] Urine Protein Urine Glucose (UA) Urine Ketones Urine Occult Blood Urine Nitrite Urine Bilirubin Urine Urobilinogen Ur Leukocyte Esterase Ur Microscopic Review Urine Culture Comments - Rads (name of study) Chest Radiology: Prelim report reviewed (Impression: Cardiomegaly with resolved pulmonary venous congestion.), EMP read indepedently, See rad report CT ab pelvis with Radiology: Prelim report reviewed, EMP read indepedently, See rad report Procedures - IVC sono (time) 0812 Bedside IVC sono: IVC measures (cm) (0.95), IVC collapsed c insp (cm) (complete), Dehydration (est 1-2 liter deficit) PD MEDICAL DECISION MAKING - ED course Complexity details: reviewed old records, reviewed results, re-evaluated patient, considered differential, d/w patient, d/w family ED course: 84-year-old female with a history of pulmonary hypertension and atrial fibrillation has an episode of severe left upper quadrant abdominal and chest pain in the middle of the night she is found to be significantly constipated on her CT scan of her abdomen and pelvis and she is administered an enema here in the emergency department without initial results. A second enema soap suds is administered and she has good results with this.
[2019-09-07 06:23] LABS: BILIRUBIN,URINE NEGATIVE (NEGATIVE); CLARITY,URINE CLEAR (CLEAR); GLUCOSE, URINE (UA) NEGATIVE (NEGATIVE); KETONES,URINE (UA) NEGATIVE (NEGATIVE); LEUKOCYTE ESTERASE, URINE NEGATIVE (NEGATIVE); NITRITE,URINE NEGATIVE (NEGATIVE); OCCULT BLOOD,URINE NEGATIVE (NEGATIVE); PH,URINE 6.5 PH (5.0-7.5); PROTEIN,URINE NEGATIVE (NEGATIVE); UROBILINOGEN,URINE 0.2 (NORMAL) E.U./dL (NORMAL)
[2019-09-07 07:05] LABS: BASOPHILS # (AUTO) 0.1 10^3/uL (0.0-0.1); BASOPHILS % (AUTO) 0.4 %; EOSINOPHILS # (AUTO) 0.3 10^3/uL (0.0-0.7); EOSINOPHILS % (AUTO) 1.8 %; HGB - HEMOGLOBIN 13.3 g/dL (12.0-16.0); LYMPHOCYTES # (AUTO) 1.4 10^3/uL (1.5-3.5); LYMPHOCYTES % (AUTO) 10.4 %; MEAN CORPUSCULAR HEMOGLOBIN 30.3 pg (27.0-31.0); MEAN CORPUSCULAR VOLUME 91.8 fL (81.0-99.0); MEAN PLATELET VOLUME 11.2 fL (7.9-10.8); MONOCYTES % (AUTO) 7.4 %; NEUTROPHILS % (AUTO) 79.1 %; PLT - PLATELET COUNT 295 10^3/uL (130-450); RED BLOOD COUNT 4.39 10^6/uL (4.20-5.40); WHITE BLOOD COUNT 13.9 x10^3/uL (4.8-10.8)
[2019-09-07] MEDS ORDERED: IOVERSOL 320 100 ML VIAL IVP ONE ×2 (07:06→08:34)
[2019-09-07 07:19] LABS: ALBUMIN 3.9 g/dL (3.2-5.5); BILIRUBIN,DIRECT 0.2 mg/dL (0.1-0.5); BILIRUBIN,TOTAL 0.8 mg/dL (0.2-1.0); CALCIUM 9.1 mg/dL (8.5-10.3); CREATININE 0.7 mg/dL (0.4-1.0); MAGNESIUM 1.9 mg/dL (1.7-2.8)
[2019-09-07 07:22] LABS: INR 1.2 (0.8-1.2); PT - PROTHROMBIN TIME 13.5 secs (9.9-12.6)
[2019-09-07 07:29] LABS: PARTIAL THROMBOPLASTIN TIME 31.5 secs (24.9-33.3)
[2019-09-07] MEDS ORDERED: SODIUM CHLORIDE 0.9% 1,000 ML IV STA (08:21)
[2019-09-07] MEDS ORDERED: MINERAL OIL ENEMA 133 ML BOTTLE RC STA (08:25)
--- NOTE | 2019-09-07 08:50 | CT Report ---
PROCEDURE: Abdomen/Pelvis W INDICATIONS: Abdominal pain. CONTRAST: IV CONTRAST: Optiray 320 ml: 100 PO CONTRAST: *NO PO CONTRAST TECHNIQUE: After the administration of oral and intravenous contrast, 5 mm thick sections acquired from the diap hragms to the symphysis. 5 mm thick coronal and sagittal reformats were acquired. For radiation dos e reduction, the following was used: automated exposure control, adjustment of mA and/or kV accordin g to patient size. COMPARISON: CT abdomen and pelvis with contrast 08/14/[address] abdomen and pelvis without contrast 06/11/2018. FINDINGS: Image quality: Excellent. ABDOMEN: Lung bases: Trace bilateral pleural effusions are present with bibasilar atelectasis. Heart size is normal. Solid organs: There is a 2.5 cm cyst in central liver. Liver and spleen are normal in size and enhan cement. Gallbladder is surgically absent. Biliary system is non dilated. Pancreas enhances normall y. No adrenal nodules. Kidneys demonstrate normal size and enhancement, without hydronephrosis. A 2.2 cm and 4. Cyst is present in the inferior pole of the right kidney Peritoneum and bowel: Normal appendix. Moderate amount of stool in colon. Bowel loops demonstrate no rmal wall thickness and caliber. No free fluid or air. Nodes and vessels: No retroperitoneal or mesenteric adenopathy by size criteria. Aorta and inferior vena cava are normal in size. Miscellaneous: No ventral hernias. PELVIS: Genitourinary: Bladder wall thickness is normal. Miscellaneous: No inguinal hernias or adenopathy. Bones: No suspicious bony lesions. No vertebral body compression fractures. IMPRESSION: 1. No acute intra-abdominal or pelvic process. 2. Moderate amount of stool in colon. 3. Trace bilateral pleural effusions and bibasilar atelectasis. 4. Simple appearing hepatic and right renal cysts. Reviewed by: Guillermo Bernard MD on 09/07/2019 8:49 AM PDT Approved by: Guillermo Bernard MD on 09/07/2019 8:49 AM PDT Station ID: [id number]
--- NOTE | 2019-09-07 09:44 | XRAY Report ---
PROCEDURE: Chest 1 View X-Ray INDICATIONS: cp TECHNIQUE: One view of the chest was acquired. COMPARISON: Chest x-ray one view, 09/05/2019 and 08/14/2019. FINDINGS: Surgical changes and devices: None. Lungs and pleura: No pleural effusions or pneumothorax. Lungs are clear. Mediastinum: Mediastinal contours appear normal. Heart size is mildly increased. Bones and chest wall: No suspicious bony lesions. Overlying soft tissues appear unremarkable. IMPRESSION: 1. Stable mildly interstitial markings suggesting mild chronic CHF. 2. Mild cardiomegaly. Reviewed by: Guillermo Bernard MD on 09/07/2019 9:42 AM PDT Approved by: Guillermo Bernard MD on 09/07/2019 9:42 AM PDT Station ID: [id number]
[2019-09-07] MEDS ORDERED: SOAP SUDS ENEMA 1 EACH RC ONE (09:49)
[2019-09-07 11:26] VITALS: BP 133/81
== END 2019-09-07 14:07 | disposition home or self-care (01) ==
LOC: EDUNIT# → ED 06:05
DX: K59.00 Constipation, unspecified (principal); E86.0 Dehydration; R07.9 Chest pain, unspecified; I44.0 Atrioventricular block, first degree; I10 Essential (primary) hypertension; I48.91 Unspecified atrial fibrillation; Z79.01 Long term (current) use of anticoagulants; Z86.79 Personal history of other diseases of the circulatory system
CPT/HCPCS: 36415; 71045; 74177; 80048; 80076; 81003; 82550; 83605; 83690; 83735; 83880; 84484; 85025; 85610; 85730; 93005; 96360; 96361; 99284; A9270; Q9967; 81001; 87086

== ENCOUNTER 2019-10-22 13:11 | Outpatient (CLI) | payer MEDICARE, BC ==
[~2019-10-22 13:11] MED LIST changes: -IOPAMIDOL-300 100 ML VIAL ONE; +SODIUM CHLORIDE 0.9% 100ML 100 ML IV ONE; +SODIUM CHLORIDE FLUSH 0.9% 10 ML SYRINGE ONE
== END 2019-10-22 13:12 | disposition home or self-care (01) ==
LOC: DI 13:11
PROVIDERS: ATTEND Internal Medicine
DX: R00.1 Bradycardia, unspecified (principal); I34.0 Nonrheumatic mitral (valve) insufficiency; I51.7 Cardiomegaly
CPT/HCPCS: 93306

== ENCOUNTER 2019-10-30 08:00 | Outpatient (CLI) | payer MEDICARE, BC ==
[2019-10-30 11:14] LABS: BILIRUBIN,URINE NEGATIVE (NEGATIVE); CLARITY,URINE CLEAR (CLEAR); GLUCOSE, URINE (UA) NEGATIVE (NEGATIVE); KETONES,URINE (UA) NEGATIVE (NEGATIVE); LEUKOCYTE ESTERASE, URINE NEGATIVE (NEGATIVE); NITRITE,URINE NEGATIVE (NEGATIVE); OCCULT BLOOD,URINE NEGATIVE (NEGATIVE); PROTEIN,URINE NEGATIVE (NEGATIVE); UROBILINOGEN,URINE 0.2 (NORMAL) E.U./dL (NORMAL)
== END 2019-10-30 23:59 | disposition home or self-care (01) ==
LOC: LAB.R 08:00
PROVIDERS: ATTEND Internal Medicine
DX: N39.0 Urinary tract infection, site not specified (principal); N93.0 Postcoital and contact bleeding
CPT/HCPCS: 81001; 81003; 87086

== ENCOUNTER 2019-10-31 09:30 | Outpatient (CLI) | payer MEDICARE, BC ==
--- NOTE | 2019-10-31 17:48 | CONSULTATION NOTE ---
Palliative Care Consultation - Referral Referring Provider: Dr. Cárdenas Time of Visit: 6028-4970 Referral setting: Home Referral Reason: Recurrent UTIs/Atrial fib/Goals of Care - Information Sources Records reviewed: Previous records reviewed History/Review of Systems obtained from: Patient, Family (daughter Blanquita present for visit) Exam limitations: No limitations - History of Present Illness Brief History of Present Illness: This is a alexi 84-year-old female, whom palliative care is meeting with, secondary to her persistent and recurrent UTIs. She has since her 40s, had recurrent UTIs as a result of surgery for a hysterectomy. Unfortunately this sequela recently have been fairly significant. She had been managing previously with intermittent Botox, as she has incontinence and retention. She does perceive it is a significant quality of life issue, she is continuing leaking, particularly at bedtime. She has not been able to have her Botox, for greater than 6 months, when she does, it does cause retention and she does self cough that provides better control for her. She unfortunately have is had 2 hospitalizations in the last several months in July, ; and again hospitalized . She was treated outpatient at the [facility], unfortunately this required a PICC line, and twice a day cefepime, for about a week, starting 10/03. She found this extremely fatiguing as well as overwhelming. Patient does have a history of urosepsis, she is challenged as she is having significant difficulty now with IV access, and she struggles with multiple med allergies leaving very few options to treat in the setting of recurrent UTIs. Patient last round of infections, was worried she was at an end-of-life event, and had explored possible hospice referral. Patient did though continue to improve, and palliative care here today to meet about future goals of care, the continuum of care, acceptable quality of life, and for ongoing support. Patient's past medical history is significant for atrial fib, she is currently on diltiazem 30 mg, has tolerated twice daily poorly, with increased dizziness. Patient is challenged with all medications, often has untoward side effects, most recently felt poorly when she took a couple doses of Macrobid in preparation for her Botox treatments. Medical/Surgical History - Past Medical History Cardiovascular: reports: Hypertension, High cholesterol, Atrial fibrillation, Murmur, Arrhythmia Respiratory: reports: Other (mild pulmonary hypertension) Neuro: TIA Endocrine/Autoimmune: reports: None GI: reports: Chronic constipation : reports: Retention, Incontinence, Chronic bladder infection, Nocturia, Frequency, Kidney stones HEENT: reports: Chronic vision loss, Chronic sinusitis Psych: reports: Depression, Anxiety Musculoskeletal: reports: Fibromyalgia, Fatigue, Chronic back pain Derm: reports: None MRSA Hx?: No - Past Surgical History General: reports: 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 /[employer]: reports: section, Hysterectomy HEENT: reports: Cataracts, Tonsil/Adenoidectomy - Substance History Use: Uses substance without health or social issues: NONE Social History - Living Situation Living arrangement: At home Living Situation: With family Support System: Patient is , her had a heart transplant, and in the hospital at end of life. She lived on her own in [facility], until she combined households with her daughter Blanquita about 5 years ago. She has had worsening and increased dependence, but does have support from her daughter. They do have caregivers they can call for respite if needed. Her daughter has 2 young children in the home, and her is currently working from home. She does have a flexible schedule, but does need to continue to work as well. She is currently being supported by home health nursing, but will be discharging fairly soon unless patient worsens. Family History - Family History Family History: Mother: , CVA/TIA, Father: , CVA/TIA Family History Comment/Other: Is youngest of 7 siblings, she had 2 sisters of cancer, 1 of kidney complications, 2 of old age, and there are 2 of them left. Medications/Allergies - Medications Home Medications: Ambulatory Orders Medication Instructions Recorded Confirmed Cholecalciferol (Vitamin D3) 3,000 units PO DAILY 10/11/16 11/01/19 [Vitamin D3] Latanoprost 0.005% Ophth Drops 1 drops EACHEYE QPM 07/07/17 11/01/19 [Xalatan Ophth Drops] Apixaban [Eliquis] 5 mg PO BID 08/14/19 11/01/19 Ascorbic Acid [Vitamin C with Rosenda 1,000 mg PO DAILY PM 08/14/19 11/01/19 Hips] Docusate Sodium [Dulcolax Stool 200 mg PO DAILY PRN 08/14/19 11/01/19 Softener] Furosemide 10 mg PO DAILY PRN 08/14/19 11/01/19 Mirtazapine 3.75 mg PO QPM 08/14/19 11/01/19 Multivitamin [Theragran] 1 tab PO DAILY 08/14/19 11/01/19 Perry-3 Acid Ethyl Esters [Lovaza] 1 gm PO DAILY 08/14/19 11/01/19 dilTIAZem HCL [Diltiazem HCl] 30 mg PO DAILY 08/14/19 11/01/19 estradioL [Estradiol] 1 applic TOP .2XWEEK 08/30/19 11/01/19 Acetaminophen [Tylenol Extra 500 mg PO DAILY PRN 11/01/19 11/01/19 Strength] Cetirizine [ZyrTEC] 10 mg PO DAILY PRN 11/01/19 11/01/19 Cranberry 600 mg PO DAILY 11/01/19 11/01/19 D-Mannose [Mannxtra] 1,500 mg PO DAILY 11/01/19 11/01/19 Fluticasone Propionate [24 Hour 2 spray GERALD DAILY 11/01/19 11/01/19 Allergy] L.acid/L.casei/B.bif/B.alba/Fos 1 cap PO DAILY 11/01/19 11/01/19 [Probiotic Blend Capsule] Melatonin 10 mg PO QPM 11/01/19 11/01/19 Methenamine Hippurate [Hiprex] 1 gm PO BID 11/01/19 11/01/19 Senna [Senokot] 2 tab PO DAILY PRN 11/01/19 11/01/19 Vitamin B Complex 1 cap PO DAILY 11/01/19 11/01/19 Zinc Gluconate [Zinc] 60 mg PO DAILY 11/01/19 11/01/19 polyethylene glycoL 3350 [Miralax] 17 mg PO DAILY PRN 11/01/19 11/01/19 - Allergies Allergies/Adverse Reactions: Allergies Allergy/AdvReac Type Severity Reaction Status Date / Time ciprofloxacin [From Cipro] Allergy Severe Rash Verified 09/07/19 06:19 Heparin Analogues Allergy Severe Hives Verified 09/07/19 06:19 metoclopramide HCl * Allergy Severe Anxiety Verified 09/07/19 06:19 [From Reglan] prednisone Allergy Severe Rash Verified 09/07/19 06:19 Sulfa (Sulfonamide Allergy Severe Rash Verified 09/07/19 06:19 Antibiotics) amoxicillin [From Augmentin] Allergy Rash Verified 09/07/19 06:19 clavulanic acid Allergy Rash Verified 09/07/19 06:19 [From Augmentin] clopidogrel bisulfate * Allergy Unknown Verified 09/07/19 06:19 [From Plavix] oxycodone [Oxycodone] AdvReac Severe Edema Verified 09/07/19 06:19 hydroxychloroquine AdvReac Unknown Verified 09/07/19 06:19 Review of Systems - Constitutional Constitutional: reports: Fatigue (chronic; fluctuates with infections), Weight stable. denies: Fever, Chills - Ears, Nose & Throat Ears, Nose & Throat: reports: Nasal congestion - Cardiovascular Cardiovascular: reports: Palpitations (sustained at times), Edema (using tubigrip/support hose), Lightheadedness, Decr. exercise tolerance. denies: Chest pain (not recently) - Respiratory Respiratory: reports: SOB with exertion. denies: SOB at rest - Gastrointestinal Gastrointestinal: reports: Early satiety (fluctuates; taste changes). denies: Constipation (managing better), Nausea - Genitourinary Genitourinary: reports: Frequency, Urgency, Incontinence (worse right now; awaiting botox injections), Other (retention; self caths TID) - Musculoskeletal Musculoskeletal: reports: Back pain, Stiffness, Muscle weakness - Integumentary Integumentary: reports: Dryness - Neurological Neurological: reports: General weakness, Dizziness (intermittent) - Psychiatric Psychiatric: reports: Depression, Anxiety - Hematologic/Lymphatic Hematologic/Lymphatic: reports: Recurrent infections (UTIS; last treated with cefapine outpatient; was to do macrobid prior to md appt next week; unable to tolerate SE; 10/29 urine was clear) - All Other Systems All Other Systems: reports: Reviewed and negative Physical Exam - Vital Signs Temperature: 96.6 C Pulse Rate: 74 Respiratory Rate: 18 O2 Saturation: 95 (ra @ rest) Blood Pressure: 142/72 - Physical Exam General Appearance: positive: No acute distress, Alert, Anxious Eyes Bilateral: positive: Normal inspection, Conjunctivae nml, No scleral icterus ENT: positive: No signs of dehydration Neck: positive: Trachea midline Cardiovascular: positive: Regular rate & rhythm Respiratory: positive: No respiratory distress, Breath sounds nml Abdomen: positive: Non-tender, Soft Skin: positive: Pallor, Dryness Extremities: positive: Pedal edema (had pressure stockings on) Neurologic/Psychiatric: positive: Oriented x3, Mood/affect nml Palliative Care - POLST Patient has POLST: Yes POLST Status: DNR, Selective Treatment (redid POLST to reflect goals) Pain: Pain unchanged, Location (chronic low back pain), Comment (hx of getting injections) Tiredness/Fatigue: Moderate (4-6) Drowsiness/Sedation: Mild (1-3) Nausea: None Anorexia: Mild (1-3) Dyspnea: Mild (1-3) Depression: Mild (1-3) Anxiety: Moderate (4-6), Comment (related to recurrent UTIs and recent experiences; worried about quality of life) Feelings of wellbeing/Perceived Quality of Life: Good, Acceptable, Comment (changes when acutely ill) Sleep: Variable sleep pattern (up frequently related to incontinence) Constipation: Yes, Managed, Comment (had ED visit 09/06 for constipation) Performance Status: Patient does easily fatigue, but is able to manage her own ADLs, she can ambulate short distances. Her performance status changes dramatically when she gets ill, and often is a sinus symptom that she is getting in trouble. She gets quite fatigued, weak, and has had to call 911 secondary to how quickly things change for her to access emergency help. - Palliative Care Discussion: Family conference with patient, patient's daughter Blanquita is her primary D POA and caregiver, and myself. They had multiple questions given the recent experiences, and concern for future, and future decision making. Following is a summary of discussion and patient's goals of care. Patient does perceive her current quality of life when she is not ill with a UTI as good and worth living. She enjoys her grandchildren, she is independent though not as active as she would like, she lives with her daughter and her family and considers life worth living. She does get overwhelmed when she is sick, fatigue, and feels poorly. She does understand which does cause quite a bit of anxiety for both her and her daughter, the seriousness of her recurrent UTIs, and that as she has less options, for antibiotics, that this will add to her complexity of decision making around this. At this point she would accept hospitalization for treatment, gets quite dehydrated and weakened in this state when ill, and quite anxious given her history of urosepsis. She does understand at some point, this could lead to an end-of-life event. Counseling provided regarding the continuum of care, if patient were to choose no further treatment if active infection, or not responding to current treatment she would then qualify for hospice. There was confusion regarding a recent hospice referral, we discussed if patient not acutely ill, patient does not present with a terminal diagnosis. This could be an option in the future, but it is going to be difficult to foresee, or to plan for. We also discussed if she were in the hospital and not responding to antibiotics, i.e. urosepsis, or did not have options, she most likely would be able to opt for what we call comfort measures, and/or transition home with hospice. We did redo her POLST, as DNA R/DNI and selective treatments vs comfort. Patient at this point would accept hospitalization for treatment of her UTIs, she recognizes the complexity often of meeting criteria for admission, as she has had several ED visits.They are getting get to recognizes symptoms early, she is pushing fluids and trying to avoid recurrent UTIs, and she is due for her Botox, which she feels helps decrease her risk. Did discuss in the context of comfort measures, our goal always is to focus on quality of life, at this point though patient is still interested in quantity of life if able to improve that without significant burden. Results - Lab Results Lab results reviewed: Yes Impression and Recommendations - Palliative Care Impression: This is an 84-year-old woman who unfortunately has been experiencing sequela of recurrent UTIs, complications with her atrial fib and side effects of medications. Patient and her daughter, are interested in discussing goals of care, future decision making, but both recognizing and the complexity of her current situation may be difficult to navigate. Palliative care meeting with patient and daughter for goals of care conversation, anticipatory guidance, and psychosocial support. Recommendations/Counseling Done: 1. Recurrent UTIs. Patient's current urine 9/2 is negative. She is hoping to be able to receive her Botox next week, which she perceives does help decrease her frequency of UTIs, as well as managing her incontinence. Patient has been working with home health RN, for better self cath technique, patient currently though with persistent leakage, and retention, is cathing 3 times a day. Patient is maxed on preventive supplements in the context of hoping to prevent further UTIs. Did discuss in the future, may actually do better with indwelling [place], patient would like to avoid if possible. Patient is meeting with urologist next week, suspect will be continued challenge given patient's most recent few months. 2. Anxiety. This is multifactorial, and certainly triggered by her recent experiences with hospitalizations and ED visits. She did find outpatient treatment IV, quite exhausting, and worried about future IV access. Time spent in acknowledging appropriate fears and concerns, complexity of situation, and lack of control. 3. History of dehydration. Patient is pushing for liters a day, though finds this problematic with her incontinence. She does recognize this will decrease her risk. 4. Constipation. Patient's constipation currently controlled with 3 softeners and 2 senna's, regular prune juice use. 5. Atrial fib. Patient does have episodes of palpitations, denies any chest pain with this. She has had significant side effects from the diltiazem, currently only taking in a.m. She does see the aviation manager tomorrow, patient has multiple medication sensitivities, which does make it difficult for patient to find balance. 6. Advanced care planning. New POLST was completed, with DNR/DNI and selective treatments. Counseling provided regarding the continuum of care, complexity of planning for "black and white" with sequela of her current history, patient does perceive her current quality of life is acceptable when she is not sick. She would continue accept hospitalization and treatment, but reviewed with patient and daughter threshold for non treatment or perceived suffering and transition to hospice. Time Spent: 75 minutes with greater than 50% of this done in family counseling for conference regarding goals of care. We do have POLST, anticipatory guidance, and review of current symptom burden. Plan is to continue to meet with patient every 3 to 4 weeks, and be available for transition or counseling regarding goals of care. PCP will continue to manage patient's UTIs, she does have foll ow-up with urology next week, and is hoping for improved outcomes.
== END 2019-10-31 09:31 | disposition home or self-care (01) ==
LOC: PC 09:30
PROVIDERS: ATTEND Nurse Practitioner Adult Health
DX: Z51.5 Encounter for palliative care (principal); Z87.440 Personal history of urinary (tract) infections; R32 Unspecified urinary incontinence; F41.9 Anxiety disorder, unspecified; I48.91 Unspecified atrial fibrillation; Z79.899 Other long term (current) drug therapy; Z66 Do not resuscitate
CPT/HCPCS: 99345

== ENCOUNTER 2019-11-21 08:00 | Outpatient (CLI) | payer MEDICARE, BC ==
[2019-11-21 12:27] LABS: BILIRUBIN,URINE NEGATIVE (NEGATIVE); GLUCOSE, URINE (UA) NEGATIVE (NEGATIVE); KETONES,URINE (UA) NEGATIVE (NEGATIVE); LEUKOCYTE ESTERASE, URINE LARGE (NEGATIVE); NITRITE,URINE POSITIVE (NEGATIVE); OCCULT BLOOD,URINE SMALL (NEGATIVE); PH,URINE 5.5 PH (5.0-7.5); PROTEIN,URINE TRACE mg/dL (NEGATIVE); UROBILINOGEN,URINE 0.2 (NORMAL) E.U./dL (NORMAL)
[2019-11-21 12:35] LABS: CLARITY,URINE CLOUDY (CLEAR)
[2019-11-21 12:36] LABS: BACTERIA,URINE Many /HPF (None Seen); SQUAMOUS EPITHELIAL CELL,UR FEW Squamous (<= Few)
== END 2019-11-21 23:59 | disposition home or self-care (01) ==
LOC: LAB.R 08:00
PROVIDERS: ATTEND Internal Medicine
DX: N39.0 Urinary tract infection, site not specified (principal); R39.15 Urgency of urination
CPT/HCPCS: 81001; 81003; 87077; 87086; 87181

== ENCOUNTER 2019-12-31 14:00 | Outpatient (CLI) | payer MEDICARE, BC ==
--- NOTE | 2019-12-31 17:14 | CONSULTATION NOTE ---
Palliative Care Follow Up - Referral Referring Provider: Dr. Jazmin Cárdenas Time of Visit: [id number] Referral setting: Home Referral Reason: Goals of Care/Recurrent UTIs - Information Sources Records reviewed: Previous records reviewed History/Review of Systems obtained from: Patient, Family (daughter Blanquita present) Exam limitations: No limitations - History of Present Illness Update Brief HPI Update: This 84-year-old female with persistent and recurrent UTIs. She has had recurrent since her 40s, as result of surgery for hysterectomy, sequela continues to be problematic for her. She has been managed previously with intermittent Botox, she has received her Botox on 11/06, does not feel it was effective. Goal of the Botox is did decrease her incontinence, but does result in needing to cath herself 3 times a day. She had been feeling some increased dysuria, up at night, more agitation, with mood swings. Was having some frequency, did provide a specimen beginning the week, did not progress as far as severity of symptoms, eventually was treated with Levaquin starting last Monday, given her allergy to ciprofloxacin, she has been premedicating with Benadryl. She has tolerated it without problems. She is unclear if she feels that much better, though she has been sleeping and not up and down is much at night. Given the situation again, I did trigger her anxiety about whether to continue to treat or not treat UTIs. She does get quite overwhelmed with this, and very anxious about whether she wants to continue this as far as a quality of life issue. She did decide to treat this last time, but did reach out to palliative care regarding other options, including possible catheter, and possible t ransition to comfort care and not treat. She is challenged, she has a history of urosepsis, she has significant difficulty with IV access, has multiple medication allergies, and feels fairly poorly when she does get ill. Palliative care is meeting with patient and her daughter, to evaluate some of the "what if's". Patient did decide to go forward with treatment, as best we know and has been if effective. Past Medical History: Atrial fib, pulmonary hypertension, hypertension, high cholesterol, arrhythmias, chronic constipation, urinary retention, chronic bladder infections, frequency, kidney stones, chronic vision loss, chronic sinusitis, depression, anxiety, fibromyalgia, fatigue, chronic back pain Social History - Living Situation Living arrangement: At home Living Situation: With family Support System: Patient is , she is combining households with her daughter Blanquita, about 5 years ago. She has had some increased dependence, does have support for her daughter. They do hire caregivers to provide respite and transportation. Her daughter does have 2 young children in the home, and her is currently working from home, but does have a flexible schedule. She is quite supportive of what patient may want to need. She is no longer being supported by home health nursing. Medications/Allergies - Medications Home Medications: Ambulatory Orders Medication Instructions Recorded Confirmed Cholecalciferol (Vitamin D3) 3,000 units PO DAILY 10/11/16 11/01/19 [Vitamin D3] Latanoprost 0.005% Ophth Drops 1 drops EACHEYE QPM 07/07/17 12/31/19 [Xalatan Ophth Drops] Apixaban [Eliquis] 5 mg PO BID 08/14/19 11/01/19 Ascorbic Acid [Vitamin C with Rosenda 1,000 mg PO DAILY PM 08/14/19 11/01/19 Hips] Docusate Sodium [Dulcolax Stool 200 mg PO DAILY PRN 08/14/19 11/01/19 Softener] Furosemide 10 mg PO DAILY PRN 08/14/19 11/01/19 Mirtazapine 3.75 mg PO QPM 08/14/19 12/31/19 Multivitamin [Theragran] 1 tab PO DAILY 08/14/19 12/31/19 [place]-3 Acid Ethyl Esters [Lovaza] 1 gm PO DAILY 08/14/19 12/31/19 dilTIAZem HCL [Diltiazem HCl] 30 mg PO DAILY 08/14/19 12/31/19 estradioL [Estradiol] 1 applic TOP .2XWEEK 08/30/19 12/31/19 Acetaminophen [Tylenol Extra 500 mg PO DAILY PRN 11/01/19 11/01/19 Strength] Cetirizine [ZyrTEC] 10 mg PO DAILY PRN 11/01/19 11/01/19 Cranberry 600 mg PO DAILY 11/01/19 11/01/19 D-Mannose [Mannxtra] 1,500 mg PO DAILY 11/01/19 11/01/19 Fluticasone Propionate [24 Hour 2 spray GERALD DAILY 11/01/19 11/01/19 Allergy] L.acid/L.casei/B.bif/B.alba/Fos 1 cap PO DAILY 11/01/19 12/31/19 [Probiotic Blend Capsule] Melatonin 5 - 10 mg PO QPM 11/01/19 12/31/19 Methenamine Hippurate [Hiprex] 1 gm PO BID 11/01/19 12/31/19 Senna [Senokot] 2 tab PO DAILY PRN 11/01/19 12/31/19 Vitamin B Complex 1 cap PO DAILY 11/01/19 12/31/19 Zinc Gluconate [Zinc] 60 mg PO DAILY 11/01/19 12/31/19 polyethylene glycoL 3350 [Miralax] 17 mg PO DAILY PRN 11/01/19 12/31/19 - Allergies Allergies/Adverse Reactions: Allergies Allergy/AdvReac Type Severity Reaction Status Date / Time ciprofloxacin [From Cipro] Allergy Severe Rash Verified 09/07/19 06:19 Heparin Analogues Allergy Severe Hives Verified 09/07/19 06:19 metoclopramide HCl * Allergy Severe Anxiety Verified 09/07/19 06:19 [From Reglan] prednisone Allergy Severe Rash Verified 09/07/19 06:19 Sulfa (Sulfonamide Allergy Severe Rash Verified 09/07/19 06:19 Antibiotics) amoxicillin [From Augmentin] Allergy Rash Verified 09/07/19 06:19 clavulanic acid Allergy Rash Verified 09/07/19 06:19 [From Augmentin] clopidogrel bisulfate * Allergy Unknown Verified 09/07/19 06:19 [From Plavix] oxycodone [Oxycodone] AdvReac Severe Edema Verified 09/07/19 06:19 hydroxychloroquine AdvReac Unknown Verified 09/07/19 06:19 Review of Systems - Constitutional Constitutional: reports: Fatigue (worse over this last week), Weight loss (131). denies: Fever, Chills - Eyes Eyes: reports: Vision loss - Ears, Nose & Throat Ears, Nose & Throat: reports: Dry mouth - Cardiovascular Cardiovascular: reports: Lightheadedness, Exertional dyspnea, Decr. exercise tolerance. denies: Edema - Respiratory Respiratory: reports: SOB with exertion. denies: SOB at rest - Gastrointestinal Gastrointestinal: reports: Constipation (intermittent), Early satiety - Genitourinary Genitourinary: reports: Frequency, Incontinence, Other (self caths) - Musculoskeletal Musculoskeletal: reports: Stiffness, Muscle weakness - Integumentary Integumentary: reports: Dryness - Neurological Neurological: reports: General weakness, Memory problems (mild STM) - Psychiatric Psychiatric: reports: Depression, Anxiety - Hematologic/Lymphatic Hematologic/Lymph: Recurrent infections (finishe levaquin today) - All Other Systems All Other Systems: reports: Reviewed and negative Physical Exam - Vital Signs Temperature: 96.6 C Pulse Rate: 61 Respiratory Rate: 16 O2 Saturation: 95 (ra @ rest) Blood Pressure: 132/72 - Physical Exam General Appearance: positive: No acute distress, Alert, Anxious Eyes Bilateral: positive: Normal inspection, Conjunctivae nml, No scleral icterus ENT: positive: No signs of dehydration Neck: positive: Trachea midline Cardiovascular: positive: Regular rate & rhythm Respiratory: positive: No respiratory distress, Breath sounds nml Abdomen: positive: Non-tender, Soft Skin: positive: Pallor, Dryness Extremities: positive: Pedal edema (had pressure stockings on) Neurologic/Psychiatric: positive: Oriented x3, Weakness, Depressed mood/affect, Flat affect Palliative Care - POLST Patient has POLST: Yes POLST Status: DNR, Selective Treatment Pain: Pain improved, Location (dysuria) Tiredness/Fatigue: Moderate (4-6) Drowsiness/Sedation: Mild (1-3) Nausea: None Anorexia: None Dyspnea: None Depression: Moderate (4-6) Anxiety: Severe (7-10) Feelings of wellbeing/Perceived Quality of Life: Fair, Worsening (in the context of recent infection) Sleep: Variable sleep pattern Constipation: Yes, Intermittent constipation Performance Status: Patient does complain of generalized weakness, she is to start carotids on 01/15 for strengthening. Her gait is somewhat tentative, and shuffled. She has been progressive walking, trying to do 10 to 15 minutes a day. She is able to currently manage her ADLs. - Palliative Care Discussion: Patient continues to struggle with question of whether to treat her ongoing UTIs or not, she does perceive these as a significant quality of life issue. She does understand the seriousness of choosing not to treat, would transition most likely to urosepsis, and continued to decline and lead to an end-of-life event. She very much does not want to in the hospital, but is concerned about the burden on her daughter. We did discuss in the context of transition, this would be a fairly quick turnaround, and most likely a quick decline, would leave the ability to transfer to hospice as mostly "crisis management". Patient continues to struggle regarding this issue. She does feel quite poorly when this happens, she is worried about lingering, and prolonging her suffering. The other discussion we had was possible prison catheter. This actually may decrease her risk for UTIs in the context of not needing frequent caths, emptying her bladder more consistently, and decrease nighttime frequency/incontinence. She is somewhat hesitant to make this commitment, we discussed at this point in time there is no need to make an immediate decision, these are options on the table. Results - Lab Results Lab and Imaging Results: Will get latest UA results, not in [facility] from MD Impression and Recommendations - Palliative Care Impression: This is an 84-year-old woman who continues to struggle with her recurrent UTIs, most recently treated this last week with Levaquin. She does have a significantly complex situation to be able to navigate, does fluctuate as far as letting go and choosing no treatment, versus treatment. I did discuss weighing benefits and burdens with each episode, but if patient leaning toward no treatment, would need a plan in place. Palliative care continue to provide support for patient in the context of clarifying goals and managing current complex situation. Recommendations/Counseling Done: 1. Recurrent UTIs. Patient completing treatment with Levaquin combined with Benadryl. Did tolerate medication with no untoward side effects, though increased fatigue most likely attributed both Levaquin and Benadryl. Counseling provided and questions answered regarding "what is next", explored possible catheter for long-term maintenance, versus choosing not to treat depending on the situation. Given the current concerns, and patient considering no treatment and transitioning to comfort care. Comfort kit was ordered from [employer], including morphine 20 mg/ml with instructions of 5 mg every 4 hours as needed pain or discomfort, lorazepam 0.5 mg tabs 1 tab every 4 hours as needed anxiety/agitation, and haloperidol 2 mg/ml with 1 mg every 4 hours as needed agitation. Patient has had poor response as far as delirium/confusion with opioids in the past, instructions given to keep these in safe storage. In structed also to obtain guidance before initiating, weighing benefits and burdens of treatments moving forward, and possible initiation depending on timing of hospice support. 2. Anxiety. This is multifactorial, certainly triggered by recent experiences and concerns for possible hospitalizations/ED visits. She is struggling with fears and concerns, complexity of situation, and lack of control. She is interested in counseling, will make a referral to automobile mechanic [employer] given her existential distress, she has been a member of [place] in the past. Has found her luciano comforting before. 3. Advanced care planning patient does have POLST in place with DNR/DNI as selective treatments. Counseling again provided regarding the continuum of care, complexity of planning for "black and white", will continue to weigh benefits and burdens as treatment options/situations present themselves. Did staff with medical hospice volunteer, would accept if patient chose comfort measures versus hospitalization. Time Spent: 60 minutes with greater than 50% of this done in counseling regarding complex situation regarding goals of care, education regarding recurrent UTIs, catheter catheter management, and anticipatory guidance.
== END 2019-12-31 14:01 | disposition home or self-care (01) ==
LOC: PC 14:00
PROVIDERS: ATTEND Nurse Practitioner Adult Health
DX: Z51.5 Encounter for palliative care (principal); N39.0 Urinary tract infection, site not specified; R33.9 Retention of urine, unspecified; R32 Unspecified urinary incontinence; F41.9 Anxiety disorder, unspecified; R53.83 Other fatigue; R53.1 Weakness; I48.91 Unspecified atrial fibrillation; Z79.899 Other long term (current) drug therapy; Z87.440 Personal history of urinary (tract) infections; Z66 Do not resuscitate
CPT/HCPCS: 99350

== ENCOUNTER 2020-02-07 07:00 | Outpatient (CLI) | payer MEDICARE, BC ==
[2020-02-07 10:34] LABS: BILIRUBIN,URINE NEGATIVE (NEGATIVE); GLUCOSE, URINE (UA) NEGATIVE (NEGATIVE); KETONES,URINE (UA) NEGATIVE (NEGATIVE); LEUKOCYTE ESTERASE, URINE SMALL (NEGATIVE); NITRITE,URINE NEGATIVE (NEGATIVE); OCCULT BLOOD,URINE NEGATIVE (NEGATIVE); PH,URINE 5.5 PH (5.0-7.5); PROTEIN,URINE NEGATIVE (NEGATIVE); UROBILINOGEN,URINE 0.2 (NORMAL) E.U./dL (NORMAL)
[2020-02-07 10:44] LABS: CLARITY,URINE SL. CLOUDY (CLEAR)
[2020-02-07 10:54] LABS: BACTERIA,URINE Rare /HPF (None Seen); RBC,URINE 0-5 /HPF (0-5); SQUAMOUS EPITHELIAL CELL,UR FEW Squamous (<= Few)
== END 2020-02-07 23:59 | disposition home or self-care (01) ==
LOC: LAB.R 07:00
PROVIDERS: ATTEND Internal Medicine
DX: R39.9 Unspecified symptoms and signs involving the genitourinary system (principal); R39.11 Hesitancy of micturition
CPT/HCPCS: 81001; 81003; 87086; 87181

== ENCOUNTER 2020-03-09 16:50 | Outpatient (CLI) | payer MEDICARE, BC ==
[2020-03-09 17:20] LABS: BILIRUBIN,URINE NEGATIVE (NEGATIVE); GLUCOSE, URINE (UA) NEGATIVE (NEGATIVE); KETONES,URINE (UA) NEGATIVE (NEGATIVE); LEUKOCYTE ESTERASE, URINE NEGATIVE (NEGATIVE); NITRITE,URINE NEGATIVE (NEGATIVE); OCCULT BLOOD,URINE NEGATIVE (NEGATIVE); PROTEIN,URINE NEGATIVE (NEGATIVE); UROBILINOGEN,URINE 0.2 (NORMAL) E.U./dL (NORMAL)
[2020-03-09 17:39] LABS: BACTERIA,URINE Rare /HPF (None Seen); CLARITY,URINE CLEAR (CLEAR); RBC,URINE 0-5 /HPF (0-5); SQUAMOUS EPITHELIAL CELL,UR NONE SEEN (<= Few)
== END 2020-03-09 16:51 | disposition home or self-care (01) ==
LOC: LAB 16:50
PROVIDERS: ATTEND Internal Medicine
DX: R39.11 Hesitancy of micturition (principal); R39.9 Unspecified symptoms and signs involving the genitourinary system
CPT/HCPCS: 81001; 87086

== ENCOUNTER 2020-04-24 14:57 | Outpatient (CLI) | payer MEDICARE, BC ==
[2020-04-23 13:18] LABS: CLARITY,URINE HAZY (CLEAR); LEUKOCYTE ESTERASE, URINE TRACE (NEGATIVE); NITRITE,URINE NEGATIVE (NEGATIVE); UROBILINOGEN,URINE 0.2 (NORMAL) E.U./dL (NORMAL)
[2020-04-23 13:19] LABS: BILIRUBIN,URINE NEGATIVE (NEGATIVE); GLUCOSE, URINE (UA) NEGATIVE (NEGATIVE); KETONES,URINE (UA) NEGATIVE (NEGATIVE); OCCULT BLOOD,URINE NEGATIVE (NEGATIVE); PROTEIN,URINE NEGATIVE (NEGATIVE); RBC,URINE 0-5 /HPF (0-5); SQUAMOUS EPITHELIAL CELL,UR FEW Squamous (<= Few); WBC,URINE >25 /HPF (0-5)
[2020-04-23 13:20] LABS: BACTERIA,URINE Rare /HPF (None Seen)
== END 2020-04-24 15:12 | disposition home or self-care (01) ==
LOC: LAB.R 14:57
PROVIDERS: ATTEND Internal Medicine
DX: N39.0 Urinary tract infection, site not specified (principal); R39.11 Hesitancy of micturition; R39.9 Unspecified symptoms and signs involving the genitourinary system
CPT/HCPCS: 81001; 87086

== ENCOUNTER 2020-05-15 09:46 | Emergency (ER) | payer MEDICARE, BC ==
[2020-05-15 10:29] LABS: BASOPHILS # (AUTO) 0.1 10^3/uL (0.0-0.1); BASOPHILS % (AUTO) 1.3 %; EOSINOPHILS # (AUTO) 0.1 10^3/uL (0.0-0.7); EOSINOPHILS % (AUTO) 2.1 %; HCT - HEMATOCRIT 43.9 % (37.0-47.0); HGB - HEMOGLOBIN 14.5 g/dL (12.0-16.0); LYMPHOCYTES # (AUTO) 1.5 10^3/uL (1.5-3.5); LYMPHOCYTES % (AUTO) 29.1 %; MEAN CORPUSCULAR HEMOGLOBIN 30.2 pg (27.0-31.0); MEAN CORPUSCULAR VOLUME 91.5 fL (81.0-99.0); MEAN PLATELET VOLUME 10.5 fL (7.9-10.8); MONOCYTES # (AUTO) 0.6 10^3/uL (0.0-1.0); MONOCYTES % (AUTO) 11.1 %; NEUTROPHILS % (AUTO) 56.2 %; PLT - PLATELET COUNT 308 10^3/uL (130-450); RED CELL DISTRIBUTION WIDTH 13.4 % (12.0-15.0); WHITE BLOOD COUNT 5.3 x10^3/uL (4.8-10.8)
[2020-05-15 10:41] LABS: ALBUMIN 4.3 g/dL (3.2-5.5); ALBUMIN/GLOBULIN RATIO 1.4 (1.0-2.2); BILIRUBIN,TOTAL 0.7 mg/dL (0.2-1.0); CALCIUM 9.4 mg/dL (8.5-10.3); CREATININE 0.7 mg/dL (0.4-1.0); POTASSIUM 3.8 mmol/L (3.5-5.0); TOTAL PROTEIN 7.4 g/dL (6.7-8.2)
[2020-05-15 11:02] LABS: BILIRUBIN,URINE NEGATIVE (NEGATIVE); GLUCOSE, URINE (UA) NEGATIVE (NEGATIVE); KETONES,URINE (UA) NEGATIVE (NEGATIVE); LEUKOCYTE ESTERASE, URINE SMALL (NEGATIVE); NITRITE,URINE NEGATIVE (NEGATIVE); OCCULT BLOOD,URINE NEGATIVE (NEGATIVE); PROTEIN,URINE NEGATIVE (NEGATIVE); UROBILINOGEN,URINE 0.2 (NORMAL) E.U./dL (NORMAL)
[2020-05-15 11:04] LABS: CLARITY,URINE CLEAR (CLEAR)
[2020-05-15 11:12] LABS: BACTERIA,URINE None Seen /HPF (None Seen); RBC,URINE None Seen /HPF (0-5); SQUAMOUS EPITHELIAL CELL,UR FEW Squamous (<= Few)
--- NOTE | 2020-05-15 11:24 | ED Physician Documentation ---
PD HPI BACK PAIN - Stated complaint Stated Complaint: RT BACK PX - Chief complaint Chief Complaint: Abd Pain - History obtained from History obtained from: Patient - History of Present Illness Timing - onset: How many days ago (4) Timing - duration: Days (4) Timing - details: Gradual onset, Still present Location: Lower Quality: Pain, Spasm, Sharp Associated symptoms: No: Fever, Weakness, Numbness, Incontinent of urine, Unable to urinate, Hematuria, Incontinent of stool Improves with: Rest Worsened by: Movement Similar symptoms before: Diagnosis (kidney stone) Recently seen: Not recently seen - Additional information Additional information: 85 y/o female has developed back pain on the right side after doing some physical therapy. She has severe pain if she attempts to move around and is comfortable laying supine and not moving. She locates the pain on the right side over the flank and is concerned about a kidney stone. Review of Systems Constitutional: denies: Fever Eyes: denies: Decreased vision Ears: denies: Ear pain Nose: denies: Congestion Throat: denies: Sore throat Cardiac: denies: Chest pain / pressure Respiratory: denies: Dyspnea, Cough GI: denies: Abdominal Pain, Nausea, Vomiting, Constipation, Diarrhea : denies: Dysuria, Frequency Skin: denies: Rash Musculoskeletal: denies: Neck pain, Back pain, Extremity pain Neurologic: denies: Generalized weakness, Focal weakness, Numbness, Difficulty speaking PD PAST MEDICAL HISTORY - Past Medical History Cardiovascular: Hypertension, High cholesterol, Atrial fibrillation, Murmur, Arrhythmia Respiratory: Other Neuro: TIA Endocrine/Autoimmune: None GI: Chronic constipation 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: Other : Retention, Incontinence, Chronic bladder infection, Nocturia, Frequency, Kidney stones HEENT: Chronic vision loss, Chronic sinusitis Psych: Depression, Anxiety Musculoskeletal: Fibromyalgia, Fatigue, Chronic back pain Derm: None - Past Surgical History Past Surgical History: Yes General: 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 /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: section, Hysterectomy HEENT: Cataracts, Tonsil/Adenoidectomy - Present Medications Home Medications: Ambulatory Orders Medication Instructions Recorded Confirmed Cholecalciferol (Vitamin D3) 3,000 units PO DAILY 10/11/16 11/01/19 [Vitamin D3] Latanoprost 0.005% Ophth Drops 1 drops EACHEYE QPM 07/07/17 12/31/19 [Xalatan Ophth Drops] Apixaban [Eliquis] 5 mg PO BID 08/14/19 11/01/19 Ascorbic Acid [Vitamin C with Rosenda 1,000 mg PO DAILY PM 08/14/19 11/01/19 Hips] Docusate Sodium [Dulcolax Stool 200 mg PO DAILY PRN 08/14/19 11/01/19 Softener] Furosemide 10 mg PO DAILY PRN 08/14/19 11/01/19 Mirtazapine 3.75 mg PO QPM 08/14/19 12/31/19 Multivitamin [Theragran] 1 tab PO DAILY 08/14/19 12/31/19 [place]-3 Acid Ethyl Esters [Lovaza] 1 gm PO DAILY 08/14/19 12/31/19 dilTIAZem HCL [Diltiazem HCl] 30 mg PO DAILY 08/14/19 12/31/19 estradioL [Estradiol] 1 applic TOP .2XWEEK 08/30/19 12/31/19 Acetaminophen [Tylenol Extra 500 mg PO DAILY PRN 11/01/19 11/01/19 Strength] Cetirizine [ZyrTEC] 10 mg PO DAILY PRN 11/01/19 11/01/19 Cranberry 600 mg PO DAILY 11/01/19 11/01/19 D-Mannose [Mannxtra] 1,500 mg PO DAILY 11/01/19 11/01/19 Fluticasone Propionate [24 Hour 2 spray GERALD DAILY 11/01/19 11/01/19 Allergy] L.acid/L.casei/B.bif/B.alba/Fos 1 cap PO DAILY 11/01/19 12/31/19 [Probiotic Blend Capsule] Melatonin 5 - 10 mg PO QPM 11/01/19 12/31/19 Methenamine Hippurate [Hiprex] 1 gm PO BID 11/01/19 12/31/19 Senna [Senokot] 2 tab PO DAILY PRN 11/01/19 12/31/19 Vitamin B Complex 1 cap PO DAILY 11/01/19 12/31/19 Zinc Gluconate [Zinc] 60 mg PO DAILY 11/01/19 12/31/19 polyethylene glycoL 3350 [Miralax] 17 mg PO DAILY PRN 11/01/19 12/31/19 traMADol [Ultram] 50 - 100 mg PO Q6H PRN #20 tablet 05/15/20 - Allergies Allergies/Adverse Reactions: Allergies Allergy/AdvReac Type Severity Reaction Status Date / Time ciprofloxacin [From Cipro] Allergy Severe Rash Verified 05/15/20 10:00 Heparin Analogues Allergy Severe Hives Verified 05/15/20 10:00 metoclopramide HCl * Allergy Severe Anxiety Verified 05/15/20 10:00 [From Reglan] prednisone Allergy Severe Rash Verified 05/15/20 10:00 Sulfa (Sulfonamide Allergy Severe Rash Verified 05/15/20 10:00 Antibiotics) amoxicillin [From Augmentin] Allergy Rash Verified 05/15/20 10:00 clavulanic acid Allergy Rash Verified 05/15/20 10:00 [From Augmentin] clopidogrel bisulfate * Allergy Unknown Verified 05/15/20 10:00 [From Plavix] oxycodone [Oxycodone] AdvReac Severe Edema Verified 05/15/20 10:00 hydroxychloroquine AdvReac Unknown Verified 05/15/20 10:00 - Social History Does the pt smoke?: No Smoking Status: Never smoker Does the pt drink ETOH?: No Does the pt have substance abuse?: No - Immunizations Immunizations are current?: Yes - POLST Patient has POLST: Yes POLST Status: DNR PD ED PE NORMAL - Vitals Vital signs reviewed: Yes (hypertensive with wide pulse pressure) - General General: Alert and oriented X 3, No acute distress, Well developed/nourished - HEENT HEENT: Atraumatic, PERRL, EOMI - Neck Neck: Supple, no meningeal sign, No bony TTP - Cardiac Cardiac: RRR, No murmur - Respiratory Respiratory: No respiratory distress, Clear bilaterally - Abdomen Abdomen: Normal bowel sounds, Soft, Non tender, Non distended, No organomegaly - Back Back: No CVA TTP, Other (mild point tenderness to the paraspinous muscles on the right side. ) - Derm Derm: Normal color, Warm and dry, No rash - Extremities Extremities: No deformity, No edema - Neuro Neuro: Alert and oriented X 3, arts therapist 2-12 intact, No motor deficit, No sensory deficit, Normal speech Eye Opening: Spontaneous Motor: Obeys Commands Verbal: Oriented GCS Score: 15 - Psych Psych: Normal mood, Normal affect Results - Vitals Vitals: Vital Signs - 24 hr 05/15/20 05/15/20 05/15/20 09:47 12:00 13:13 Temperature 37.1 C Heart Rate 83 83 78 Respiratory 16 16 16 Rate Blood Pressure 146/53 H 137/68 H 134/69 H O2 Saturation 99 96 98 Oxygen O2 Source [With Activity] Room air O2 Source Room air - Labs Labs: Laboratory Tests 05/15/20 05/15/20 05/15/20 10:20 10:20 10:53 WBC 5.3 RBC 4.80 Hgb 14.5 Hct 43.9 MCV 91.5 MCH 30.2 MCHC 33.0 RDW 13.4 Plt Count 308 MPV 10.5 Neut # (Auto) 3.0 Lymph # (Auto) 1.5 [place] # (Auto) 0.6 Eos # (Auto) 0.1 Baso # (Auto) 0.1 Absolute Nucleated RBC 0.00 Nucleated RBC % 0.0 Sodium 139 Potassium 3.8 Chloride 101 Carbon Dioxide 28 Anion Gap 10.0 BUN 19 Creatinine 0.7 Estimated GFR (MDRD) 79 L Glucose 101 H Calcium 9.4 Total Bilirubin 0.7 AST 22 ALT 18 Alkaline Phosphatase 50 Total Protein 7.4 Albumin 4.3 Globulin 3.1 Albumin/Globulin Ratio 1.4 Lipase 33 Urine Color LIGHT YELLOW Urine Clarity CLEAR Urine pH 7.0 Ur Specific [place] 1.015 Urine Protein NEGATIVE Urine Glucose (UA) NEGATIVE Urine Ketones NEGATIVE Urine Occult Blood NEGATIVE Urine Nitrite NEGATIVE Urine Bilirubin NEGATIVE Urine Urobilinogen 0.2 (NORMAL) Ur Leukocyte Esterase SMALL H Urine RBC None Seen Urine WBC 4-5 Ur Squamous Epith Cells FEW Squamous Urine Bacteria None Seen Ur Microscopic Review INDICATED Urine Culture Comments INDICATED - Rads (name of study) CT lumbar spine Radiology: Prelim report reviewed (Impression: 1. No visualized fracture or dislocations. Leftward scoliotic curvature. Multilevel areas of significant spinal stenosis and foraminal narrowing demonstrating minimal areas of progression as noted above. ), Final report received ( Multiple level moderate to severe foraminal narrowing probably secondary facet arthropathy multilevel spinal stenosis predominantly secondary to the disc bulge with contributing effects on facet arthropathy and scoliotic curvature.), EMP read indepedently, See rad report Procedures - Bedside sono Bedside sono by EMP: With use bedside ultrasound the right kidney is imaged it is sonographically nontender and there is no evidence of hydronephrosis. - IVC sono (time) 1005 Bedside IVC sono: IVC measures (cm) (1.02), Dehydration (est 1-2 liter deficit) PD MEDICAL DECISION MAKING - ED course Complexity details: reviewed results, re-evaluated patient, considered differential, d/w patient ED course: 85 y/o female with back pain associated with movement Was thought to possibly have compression fracture and CT of the lumbar spine was obtained demonstrating multiple areas of degenerative disease and facet arthropathy. There was no evidence of compression fracture. She was treated here in the emergency department with IV toradal. I did not think this was kidney stone as the patient had no hydro on bedside exam and had pain with movement and palpation only. Today she did not have UTI. Departure - Departure Disposition: 01 Home, Self Care Clinical Impression: Lumbar strain Qualifiers: Encounter type: initial encounter Qualified Code(s): S39.012A - Strain of muscle, fascia and tendon of lower back, initial encounter Instructions: ED Low Back Pain Injury Follow-Up: Jazmin Cárdenas MD [Primary Care Provider] - Prescriptions: traMADol [Ultram] 50 - 100 mg PO Q6H PRN #20 tablet PRN Reason: Pain Discharge Date/Time: 05/15/20 13:15
--- NOTE | 2020-05-15 12:08 | CT Report ---
PROCEDURE: LUMBAR SPINE WO INDICATIONS: low back pain with movement TECHNIQUE: Noncontrast 3 mm thick sections acquired from the T12 level to the sacrum. Sagittal and coronal refo rmats were constructed. For radiation dose reduction, the following was used: automated exposure co ntrol, adjustment of mA and/or kV according to patient size. COMPARISON: CT lumbar spine 05/19/2016 FINDINGS: Image quality: Excellent. Bones: There is there is leftward scoliotic curvature of the lumbar spine with apex at L2-3. There i s trace retrolisthesis of L4 on L5. No visualized fractures or dislocations. No suspicious osseous le sions. There is multilevel moderate to severe degenerative disc space narrowing with vacuum disc at L4-5. Mi ld disc bulges are present at L1-L2, L2-3, L3-4, L4-5, L5-S1. Right lateral/foraminal component is pr esent at L2-3. There is mild to moderate spinal stenosis at L1-L2, moderate to severe L2-3, severe L3 -4, L4-5, moderate to severe L5-S1. Overall, appearance is similar compared to previous exam with min imal areas of interval progression. There is moderate bilateral foraminal narrowing L1-L2, mild to mo derate left and mild right L2-3, moderate to severe left, mild right L3-4, severe bilateral L4-5, mod erate to severe bilateral L5-S1, left greater than right, slightly progressive. Prominent multilevel facet and ligamentum flavum hypertrophy are present. Soft tissues: No retroperitoneal masses or hematomas. Visualized aorta is normal in caliber. Simpl e right renal cyst is noted. IMPRESSION: 1. No visualized fractures or dislocations. 2. Leftward scoliotic curvature. 3. Multilevel areas of significant spinal stenosis and foraminal narrowing demonstrating minimal area s of progression as noted above. 4. Multilevel moderate to severe foraminal narrowing probably secondary to facet arthropathy. 5. Multilevel spinal stenosis predominately secondary to disc bulge with contributing effect of facet arthropathy and scoliotic curvature. Reviewed by: Zulay Colindres MD on 05/15/2020 12:07 PM PDT Approved by: Zulay Colindres MD on 05/15/2020 12:07 PM PDT Station ID: [id number]
[2020-05-15] MEDS ORDERED: KETOROLAC 30 MG/ML VIAL IVP STA (12:10)
[2020-05-15 13:13] VITALS: BP 134/69
== END 2020-05-15 13:15 | disposition home or self-care (01) ==
LOC: ED 09:46
DX: S39.012A Strain of muscle, fascia and tendon of lower back, initial encounter (principal); X50.9XXA Other and unspecified overexertion or strenuous movements or postures, initial encounter; Y93.89 Activity, other specified; E86.0 Dehydration; M51.27 Other intervertebral disc displacement, lumbosacral region; M51.37 Other intervertebral disc degeneration, lumbosacral region; M48.07 Spinal stenosis, lumbosacral region; M41.86 Other forms of scoliosis, lumbar region; I10 Essential (primary) hypertension; I48.91 Unspecified atrial fibrillation; Z79.01 Long term (current) use of anticoagulants; Z66 Do not resuscitate
CPT/HCPCS: 36415; 51701; 80053; 81001; 81003; 83690; 85025; 87086; 99284

== ENCOUNTER 2020-06-19 15:33 | Outpatient (CLI) | payer MEDICARE, BC ==
[2020-06-19 16:35] LABS: THYROID STIMULATING HORMONE 3.42 uIU/mL (0.34-5.60)
[2020-06-19 20:47] LABS: ESTIMATED AVERAGE GLUCOSE 114 mg/dL (70-100); HEMOGLOBIN A1c% 5.6 % (4.27-6.07)
== END 2020-06-19 15:34 | disposition home or self-care (01) ==
LOC: LAB 15:33
PROVIDERS: ATTEND Internal Medicine
DX: G64 Other disorders of peripheral nervous system (principal)
CPT/HCPCS: 36415; 82607; 83036; 84155; 84165; 84443; 84550

== ENCOUNTER 2020-07-14 12:52 | Outpatient (CLI) | payer MEDICARE, BC ==
[2020-07-14 13:26] LABS: BILIRUBIN,URINE NEGATIVE (NEGATIVE); GLUCOSE, URINE (UA) NEGATIVE (NEGATIVE); KETONES,URINE (UA) NEGATIVE (NEGATIVE); LEUKOCYTE ESTERASE, URINE SMALL (NEGATIVE); NITRITE,URINE NEGATIVE (NEGATIVE); OCCULT BLOOD,URINE NEGATIVE (NEGATIVE); PH,URINE 5.5 PH (5.0-7.5); PROTEIN,URINE 30 mg/dL (NEGATIVE); UROBILINOGEN,URINE 0.2 (NORMAL) E.U./dL (NORMAL)
[2020-07-14 13:29] LABS: CLARITY,URINE CLEAR (CLEAR)
[2020-07-14 13:44] LABS: BACTERIA,URINE Few /HPF (None Seen); MUCUS,URINE Few Strands; RBC,URINE 0-5 /HPF (0-5); SQUAMOUS EPITHELIAL CELL,UR MOD Squamous (<= Few); WBC,URINE >25 /HPF (0-5)
== END 2020-07-14 12:53 | disposition home or self-care (01) ==
LOC: LAB.R 12:52
PROVIDERS: ATTEND Urology
DX: N39.0 Urinary tract infection, site not specified (principal)
CPT/HCPCS: 81001; 81003; 87086

== ENCOUNTER 2020-07-15 09:48 | Outpatient (CLI) | payer MEDICARE, OTHER ==
--- NOTE | 2020-07-15 10:39 | XRAY Report ---
PROCEDURE: Hip w/Pelvis 2-3V LT INDICATIONS: LT HIP PAIN TECHNIQUE: AP pelvis with lateral view(s) of the bilateral hip(s). COMPARISON: None. FINDINGS: Bones: No fractures or dislocations. Pelvic ring appears intact. No suspicious bony lesions. Mild joint space narrowing and periarticular osteophyte formation at the bilateral hip joints, indicating osteoarthritis. Soft tissues: The visualized bowel gas pattern is normal. No suspicious soft tissue calcifications. IMPRESSION: Osteoarthritis. No acute fracture. No osseous lesion. If symptoms and/or clinical suspic ion for pathology continue, further assessment with repeat plain films, or advanced imaging (e.g., CT , MRI, or bone scan) is recommended for further assessment. Reviewed by: Parker Mcdonnell MD on 07/15/2020 10:38 AM PDT Approved by: Parker Mcdonnell MD on 07/15/2020 10:38 AM PDT Station ID: [id number]
== END 2020-07-15 09:49 | disposition home or self-care (01) ==
LOC: DI 09:48
PROVIDERS: ATTEND Internal Medicine
DX: M16.0 Bilateral primary osteoarthritis of hip (principal)

== ENCOUNTER 2020-08-18 12:23 | Outpatient (CLI) | payer MEDICARE, BC ==
[2020-08-18 12:57] LABS: HCT - HEMATOCRIT 40.4 % (37.0-47.0); HGB - HEMOGLOBIN 13.5 g/dL (12.0-16.0); MEAN CORPUSCULAR HEMOGLOBIN 30.5 pg (27.0-31.0); MEAN CORPUSCULAR HGB CONC 33.4 g/dL (32.0-36.0); MEAN CORPUSCULAR VOLUME 91.4 fL (81.0-99.0); MEAN PLATELET VOLUME 10.6 fL (7.9-10.8); RED BLOOD COUNT 4.42 10^6/uL (4.20-5.40); RED CELL DISTRIBUTION WIDTH 13.9 % (12.0-15.0); WHITE BLOOD COUNT 6.6 x10^3/uL (4.8-10.8)
[2020-08-18 13:15] LABS: ALBUMIN/GLOBULIN RATIO 1.4 (1.0-2.2); BILIRUBIN,TOTAL 0.7 mg/dL (0.2-1.0); CALCIUM 9.1 mg/dL (8.5-10.3); CREATININE 0.7 mg/dL (0.4-1.0); POTASSIUM 4.2 mmol/L (3.5-5.0); TOTAL PROTEIN 6.8 g/dL (6.7-8.2)
== END 2020-08-18 12:24 | disposition home or self-care (01) ==
LOC: LAB 12:23
PROVIDERS: ATTEND Internal Medicine Cardiovascular Disease
DX: I48.0 Paroxysmal atrial fibrillation (principal)
CPT/HCPCS: 36415; 80053; 85027

== ENCOUNTER 2020-11-09 10:40 | Outpatient (CLI) | payer MEDICARE, BC ==
--- NOTE | 2020-11-09 12:48 | CONSULTATION NOTE ---
Palliative Care Follow Up - Referral Referring Provider: Dr. Jazmin Cárdenas Time of Visit: [id number] Referral setting: Home Referral Reason: HX of UTIs/Chronic Cystitis/Advanced Care Planning - Information Sources Records reviewed: Previous records reviewed History/Review of Systems obtained from: Patient, Family (daughter and DPOA Blanquita present) Exam limitations: No limitations - History of Present Illness Update Brief HPI Update: This is an 85-year-old female with persistent and recurrent UTIs, she has had this since her 40s as result of surgery for hysterectomy sequela continues to be problematic for her. She continues managed with intermittent Botox, ladder last injection about 2 months ago. It does decrease her incontinence, but does result in needing to cath herself 3 times a day. She does have intermittent dysuria, up at night with urgency of discomfort, most recently was treated for a UTI, and had a significant reaction to the antibiotics. She is again feeling like she is done with continued treatment, she has previously had an admit for sepsis, she has difficulty with IV access, has multiple medication allergies, and feels very poorly when she gets ill or takes antibiotics. Patient per daughter's perception of last episode, also had superimposed dehydration. She has been feeling better this last week, she is eating and drinking, she still has some persistent dysuria but no fever or chills. She feels like she "has had enough" and is grateful for the time she has had but does not want to pursue any further treatment. Given this we are and what I called the "twilight zone". As currently she is not sick enough to transition to hospice, though could transition fairly quickly if she got an acute infection. She does have comfort meds in the home of morphine, Haldol, and lorazepam from our last meeting regarding this, reviewed this again with patient and daughter. Past Medical History: Atrial fib, pulmonary hypertension, hypertension, high cholesterol, arrhythmias, chronic constipation, urinary retention, chronic bladder infections, kidney sto lianna, chronic vision loss, chronic sinusitis, depression, anxiety, fibromyalgia, fatigue, chronic back pain Social History - Living Situation Living arrangement: At home Living Situation: With family Support System: Patient is , she combined households with her daughter Blanquita about 6 years ago. She does have a support for her daughter, they do hire caregivers to provide respite and transportation. Her daughter does have 2 young children in the home, and does have a flexible schedule though does work and Monday. She is quite supportive what the patient may need, is willing to support patient's goals. Medications/Allergies - Medications Home Medications: Ambulatory Orders Medication Instructions Recorded Confirmed Latanoprost 0.005% Ophth Drops 1 drops EACHEYE QPM 07/07/17 11/09/20 [Xalatan Ophth Drops] Apixaban [Eliquis] 5 mg PO BID 08/14/19 11/09/20 Furosemide 10 mg PO DAILY PRN 08/14/19 11/09/20 Mirtazapine 3.75 mg PO QPM 08/14/19 11/09/20 estradioL [Estradiol] 1 applic TOP .2XWEEK 08/30/19 11/09/20 Cranberry 600 mg PO DAILY 11/01/19 11/09/20 D-Mannose [Mannxtra] 1,500 mg PO DAILY 11/01/19 11/09/20 Melatonin 5 - 10 mg PO QPM 11/01/19 11/09/20 Methenamine Hippurate [Hiprex] 1 gm PO BID 11/01/19 11/09/20 Senna [Senokot] 2 tab PO DAILY PRN 11/01/19 11/09/20 - Allergies Allergies/Adverse Reactions: Allergies Allergy/AdvReac Type Severity Reaction Status Date / Time ciprofloxacin [From Cipro] Allergy Severe Rash Verified 05/15/20 10:00 Heparin Analogues Allergy Severe Hives Verified 05/15/20 10:00 metoclopramide HCl * Allergy Severe Anxiety Verified 05/15/20 10:00 [From Reglan] prednisone Allergy Severe Rash Verified 05/15/20 10:00 Sulfa (Sulfonamide Allergy Severe Rash Verified 05/15/20 10:00 Antibiotics) amoxicillin [From Augmentin] Allergy Rash Verified 05/15/20 10:00 clavulanic acid Allergy Rash Verified 05/15/20 10:00 [From Augmentin] clopidogrel bisulfate * Allergy Unknown Verified 05/15/20 10:00 [From Plavix] oxycodone [Oxycodone] AdvReac Severe Edema Verified 05/15/20 10:00 hydroxychloroquine AdvReac Unknown Verified 05/15/20 10:00 Review of Systems - Constitutional Constitutional: reports: Fatigue (worse over this last week), Weight loss (lost 6 pounds this last year). denies: Fever, Chills - Eyes Eyes: reports: Vision loss - Ears, Nose & Throat Ears, Nose & Throat: reports: Dry mouth - Cardiovascular Cardiovascular: reports: Lightheadedness, Exertional dyspnea, Decr. exercise tolerance. denies: Edema - Respiratory Respiratory: reports: SOB with exertion. denies: SOB at rest - Gastrointestinal Gastrointestinal: reports: Constipation (intermittent), Early satiety - Genitourinary Genitourinary: reports: Frequency, Incontinence, Other (self caths) - Musculoskeletal Musculoskeletal: reports: Stiffness, Muscle weakness - Integumentary Integumentary: reports: Dryness - Neurological Neurological: reports: General weakness, Memory problems (mild STM) - Psychiatric Psychiatric: reports: Depression, Anxiety - Hematologic/Lymphatic Hematologic/Lymph: reports: Recurrent infections (last treat one week ago) - All Other Systems All Other Systems: reports: Reviewed and negative Physical Exam - Vital Signs Temperature: 97.7 C Pulse Rate: 73 Respiratory Rate: 18 O2 Saturation: 97 (ra @ rest) Blood Pressure: 118/68 - Physical Exam General Appearance: positive: No acute distress, Alert, Anxious Eyes Bilateral: positive: Normal inspection, Conjunctivae nml, No scleral icterus ENT: positive: No signs of dehydration Neck: positive: Trachea midline Cardiovascular: positive: Regular rate & rhythm Respiratory: positive: No respiratory distress, Breath sounds nml Abdomen: positive: Non-tender, Soft Skin: positive: Pallor, Dryness Extremities: positive: No pedal edema Neurologic/Psychiatric: positive: Oriented x3, Weakness, Depressed mood/affect, Flat affect Palliative Care - POLST Patient has POLST: Yes POLST Status: DNR, Comfort Measures (new POLST completed) Pain: Pain improved, Location (dysuria) Feelings of wellbeing/Perceived Quality of Life: Fair, Worsening Sleep: Sleeps poorly Constipation: Yes, Intermittent constipation Performance Status: Patient remains independent, can ambulate short distances in the home. Has not had any recent falls. Had completed physical therapy and was doing fairly well, until she had an exacerbation with the most recent UTI. At this point in time she is able to manage her ADLs - Palliative Care Discussion: Family meeting with patient and daughter, regarding patient's expressed wishes for no further intervention for her UTIs. She has had 1 in the last week, did poorly with antibiotics. Feels like she is ready to stop any further intervent ion, did review again implications of this. Patient has had urosepsis in the past, patient does have comfort meds in the home given her wishes last year. We did review that she has done fairly well, but her perception is recall of life continues to deteriorate and is ready to let go. We really did the POLST with DN AR/DNI and comfort measures. We discussed the role of hospice though patient needs to have hospice diagnosis and be transitioning prior to be able to be admitted. Did speak with the hospice team though, well, and introduced so patient is ready to transition fairly quickly. Blanquita her daughter is very sad about this, but does understand and supportive of mother's wishes. She does understand the burden will fall to her as caregiver, particularly in the context if time the does not align for hospice transition. She does have some friends, would hire some help, so though she is quite anxious to see this is possible. We discussed getting a hospice book in here so she knows what to expect, reviewed the medications again as well. Impression and Recommendations - Palliative Care Impression: This is an 85-year-old woman who continues to struggle with her recurrent UTIs, most likely recently treated last week. She does have a significant complex situation and be able to navigate, and at this point in time has decided no further antibiotics or treatments. She has fluctuated on this in the past. She is feeling much clear, does not want to further prolong her suffering, and is ready to transition to hospice when indicated. Palliative care providing support until transition to hospice, to be able to help navigate transition at end-of-life. Recommendations/Counseling Done: 1. Recurrent UTIs. Patient at this point is decided no further antibiotic treatment if to have a recurrent UTI. Counseling providing regarding implications of this, there are limitations as far as being in the transition to hospice in a timely manner, unclear how quickly infection will progress if become symptomatic, reviewed comfort medications and how to medicate for comfort. Patient wanting to deprescribed, discussed all the multiple supplements she was on previously, would continue though with her once for urinary support, cranberry, d-mannose, and methenamine. 2. Anxiety. This is multifactorial, she does seem the very calm about her decision. She continues to struggle with fears and concerns and complexity of situation, she has been in contact with the [employer] , has found this comforting. Recommended she meet with her again and look at spiritual support. 3. Advanced care planning. Given patient's clarity of goals, and daughter support regarding this. We will go ahead and do a new POLST with DNR/DNI and comfort measures, to be able to call 911 if needed paramedics support for falls, comfort status, to make quite clear not to transition to hospital. Did staff with hospice clinical environmental programs manager, they will offer a informational visit, and leave hospice both in case patient transitions before they can admit to daughter will have information she needs. This will also help with transition at time of recurrent infection. Did leave message for patient's primary care provider, this was a similar goal last year, the patient seems less ambiguous and more clear about her wishes today. 60 minutes with greater than 50% of this done in counseling regarding goals of care, as preemptive plan for possible transition to hospice, coordination of care with hospice team and primary care provider.
== END 2020-11-09 10:41 | disposition home or self-care (01) ==
LOC: PC 10:40
PROVIDERS: ATTEND Nurse Practitioner Adult Health
DX: Z51.5 Encounter for palliative care (principal); R30.0 Dysuria; R35.0 Frequency of micturition; R32 Unspecified urinary incontinence; F41.9 Anxiety disorder, unspecified; R53.83 Other fatigue; R63.4 Abnormal weight loss; R06.09 Other forms of dyspnea; K59.00 Constipation, unspecified; Z79.899 Other long term (current) drug therapy; Z87.440 Personal history of urinary (tract) infections; Z66 Do not resuscitate
CPT/HCPCS: 99350

== ENCOUNTER 2020-12-03 14:11 | Outpatient (CLI) | payer MEDICARE, BC ==
--- NOTE | 2020-12-08 08:40 | XRAY Report ---
PROCEDURE: Hip w/Pelvis 2-3V LT INDICATIONS: LEFT HIP PAIN TECHNIQUE: AP pelvis with lateral view(s) of the left hip(s). COMPARISON: None. FINDINGS: Bones: No fractures or dislocations. Pelvic ring appears intact. No suspicious bony lesions. Both acetabula are somewhat shallow, with bilateral lateral unroofing of the femoral heads, right greater than left. Mild left hip degenerative change. Soft tissues: The visualized bowel gas pattern is normal. No suspicious soft tissue calcifications. IMPRESSION: Mild left hip degenerative change. Somewhat shallow left acetabulum. No evidence acute b deandre abnormality of the pelvis and left hip. If clinical suspicion and/or symptoms persist, further assessment with repeat plain films or advanced imaging (e.g., CT, MRI, or bone scan) may be helpful for further assessment. Reviewed by: Krzysztof Saucedo MD on 12/03/2020 3:42 PM PDT Approved by: Krzysztof Saucedo MD on 12/03/2020 3:42 PM PDT Station ID: [id number]
== END 2020-12-03 14:12 | disposition home or self-care (01) ==
LOC: DI.N 14:11
PROVIDERS: ATTEND Physician Assistant
DX: M16.12 Unilateral primary osteoarthritis, left hip (principal)

== ENCOUNTER 2020-12-14 14:00 | Outpatient (CLI) | payer MEDICARE, BC ==
--- NOTE | 2020-12-14 16:14 | CONSULTATION NOTE ---
Palliative Care Follow Up - Referral Referring Provider: Dr. Jazmin Cárdenas Time of Visit: [phone] Referral setting: Home Referral Reason: Chronic Cystitis/Back & hip pain/Depression - Information Sources Records reviewed: Previous records reviewed History/Review of Systems obtained from: Patient Exam limitations: No limitations - History of Present Illness Update Brief HPI Update: This is an 85-year-old woman with persistent and recurrent UTIs, she has had this since her 40s as a result of surgery for hysterectomy sequela and continues to be problematic for her. She has in the past managed with intermittent Botox, her last injection was about 2 months ago. She continues to have difficult and significant reactions to antibiotics, as she has made a choice if she would have recurrent UTI she would not want treatment. She has been previously admitted for sepsis, has difficulty with IV access, has multiple medication allergy. Since we have not revisited regarding testing for UTIs, she does have intermittent pain, but has not progressed as far symptoms Hayden. She did decrease the number of time she is cathing to once a day. She still has some discomfort, we did start pregabalin and she is taking 50 mg at bedtime with good effect. She is up frequently to void, but returns back to sleep and reports discomfort is better in this. Patient's most recent her most persistent symptom is actually her osteoarthritic at back and left hip pain from bursitis. She has been taking intermittent acetaminophen at 1000 mg 3 times daily, using heat, she did get an injection from Ortho but without any response. She knows she cannot take NSAIDs because of her Eliquis. She has been using some topical diclofenac with some improvement. She continues to focus on living in the moment, is involved with her denominational activities, finds her luciano quite comforting. She has been trying to continue to be independent, had put her physical therapy on hold, but is wondering about aqua therapy given her worsening back pain. Past Medical History: Atrial fib, pulmonary hypertension, hypertension, high cholesterol, arrhythmias, chronic constipation, urinary retention, chronic bladder infections, kidney stones, chronic vision loss, chronic sinusitis, depression, anxiety, fibromyalgia, fatigue, chronic back pain Social History - Living Situation Living arrangement: At home Living Situation: With family Support System: Patient is , she combined households with her daughter Blanquita about 6 years ago, they do have hired caregivers and friends who provide respite and transportation. Her daughter does have 2 young children in the home and patient very much enjoys time with them. Daughter is quite supportive what patient may need, is not available for visit today. Medications/Allergies - Medications Home Medications: Ambulatory Orders Medication Instructions Recorded Confirmed Latanoprost 0.005% Ophth Drops 1 drops EACHEYE QPM 07/07/17 12/14/20 [Xalatan Ophth Drops] Apixaban [Eliquis] 5 mg PO BID 08/14/19 12/14/20 Furosemide 10 mg PO DAILY PRN 08/14/19 12/14/20 Mirtazapine 3.75 mg PO QPM 08/14/19 12/14/20 estradioL [Estradiol] 1 applic TOP .2XWEEK 08/30/19 12/14/20 Cranberry 600 mg PO DAILY 11/01/19 12/14/20 D-Mannose [Mannxtra] 1,500 mg PO DAILY 11/01/19 12/14/20 Melatonin 5 - 10 mg PO QPM 11/01/19 12/14/20 Methenamine Hippurate [Hiprex] 1 gm PO BID 11/01/19 12/14/20 Senna [Senokot] 2 tab PO DAILY PRN 11/01/19 12/14/20 Acetaminophen [Tylenol Extra 1,000 mg PO TID PRN 12/14/20 12/14/20 Strength] Pregabalin [Lyrica] 50 mg PO QPM 12/14/20 12/14/20 - Allergies Allergies/Adverse Reactions: Allergies Allergy/AdvReac Type Severity Reaction Status Date / Time ciprofloxacin [From Cipro] Allergy Severe Rash Verified 05/15/20 10:00 Heparin Analogues Allergy Severe Hives Verified 05/15/20 10:00 metoclopramide HCl * Allergy Severe Anxiety Verified 05/15/20 10:00 [From Reglan] prednisone Allergy Severe Rash Verified 05/15/20 10:00 Sulfa (Sulfonamide Allergy Severe Rash Verified 05/15/20 10:00 Antibiotics) amoxicillin [From Augmentin] Allergy Rash Verified 05/15/20 10:00 clavulanic acid Allergy Rash Verified 05/15/20 10:00 [From Augmentin] clopidogrel bisulfate * Allergy Unknown Verified 05/15/20 10:00 [From Plavix] oxycodone [Oxycodone] AdvReac Severe Edema Verified 05/15/20 10:00 hydroxychloroquine AdvReac Unknown Verified 05/15/20 10:00 Review of Systems - Constitutional Constitutional: reports: Fatigue (worse over this last week), Weight stable. denies: Fever, Chills - Eyes Eyes: reports: Vision loss - Ears, Nose & Throat Ears, Nose & Throat: reports: Dry mouth - Cardiovascular Cardiovascular: reports: Exertional dyspnea, Decr. exercise tolerance. denies: Edema - Respiratory Respiratory: reports: SOB with exertion. denies: SOB at rest - Gastrointestinal Gastrointestinal: reports: Constipation (intermittent), Early satiety - Genitourinary Genitourinary: reports: Frequency, Incontinence, Other (self caths) - Musculoskeletal Musculoskeletal: reports: Back pain, Stiffness, Muscle weakness - Integumentary Integumentary: reports: Dryness - Neurological Neurological: reports: General weakness, Memory problems (mild STM) - Psychiatric Psychiatric: reports: Depression, Anxiety - Hematologic/Lymphatic Hematologic/Lymph: reports: Recurrent infections (909 last treated) - All Other Systems All Other Systems: reports: Reviewed and negative Physical Exam - Vital Signs Temperature: 97.0 C Pulse Rate: 76 Respiratory Rate: 18 O2 Saturation: 97 (ra @ rest) Blood Pressure: 132/64 - Physical Exam General Appearance: positive: No acute distress, Alert Eyes Bilateral: positive: Normal inspection, Conjunctivae nml, No scleral icterus ENT: positive: No signs of dehydration Neck: positive: Trachea midline Cardiovascular: positive: Regular rate & rhythm Respiratory: positive: No respiratory distress, Breath sounds nml Abdomen: positive: Non-tender, Soft Skin: positive: Pallor, Dryness Extremities: positive: No pedal edema Neurologic/Psychiatric: positive: Oriented x3, Mood/affect nml, Weakness, Flat affect Palliative Care - POLST Patient has POLST: Yes POLST Status: DNR, Comfort Measures (would like to transition to hospice when meets criteria) Pain: Pain worsening, Location (lower sacral/lumbar area and left hip) Tiredness/Fatigue: Moderate (4-6) Drowsiness/Sedation: Mild (1-3) Nausea: None Anorexia: Mild (1-3) Dyspnea: Mild (1-3) Depression: Mild (1-3) Anxiety: Moderate (4-6) Feelings of wellbeing/Perceived Quality of Life: Good, Acceptable, Improved Sleep: Sleep improved Constipation: Yes, Managed Performance Status: Patient's functional status and gait has declined with increased back pain. Her gait is shuffled, and she is somewhat kyphotic. She has put physical therapy on hold because of the exacerbation of the pain. She is able to manage her ADLs, but moves quite slowly. No recent falls - Palliative Care Discussion: Patient remains quite ambivalent about most of her thoughts around impending dec line if she were to have an infection again. She is quite clear she does not want antibiotics, but very much is planning to be engaged in life. 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 She is looking at proving her independence and physical therapy. She is trying to live in the moment, and be grateful for every day. She does feel like things are leveling out. She does have a POLST with DN AR and comfort measures, in preparation for transition to hospice if she were to have a severe infection again.She has had a introductory hospice visit, she is aware of the hospice benefit, and would be easy to transition if she were to get acutely ill Impression and Recommendations - Palliative Care Impression: THis a 85-year-old woman who continues to struggle with her fluctuating health status, does have a complex situation and difficulty navigating in the context of at this point if she were to have recurrent UTI she reports she would take no further antibiotics or treatments. She is continue to remain fairly stable, though does present with worsening osteoarthritic pain and declining functional status. She has not had any further weight loss, does easily tear up, though is able to express her feelings easily. Palliative care providing support and will transition to hospice when appropriate. Recommendations/Counseling Done: 1. Chronic cystitis. Patient continues with pain symptoms and discomfort. She is doing better with the pregabalin 50 mg at bedtime, is able to go back to sleep though she is up frequently with nocturia. She is cathing only once a day, with less retention. This has decreased some of her discomfort. She has been offered [facility] catheter, but at this point in time has declined. We will continue to monitor, patient continues on her multiple supplements, and encouraged to continue to push fluids. 2. Back pain. Pain is located in lower sacrum and lower lumbar area. Patient is quite kyphotic, recommended wearing her back brace that has been helpful in the past, to use proper supporting shoes versus her slippers, and to increase her walking as she is no longer doing physical therapy to do back and forth in the driveway. We did discuss she could transition to aqua therapy at the hospital if wanted. She may want to try tramadol she has had in the past, she will let me know if she wants a prescription. Otherwise feels like she is doing better overall. 3. Depression. Patient is engaged in denominational activities, is doing fairly well overall as far as mood she does tear up easily, is doing quite a bit of life review, but is feeling positive about living with her family, is grateful for the time she has had. Though she does feel like she could go anytime and still be okay with that. She does use her luciano for support, as well as her relationship with her daughter. 4. Advanced care planning. Patient continues to try and engage in life, at this point in time she still is transpositioning to hospice if she were to get an acute UTI. She does know to continue to keep us posted. She has had a prehospice visit. Patient has been ambivalent in the past, will continue to support patient's goals. 45 minutes with greater than 50% of this done in counseling regarding symptom management, managing of depression, normalizing feelings of grief and loss, and anticipatory guidance.
== END 2020-12-14 14:01 | disposition home or self-care (01) ==
LOC: PC 14:00
PROVIDERS: ATTEND Nurse Practitioner Adult Health
DX: Z51.5 Encounter for palliative care (principal); N30.20 Other chronic cystitis without hematuria; G89.29 Other chronic pain; M25.559 Pain in unspecified hip; M54.50 Low back pain, unspecified; M79.7 Fibromyalgia; F32.9 Major depressive disorder, single episode, unspecified; F41.9 Anxiety disorder, unspecified; R53.83 Other fatigue; M19.90 Unspecified osteoarthritis, unspecified site; M71.9 Bursopathy, unspecified; I48.91 Unspecified atrial fibrillation; H54.7 Unspecified visual loss; K59.09 Other constipation; R33.9 Retention of urine, unspecified; R35.0 Frequency of micturition; R32 Unspecified urinary incontinence; Z90.710 Acquired absence of both cervix and uterus; R41.3 Other amnesia; Z66 Do not resuscitate; Z79.01 Long term (current) use of anticoagulants
CPT/HCPCS: 99349

== ENCOUNTER 2021-01-26 12:16 | Outpatient (CLI) | payer MEDICARE, BC ==
[2021-01-26] MEDS ORDERED: BUFFERED LIDOCAINE 10 ML SYRINGE ONE (12:27)
[2021-01-26] MEDS ORDERED: IOTHALAMATE MEGLUMINE 50 ML VIAL ONE (12:28)
[2021-01-26] MEDS ORDERED: TRIAMCINOLONE 40 MG/ML VIAL ONE (12:28)
[2021-01-26] MEDS ORDERED: ROPIVACAINE 0.5% PF 20 ML AMPULE ONE (12:31)
[2021-01-26] MEDS ORDERED: IOTHALAMATE MEGLUMINE 50 ML VIAL IVP ONE (15:19)
[2021-01-26] MEDS ORDERED: TRIAMCINOLONE 40 MG/ML VIAL IM ONE (15:20)
[2021-01-26] MEDS ORDERED: BUFFERED LIDOCAINE 10 ML SYRINGE IU ONE (15:21)
--- NOTE | 2021-01-26 16:12 | XRAY Report ---
PROCEDURE: Inj/Aspiration Major Joint INDICATIONS: BURSITIS OF LEFT HIP CONTRAST: CONTRAST: conray FLUORO TIME: FLUORO TIME: 0.7 min and NUMBER IMAGES: 2 TECHNIQUE: The indications, alternatives, benefits, risks, and complications of the procedure were explained to the patient. Written informed consent was obtained and placed in the chart. The patient was placed in an appropriate position on the fluoroscopy table, and a site was chosen for percutaneous access un kim fluoroscopic guidance. Local anesthetic was administered using a 1% lidocaine solution. A hypod ermic or spinal needle was then used to access the symptomatic joint. Intra-articular location of th e needle tip was confirmed by injecting a small amount of contrast, followed by steroid administratio n. The needle was then withdrawn, and a bandage applied to the puncture site. FINDINGS: Joint injected: Left femoroacetabular joint Medications injected: 10 mL of 40 mg/mL Kenalog (1 mL) and 0.5% Ropivacaine mixture. Complications: None. IMPRESSION: Successful fluoroscopically guided administration of steroid and anaesthetic solution into the left f emoroacetabular joint. Patient reports pain decreased from 6 out of 10 preinjection to 3 out of 10 p ostinjection. Reviewed by: Devyn Sharma MD on 01/26/2021 4:11 PM PST Approved by: Devyn Sharma MD on 01/26/2021 4:11 PM PST Station ID: [id number]
== END 2021-01-26 12:17 | disposition home or self-care (01) ==
LOC: DI 12:16
PROVIDERS: ATTEND Physician Assistant
DX: M70.72 Other bursitis of hip, left hip (principal)
CPT/HCPCS: 20610; 77002; Q9961

== ENCOUNTER 2021-03-20 11:11 | Outpatient (CLI) | payer MEDICARE, BC ==
[2021-03-20 11:30] LABS: HCT - HEMATOCRIT 43.2 % (37.0-47.0); MEAN CORPUSCULAR HEMOGLOBIN 29.6 pg (27.0-31.0); MEAN CORPUSCULAR HGB CONC 32.4 g/dL (32.0-36.0); MEAN CORPUSCULAR VOLUME 91.3 fL (81.0-99.0); RED BLOOD COUNT 4.73 10^6/uL (4.20-5.40); RED CELL DISTRIBUTION WIDTH 13.4 % (12.0-15.0); WHITE BLOOD COUNT 7.8 x10^3/uL (4.8-10.8)
[2021-03-20 11:44] LABS: ALBUMIN 4.1 g/dL (3.2-5.5); ALBUMIN/GLOBULIN RATIO 1.5 (1.0-2.2); BILIRUBIN,TOTAL 0.6 mg/dL (0.2-1.0); CALCIUM 8.9 mg/dL (8.5-10.3); CREATININE 0.8 mg/dL (0.4-1.0); POTASSIUM 3.8 mmol/L (3.5-5.0); TOTAL PROTEIN 6.9 g/dL (6.7-8.2)
== END 2021-03-20 11:12 | disposition home or self-care (01) ==
LOC: LAB 11:11
PROVIDERS: ATTEND Internal Medicine Cardiovascular Disease
DX: I48.0 Paroxysmal atrial fibrillation (principal)
CPT/HCPCS: 36415; 80053; 85027

== ENCOUNTER 2021-04-15 09:30 | Outpatient (CLI) | payer MEDICARE, BC ==
--- NOTE | 2021-04-15 20:23 | CONSULTATION NOTE ---
Palliative Care Follow Up - Referral Referring Provider: Dr. Jazmin Cárdenas Time of Visit: 7015-5180 Referral setting: Home Referral Reason: Chronic cystitis/Depression - Information Sources Records reviewed: Previous records reviewed History/Review of Systems obtained from: Patient Exam limitations: No limitations - History of Present Illness Update Brief HPI Update: This is an 86-year-old woman with persistent cystitis, who has been struggling with her decision at this point for no further treatment for her UTIs, though has not had any need for treatment for a long period of time. She had called last week, with increasing lower abdominal pain, worried about proceeding or progressing to sepsis, but has not. She did initiate morphine 5 mg at bedtime, this has addressed her discomfort. She has not had any progression of her pain, and has not needed to take it during the day. She is self cathing, she does this twice a day, in the morning and the night, and otherwise voids on a frequent basis. She continues with numerous other complaints, but overall feels she is doing fairly well. With the initiation of morphine, she has had more trouble with constipation. She does have osteoarthritis of her lower back, and intermittent left hip pain that she attributes to bursitis. She has been taking her acetaminophen 1000 mg just daily, she was recommended to have an ultrasound secondary to increased liver enzymes, though they are AST 144 and ALT to 60 but bilirubin was 0.6.We did discuss in the context of this if something were found would she do anything with this, she does not feel like at this point time she would. She continues to focus on living in the moment, she has her anabaptist activities, s he is thinking about going back to physical therapy. She does have intermittent palpitations, occasional chest pain, but otherwise feels like she is doing well overall. Past Medical History: Atrial fib, pulmonary hypertension, hypertension, high cholesterol, arrhythmias, chronic constipation, urinary retention, chronic bladder infections, kidney stones, chronic vision loss, chronic sinusitis, depression, anxiety, fibromyalgia, fatigue, chronic back pain Social History - Living Situation Living arrangement: At home Living Situation: With family Support System: Patient has her own "sweet" in her daughter's home, she moved in with her daughter Blanquita about 7 years ago. Nidhi is doing fairly well overall. Medications/Allergies - Medications Home Medications: Ambulatory Orders Medication Instructions Recorded Confirmed Latanoprost 0.005% Ophth Drops 1 drops EACHEYE QPM 07/07/17 04/16/21 [Xalatan Ophth Drops] Apixaban [Eliquis] 2.5 mg PO BID 08/14/19 04/16/21 Furosemide 10 mg PO DAILY PRN 08/14/19 04/16/21 Mirtazapine 3.75 mg PO QPM 08/14/19 04/16/21 estradioL [Estradiol] 1 applic TOP .2XWEEK 08/30/19 04/16/21 Cranberry 600 mg PO DAILY 11/01/19 04/16/21 D-Mannose [Mannxtra] 1,500 mg PO DAILY 11/01/19 04/16/21 Melatonin 5 - 10 mg PO QPM 11/01/19 04/16/21 Methenamine Hippurate [Hiprex] 1 gm PO BID 11/01/19 04/16/21 Senna [Senokot] 2 tab PO DAILY PRN 11/01/19 04/16/21 Acetaminophen [Tylenol Extra 1,000 mg PO TID PRN 12/14/20 04/16/21 Strength] Gabapentin [Neurontin] 100 mg PO QPM MDD 300 mg 04/16/21 04/16/21 Morphine Oral Soln [Roxanol] 5 mg PO Q4HR PRN 04/16/21 04/16/21 - Allergies Allergies/Adverse Reactions: Allergies Allergy/AdvReac Type Severity Reaction Status Date / Time ciprofloxacin [From Cipro] Allergy Severe Rash Verified 05/15/20 10:00 Heparin Analogues Allergy Severe Hives Verified 05/15/20 10:00 metoclopramide HCl * Allergy Severe Anxiety Verified 05/15/20 10:00 [From Reglan] prednisone Allergy Severe Rash Verified 05/15/20 10:00 Sulfa (Sulfonamide Allergy Severe Rash Verified 05/15/20 10:00 Antibiotics) amoxicillin [From Augmentin] Allergy Rash Verified 05/15/20 10:00 clavulanic acid Allergy Rash Verified 05/15/20 10:00 [From Augmentin] clopidogrel bisulfate * Allergy Unknown Verified 05/15/20 10:00 [From Plavix] oxycodone [Oxycodone] AdvReac Severe Edema Verified 05/15/20 10:00 hydroxychloroquine AdvReac Unknown Verified 05/15/20 10:00 Review of Systems - Constitutional Constitutional: reports: Fatigue (persistent), Weight stable (128). denies: Fever, Chills - Eyes Eyes: reports: Vision loss - Ears, Nose & Throat Ears, Nose & Throat: reports: Dry mouth - Cardiovascular Cardiovascular: reports: Exertional dyspnea, Decr. exercise tolerance. denies: Edema - Respiratory Respiratory: reports: SOB with exertion. denies: SOB at rest - Gastrointestinal Gastrointestinal: reports: Constipation (intermittent; more problematic with morphine), Early satiety - Genitourinary Genitourinary: reports: Frequency, Incontinence, Other (self caths) - Musculoskeletal Musculoskeletal: reports: Back pain, Stiffness, Muscle weakness - Integumentary Integumentary: reports: Dryness - Neurological Neurological: reports: General weakness, Memory problems (mild STM) - Psychiatric Psychiatric: reports: Depression, Anxiety - All Other Systems All Other Systems: reports: Reviewed and negative Physical Exam - Vital Signs Temperature: 97.3 C Pulse Rate: 70 Respiratory Rate: 18 O2 Saturation: 99 (ra @ rest) Blood Pressure: 118/64 - Physical Exam General Appearance: positive: No acute distress, Alert Eyes Bilateral: positive: Normal inspection, Conjunctivae nml, No scleral icterus ENT: positive: No signs of dehydration Neck: positive: Trachea midline Cardiovascular: positive: Regular rate & rhythm Respiratory: positive: No respiratory distress, Breath sounds nml Abdomen: positive: Non-tender, Soft Skin: positive: Pallor, Dryness Extremities: positive: No pedal edema Neurologic/Psychiatric: positive: Oriented x3, Mood/affect nml, Weakness, Flat affect Palliative Care - POLST Patient has POLST: Yes POLST Status: DNR, Comfort Measures Pain: Pain improved, Location (lower pelvic/hip and back), Severity (severe bladder pain at night now controlled;) Tiredness/Fatigue: Moderate (4-6) Drowsiness/Sedation: None Nausea: None Anorexia: None Dyspnea: Mild (1-3) Depression: Mild (1-3) Anxiety: Moderate (4-6) Feelings of wellbeing/Perceived Quality of Life: Fair, Acceptable, Improved Sleep: Sleep improved Constipation: Yes, Opoid induced, Unmanaged Performance Status: Patient does have an ataxic gait, somewhat shuffling. Has not had any falls. She does feel weaker, has been more sedentary. She is somewhat kyphotic. Recommended she restart physical therapy, she does manage her own ADLs, but moves quite slowly. - Palliative Care Discussion: Patient remains quite ambivalent about most of her thoughts about impending decline, she continues to follow through on referrals, is planning to have ultrasound for her liver. She though does feel like she does not want to be treated again with antibiotics, though this makes her very anxious with her increasing pain. Of note she has not had any recent UTIs or UA's, pain is been managed with morphine. She does feel like her quality of life is improved with sleeping better. She does have a POLST with DN AR and comfort measures, she is prepared to transition to hospice if have a severe infection again. She has had a introductory hospice visit. 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 BUN was 25, GFR 68, bilirubin was 0.6, AST 144 ALT T2 60 of note she does take Azo's on and off, though reports she has not taken it recently. She also is on intermittent Tylenol. She is going to follow through on liver ultrasound through her PCP Impression and Recommendations - Palliative Care Impression: This is an 86-year-old woman who continues to struggle with her fluctuating health status, she does have persistent chronic cystitis. Continues with intermittent palpitations and occasional chest pain, but remains off diltiazem. She continues to be quite frail though is satisfied with her current quality of life. At this point in time she is considering if she had recurrent UTI no further antibiotics or treatments. Palliative care providing support and will transition to hospice when appropriate Recommendations/Counseling Done: 1. Neck cystitis. Patient continues with pain and symptoms of discomfort. She was doing better with pregabalin 50 mg at bedtime, most recently had this switched to gabapentin by her physician. She is managing with twice a day caffeine, swelling in her perineal area has resolved. She is using morphine 5 mg at bedtime with resolution of nighttime pain. She has been offered Sanford catheter but at this point has continued to decline. We will continue to monitor, encouraged to continue to push fluids. 2. Constipation, opioid induced. Counseling provided regarding bowel program, encouraged to use MiraLAX quarter capful with senna 1 tab daily, if no BM in 48 hours to increase senna 2 tabs every 4 hours until she goes. Patient verbalized understanding. We will continue to monitor. 3. Depression. Patient is engaged in anabaptist activities, feels like her mood is doing well, she seems less distressed currently. Though she feels like she can go anytime she is still okay with that is enjoying her current quality of life, particularly with pain better controlled at night. She has good family support. 4. Generalized weakness. Encourage patient to restart physical therapy, instructed to call if she needs new prescription. 5. Advanced care planning. Patient continues to set goals, remains somewhat ambivalent as far as her health situation. She has had a introductory hospice visit, and remains ambivalent as far as treating or not treating her UTIs so she says she will not. 45 minutes with greater than 50% of this done in counseling regarding symptom management, normalizing feelings of grief and loss, anticipatory guidance.We will be available to patient for increased symptoms, plan to visit in 6 to 8 weeks unless otherwise contact
== END 2021-04-15 09:31 | disposition home or self-care (01) ==
LOC: PC 09:30
PROVIDERS: ATTEND Nurse Practitioner Adult Health
DX: Z51.5 Encounter for palliative care (principal); N30.20 Other chronic cystitis without hematuria; K59.03 Drug induced constipation; T40.2X5A Adverse effect of other opioids, initial encounter; F32.A Depression, unspecified; R53.1 Weakness; R00.2 Palpitations; R06.09 Other forms of dyspnea; Z79.01 Long term (current) use of anticoagulants; Z79.899 Other long term (current) drug therapy; Z66 Do not resuscitate
CPT/HCPCS: 99349

== ENCOUNTER 2021-04-23 08:00 | Outpatient (CLI) | payer MEDICARE, BC ==
[2021-04-23 17:10] LABS: BUN - BLOOD UREA NITROGEN 21 mg/dL (6-20); CALCIUM 8.8 mg/dL (8.5-10.3); CARBON DIOXIDE - CO2 25 mmol/L (21-32); CHLORIDE 100 mmol/L (101-111); CHOL/HDL RATIO 3.8 (<4.4); CHOLESTEROL 211 mg/dL; CREATININE 0.7 mg/dL (0.4-1.0); GFR - MDRD 79 (>89); GLUCOSE 88 mg/dL (70-100); HDL CHOLESTEROL 56 mg/dL; LDL CHOLESTEROL,CALCULATED 128 mg/dL; LDL/HDL RATIO 2.3 (<4.4); POTASSIUM 3.9 mmol/L (3.5-5.0); SODIUM 135 mmol/L (135-145); TRIGLYCERIDES 136 mg/dL; VLDL CHOLESTEROL 27 mg/dL
== END 2021-04-23 23:59 | disposition home or self-care (01) ==
LOC: LAB.R 08:00
PROVIDERS: ATTEND Internal Medicine
DX: Z00.00 Encounter for general adult medical examination without abnormal findings (principal); G64 Other disorders of peripheral nervous system; R74.8 Abnormal levels of other serum enzymes; I48.91 Unspecified atrial fibrillation
CPT/HCPCS: 80048; 80061; 83721; 84443

== ENCOUNTER 2021-06-21 14:45 | Outpatient (CLI) | payer MEDICARE, BC ==
--- NOTE | 2021-06-21 16:43 | CONSULTATION NOTE ---
Palliative Care Follow Up - Referral Referring Provider: Dr. Jazmin Cárdenas Time of Visit: 1440 - 1530 Referral setting: Home Referral Reason: Chronic Cystitis/Depression - Information Sources Records reviewed: Previous records reviewed History/Review of Systems obtained from: Patient, Family (daughter and BAUTISTA) Exam limitations: Clinical condition (patient with STM deficits) - History of Present Illness Update Brief HPI Update: This is an 86-year-old woman with persistent cystitis, overactive bladder, does continue to struggle with fluctuating pain. She has multiple other problems as well, including atrial fib on eliquis, chronic back and hip pain, and worsening fatigue. Patient had called last week for an exacerbation of her "bladder pain", she had kept telling as she was taking "10 mg of morphine" at bedtime. She was feeling groggy with hangover, when she gets feeling painful, she wants to go on hospice and throw in the towel. She has been self cathing, mostly though it feels overextended, or prior to going out so one to two times a day. Daughter is wondering about revisiting Sanford cath permanently, patient remains quite resistant. She did have a negative experience with insertion last time we tried. She remains quite weak, no falls, she herself identified some food triggers such as eating oranges and chocolate, has found those make cystitis worse. She has tried some Azo's, when asked to show what she is taking, she is actually taking 0.1 mL which looks like a "10" on the syringe, so about 2 mg of morphine. Patient has multiple medication allergies as well as sensitivities, so unclear what the "grogginess" hangover is. She does find it effective for her pain relief. She is on gabapentin at bedtime as well she thinks it is for her PVD, "cold" feelings at night, very uncomfortable, has been mitigated at acceptable level. She was originally put on pregabalin for cystitis pain at night, and switched by PCP to gabapentin, doesn't remember original prescription was prescribed for cystitis. Because of multiple calls last week palliative care has made a visit today. Fortunately her daughter and son-in-law were able to join as we discussed the complexity of the situation and her 'suffering". We just discussed at length the concerns which included patient's emotional response to the pain, patient's discomfort, and difficulty with fluctuating status. Family is concerned when she is groggy, for high risk of falls and sequela of such. Past Medical History: Atrial fibs, pulmonary hypertension, hypertension, high cholesterol, arrhythmias, chronic constipation, urinary retention, chronic bladder infections, kidney stones, chronic vision loss, chronic sinusitis, depression, anxiety, fibromyalgia, fatigue, chronic back pain Social History - Living Situation Living arrangement: At home Living Situation: With family Support System: Patient has her own apartment in her daughter's home, she moved within her daughter Blanquita about 7 years ago. It has been difficult in the context of her daughter seeing her mom suffer. Patient does enjoy being with the family, does have a caregiver who comes and helps with driving and errands.Daughter does work, there is 2 grandchildren in the home and son-in-law is supportive as well Medications/Allergies - Medications Home Medications: Ambulatory Orders Medication Instructions Recorded Confirmed Latanoprost 0.005% Ophth Drops 1 drops EACHEYE QPM 07/07/17 06/21/21 [Xalatan Ophth Drops] Apixaban [Eliquis] 2.5 mg PO BID 08/14/19 06/21/21 Furosemide 10 mg PO DAILY PRN 08/14/19 06/21/21 Mirtazapine 3.75 mg PO QPM 08/14/19 06/21/21 estradioL [Estradiol] 1 applic TOP .2XWEEK 08/30/19 06/21/21 Cranberry 600 mg PO DAILY 11/01/19 06/21/21 D-Mannose [Mannxtra] 1,500 mg PO DAILY 11/01/19 06/21/21 Melatonin 5 - 10 mg PO QPM 11/01/19 06/21/21 Methenamine Hippurate [Hiprex] 1 gm PO BID 11/01/19 06/21/21 Senna [Senokot] 2 tab PO DAILY PRN 11/01/19 06/21/21 Acetaminophen [Tylenol Extra 1,000 mg PO TID PRN 12/14/20 06/21/21 Strength] Gabapentin [Neurontin] 200 mg PO QPM MDD 300 mg 04/16/21 06/21/21 Morphine Oral Soln [Roxanol] 2 mg PO Q4HR PRN 04/16/21 06/21/21 - Allergies Allergies/Adverse Reactions: Allergies Allergy/AdvReac Type Severity Reaction Status Date / Time ciprofloxacin [From Cipro] Allergy Severe Rash Verified 05/15/20 10:00 Heparin Analogues Allergy Severe Hives Verified 05/15/20 10:00 metoclopramide HCl * Allergy Severe Anxiety Verified 05/15/20 10:00 [From Reglan] prednisone Allergy Severe Rash Verified 05/15/20 10:00 Sulfa (Sulfonamide Allergy Severe Rash Verified 05/15/20 10:00 Antibiotics) amoxicillin [From Augmentin] Allergy Rash Verified 05/15/20 10:00 clavulanic acid Allergy Rash Verified 05/15/20 10:00 [From Augmentin] clopidogrel bisulfate * Allergy Unknown Verified 05/15/20 10:00 [From Plavix] oxycodone [Oxycodone] AdvReac Severe Edema Verified 05/15/20 10:00 hydroxychloroquine AdvReac Unknown Verified 05/15/20 10:00 Review of Systems - Constitutional Constitutional: reports: Fatigue (persistent), Weight stable (128). denies: Fever, Chills - Eyes Eyes: reports: Vision loss - Ears, Nose & Throat Ears, Nose & Throat: reports: Dry mouth - Cardiovascular Cardiovascular: reports: Palpitations, Exertional dyspnea, Decr. exercise tolerance. denies: Edema - Respiratory Respiratory: reports: SOB with exertion. denies: SOB at rest - Gastrointestinal Gastrointestinal: reports: Early satiety. denies: Constipation (intermittent; more problematic with morphine) - Genitourinary Genitourinary: reports: Frequency, Incontinence, Other (self caths) - Musculoskeletal Musculoskeletal: reports: Back pain, Stiffness, Muscle weakness - Integumentary Integumentary: reports: Dryness - Neurological Neurological: reports: General weakness, Memory problems (mild STM) - Psychiatric Psychiatric: reports: Depression, Anxiety - Hematologic/Lymphatic Hematologic/Lymph: reports: Recurrent infections (0910 last treated) - All Other Systems All Other Systems: reports: Reviewed and negative Physical Exam - Vital Signs Temperature: 97.1 C Pulse Rate: 54 Respiratory Rate: 18 O2 Saturation: 99 Blood Pressure: 128/64 - Physical Exam General Appearance: positive: No acute distress, Alert Eyes Bilateral: positive: Normal inspection, Conjunctivae nml, No scleral icterus ENT: positive: No signs of dehydration Neck: positive: Trachea midline Cardiovascular: positive: Regular rate & rhythm Respiratory: positive: No respiratory distress, Breath sounds nml Abdomen: positive: Non-tender, Soft Skin: positive: Pallor, Dryness Extremities: positive: No pedal edema Neurologic/Psychiatric: positive: Oriented x3, Mood/affect nml, Weakness, Flat affect Palliative Care - POLST Patient has POLST: Yes POLST Status: DNR, Selective Treatment Pain: Pain worsening (fluctuates;), Pain improved (hip), Comment (see HPI) Feelings of wellbeing/Perceived Quality of Life: Fair, Acceptable, Worsening Sleep: Variable sleep pattern Constipation: Yes Performance Status: Patient's functional status fluctuates along with her levels of pain. She is also deeply influenced by sleep, lack of sleep makes her more emotional lately ball as well is weaker. Patient still is able to manage her ADLs, walk short distances in the home, her ambulation is impacted also by her lower back pain, hip pain and weakness. She does feel the cortisone shot helped, but continues to identify it as problematic. - Palliative Care Discussion: Family meeting with daughter, patient, and son-in-law. Family expressed concerns regarding patient's suffering, fluctuating status, and emotional response to her pain. They are also concerned about safety issues and needing increased support. Patient remains quite resistant to many changes, and likes to spin a positive light on things when she is feeling well.Patient has in the past expressed she would not want further antibiotics for any UTI, though of note has not had any recurrent infections but fluctuating pain related to her cystitis.She is trying to limit her appointments, and interventions, she asked me again about the ultrasound for liver, we discussed if she were not going to do anything about it, does not make sense to follow through in the context of her anxiety and goals of no further intervention.Reviewed treatment plan, things to try, and will continue to follow. Patient does not demonstrate any weight loss, minimal functional decline, and though fluctuating symptom burden, is doing well today. Impression and Recommendations - Palliative Care Impression: This is an 86-year-old woman who continues to struggle with her fluctuating health status, multiple comorbidities, and her persistent chronic cystitis. She is quite frail, though is currently satisfied with her quality of life, though with pain exacerbation, wants to "be done with it". Patient has been using morphine with the effective management of pain at night, concerns for patient's grogginess in a.m., will explore/trial different approaches. Palliative care providing support and will transition to hospice when appropriate. Recommendations/Counseling Done: 1. Chronic cystitis. Patient continues with symptoms that fluctuate of discomfort, she did identify some triggers that make it worse.She has been offered a Sanford catheter, with her most recent exacerbation her daughter wanted to revisit this. Patient continues to decline this. She is managing with self cathing 1-2 times a day. She is using morphine about 2 mg at bedtime, she does not have pain every night. Instructed to use morphine 2 mg at bedtime only if she is having pain, she does not have pain every night, and also to put a small dose at bedside, if she wakes up in pain to be able to take this to mitigate discomfort. She verbalized understanding. We also discussed if she needs smaller dosing, I could change the concentration, but am hesitant to make things more complicated with to concentrations. 2. Grogginess. This is in the a.m., patient's PCP changed her from pregabalin 50 mg to gabapentin 300 mg, I suspect that this is part of her "hangover". We discussed decreasing back down to 200 mg. Also we introduced possibly changing to pregabalin with less side effects again. Reiterated most likely not the morphine as it is very short acting. 3. Anxiety. Patient has fluctuating anxiety related to her status, and impending decline. She gets very distressed and daughter perceives her "suffering" when she has pain episodes, she does have lorazepam there for comfort kit, did discuss could try half a dose to see if mitigates when she has her panic attacks. Requested they try it though in supervised setting in the context patient has many drug allergies and side effects of medications. 4. Generalized weakness. Had encouraged patient to restart physical therapy, she has been going to [facility]. She finds transportation issues problematic regarding this, but does see this could be a positive. Reiterated to call if needs new prescription. 5. Advance care planning. Patient continues to set goals so remains ambivalent as far as her health situation. She has had a introductory hospice visit she does have a POLST with DN AR/DNI and comfort measures, at this point she does not feel like she would treat a serious infection though suspect she may choose otherwise if faced with this decision again.Family remains supportive of patient, we did discuss about increased support for patient with more paid caregiving. Family does have a pending trip, with caregiver support arranged. 50 minutes with greater than 50% of this done in counseling regarding goals of care, pain and symptom management, and anticipatory guidance.
== END 2021-06-21 14:46 | disposition home or self-care (01) ==
LOC: PC 14:45
PROVIDERS: ATTEND Nurse Practitioner Adult Health
DX: Z51.5 Encounter for palliative care (principal); N30.20 Other chronic cystitis without hematuria; R39.89 Other symptoms and signs involving the genitourinary system; F41.9 Anxiety disorder, unspecified; R53.83 Other fatigue; R53.1 Weakness; Z79.899 Other long term (current) drug therapy; Z79.01 Long term (current) use of anticoagulants; Z66 Do not resuscitate
CPT/HCPCS: 99349

== ENCOUNTER 2021-10-29 15:46 | Emergency (ER) | payer MEDICARE, BC ==
--- OUTSIDE RECORDS SUMMARY | 2021-10-29 15:57 | EXTERNAL MEDICAL SUMMARY RPT | Continuity of Care Document ---
:1935 Author Organization [facility] Address [address] [place], [place] [id number] Phone Allergies No information. Encounters No information. Functional Status No information. Immunizations No information. Medications No information. Problems No information. Procedures No information. Results/Labs test date author facility value unit interpret ation Result panel 1 (unknown) (no (unknown) (unknown) (no value) (units (unk nown) date) unknown) (unknown) (no (unknown) (unknown) 10/28/21 (units (unkno wn) date) unknown) (unknown) (no (unknown) (unknown) [address] [place] [address] (units (unknown) date) unknown) (unknown) (no (unknown) (unknown) [id number] (units (unkno wn) date) unknown) (unknown) (no (unknown) (unknown) Accession Number: (units (unknown) date) [id number] unknown) (unknown) (no (unknown) (unknown) Age/Sex: 86 / F (units (unknown) date) Date of Service: unknown) (unknown) (no (unknown) (unknown) [place], [place] (units ( unknown) date) [id number] unknown) (unknown) (no (unknown) (unknown) Approved by: Devyn (units (unknown) date) Adilia Sharma on unknown) 10/28/2021 at 16:31 (unknown) (no (unknown) (unknown) COMPARISON: None. (units (unknown) date) unknown) (unknown) (no (unknown) (unknown) Complications: (units (unknown) date) None. unknown) (unknown) (no (unknown) (unknown) : 1935 (units (unknown) date) Acct:[id number] unknown) (unknown) (no (unknown) (unknown) Dictated by: Devyn (units (unknown) date) Adilia Sharma on unknown) 10/28/2021 at 16:28 (unknown) (no (unknown) (unknown) FINDINGS: (units (unkn own) date) unknown) (unknown) (no (unknown) (unknown) IMPRESSION: (units (un known) date) Successful unknown) fluoroscopically guided administration of steroid and (unknown) (no (unknown) (unknown) INDICATIONS: Other (units (unknown) date) bursitis of hip, unknown) left hip (unknown) (no (unknown) (unknown) Intra-articular (units (unknown) date) location of the unknown) needle tip was confirmed by injecting a small (unknown) (no (unknown) (unknown) [facility] (units (unknown) date) unknown) (unknown) (no (unknown) (unknown) Joint injected: (units (unknown) date) Left unknown) femoroacetabular joint (unknown) (no (unknown) (unknown) Loc: RAD (units (unkno wn) date) unknown) (unknown) (no (unknown) (unknown) Medications (units (un known) date) injected: 4 mL of unknown) 40 mg/mL Kenalog and 0.5% Ropivacaine mixture. (unknown) (no (unknown) (unknown) Ordering Provider: (units (unknown) date) Daquan Escobar unknown) (unknown) (no (unknown) (unknown) PROCEDURE: FL (units ( unknown) date) JOINT INJECTION unknown) LARGE LT (unknown) (no (unknown) (unknown) Patient's pain (units (unknown) date) after injection: 0 unknown) out of 10. (unknown) (no (unknown) (unknown) Patient's pain (units (unknown) date) before injection: 5 unknown) out of 10. (unknown) (no (unknown) (unknown) Patient: (units (unkno wn) date) Nidhi Fair MR#: unknown) [id number] (unknown) (no (unknown) (unknown) Procedure: FL (units ( unknown) date) joint injection unknown) large LT (unknown) (no (unknown) (unknown) Signed (units (unkno wn) date) unknown) (unknown) (no (unknown) (unknown) TECHNIQUE: (units (unk nown) date) unknown) (unknown) (no (unknown) (unknown) The indications, (units (unknown) date) alternatives, unknown) benefits, risks, and complications of the (unknown) (no (unknown) (unknown) The patient was (units (unknown) date) placed in an unknown) appropriate position on the fluoroscopy table, (unknown) (no (unknown) (unknown) XRay Report (units (un known) date) unknown) (unknown) (no (unknown) (unknown) amount of (units (unkn own) date) unknown) (unknown) (no (unknown) (unknown) anaesthetic (units (un known) date) unknown) (unknown) (no (unknown) (unknown) and a site (units (unk nown) date) unknown) (unknown) (no (unknown) (unknown) and a (units (unkno wn) date) unknown) (unknown) (no (unknown) (unknown) bandage applied to (units (unknown) date) the puncture site. unknown) (unknown) (no (unknown) (unknown) contrast, followed (units (unknown) date) by steroid unknown) administration. The needle was then withdrawn, (unknown) (no (unknown) (unknown) draped in a (units (un known) date) sterile fashion. unknown) Local anesthetic was administered using a 1% (unknown) (no (unknown) (unknown) explained to the (units (unknown) date) patient. Written unknown) informed consent was obtained and placed in (unknown) (no (unknown) (unknown) lidocaine (units (unkn own) date) unknown) (unknown) (no (unknown) (unknown) prepped and (units (un known) date) unknown) (unknown) (no (unknown) (unknown) procedure were (units (unknown) date) unknown) (unknown) (no (unknown) (unknown) solution into the (units (unknown) date) left hip joint. unknown) (unknown) (no (unknown) (unknown) solution. A (units (un known) date) hypodermic or unknown) spinal needle was then used to access the (unknown) (no (unknown) (unknown) symptomatic joint. (units (unknown) date) unknown) (unknown) (no (unknown) (unknown) the chart. (units (unk nown) date) unknown) (unknown) (no (unknown) (unknown) was chosen for (units (unknown) date) percutaneous access unknown) under fluoroscopic guidance. The site was Social History No information. Vital Signs No information.
--- NOTE | 2021-10-29 16:45 | ED Physician Documentation ---
History of Present Illness - Stated complaint Stated Complaint: FEMALE - Chief complaint Chief Complaint: Abd Pain - Additonal information Additional information: 86-year-old female presents emergency department for evaluation of Sanford ca theter that is failed to drain. It was placed by her palliative care provider Mame Jacome last week for increasing urinary frequency especially at nighttime. Patient states that yesterday the Sanford was draining fine but since this morning it has not drained at all. She has been having a lot of lower suprapubic pain as well as overflow incontinence. No fevers. 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: Other : Retention, Incontinence, Chronic bladder infection, Nocturia, Frequency, Kidney stones HEENT: Chronic vision loss, Chronic sinusitis Psych: Depression, Anxiety Musculoskeletal: Fibromyalgia, Fatigue, Chronic back pain Derm: None - Past Surgical History Past Surgical History: Yes General: 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 /SIGNAL ENGINEER: section, Hysterectomy HEENT: Cataracts, Tonsil/Adenoidectomy - Present Medications Home Medications: Ambulatory Orders Medication Instructions Recorded Confirmed Latanoprost 0.005% Ophth Drops 1 drops EACHEYE QPM 07/07/17 06/21/21 [Xalatan Ophth Drops] Apixaban [Eliquis] 2.5 mg PO BID 08/14/19 06/21/21 Furosemide 10 mg PO DAILY PRN 08/14/19 06/21/21 Mirtazapine 3.75 mg PO QPM 08/14/19 06/21/21 estradioL [Estradiol] 1 applic TOP .2XWEEK 08/30/19 06/21/21 Cranberry 600 mg PO DAILY 11/01/19 06/21/21 D-Mannose [Mannxtra] 1,500 mg PO DAILY 11/01/19 06/21/21 Melatonin 5 - 10 mg PO QPM 11/01/19 06/21/21 Methenamine Hippurate [Hiprex] 1 gm PO BID 11/01/19 06/21/21 Senna [Senokot] 2 tab PO DAILY PRN 11/01/19 06/21/21 Acetaminophen [Tylenol Extra 1,000 mg PO TID PRN 12/14/20 06/21/21 Strength] Gabapentin [Neurontin] 200 mg PO QPM MDD 300 mg 04/16/21 06/21/21 Morphine Oral Soln [Roxanol] 2 mg PO Q4HR PRN 04/16/21 06/21/21 - Allergies Allergies/Adverse Reactions: Allergies Allergy/AdvReac Type Severity Reaction Status Date / Time ciprofloxacin [From Cipro] Allergy Severe Rash Verified 10/29/21 15:56 Heparin Analogues Allergy Severe Hives Verified 10/29/21 15:56 metoclopramide HCl * Allergy Severe Anxiety Verified 10/29/21 15:56 [From Reglan] prednisone Allergy Severe Rash Verified 10/29/21 15:56 Sulfa (Sulfonamide Allergy Severe Rash Verified 10/29/21 15:56 Antibiotics) amoxicillin [From Augmentin] Allergy Rash Verified 10/29/21 15:56 clavulanic acid Allergy Rash Verified 10/29/21 15:56 [From Augmentin] clopidogrel bisulfate * Allergy Unknown Verified 10/29/21 15:56 [From Plavix] oxycodone [Oxycodone] AdvReac Severe Edema Verified 10/29/21 15:56 hydroxychloroquine AdvReac Unknown Verified 10/29/21 15:56 - Social History Does the pt smoke?: No Smoking Status: Never smoker Does the pt drink ETOH?: No Does the pt have substance abuse?: No - Immunizations Immunizations are current?: Yes - POLST Patient has POLST: Yes POLST Status: DNR PD ED PE NORMAL - General General: Alert and oriented X 3, No acute distress, Well developed/nourished - HEENT HEENT: Atraumatic, Moist mucous membranes - Neck Neck: Supple, no meningeal sign, No adenopathy - Cardiac Cardiac: RRR, No murmur - Respiratory Respiratory: Clear bilaterally - Abdomen Abdomen: Normal bowel sounds, Soft, Non distended. No: Non tender (Mild tenderness in the suprapubic region. No guarding or rebound. No flank or CVA tenderness) - Derm Derm: Normal color, Warm and dry, No rash - Extremities Extremities: No deformity, No tenderness to palpate, Normal ROM s pain - Neuro Neuro: Alert and oriented X 3, energy auditor 2-12 intact Eye Opening: Spontaneous Motor: Obeys Commands Verbal: Oriented GCS Score: 15 Results - Vitals Vitals: Vital Signs - 24 hr 10/29/21 15:50 Temperature 36.7 C Heart Rate 75 Respiratory 16 Rate Blood Pressure 140/109 H O2 Saturation 99 Oxygen O2 Source [With Activity] Room air O2 Source Room air - Labs Labs: Laboratory Tests 10/29/21 17:09 Urine Color YELLOW Urine Clarity HAZY Urine pH 5.5 Ur Specific [place] 1.015 Urine Protein NEGATIVE Urine Glucose (UA) NEGATIVE Urine Ketones NEGATIVE Urine Occult Blood NEGATIVE Urine Nitrite NEGATIVE Urine Bilirubin NEGATIVE Urine Urobilinogen 0.2 (NORMAL) Ur Leukocyte Esterase TRACE H Urine RBC 0-5 Urine WBC 6-10 H Ur Squamous Epith Cells NONE SEEN Urine Bacteria Many H Ur Microscopic Review INDICATED Urine Culture Comments INDICATED PD MEDICAL DECISION MAKING - ED course Complexity details: considered differential, d/w patient, d/w family ED course: 86-year-old female who is a palliative care patient presents emergency department for evaluation of an obstructed Sanford that stopped draining this morning. She has suprapubic discomfort. Catheter was exchanged easily at the bedside and now draining adequately. UA is consistent with infection but if she is a palliative care patient she is declining antibiotics. Patient is stable and wishes for discharge home. Emergent return precautions were discussed For failure of the catheter to adequately drain Departure - Departure Disposition: 01 Home, Self Care Clinical Impression: Obstructed Sanford catheter Qualifiers: Encounter type: initial encounter Qualified Code(s): T83.091A - Other mechanical complication of indwelling urethral catheter, initial encounter Comments: Nidhi was seen today in the emergency department because your Sanford catheter stopped draining. We have exchanged it here in the ER and it appears to be draining well. You are stable for discharge home. Continue to follow-up with Mame Jacome. Your urine does show signs of infection but this can be common in people that have urinary tract infections. In addition to this because your palliative care patient you are declining antibiotics at this time which is appropriate. If you have any further concerns of failure of your Sanford to drain adequately do not hesitate to return to the ER
[2021-10-29 17:23] LABS: BILIRUBIN,URINE NEGATIVE (NEGATIVE); GLUCOSE, URINE (UA) NEGATIVE (NEGATIVE); KETONES,URINE (UA) NEGATIVE (NEGATIVE); LEUKOCYTE ESTERASE, URINE TRACE (NEGATIVE); NITRITE,URINE NEGATIVE (NEGATIVE); OCCULT BLOOD,URINE NEGATIVE (NEGATIVE); PH,URINE 5.5 PH (5.0-7.5); PROTEIN,URINE NEGATIVE (NEGATIVE); UROBILINOGEN,URINE 0.2 (NORMAL) E.U./dL (NORMAL)
[2021-10-29 17:27] LABS: CLARITY,URINE HAZY (CLEAR)
[2021-10-29 17:33] LABS: RBC,URINE 0-5 /HPF (0-5); SQUAMOUS EPITHELIAL CELL,UR NONE SEEN (<= Few)
[2021-10-29 17:34] LABS: BACTERIA,URINE Many /HPF (None Seen)
[2021-10-29 17:46] VITALS: BP 141/58
== END 2021-10-29 18:00 | disposition home or self-care (01) ==
LOC: ED 15:46
DX: T83.098A Other mechanical complication of other urinary catheter, initial encounter (principal); Y73.8 Miscellaneous gastroenterology and urology devices associated with adverse incidents, not elsewhere classified; I48.91 Unspecified atrial fibrillation; I10 Essential (primary) hypertension
CPT/HCPCS: 51702; 81001; 81003; 87086; 87181; 99283

== ENCOUNTER 2021-12-14 19:30 | Outpatient (CLI) | payer MEDICARE, BC | END 2021-12-14 19:31 | disposition critical access hospital (66) | LOC: EMS 19:30 | DX: R55 Syncope and collapse (principal); Z79.01 Long term (current) use of anticoagulants | CPT/HCPCS: A0425; A0427 ==

== ENCOUNTER 2021-12-14 19:40 | Emergency (ER) | payer MEDICARE, BC ==
--- NOTE | 2021-12-14 19:54 | ED Physician Documentation ---
History of Present Illness - Stated complaint Stated Complaint: FALL/SYNCOPAL EPISODE - Chief complaint Chief Complaint: Neuro - History obtained from History obtained from: Patient, EMS - Additonal information Additional information: 86yF with pmh afib on eliquis presents bibems with report of multiple syncopal episodes this evening, report that she crumpled to the floor from standing but did not hit her head. patient denies pain anywhere aside from chronic back pain. does endorse taking morphine pain pills at 3pm. received shingles/flu shot yesterday. 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: Other : Retention, Incontinence, Chronic bladder infection, Nocturia, Frequency, Kidney stones HEENT: Chronic vision loss, Chronic sinusitis Psych: Depression, Anxiety Musculoskeletal: Fibromyalgia, Fatigue, Chronic back pain Derm: None - Past Surgical History Past Surgical History: Yes General: 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 /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 KEY 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: section, Hysterectomy HEENT: Cataracts, Tonsil/Adenoidectomy - Present Medications Home Medications: Ambulatory Orders Medication Instructions Recorded Confirmed Latanoprost 0.005% Ophth Drops 1 drops EACHEYE QPM 07/07/17 06/21/21 [Xalatan Ophth Drops] Apixaban [Eliquis] 2.5 mg PO BID 08/14/19 06/21/21 Furosemide 10 mg PO DAILY PRN 08/14/19 06/21/21 Mirtazapine 3.75 mg PO QPM 08/14/19 06/21/21 estradioL [Estradiol] 1 applic TOP .2XWEEK 08/30/19 06/21/21 Cranberry 600 mg PO DAILY 11/01/19 06/21/21 D-Mannose [Mannxtra] 1,500 mg PO DAILY 11/01/19 06/21/21 Melatonin 5 - 10 mg PO QPM 11/01/19 06/21/21 Methenamine Hippurate [Hiprex] 1 gm PO BID 11/01/19 06/21/21 Senna [Senokot] 2 tab PO DAILY PRN 11/01/19 06/21/21 Acetaminophen [Tylenol Extra 1,000 mg PO TID PRN 12/14/20 06/21/21 Strength] Gabapentin [Neurontin] 200 mg PO QPM MDD 300 mg 04/16/21 06/21/21 Morphine Oral Soln [Roxanol] 2 mg PO Q4HR PRN 04/16/21 06/21/21 - Allergies Allergies/Adverse Reactions: Allergies Allergy/AdvReac Type Severity Reaction Status Date / Time ciprofloxacin [From Cipro] Allergy Severe Rash Verified 12/14/21 19:45 Heparin Analogues Allergy Severe Hives Verified 12/14/21 19:45 metoclopramide HCl * Allergy Severe Anxiety Verified 12/14/21 19:45 [From Reglan] prednisone Allergy Severe Rash Verified 12/14/21 19:45 Sulfa (Sulfonamide Allergy Severe Rash Verified 12/14/21 19:45 Antibiotics) amoxicillin [From Augmentin] Allergy Rash Verified 12/14/21 19:45 clavulanic acid Allergy Rash Verified 12/14/21 19:45 [From Augmentin] clopidogrel bisulfate * Allergy Unknown Verified 12/14/21 19:45 [From Plavix] oxycodone [Oxycodone] AdvReac Severe Edema Verified 12/14/21 19:45 hydroxychloroquine AdvReac Unknown Verified 12/14/21 19:45 - Social History Does the pt smoke?: No Smoking Status: Never smoker Does the pt drink ETOH?: No Does the pt have substance abuse?: No - Immunizations Immunizations are current?: Yes - POLST Patient has POLST: Yes POLST Status: DNR PD ED PE NORMAL - Vitals Vital signs reviewed: Yes - General General: Alert and oriented X 3, No acute distress, Well developed/nourished - HEENT HEENT: Atraumatic, PERRL, EOMI, Pharynx benign, Other (dry MM) - Neck Neck: Supple, no meningeal sign - Cardiac Cardiac: Other (Regular rate, irregular rhythm) - Respiratory Respiratory: No respiratory distress, Clear bilaterally - Abdomen Abdomen: Non tender, Non distended - Back Back: No spinal TTP - Derm Derm: Normal color, Warm and dry - Extremities Extremities: No deformity - Neuro Neuro: Alert and oriented X 3, 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 2-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, No motor deficit, No sensory deficit, Normal speech Eye Opening: Spontaneous Motor: Obeys Commands Verbal: Oriented GCS Score: 15 - Psych Psych: Normal mood, Normal affect Results - Vitals Vitals: Vital Signs - 24 hr 12/14/21 12/14/21 12/14/21 19:42 19:45 20:15 Temperature 36.7 C 36.7 C Heart Rate 79 79 88 Respiratory 18 18 12 Rate Blood Pressure 113/97 H 113/97 H 113/59 L O2 Saturation 97 97 99 12/14/21 20:30 Temperature Heart Rate 85 Respiratory 15 Rate Blood Pressure 113/73 O2 Saturation 99 Oxygen O2 Source [With Activity] Room air O2 Source Room air - EKG (time done) 2038 Rate: Rate (enter#) (84) Rhythm: Atrial fibrillation Sevier: LAD - Labs Labs: Laboratory Tests 12/14/21 12/14/21 19:47 19:47 WBC 7.8 RBC 4.68 Hgb 13.3 Hct 41.6 MCV 88.9 MCH 28.4 MCHC 32.0 RDW 14.3 Plt Count 317 MPV 10.2 Neut # (Auto) 4.8 Lymph # (Auto) 2.0 [place] # (Auto) 0.9 Eos # (Auto) 0.1 Baso # (Auto) 0.1 Absolute Nucleated RBC 0.00 Nucleated RBC % 0.0 Sodium 138 Potassium 3.5 Chloride 101 Carbon Dioxide 29 Anion Gap 8.0 BUN 21 H Creatinine 0.9 Estimated GFR (MDRD) 59 L Glucose 117 H Calcium 8.8 Total Bilirubin 0.6 AST 15 ALT 10 Alkaline Phosphatase 47 Total Protein 6.2 L Albumin 3.7 Globulin 2.5 Albumin/Globulin Ratio 1.5 Lipase 33 PD MEDICAL DECISION MAKING - ED course ED course: 86-year-old woman presented with multiple fainting episodes witnessed by family this evening after taking liquid morphine for chronic bladder pain. Patient also had a shingles/flu shot yesterday and had been feeling weak all day. Lab work, EKG, x-rays uncovered no acute findings. Discussed with family and offered ct head in event of possible head injury and IV fluids however they do not believe she hit her head and would like to take her home to hydrate orally and follow-up with her palliative care nurse Mame Jacome. Return precautions given. Departure - Departure Disposition: 01 Home, Self Care Clinical Impression: Malaise, Syncope and collapse Condition: Stable Instructions: ED Fainting Unkn Cause Comments: You were seen in the emergency department for multiple fainting episodes. Your workup uncovered no emergent cause for your symptoms. Please make sure that you hydrate well and get lots of rest. Follow-up with Mame Jacome this week. Return to the emergency department if you have any new or worsening symptoms or other concerns.
--- OUTSIDE RECORDS SUMMARY | 2021-12-14 19:56 | EXTERNAL MEDICAL SUMMARY RPT | Continuity of Care Document ---
:1935 Author Organization [facility] Address [address] [phone] Phone Allergies No information. Encounters No information. Functional Status No information. Immunizations No information. Medications No information. Problems No information. Procedures No information. Results/Labs test date author facility value unit interpret ation Result panel 1 (unknown) (no (unknown) (unknown) (no value) (units (unk nown) date) unknown) (unknown) (no (unknown) (unknown) 10/28/21 (units (unkno wn) date) unknown) (unknown) (no (unknown) (unknown) [address] [place] [address] (units (unknown) date) unknown) (unknown) (no (unknown) (unknown) [id number] (units (unkno wn) date) unknown) (unknown) (no (unknown) (unknown) Accession Number: (units (unknown) date) [id number] unknown) (unknown) (no (unknown) (unknown) Age/Sex: 86 / F (units (unknown) date) Date of Service: unknown) (unknown) (no (unknown) (unknown) [place], [place] (units ( unknown) date) [id number] unknown) (unknown) (no (unknown) (unknown) Approved by: Devyn (units (unknown) date) Adilia Sharma on unknown) 10/28/2021 at 16:31 (unknown) (no (unknown) (unknown) COMPARISON: None. (units (unknown) date) unknown) (unknown) (no (unknown) (unknown) Complications: (units (unknown) date) None. unknown) (unknown) (no (unknown) (unknown) : 1935 (units (unknown) date) Acct:[id number] unknown) (unknown) (no (unknown) (unknown) Dictated by: [...] injecting a small (unknown) (no (unknown) (unknown) [facility] (units (unknown) date) unknown) (unknown) (no (unknown) [...] (unknown) Patient: (units (unkno wn) date) Nidhi aFir MR#: unknown) [id number] (unknown) (no (unknown) (unknown) [...]
[2021-12-14 19:59] LABS: BASOPHILS # (AUTO) 0.1 10^3/uL (0.0-0.1); BASOPHILS % (AUTO) 0.9 %; EOSINOPHILS # (AUTO) 0.1 10^3/uL (0.0-0.7); EOSINOPHILS % (AUTO) 1.2 %; HCT - HEMATOCRIT 41.6 % (37.0-47.0); HGB - HEMOGLOBIN 13.3 g/dL (12.0-16.0); LYMPHOCYTES % (AUTO) 25.4 %; MEAN CORPUSCULAR HEMOGLOBIN 28.4 pg (27.0-31.0); MEAN CORPUSCULAR VOLUME 88.9 fL (81.0-99.0); MEAN PLATELET VOLUME 10.2 fL (7.9-10.8); MONOCYTES # (AUTO) 0.9 10^3/uL (0.0-1.0); NEUTROPHILS # (AUTO) 4.8 10^3/uL (1.5-6.6); NEUTROPHILS % (AUTO) 61.2 %; PLT - PLATELET COUNT 317 10^3/uL (130-450); RED BLOOD COUNT 4.68 10^6/uL (4.20-5.40); RED CELL DISTRIBUTION WIDTH 14.3 % (12.0-15.0); WHITE BLOOD COUNT 7.8 x10^3/uL (4.8-10.8)
[2021-12-14 20:06] LABS: ALBUMIN 3.7 g/dL (3.2-5.5); ALBUMIN/GLOBULIN RATIO 1.5 (1.0-2.2); BILIRUBIN,TOTAL 0.6 mg/dL (0.2-1.0); CALCIUM 8.8 mg/dL (8.5-10.3); CREATININE 0.9 mg/dL (0.4-1.0); POTASSIUM 3.5 mmol/L (3.5-5.0); TOTAL PROTEIN 6.2 g/dL (6.7-8.2)
--- NOTE | 2021-12-14 20:49 | XRAY Report ---
PROCEDURE: Pelvis 3 View INDICATIONS: fall from standing TECHNIQUE: 4 view(s) of the pelvis acquired. COMPARISON: None. FINDINGS: Bones: Pelvic ring is intact. No subcutaneous pelvic or hip fracture. No hip dislocation. Bilateral h ip joint osteoarthritic changes are seen. No evidence of avascular necrosis of femoral head. Moderate degenerative disc disease in visualized lower lumbar spine is seen. Soft tissues: Visualized bowel gas pattern is normal. No suspicious soft tissue calcifications. IMPRESSION: No acute pelvic fracture or dislocation. Bilateral hip joint osteoarthritis. No evidence of avascular necrosis. Degenerative disc disease in lower lumbar spine. Reviewed by: David Mustafa MD on 12/14/2021 8:48 PM PDT Approved by: David Mustafa MD on 12/14/2021 8:48 PM PDT Station ID: [id number]
--- NOTE | 2021-12-14 21:00 | XRAY Report ---
PROCEDURE: Chest 1 View X-Ray INDICATIONS: Chest Pain TECHNIQUE: One view of the chest was acquired. COMPARISON: None. FINDINGS: Surgical changes and devices: Surgical clips are noted in the region of right breast. Lungs and pleura: No pleural effusions or pneumothorax. Lungs are clear. Mediastinum: Mediastinal contours appear normal. Heart size is enlarged. Bones and chest wall: No suspicious bony lesions. Overlying soft tissues appear unremarkable. IMPRESSION: No acute cardiopulmonary pathology. Reviewed by: David Mustafa MD on 12/14/2021 8:58 PM PDT Approved by: David Mustafa MD on 12/14/2021 8:58 PM PDT Station ID: [id number]
[2021-12-14 21:11] VITALS: BP 116/58
== END 2021-12-14 21:19 | disposition home or self-care (01) ==
LOC: EDBD → ED 19:40
DX: R53.81 Other malaise (principal); R55 Syncope and collapse; Z66 Do not resuscitate
CPT/HCPCS: 36415; 80053; 83690; 85025; 93005; 99284

== ENCOUNTER 2022-03-01 08:00 | Outpatient (CLI) | payer MEDICARE, BC ==
--- NOTE | 2022-03-01 14:39 | XRAY Report ---
PROCEDURE: Hip 2 View LT INDICATIONS: LEFT HIP PAIN TECHNIQUE: 2 views of the hip were acquired. COMPARISON: X-ray pelvis 12/14/2021 FINDINGS: Bones: No fractures or dislocations. No suspicious bony lesions. The visualized pelvic ring appear s intact. There is overall appearance of moderate bilateral degenerative hip joint space narrowing w ith minimal osteophytes. No erosions. Degenerative changes are present within the lower lumbar spine. Soft tissues: No suspicious soft tissue calcifications or masses. IMPRESSION: Stable appearance of moderate bilateral hip arthritis. Reviewed by: Zulay Colindres MD on 03/01/2022 2:37 PM PST Approved by: Zulay Colindres MD on 03/01/2022 2:37 PM PST Station ID: [id number]
== END 2022-03-01 23:59 | disposition home or self-care (01) ==
LOC: DI.WOS 08:00
PROVIDERS: ATTEND Physician Assistant Surgical
DX: M16.0 Bilateral primary osteoarthritis of hip (principal)

== ENCOUNTER 2022-03-24 08:00 | Outpatient (CLI) | payer MEDICARE, BC ==
--- NOTE | 2022-03-24 21:03 | XRAY Report ---
PROCEDURE: Knee 4 View LT INDICATIONS: LEFT KNEE PAIN TECHNIQUE: AP standing view of both before meals other was acquired. 3 additional views of the left k nee were also acquired. COMPARISON: 12/14/2018 FINDINGS: Bones: No fractures or dislocations. No suspicious bony lesions. There is moderate medial and lateral femorotibial joint space narrowing involving both knees, with as sociated degenerative change with subchondral sclerosis and osteophyte formation. On the sunrise view, there is at least moderate left-sided patellofemoral joint space narrowing, with associated remodeling changes, including spurs along the margins of the patella. Soft tissues: No joint effusion. No suspicious soft tissue calcifications. IMPRESSION: Tricompartmental degenerative change can be seen of the left knee, which has clearly pro gressed compared to 2019. Degenerative changes of the right knee are also partially visualized on this study. Reviewed by: Derik Junior MD on 03/24/2022 8:02 PM AKST Approved by: Derik Junior MD on 03/24/2022 8:02 PM AK Station ID: [id number]
== END 2022-03-24 23:59 | disposition home or self-care (01) ==
LOC: DI.WOS 08:00
PROVIDERS: ATTEND Physician Assistant Surgical
DX: M17.0 Bilateral primary osteoarthritis of knee (principal)

== ENCOUNTER 2022-04-07 13:05 | Outpatient (CLI) | payer MEDICARE, BC ==
[~2022-04-07 13:05] MED LIST changes: +BUPIVACAINE 0.5% PF 10 ML VIAL ONE; +LIDOCAINE-MPF 1% 5 ML VIAL ONE; -SODIUM CHLORIDE 0.9% 100ML 100 ML IV ONE; -SODIUM CHLORIDE FLUSH 0.9% 10 ML SYRINGE ONE; +TRIAMCINOLONE 40 MG/ML VIAL ONE
[2022-04-07] MEDS ORDERED: TRIAMCINOLONE 40 MG/ML VIAL IM ONE (14:27)
[2022-04-07] MEDS ORDERED: LIDOCAINE-MPF 1% 5 ML VIAL TD ONE (14:29)
[2022-04-07] MEDS ORDERED: BUPIVACAINE 0.5% PF 10 ML VIAL IM ONE (14:30)
--- NOTE | 2022-05-03 09:19 | XRAY Report ---
PROCEDURE: Inj/Aspiration Major Joint INDICATIONS: ARTHRITIS LEFT HIP CONTRAST: Intra-articular iodinated contrast FLUORO TIME: 1.1 min TECHNIQUE: The indications, alternatives, benefits, risks, and complications of the procedure were explained to the patient. Written informed consent was obtained and placed in the chart. The patient was placed in an appropriate position on the fluoroscopy table, and a site was chosen for percutaneous access un kim fluoroscopic guidance. Local anesthetic was administered using a 1% lidocaine solution. A hypod ermic or spinal needle was then used to access the symptomatic joint. Intra-articular location of th e needle tip was confirmed by injecting a small amount of contrast, followed by steroid administratio n. The needle was then withdrawn, and a bandage applied to the puncture site. FINDINGS: Joint injected: Left hip Medications injected: 10 mL of 40 mg/mL Kenalog and 0.5% Ropivacaine mixture. Complications: None. IMPRESSION: Successful fluoroscopically guided administration of steroid and anaesthetic solution into the left h ip joint. Reviewed by: Parker Mcdonnell MD on 05/03/2022 9:17 AM PST Approved by: Parker Mcdonnell MD on 05/03/2022 9:17 AM PST Station ID: [id number]
== END 2022-04-07 13:06 | disposition home or self-care (01) ==
LOC: DI 13:05
PROVIDERS: ATTEND Physician Assistant Surgical
DX: M16.12 Unilateral primary osteoarthritis, left hip (principal)
CPT/HCPCS: 20610; 77002; Q9965